=== PATIENT | female | born 1965 | race Two or more races ===

== ENCOUNTER 2017-05-07 08:30 | Emergency (ER) | payer MEDICARE ==
[2017-05-07 08:39] VITALS: BP 169/100
--- NOTE | 2017-05-07 13:19 | CONS ---
NEPHROLOGY CONSULTATION: DATE OF CONSULT/DICTATION: 05/07/17 HISTORY OF PRESENT ILLNESS: Ms. العلي is a 51-year-old female who apparently moved to [place] on Sunday without making arrangements for continued dialysis. She has been on dialysis for approximately one and a half years with end-stage renal disease secondary to hypertension. She has no other significant previous medical history that her can relate to me. She has no other significant surgical history other than placement of an AV fistula for dialysis. MEDICATIONS: Include, 1. Amlodipine 5 mg daily. 2. Sevelamer 800 mg 3 t.i.d. with meals. 3. Sensipar 30 mg daily. 4. Losartan 100 mg daily. 5. Hydralazine 25 mg twice a day. ALLERGIES: She has no medical allergies. SOCIAL HISTORY: She is . She does not use tobacco or alcohol. She lives with her and her son. REVIEW OF SYSTEMS: Essentially negative. PHYSICAL EXAMINATION: She is a well-developed, well-nourished female who appears quite comfortable. Her blood pressure is 169/100 with a pulse of 101, respirations are 16. She is anicteric. Her extraocular muscles are intact. Mucous membranes are moist. Her chest is clear. Her heart revealed a regular rhythm without murmurs. Skin is warm and dry. There is no edema. She has a functioning dialysis fistula in the lower right forearm with a good bruit and thrill. LABORATORY DATA: There are no laboratory values done. IMPRESSION: 1. End-stage renal disease. 2. Hypertension. At present, we can dialyze her in the outpatient dialysis unit until she is administratively cleared as a result when we are going to need to dialyze her through the hospital until we can make further arrangements. [id number]/[facility] #: [id number] MTDKatie
[2017-05-07 13:38] LABS: Hematocrit 27 % (35-47); Hemoglobin 8.9 g/dl (12.0-16.0); Mean Corpuscular HGB Conc 33 g/dl (31-36); Mean Corpuscular Hemoglobin 30 pg (27-31); Mean Corpuscular Volume 93 fL (80-97); Mean Platelet Volume 9 um3 (7.4-10.4); Red Blood Count 2.93 10^6/ul (4.0-5.4); Red Cell Distribution Width 17 % (10.5-15); White Blood Count 7.8 10^3/ul (3.5-10.8)
[2017-05-07 13:48] LABS: Albumin 3.8 g/dL (3.2-5.2); BUN/Creatinine Ratio 7.1 (8-20); Calcium 8.4 mg/dL (8.6-10.3); EGFR African American 4.3 (>60); EGFR Non-African American 3.3 (>60); Globulin 3.6 g/dL (2-4); One Over Creatinine 0.08 mg/dL (0.51-0.95); Phosphorus 3.4 mg/dL (2.5-5.0); Total Bilirubin 0.8 mg/dL (0.2-1.0); Total Protein 7.4 g/dL (6.4-8.9)
[2017-05-07] MEDS ORDERED: Heparin DIALYSIS ONLY(*) 1,000 UNITS/ML VIAL DIALYSIS ONE (14:00)
[2017-05-07 15:15] LABS: Potassium 5.6 mmol/L (3.5-5.0)
[2017-05-07] MEDS ORDERED: Acetaminophen TAB* 325 MG ONE (16:14)
[2017-05-07] MEDS ORDERED: Acetaminophen TAB* 325 MG PO ONE (16:17)
--- NOTE | 2017-05-07 16:36 | ED ---
Demetrius Spear Thomas, scribed for Alfonzo Adler MD on 05/07/17 at 0917 . Complex/Multi-Sys Presentation - HPI Summary HPI Summary: The pt is a 51 y/o F presenting to the ED in need of a dialysis appointment. She recently moved here from [place] and has not yet made contact with a dialysis center. She normally gets dialysis three times a week. She was last dialyzed four days ago and is two days overdue. She has been on dialysis for 1 year, 8 months. PMHx: kidney failure, dialysis, HTN. PSHx: AV fistula. SHx: former smoker, rare alcohol use, no illicit drug use. FHx: HTN, DM. She is accompanied by her who acts as an boilermaking supervisor as she speaks only Brazilian. - History Of Current Complaint Chief Complaint: EDGeneral Time Seen by Provider: 05/07/17 09:07 Hx Obtained From: Patient, Family/Diet Supervisor - is present Onset/Duration: Still Present Timing: Constant Severity Currently: Moderate - she is two days over-due for dialysis Location: Negative Aggravating Factor(s): None Alleviating Factor(s): None Related History: Other - She is a dialysis patient in need of a dialysis referral - Allergies/Home Medications Allergies/Adverse Reactions: Allergies Allergy/AdvReac Type Severity Reaction Status Date / Time No Known Allergies Allergy Verified 05/07/17 08:37 PMH/Surg Hx/FS Hx/Imm Hx Previously Healthy: No Cardiovascular History: Reports: Hx Hypertension History: Reports: Hx Chronic Renal Failure - Surgical History Surgery Procedure, Year, and Place: AV Fistula Infectious Disease History: No Infectious Disease History: Denies: Traveled Outside the US in Last 30 Days - Family History Known Family History: Positive: Hypertension, Diabetes - Social History Alcohol Use: Rare Hx Substance Use: No Substance Use Type: Reports: None Hx Tobacco Use: Yes Smoking Status (MU): Former Smoker Review of Systems Negative: Fever Positive: other - Two days over-due for dialysis All Other Systems Reviewed And Are Negative: Yes Physical Exam Triage Information Reviewed: Yes Vital Signs On Initial Exam: Initial Vitals Temp Pulse Resp BP Pulse Ox 98.2 F 101 16 169/100 100 05/07/17 08:37 05/07/17 08:37 05/07/17 08:37 05/07/17 08:37 05/07/17 08:37 Vital Signs Reviewed: Yes Appearance: Positive: Well-Appearing, No Pain Distress Skin: Positive: Warm, Skin Color Reflects Adequate Perfusion Head/Face: Positive: Normal Head/Face Inspection Eyes: Positive: EOMI ENT: Positive: Normal ENT inspection Neck: Positive: Supple, Nontender Respiratory/Lung Sounds: Positive: Clear to Auscultation, Breath Sounds Present Cardiovascular: Positive: RRR. Negative: Murmur Abdomen Description: Positive: Nontender Musculoskeletal: Positive: Strength/ROM Intact Neurological: Positive: Sensory/Motor Intact, Alert, Oriented to Person Place, Time, CN Intact II-III Psychiatric: Positive: Normal - Toney Coma Scale Best Eye Response: 4 - Spontaneous Best Motor Response: 6 - Obeys Commands Best Verbal Response: 5 - Oriented Coma Scale Total: 15 Diagnostics - Vital Signs Vital Signs Temp Pulse Resp BP Pulse Ox 05/07/17 08:37 98.2 F 101 16 169/100 100 - Laboratory Result Diagrams: 05/07/17 13:17 05/07/17 13:17 Lab Statement: Any lab studies that have been ordered have been reviewed, and results considered in the medical decision making process. Complex Multi-Symp Course/Dx Assessment/Plan: The pt is a 51 y/o F presenting to the ED in need of a dialysis appointment. She is diagnosed with CRF and encounter for a medical screen exam. She is comfortable. Patient is stable. She will be dialysed by Dr Santoro today from the ER when they can fit her in. - Diagnoses Provider Diagnoses: Encounter for medical screening examination, CRF (chronic renal failure), Hypertension Discharge - Discharge Plan Condition: Good Disposition: HOME Discharge Disposition Comment: Patient will be walked over to the dialysis center Patient Education Materials: Hypertension (ED), End Stage Kidney Disease (ED) Referrals: Honorio Santoro MD [Medical Doctor] - Additional Instructions: go to the dialysis center at this hospital after discharge. The documentation as recorded by the Demetrius guerrero Thomas accurately reflects the service I personally performed and the decisions made by me, Alfonzo Adler MD.
== END 2017-05-07 16:19 | disposition home or self-care (01) ==
LOC: ED 08:30
DX: Z00.00 Encounter for general adult medical examination without abnormal findings (principal); I10 Essential (primary) hypertension; N18.9 Chronic kidney disease, unspecified; Z00.8 Encounter for other general examination; Z99.2 Dependence on renal dialysis
CPT/HCPCS: 36415; 80053; 84100; 85027; 99283; A9270-GY; J1644

== ENCOUNTER → 2017-05-09 08:28 | Emergency (ER) | payer MEDICARE ==
[~2017-05-09 08:28] MED LIST: Epoetin Alfa* 2,000 UNITS/ML VIAL IV ONE; Epoetin Alfa* 3,000 UNITS/ML VIAL IV ONE; Heparin DIALYSIS ONLY(*) 1,000 UNITS/ML VIAL DIALYSIS ONE
[2017-05-09 08:34] VITALS: BP 141/81
--- NOTE | 2017-05-10 07:49 | ED ---
Demetrius Spear Thomas, scribed for Isak Marks MD on 05/09/17 at 0912 . Complex/Multi-Sys Presentation - HPI Summary HPI Summary: The patient is a 51 y/o F who presents to the ED in need of dialysis. She has dialysis on M//. She has been dialyzed for the last 1 year and 8 months. She recently moved from [place] and is in the process of establishing a dialysis center in the [facility]. She was seen at [facility] two days ago and was last dialyzed then. PMHx: CRF, dialysis, HTN. PSHx: AV fistula. SHx: former smoker, rare alcohol use, no illicit drug use. FHx: HTN, DM. She is accompanied by her . She speaks only Urdu and her acts as her speed belt sander. - History Of Current Complaint Chief Complaint: EDGeneral Time Seen by Provider: 05/09/17 08:53 Hx Obtained From: Patient, Family/[employer] Distributor - is present, who acts as speed belt sander Onset/Duration: Lasting Days - she was last dialyzed 2 days ago and is due today , Still Present Timing: Constant Aggravating Factor(s): None Alleviating Factor(s): None Associated Signs And Symptoms: Positive: Other - Needs dialysis Related History: Other - Hx of CRF and the pt has been on dialysis for the last 1 year, 8 months - Allergies/Home Medications Allergies/Adverse Reactions: Allergies Allergy/AdvReac Type Severity Reaction Status Date / Time No Known Allergies Allergy Verified 05/07/17 08:37 PMH/Surg Hx/FS Hx/Imm Hx Previously Healthy: No Cardiovascular History: Reports: Hx Hypertension History: Reports: Hx Chronic Renal Failure - Surgical History Surgery Procedure, Year, and Place: AV Fistula Infectious Disease History: Yes Infectious Disease History: Denies: Traveled Outside the US in Last 30 Days - Family History Known Family History: Positive: Hypertension, Diabetes - Social History Alcohol Use: Rare Hx Substance Use: No Substance Use Type: Reports: None Hx Tobacco Use: Yes Smoking Status (MU): Former Smoker Review of Systems Negative: Fever Positive: other - Needs dialysis (M/W/F and last dialyzed two days ago) All Other Systems Reviewed And Are Negative: Yes Physical Exam Triage Information Reviewed: Yes Vital Signs On Initial Exam: Initial Vitals Temp Pulse Resp BP Pulse Ox 98.1 F 98 20 141/81 95 10/04/17 08:31 05/09/17 08:31 05/09/17 08:31 05/09/17 08:31 05/09/17 08:31 Vital Signs Reviewed: Yes Appearance: Positive: Well-Appearing, No Pain Distress, Obese Skin: Positive: Warm, Skin Color Reflects Adequate Perfusion, Dry Head/Face: Positive: Normal Head/Face Inspection Eyes: Positive: Normal ENT: Positive: Normal ENT inspection Neck: Positive: Supple, Nontender Respiratory/Lung Sounds: Positive: Clear to Auscultation, Breath Sounds Present Cardiovascular: Positive: RRR Abdomen Description: Positive: Nontender, Soft Bowel Sounds: Positive: Present Musculoskeletal: Positive: Normal Neurological: Positive: Normal Psychiatric: Positive: Normal, Affect/Mood Appropriate Diagnostics - Vital Signs Vital Signs Temp Pulse Resp BP Pulse Ox 05/09/17 08:31 98.1 F 98 20 141/81 95 - Laboratory Lab Statement: Any lab studies that have been ordered have been reviewed, and results considered in the medical decision making process. Complex Multi-Symp Course/Dx - Diagnoses Provider Diagnoses: Acute renal failure Discharge - Discharge Plan Condition: Stable Disposition: HOME Patient Education Materials: End Stage Kidney Disease (ED) Referrals: Honorio Santoro MD [Medical Doctor] - 05/12/17 Additional Instructions: Follow up with Dr. Santoro, bridge toll collector, on May 12. The documentation as recorded by the Demetrius guerrero Thomas accurately reflects the service I personally performed and the decisions made by , Isak Marks MD.
== END | disposition home or self-care (01) ==
LOC: ED 08:28
DX: N17.9 Acute kidney failure, unspecified (principal); Z87.891 Personal history of nicotine dependence; Z99.2 Dependence on renal dialysis; I12.0 Hypertensive chronic kidney disease with stage 5 chronic kidney disease or end stage renal disease; E11.22 Type 2 diabetes mellitus with diabetic chronic kidney disease; N18.6 End stage renal disease
CPT/HCPCS: 99281; J0885; J1644

== ENCOUNTER 2017-12-04 01:36 | Inpatient (IN) | payer MEDICARE, MEDICAID ==
--- OUTSIDE RECORDS SUMMARY | 2017-12-04 02:02 | XMS REPORT ---
:1965 External Reference #:[id number] Author Organization [employer] Address [address] [place] [address] Phone [phone] Care Team Providers Name Role Phone Memo Garcia MD Primary Care Physician Unavailable Payers Type Date Identification Numbers Payment Provider Subscriber Medicare Primary Policy Number: [id number] Medicare Telma العلي PayID: [id number] [address] [place] [address] [facility] Policy Number: [id number] Medicaid Telma العلي Group Name: 1 1 [address] PayID: [id number] [place] [address] Problems Description No Information Social History Type Date Description Comments Lives With Spouse Occupation Unemployed ETOH Use Denies alcohol use Smoking Patient has never smoked Allergies, Adverse Reactions, Alerts Date Description Reaction Status Severity Comments 10/29/2017 Aspirin active Medications Medication Date Status Form Strength Qnty SIG Indications Ordering Provider No Active 10/29/2017 Active Unknown Medications Vital Signs Date Vital Result Comment 11/12/2017 Height 62 inches 5'2" Weight 140.00 lb Heart Rate 99 /min BP Systolic 148 mmHg BP Diastolic 98 mmHg Respiratory Rate 16 /min Body Temperature 98.0 F BMI (Body Mass Index) 25.6 kg/m2 10/29/2017 Height 62 inches 5'2" Weight 140.00 lb Heart Rate 99 /min Respiratory Rate 14 /min Body Temperature 98.3 F Pain Level 6 BMI (Body Mass Index) 25.6 kg/m2 Results Description No Information Procedures Date CPT Code Description Status 10/29/2017 93401 Closed [place] Phalanx finger/thumb shaft w/o manipulation Completed Plan of Care Future Appointment(s):12/12/2017 1:00 pm - Lawrence Tovar MD at [facility]11/12/2017 - Lawrence Tovar, [id number] Disp fx of prox phalanx of l lit fngr, 7thDFollow up:Follow up: 4 weeks with xrays
[2017-12-04 04:49] LABS: ABS Basophils 0.1 10^3/ul (0-0.2); ABS Eosinophils 0.3 10^3/ul (0-0.6); ABS Monocytes 0.7 10^3/ul (0-0.8); ABS Neutrophils 4.9 10^3/ul (1.5-7.7); ABS Nucleated RBC 0 10^3/ul; Eosinophil % 4.2 % (0-6); Hematocrit 33 % (35-47); Hemoglobin 10.6 g/dl (12.0-16.0); Lymphocyte % 14.1 % (25-47); Mean Corpuscular HGB Conc 32 g/dl (31-36); Mean Corpuscular Hemoglobin 30 pg (27-31); Mean Corpuscular Volume 93 fL (80-97); Mean Platelet Volume 9.1 um3 (7.4-10.4); Nucleated Red Blood Cells % 0; Platelet Count 196 10^3/ul (150-450); Red Blood Count 3.52 10^6/ul (4.0-5.4); Red Cell Distribution Width 17 % (10.5-15)
[2017-12-04] MEDS ORDERED: Metoprolol Tartrate TAB* 25 MG PO ONE (05:04)
--- NOTE | 2017-12-04 05:30 | ED ---
Vale Spear Rebecca, scribed for Ning Sorensenuel on 12/04/17 at 0315 . Complex/Multi-Sys Presentation - HPI Summary HPI Summary: Pt is a 52 y/o F accompanied by son who presents to ED c/o hemoptysis. Son states that she coughs every night, but this was the first time she produced blood. Denies fever, CP. Is on Dialysis - last treatment was Sunday (3 days ago), next one is today. Son is acting as electric mule operator, as pt speaks Luxembourgish. - History Of Current Complaint Chief Complaint: EDGIBleed Time Seen by Provider: 12/04/17 03:00 Hx Obtained From: Patient Onset/Duration: Still Present Severity Currently: None Location: Negative Aggravating Factor(s): Nothing Alleviating Factor(s): Nothing Associated Signs And Symptoms: Positive: Other - Cough (hemoptysis) - Allergies/Home Medications Allergies/Adverse Reactions: Allergies Allergy/AdvReac Type Severity Reaction Status Date / Time aspirin Allergy Bleeding Verified 12/04/17 01:42 PMH/Surg Hx/FS Hx/Imm Hx Cardiovascular History: Reports: Hx Hypertension History: Reports: Hx Chronic Renal Failure - Surgical History Surgery Procedure, Year, and Place: AV Fistula Infectious Disease History: No Infectious Disease History: Denies: Traveled Outside the US in Last 30 Days - Family History Known Family History: Positive: Hypertension, Diabetes - Social History Alcohol Use: Rare Hx Substance Use: No Substance Use Type: Reports: None Hx Tobacco Use: Yes Smoking Status (MU): Former Smoker Review of Systems Negative: Fever Negative: Chest Pain Positive: Cough - hemoptysis All Other Systems Reviewed And Are Negative: Yes Physical Exam - Summary Physical Exam Summary: Appearance: Well appearing, no pain distress Skin: warm, dry, reflects adequate perfusion Head/face: normal Eyes: EOMI, MARIANA ENT: normal Neck: supple, non-tender Respiratory: CTA, breath sounds present Cardiovascular: RRR, pulses symmetrical ~ Abdomen: non-tender, soft Bowel: present Musculoskeletal: strength/ROM intact, fistula in the right arm Neuro: normal, sensory motor intact, A&Ox3 Triage Information Reviewed: Yes Vital Signs On Initial Exam: Initial Vitals Temp Pulse Resp BP Pulse Ox 99 F 119 22 185/99 100 12/04/17 01:41 12/04/17 01:41 12/04/17 01:41 12/04/17 01:41 12/04/17 01:41 Vital Signs Reviewed: Yes Diagnostics - Vital Signs Vital Signs Temp Pulse Resp BP Pulse Ox 12/04/17 01:41 99 F 119 22 185/99 100 - Laboratory Lab Results: Lab Results 12/04/17 12/04/17 12/04/17 Range/Units 04:11 04:11 04:11 WBC 7.0 (3.5-10.8) 10^3/ul RBC 3.52 L (4.0-5.4) 10^6/ul Hgb 10.6 L (12.0-16.0) g/dl Hct 33 L (35-47) % MCV 93 (80-97) fL MCH 30 (27-31) pg MCHC 32 (31-36) g/dl RDW 17 H (10.5-15) % Plt Count 196 (150-450) 10^3/ul MPV 9.1 (7.4-10.4) um3 Neut % (Auto) 70.4 (38-83) % Lymph % (Auto) 14.1 L (25-47) % Larue % (Auto) 10.4 H (0-7) % Eos % (Auto) 4.2 (0-6) % Baso % (Auto) 0.9 (0-2) % Absolute Neuts (auto) 4.9 (1.5-7.7) 10^3/ul Absolute Lymphs (auto) 1.0 (1.0-4.8) 10^3/ul Absolute Monos (auto) 0.7 (0-0.8) 10^3/ul Absolute Eos (auto) 0.3 (0-0.6) 10^3/ul Absolute Basos (auto) 0.1 (0-0.2) 10^3/ul Absolute Nucleated RBC 0 10^3/ul Nucleated RBC % 0 INR (Anticoag Therapy) 0.90 (0.77-1.02) APTT 27.9 (26.0-36.3) seconds Sodium (139-145) mmol/L Potassium (3.5-5.0) mmol/L Chloride (101-111) mmol/L Carbon Dioxide (22-32) mmol/L Anion Gap (2-11) mmol/L BUN (6-24) mg/dL Creatinine (0.51-0.95) mg/dL Est GFR ( Amer) (>60) Est GFR (Non-Af Amer) (>60) BUN/Creatinine Ratio (8-20) Glucose (70-100) mg/dL Calcium (8.6-10.3) mg/dL Total Bilirubin (0.2-1.0) mg/dL AST (13-39) U/L ALT (7-52) U/L Alkaline Phosphatase (34-104) U/L Troponin I (<0.04) ng/mL B-Natriuretic Peptide 614 H ( - 100) pg/mL Total Protein (6.4-8.9) g/dL Albumin (3.2-5.2) g/dL Globulin (2-4) g/dL Albumin/Globulin Ratio (1-3) 12/04/17 Range/Units 04:11 WBC (3.5-10.8) 10^3/ul RBC (4.0-5.4) 10^6/ul Hgb (12.0-16.0) g/dl Hct (35-47) % MCV (80-97) fL MCH (27-31) pg MCHC (31-36) g/dl RDW (10.5-15) % Plt Count (150-450) 10^3/ul MPV (7.4-10.4) um3 Neut % (Auto) (38-83) % Lymph % (Auto) (25-47) % Larue % (Auto) (0-7) % Eos % (Auto) (0-6) % Baso % (Auto) (0-2) % Absolute Neuts (auto) (1.5-7.7) 10^3/ul Absolute Lymphs (auto) (1.0-4.8) 10^3/ul Absolute Monos (auto) (0-0.8) 10^3/ul Absolute Eos (auto) (0-0.6) 10^3/ul Absolute Basos (auto) (0-0.2) 10^3/ul Absolute Nucleated RBC 10^3/ul Nucleated RBC % INR (Anticoag Therapy) (0.77-1.02) APTT (26.0-36.3) seconds Sodium 140 (139-145) mmol/L Potassium 5.2 H (3.5-5.0) mmol/L Chloride 103 (101-111) mmol/L Carbon Dioxide 24 (22-32) mmol/L Anion Gap 13 H (2-11) mmol/L BUN 54 H (6-24) mg/dL Creatinine 10.12 H (0.51-0.95) mg/dL Est GFR ( Amer) 5.2 (>60) Est GFR (Non-Af Amer) 4.0 (>60) BUN/Creatinine Ratio 5.3 L (8-20) Glucose 113 H (70-100) mg/dL Calcium 9.3 (8.6-10.3) mg/dL Total Bilirubin 0.80 (0.2-1.0) mg/dL AST 26 (13-39) U/L ALT 15 (7-52) U/L Alkaline Phosphatase 122 H (34-104) U/L Troponin I 0.04 H* (<0.04) ng/mL B-Natriuretic Peptide ( - 100) pg/mL Total Protein 7.5 (6.4-8.9) g/dL Albumin 3.9 (3.2-5.2) g/dL Globulin 3.6 (2-4) g/dL Albumin/Globulin Ratio 1.1 (1-3) Result Diagrams: 12/04/17 04:11 12/04/17 04:11 Lab Statement: Any lab studies that have been ordered have been reviewed, and results considered in the medical decision making process. - Radiology CXR Xray Interpretation: No Acute Changes Radiology Interpretation Completed By: ED Physician - EKG 0347 Cardiac Rate: Tachycardia - 109 bpm EKG Rhythm: Sinus Tachycardia EKG Interpretation: No acute changes Complex Multi-Symp Course/Dx Assessment/Plan: Pt is a 52 y/o F accompanied by son who presents to ED c/o hemoptysis. Son states that she coughs every night, but this was the first time she produced blood. Denies fever, CP. Is on Dialysis - last treatment was Sunday (3 days ago), next one is today. Son is acting as electric mule operator, as pt speaks Luxembourgish. Blood work was done, troponin of 0.04. EKG is sinus tachy with no acute changes. CXR reveals no acute findings. In the ED course, pt received Lopressor. Discussed care of pt with Dr. Phan, who accepts pt for admission. Pt will be admitted with Dx of end stage renal disease, elevated troponin and atypical chest pain. Allergy noted. - Diagnoses Differential Diagnoses/HQI/PQRI: Aspiration, Cardiac Ischemia, Sepsis, Other - bronchitis/pneumonia Provider Diagnoses: End stage renal disease, Atypical chest pain, Elevated troponin - Physician Notifications Discussed Care Of Patient With: Sandy Phan Time Discussed With Above Provider: 05:00 Instructed by Provider To: Other - Accepts pt for admission. Discharge - Sign-Out/Discharge Documenting (check all that apply): Discharge/Admit/Transfer - Admit - Discharge Plan Condition: Stable Disposition: ADMITTED TO [facility] Referrals: No Primary Care Phys,NOPCP [Primary Care Provider] - - Billing Disposition and Condition Condition: STABLE Disposition: [facility] The documentation as recorded by the Vale guerrero Rebecca accurately reflects the service I personally performed and the decisions made by , Madan Sorensen.
--- NOTE | 2017-12-04 08:13 | RAD ---
INDICATION: Cough COMPARISON: None TECHNIQUE: PA and lateral views of the chest were obtained. FINDINGS: The heart and mediastinum are normal in size and contour. There is a mild degree of diffuse centrilobular parenchymal density and/or vascular congestion. There is no evidence of large pleural effusion. Visualized bones are normal for the patient's age. There is no radiographic evidence of free air beneath the diaphragm IMPRESSION: CHEST X-RAY FINDINGS COULD BE COMPATIBLE WITH MILD VASCULAR CONGESTION VERSUS DIFFUSE INFILTRATIVE PROCESS.
--- NOTE | 2017-12-04 10:04 | RAD ---
INDICATION: Pain and swelling. COMPARISON: None TECHNIQUE: Duplex interrogation of the both lower extremities was performed. FINDINGS: Deep veins: The common femoral, great saphenous, profunda femoris, proximal, mid, and distal deep femoral, popliteal, posterior tibial, and peroneal veins are patent. There is normal compressibility, augmentation, and phasic flow. Superficial veins: There are no findings of superficial thrombophlebitis. Popliteal fossa:There is no evidence of a popliteal cyst. Soft tissues:There are no soft tissue abnormalities. IMPRESSION: NORMAL BILATERAL EXAMINATION. NO EVIDENCE OF DEEP VENOUS THROMBOSIS
[2017-12-04] MEDS: hydrALAZINE TAB* 25 MG PO SCH ×2 (11:44→20:22)
[2017-12-04] MEDS: amLODIPine TAB* 5 MG PO SCH (11:44)
[2017-12-04] MEDS: Sevelamer TAB* 800 MG PO SCH ×2 (11:44→17:36)
--- NOTE | 2017-12-04 13:04 | HP ---
HISTORY AND PHYSICAL: DATE OF ADMISSION: 12/04/17 ADMITTING PROVIDER: Colten Gonzalez MD. PRIMARY CARE PHYSICIAN: Dr. Garcia. PRIMARY BELL NECK HAMMERER: Dr. Santoro. CHIEF COMPLAINT: Hemoptysis. HISTORY OF PRESENT ILLNESS: Telma العلي is a 52-year-old female, originally from [place], with past medical history of end-stage renal disease, on hemodialysis Sunday, , and Sunday for the last 2-1/2 years secondary to hypertension. She has had 3 days of coughing and the night prior to admission brought up 1 or 2 large blood clots after drinking some cold water. She denies ever having this before. About a month ago, she fell on uneven surface when she was in [place], had a contusion. CT imaging at that time, bruising underneath her eyes, brief nose bleeding (since resolved). She denies any fevers, chills, chest pain, chest tightness, arm pain, neck pain, nausea, vomiting, abdominal pain. She does attest that her right leg and calf seemed more swollen night prior to admission. Denies history of blood clots, immobility, long car rides, air flights. She has had decreased appetite for the last 1 to 2 weeks that has improved. She last had her dialysis on Sunday 3 days prior to admission, is due today. She has never had this hemoptysis before. She has had EGD and colonoscopy about 1 year ago after developed a rash with Advil, was found to have some ulcers coated in her small intestine. She had an elevated BNP to 614 and troponin of 0.04 in the emergency room and was referred to hospitalist service for admission for elevated troponin and hemoptysis. PAST MEDICAL HISTORY: 1. End-stage renal disease. Sunday, , Sunday HD with [facility]. 2. Hypertension. 3. Small intestinal ulcers, 2017. MEDICATIONS: Include: 1. Losartan 100 mg daily. 2. Sevelamer 2400 mg t.i.d. 3. Amlodipine 10 mg daily. 4. Hydralazine 25 mg b.i.d. 5. Cinacalcet 90 mg daily. 6. Omeprazole 20 mg daily. ALLERGIES: Noted to be ASPIRIN, causing bleeding. FAMILY HISTORY: Father with hypertension, diabetes, heart disease. Mother with Alzheimer's. Aunt with throat cancer. SOCIAL HISTORY: The patient is a never smoker, never drinker. 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 Lives with her and medical surrogate, Ezio Cedeño, in [place], [place] previously of [place], moved 4 to 5 days ago and last year moved from [place]. REVIEW OF SYSTEMS: A complete 14-point review of systems is negative except as per HPI. She denies any calf pain or tenderness, headaches, rashes, recent travel, shortness of breath, chest pain, chest tightness. Recent nosebleed with the fall, has not returned. PHYSICAL EXAMINATION GENERAL APPEARANCE: No acute distress, sitting on the hospital bed. VITAL SIGNS: Blood pressure initially 185/99, currently 160/101; pulse rate initially 119, currently 88. She is satting 95% on room air, heart rate 99.0. HEENT: Normocephalic, atraumatic, but there is a slight resolving discoloration underneath her left eye. No scleral icterus. Moist mucous membranes. NECK: Supple. No cervical lymphadenopathy. PULMONARY: Clear to auscultation. No wheezing, rales, or rhonchi. CARDIOVASCULAR: Regular rate and rhythm. No murmurs, rubs, or gallops. ABDOMEN: Soft, nontender, and nondistended. EXTREMITIES: Warm, well perfused. Edema in the right greater than left calf. Nontender. No cords palpated. NEUROLOGIC: Cranial nerves II through XII intact. Moving all extremities. Application Tester strength intact. Sensation is intact. DIAGNOSTIC STUDIES/LABORATORY DATA: White count 7.0, hemoglobin 10.6, hematocrit 33, RDW 17, MCV 93. INR 0.90. Sodium 140, potassium 5.2, chloride 103, carbon dioxide 24, BUN 54, creatinine 10.12, glucose 113. Total bili 0.8, AST 26, ALT 15, alk phos 122. Troponin 0.04. BNP 614. Albumin 3.9. D-dimer and ESR added on and pending. Reports: Chest x-ray with some mild vascular congestion. EKG with sinus tachycardia, rate 109. No ST elevations or depressions. T-wave inversion in V1 , Q in III. Normal axis. ASSESSMENT AND PLAN: Telma العلي is a 52-year-old female with past medical history of end-stage renal disease, hypertension, presenting with hemoptysis described as 1 to 2 blood clots filling up maybe 1/20th of a small cup of water, has never happened before; with tachycardia; right greater than calf swelling; and elevated troponin and BNP (that were also related to her end- stage renal disease likely). I think we need to investigate whether or not she has a pulmonary embolism. I am adding on the D-dimer, checking ultrasound of her bilateral lower extremities. She does make urine still. Consideration to do a V/Q scan if the D- dimer is still elevated. I am adding on the ESR to consider adding vasculitis studies if that is elevated. We will control her blood pressure. Continue her losartan, amlodipine, hydralazine. I have contacted the dialysis floor and Dr. Santoro is being notified of her arrival. He may want to dialyze her today versus tomorrow. She is not in any respiratory distress and potassium is only slightly elevated at 5.2. She will be admitted to observation status and continued telemetry. We will repeat troponins every 4 hours x2 more. She can eat a renal diet. Medical surrogate is Ezio Davidson, her . She is a full code. [id number]/[facility] #: [id number] MTDD
[2017-12-04] MEDS: Cinacalcet TAB* 30 MG PO SCH (17:36)
[2017-12-04] MEDS: Benzonatate CAP* 100 MG PO PRN (21:19)
[2017-12-05] MEDS: Acetaminophen TAB* 325 MG PO PRN ×2 (00:03→12:56)
[2017-12-05 08:23] LABS: ABS Basophils 0.1 10^3/ul (0-0.2); ABS Eosinophils 0.3 10^3/ul (0-0.6); ABS Lymphocytes 1.2 10^3/ul (1.0-4.8); ABS Monocytes 0.6 10^3/ul (0-0.8); ABS Neutrophils 5.5 10^3/ul (1.5-7.7); ABS Nucleated RBC 0 10^3/ul; Eosinophil % 3.5 % (0-6); Hematocrit 34 % (35-47); Lymphocyte % 15.3 % (25-47); Mean Corpuscular HGB Conc 32 g/dl (31-36); Mean Corpuscular Hemoglobin 30 pg (27-31); Mean Corpuscular Volume 93 fL (80-97); Mean Platelet Volume 8.4 um3 (7.4-10.4); Nucleated Red Blood Cells % 0.2; Platelet Count 184 10^3/ul (150-450); Red Blood Count 3.65 10^6/ul (4.0-5.4); Red Cell Distribution Width 17 % (10.5-15); White Blood Count 7.6 10^3/ul (3.5-10.8)
[2017-12-05] MEDS: Sevelamer TAB* 800 MG PO SCH ×3 (08:48→17:16)
[2017-12-05] MEDS ORDERED: Losartan TAB* 25 MG PO SCH (09:00)
[2017-12-05] MEDS ORDERED: Diltiazem IV* 5 MG/ML 5 ML VIAL (for loading dose/IV Push) (25 MG) IV SLOW PU ONE (13:08)
[2017-12-05] MEDS ORDERED: Diltiazem IV* 5 MG/ML 5 ML VIAL (for loading dose/IV Push) (25 MG) ONE (13:14)
[2017-12-05] MEDS: hydrALAZINE TAB* 25 MG PO SCH ×2 (15:07→21:25)
[2017-12-05] MEDS: amLODIPine TAB* 5 MG PO SCH (15:11)
[2017-12-05] MEDS: Diltiazem TAB* 30 MG PO SCH ×2 (15:12→18:18)
[2017-12-05] MEDS: Cinacalcet TAB* 30 MG PO SCH (15:12)
[2017-12-05] MEDS: Omeprazole CAP* 20 MG PO SCH (15:12)
--- NOTE | 2017-12-05 21:44 | PN ---
Subjective Date of Service: 12/05/17 Interval History: No more hemoptysis. no cough, no SOB Ddimer negative, duplex dopplers negative. Had been planning d/c after dialysis. However pt went into Afib with RVR during dialysis. 150-160s. Dilt IV then po. BP controlled. ESR 44, Proteinate 3 elevated at 1.2 changed to inpatient status. Objective Active Medications: Acetaminophen (Tylenol Tab*) 650 mg PO Q4H PRN PRN Reason: PAIN Last Admin: 12/05/17 12:56 Dose: 650 mg Benzonatate (Tessalon Cap*) 200 mg PO TID PRN PRN Reason: COUGH Last Admin: 12/04/17 21:19 Dose: 200 mg Cinacalcet (Sensipar Tab*) 90 mg PO DAILY [facility] Last Admin: 12/05/17 15:12 Dose: 90 mg Diltiazem HCl (Cardizem Tab*) 30 mg PO Q6HR [facility] Last Admin: 12/05/17 18:18 Dose: 30 mg Hydralazine HCl (Apresoline Tab*) 25 mg PO BID [facility] Last Admin: 12/05/17 21:25 Dose: 25 mg Omeprazole (Prilosec Cap*) 20 mg PO DAILY [facility] Last Admin: 12/05/17 15:12 Dose: 20 mg Sevelamer Carbonate (Renvela Tab*) 2,400 mg PO TID WITH MEALS [facility] Last Admin: 12/05/17 17:16 Dose: 2,400 mg Vital Signs - 8 hr 12/05/17 12/05/17 12/05/17 15:19 17:16 18:00 Temperature 97.8 F 97.7 F Pulse Rate 105 95 Respiratory 22 16 Rate Blood Pressure 159/93 155/92 120/74 (mmHg) O2 Sat by Pulse 98 98 Oximetry 12/05/17 19:39 Temperature 98.5 F Pulse Rate 98 Respiratory 20 Rate Blood Pressure 140/110 (mmHg) O2 Sat by Pulse 94 Oximetry Oxygen Devices in Use Now: Nasal Cannula Appearance: NAD Eyes: No Scleral Icterus Ears/Nose/Mouth/Throat: NL Teeth, Lips, Gums Neck: NL Appearance and Movements; NL JVP, Trachea Midline Respiratory: Symmetrical Chest Expansion and Respiratory Effort, Clear to Auscultation Cardiovascular: NL Sounds; No Murmurs; No JVD Abdominal: NL Sounds; No Tenderness; No Distention Extremities: No Edema Skin: No Rash or Ulcers Neurological: Alert and Oriented x 3, NL Sensation, NL Muscle Strength and Tone Nutrition: Taking PO's Result Diagrams: 12/05/17 08:08 12/05/17 08:08 Additional Lab and Data: Laboratory Results - last 24 hr 12/04/17 12/05/17 12/05/17 12:37 08:08 08:08 WBC 7.6 RBC 3.65 L Hgb 11.0 L Hct 34 L MCV 93 MCH 30 MCHC 32 RDW 17 H Plt Count 184 MPV 8.4 Neut % (Auto) 72.8 Lymph % (Auto) 15.3 L Scurry % (Auto) 7.3 H Eos % (Auto) 3.5 Baso % (Auto) 1.1 Absolute Neuts (auto) 5.5 Absolute Lymphs (auto) 1.2 Absolute Monos (auto) 0.6 Absolute Eos (auto) 0.3 Absolute Basos (auto) 0.1 Absolute Nucleated RBC 0 Nucleated RBC % 0.2 Sodium 143 Potassium 5.2 H Chloride 108 Carbon Dioxide 20 L Anion Gap 15 H BUN 76 H Creatinine 13.01 H Est GFR ( Amer) 3.9 Est GFR (Non-Af Amer) 3.0 BUN/Creatinine Ratio 5.8 L Glucose 97 Calcium 8.8 Phosphorus 4.9 Magnesium 2.4 Procalcitonin Proteinase 3 (PR3) 1.2 H Myeloperoxidase Ab <0.2 12/05/17 08:08 WBC RBC Hgb Hct MCV MCH MCHC RDW Plt Count MPV Neut % (Auto) Lymph % (Auto) Scurry % (Auto) Eos % (Auto) Baso % (Auto) Absolute Neuts (auto) Absolute Lymphs (auto) Absolute Monos (auto) Absolute Eos (auto) Absolute Basos (auto) Absolute Nucleated RBC Nucleated RBC % Sodium Potassium Chloride Carbon Dioxide Anion Gap BUN Creatinine Est GFR ( Amer) Est GFR (Non-Af Amer) BUN/Creatinine Ratio Glucose Calcium Phosphorus Magnesium Procalcitonin 0.5 Proteinase 3 (PR3) Myeloperoxidase Ab Microbiology and Other Data: Microbiology 12/04/17 12:18 Nasal Nasal Screen MRSA (PCR)(YUNIOR) - Final Mrsa Not Detected Assess/Plan/Problems-Billing Assessment: 52 yo Indian only speaking female PMH HTN, ESRD p/w hemoptysis. Negative DDimer and LE dopplers(complaint of R>L swelling). ESR 44, PR3 elevated at 1.2. Went into Afib w/r RVR. #Hemoptysis, Elevated ESR and PR3. ESRD (dx in [place], thought 2/2 HTN) - Concern for vasculitis (?GPA) - AKSHAT - Anti glomular basement membrane which can cause lung/kidney dz - UA to look at proteinura/sediment - DS- DNA, AKSHAT, C3, C4 - Stop hydralazine which can cause drup induced lupus or ANCA associated vasculitis - Likely Rheum consult vs outpatient f/u with Dr. Browne. - may need steroids vs biologics if confirmed vasculitis #ESRD - HD today - continue renvela, cinaclet. - TThSa as outpatient #Afib with RVR - new diagnosis - discuss anticoagulation but hold off in setting of recent hemoptysis for now - dilt po - replete lytes prn #HTN - stop hydralazine, now on dilt po. dispo: medicine inpatient from obs. DVT PPx: FEN: heart healthy CODE: FULL
[2017-12-06] MEDS: Diltiazem TAB* 30 MG PO SCH ×4 (00:38→18:24)
[2017-12-06] MEDS: Acetaminophen TAB* 325 MG PO PRN ×2 (03:06→22:17)
[2017-12-06] MEDS: Benzonatate CAP* 100 MG PO PRN ×2 (04:24→16:21)
[2017-12-06] MEDS: Omeprazole CAP* 20 MG PO SCH (08:08)
[2017-12-06] MEDS: Sevelamer TAB* 800 MG PO SCH ×3 (08:08→17:17)
[2017-12-06] MEDS: Cinacalcet TAB* 30 MG PO SCH (10:11)
--- NOTE | 2017-12-06 14:32 | PN ---
Subjective Date of Service: 12/06/17 Interval History: no more coughing denies complaints talked about possible initiation of warfarin Rheum consulted. UA with 2+ protein. Objective Active Medications: Acetaminophen (Tylenol Tab*) 650 mg PO Q4H PRN PRN Reason: PAIN Last Admin: 12/06/17 03:06 Dose: 650 mg Benzonatate (Tessalon Cap*) 200 mg PO TID PRN PRN Reason: COUGH Last Admin: 12/06/17 04:24 Dose: 200 mg Cinacalcet (Sensipar Tab*) 90 mg PO DAILY [facility] Last Admin: 12/06/17 10:11 Dose: 90 mg Diltiazem HCl (Cardizem Tab*) 30 mg PO Q6HR [facility] Last Admin: 12/06/17 12:22 Dose: 30 mg Omeprazole (Prilosec Cap*) 20 mg PO DAILY [facility] Last Admin: 12/06/17 08:08 Dose: 20 mg Sevelamer Carbonate (Renvela Tab*) 2,400 mg PO TID WITH MEALS [facility] Last Admin: 12/06/17 12:22 Dose: 2,400 mg Vital Signs - 8 hr 12/06/17 12/06/17 12/06/17 07:18 07:58 08:06 Temperature 98.4 F 98.4 F Pulse Rate 103 103 Respiratory 26 16 21 Rate Blood Pressure 158/91 158/91 (mmHg) O2 Sat by Pulse 100 100 Oximetry 12/06/17 11:09 Temperature 97.8 F Pulse Rate 102 Respiratory Rate Blood Pressure 169/102 (mmHg) O2 Sat by Pulse 97 Oximetry Oxygen Devices in Use Now: Nasal Cannula Appearance: NAD. Cook Islander speaking seismic interpreter service used. Eyes: No Scleral Icterus, PERRLA Ears/Nose/Mouth/Throat: NL Teeth, Lips, Gums, Mucous Membranes Moist Neck: NL Appearance and Movements; NL JVP Respiratory: Symmetrical Chest Expansion and Respiratory Effort, Clear to Auscultation Cardiovascular: NL Sounds; No Murmurs; No JVD, RRR Abdominal: NL Sounds; No Tenderness; No Distention Extremities: No Edema Skin: No Rash or Ulcers, No Nodules or Sclerosis Neurological: Alert and Oriented x 3, NL Sensation Nutrition: Taking PO's Result Diagrams: 12/05/17 08:08 12/05/17 08:08 Additional Lab and Data: Laboratory Results - last 24 hr 12/06/17 14:47 Urine Color Straw Urine Appearance Clear Urine pH 8.0 Ur Specific [place] 1.006 L Urine Protein 2+(100 mg/dl) A Urine Ketones Trace A Urine Blood 1+ A Urine Nitrate Negative Urine Bilirubin Negative Urine Urobilinogen Negative Ur Leukocyte Esterase Trace A Urine WBC (Auto) Trace(0-5/hpf) Urine RBC (Auto) Trace(0-2/hpf) Ur Squamous Epith Cells Present A Urine Bacteria Absent Urine Glucose 2+(150 mg/dl) A Microbiology and Other Data: Microbiology 12/06/17 16:10 Sputum Expectorated Gram Stain - Final 12/04/17 12:18 Nasal Nasal Screen MRSA (PCR)(YUNIOR) - Final Mrsa Not Detected Assess/Plan/Problems-Billing Assessment: 52 yo Cook Islander only speaking female PMH HTN, ESRD p/w hemoptysis (~10-20cc of 2 blood clots). Had recent head trauma few weeks prior which did include some nose bleeding but that had resolved. Negative DDimer and LE dopplers(complaint of R>L swelling). ESR 44, PR3 elevated at 1.2. Went into Afib w/r RVR during dialysis then back to NSR vs sinus tach. #Hemoptysis, Elevated ESR and PR3. ESRD (dx in [place], thought 2/2 HTN) - Concern for vasculitis (?GPA) - AKSHAT - Anti glomular basement membrane which can cause lung/kidney dz - UA with 2+ protein - DS- DNA, AKSHAT, C3, C4 - Stop hydralazine which can cause drup induced lupus or ANCA associated vasculitis - appreciate Rheum recs with Dr. Browne. Also discussed with Dr. Santoro. ---- thinks most likely hydralazine drug associated and so may not need steroids vs biologics #ESRD - HD MWF while in hospital - continue renvela, cinaclet. - TThSa as outpatient #pAfib with RVR (new dx, one time only during dialysis) - I discussed anticoagulation and she is amenable. CHADSVASC2 is 2(HTN, female) . Holding for now in setting of recent hemoptysis and evaluation of vasculitis( not ruled out that a tissue biopsy may be needed(?nasal)). - dilt po - add BB - replete lytes prn #HTN - stop hydralazine - dilt, toprol dispo: medicine inpatient DVT PPx: SCDs. FEN: heart healthy CODE: FULL
[2017-12-06 15:02] LABS: Urine Appearance Clear; Urine Blood 1+ (Negative); Urine Color Straw; Urine Ketones Trace (Negative); Urine Protein 2+(100 mg/dL) (Negative); Urine Specific Gravity 1.006 (1.010-1.030); Urine Urobilinogen Negative (Negative)
[2017-12-06] MEDS: Metoprolol Tartrate TAB* 50 mg PO SCH ×2 (15:12→21:31)
--- NOTE | 2017-12-06 18:26 | CONSULT ---
Consult Consult: Ms. Hemalatha العلي, who has a history of ESRD, presented with hemoptysis and a chest xray revealed a diffuse infiltrative process. Her PR3 antibody was positive. While this may represent an underlying or evolving vasculitis, I suspect that it was an autoimmune side effect of Hydralazine, which can induce PR3 antibodies and may in some cases lead to a pulmonary renal syndrome. Therefore I agree with stopping Hydralazine; she is already improved clinically and not coughing up any blood. If she continues to improve off of Hydralazine, then she may not need any steroids. I agree with checking an AKSHAT and DSDNA per labs that are pending to evaluate for lupus. Will follow; thanks!
--- NOTE | 2017-12-06 19:42 | ECHO ---
Patient: JAIRON PAEZ [facility] Rec#: [id number] : 1965 Date: 12/06/2017 Age: 52y Height: 157.48 cm / 62.0 in Weight: 61.69 kg / 136.0 lbs Sex: F BSA: 1.62 Room#: 444 Admit Date#: 12/05/2017 Type: Inpatient Referring: Colten Gonzalez Reading: Denys Fountain DO Warehouse Selector: Rin Phillips RDCS,RDMS CC: Memo Garcia MD Transthoracic Echocardiogram Indication: AFIB BP: 157/91 HR: 108 Rhythm: Tachycardia Findings History: Hemoptysis, ESRD, HTN Technical Comments: The study quality is good. Left Ventricle: The left ventricular chamber size is normal. Mild to moderate concentric left ventricular hypertrophy is observed. There is global hypokinesis of the left ventricle with minor regional variation. Left ventricular systolic function is at the lower limits of normal. The estimated ejection fraction is 50-55%. Abnormal left ventricular diastolic function is observed. Left Atrium: The left atrium is moderately dilated. Right Ventricle: The right ventricular chamber size and systolic function are within normal limits. Right Atrium: The right atrial cavity size is normal. Aortic Valve: The aortic valve is trileaflet. There is no evidence of aortic valve thickening. Systolic excursion of the aortic valve is normal. There is no evidence of aortic regurgitation. There is no evidence of aortic stenosis. Mitral Valve: The mitral valve leaflets appear normal. There is mild mitral regurgitation. There is no evidence of mitral stenosis. Tricuspid Valve: The tricuspid valve leaflets are normal. There is trace tricuspid regurgitation. No pulmonary hypertension is noted. Pulmonic Valve: There is no evidence of pulmonic valve thickening. There is no evidence of pulmonic regurgitation. Pericardium: There is no significant pericardial effusion. Pulmonary Artery: The main pulmonary artery is not well visualized. Venous: The inferior vena cava appears normal in size. There is an approximate 50% respiratory change in the inferior vena cava dimension. Conclusions The left ventricular chamber size is normal. Mild to moderate concentric left ventricular hypertrophy is observed. There is mild global hypokinesis of the left ventricle with minor regional variation. Left ventricular systolic function is at the lower limits of normal, patient is tachycardic at time of examination. The estimated ejection fraction is 50-55%. The left atrium is moderately dilated. The right ventricular chamber size and systolic function are within normal limits. There is mild mitral regurgitation. There is no significant pericardial effusion. None prior for comparison at time of interpretation Measurements Name Value Normal Range RVIDd (AP) 2D 1.9 cm (0.9 - 2.6) RVDdMajor (2D) 2.7 cm (2.2 - 4.4) RAd ISD 4CH 4.7 cm (3.4 - 4.9) RA (A4C)W 3.1 cm (2.9 - 4.6) IVSd (2D) 1.3 cm (0.6 - 1) LVPWd (2D) 1.3 cm (0.6 - 1) LVIDd (2D) 5.2 cm (3.6 - 5.4) LVIDs (2D) 3.7 cm - LV FS (2D) 29 % (25 - 45) Aortic Annulus 2 cm (1.4 - 2.6) Ao root diameter (2D) 3.2 cm (2.1 - 3.5) Ascending Ao 2.6 cm (2.1 - 3.4) Aortic arch 2.6 cm (1.8 - 3.4) LA dimension (AP) 2D 4 cm (2.3 - 3.8) LAd ISD 4CH 6.2 cm (2.9 - 5.3) LA ISD 4CH W 5 cm (2.5 - 4.5) Name Value Normal Range LA ESV SP 4CH (A/L) 85.58 ml - LA ESV SP 2CH (A/L) 79.52 ml - LA ESV BP (A/L) 84.12 ml - LA ESV BP (A/L) index 52 ml/m2 - LA ESV SP 4CH (MOD) 77.08 ml - LA ESV SP 2CH (MOD) 74.38 ml - Name Value Normal Range MV E-wave Vmax 1.3 m/sec - MV deceleration time 102 msec - MV A-wave Vmax 1 m/sec - MV E:A ratio 1.3 ratio - LV septal e' Vmax 0.07 m/sec - LV lateral e' Vmax 0.06 m/sec - LV E:e' septal ratio 19 ratio - LV E:e' lateral ratio 22 ratio - Name Value Normal Range AV Vmax 1.7 m/sec - AV VTI 26.3 cm - AV peak gradient 11.5 mmHg - AV mean gradient 5 mmHg - LVOT Vmax 1.2 m/sec - LVOT VTI 18.5 cm - LVOT peak gradient 6 mmHg - LVOT mean gradient 3 mmHg - Name Value Normal Range MV Vmax 1.3 m/sec - MV VTI 20.5 cm - MV peak gradient 7 mmHg - MV mean gradient 3.9 mmHg - MV PHT 42 msec - MR Vmax 6.1 m/sec - MR VTI 170 cm - MR volume (PISA) 15 ml - MR flow (PISA) 58.88 ml/sec - MR ERO 0.9 cm2 - MR PISA radius 0.5 cm - MR alias Vmax 34 cm/sec - MVA (PHT) 5.2 cm2 - Name Value Normal Range RAP 8 mmHg - IVC diameter 1.6 cm - Name Value Normal Range PV Vmax 1.1 m/sec - PV peak gradient 5 mmHg -
--- NOTE | 2017-12-06 21:22 | CONS ---
CONSULTATION REPORT: DATE OF CONSULT: 12/06/17 CHIEF COMPLAINT: Hemoptysis. REASON FOR CONSULT: Elevated PR3 antibody. HISTORY OF PRESENT ILLNESS: Ms. العلي is a 52-year-old woman with a longstanding history of end-stage renal disease. Per the patient, who I communicated with in Armenian today with a station mechanic helper, it was due to underlying hypertension. Among other medications, she was on hydralazine. She is originally from [place], but now living in [place]. She is on hemodialysis, Tuesdays, , and Saturdays for at least the last 2-1/2 years, and as noted above, she has end-stage hypertensive nephropathy. She presented with a complaint of 3 days of coughing as well as some slight hemoptysis and brought up a few clots of blood after drinking some cold water. These symptoms resolved according to the patient and this was confirmed by her nurse. She did have some chest pain, which resulted in her temporarily prematurely discontinuing dialysis yesterday, but since then she has felt well with no hemoptysis or coughing. Her workup revealed an elevated PR3 antibody. Because of the concern that this may be an underlying vasculitis, possibly medication induced, her hydralazine was held. She currently feels well. She denies having symptoms of this before. She did fall on an uneven surface when she was in [place] and had a contusion. CT scan was nonrevealing. She currently feels well with no fevers, chills, chest pain, or chest tightness. She denies any arm pain, neck pain, nausea, vomiting, or abdominal pain. She did have some swelling in her legs right prior to admission, but otherwise she has felt well. She has no prior history of blood clots and she has had no recent travel, but she has had decreased appetite for the last 1 to 2 weeks, but that has improved. She has had dialysis on Sunday 3 days prior to admission and has continued this during her hospitalization, although was stopped early due to the chest wall pain, which has resolved. Of note, she has had an EGD and colonoscopy about a year ago after she developed a rash with ADVIL and was found to have some ulcers in her small intestine. She also has an elevated BNP and troponin in the emergency room and was admitted for this issue as well too, but an acute coronary syndrome has been ruled out. PAST MEDICAL HISTORY: Includes: 1. End-stage renal disease, on Tuesdays, , Saturdays hemodialysis with [facility] in [facility]. 2. Hypertension. 3. Small intestinal ulcers in 2017. MEDICATIONS: Include: 1. Losartan 100 mg daily. 2. Sevelamer 2400 mg t.i.d. 3. Amlodipine 10 mg daily. 4. Hydralazine 25 mg b.i.d. 5. Cinacalcet 90 mg daily. 6. Omeprazole. Current medications as an inpatient include: 1. Acetaminophen. 2. Benzonatate. 3. Diltiazem. 4. Omeprazole. 5. Metoprolol. 6. Hydralazine, which has been discontinued. ALLERGIES: Include ASPIRIN and ADVIL. FAMILY HISTORY: Negative for lupus or rheumatoid arthritis. Her father had hypertension, diabetes, and heart disease, and mother with dementia. Aunt had throat cancer. SOCIAL HISTORY: She has a supportive family. She has never smoked. Does not drink alcohol. 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 She lives with her , her medical surrogate, in the [facility]. REVIEW OF SYSTEMS: General: She denies any acute symptoms currently and she feels well with only mild fatigue. Cardiac: Denies any chest wall pain. Pulmonary: Denies acute shortness of breath. Currently denies hemoptysis. Abdomen: Denies GI symptoms. Denies nausea or vomiting. Musculoskeletal: Denies joint pain. She did have some lower extremity swelling, but it is largely resolved. Skin: No rash. Endocrine: No glandular swelling. No blood in the urine or stool. Other 14-point review of systems were reviewed and were otherwise negative. PHYSICAL EXAM: Blood pressure is 158/91, pulse rate of 103, temperature of 98.4 , respiratory rate of 16. In general, she is pleasant, sitting up, in no acute distress, Armenian-speaking. HEENT exam was normocephalic, atraumatic. Pupils equal, round, and reactive to light and accommodation. Extraocular movements were intact. Lymph: No adenopathy. Thyroid: No thyromegaly. Lungs were clear to auscultation bilaterally except for a few faint crackles at the bases. Cardiovascular exam revealed a regular rate and rhythm. Normal S1 and S2. No S3 or S4. Point of maximum impulse nondisplaced. Abdomen: Soft, nontender, nondistended. Positive bowel sounds with no organomegaly. Dialysis site humming normally. Musculoskeletal: No synovitis. No joint warmth or swelling. Skin: No rash. : No CVA tenderness. Endocrine: No glandular swelling. Pulses were intact. DIAGNOSTIC STUDIES/LAB DATA: She had a white count of 7.6, hemoglobin of 11. BUN 76, creatinine of 13.01, potassium of 5.2. Sed rate of 44 and monocytes of 10.4. She had a proteinase 3 antibody that was elevated at 1.2, but her myeloperoxidase antibody was negative. Procalcitonin was 0.5. Phosphorus was 4.9. INR of 0.0. She had a chest x-ray. This was done on 12/04/17 that showed chest x-ray findings compatible with mild vascular congestion versus diffuse infiltrative process. ASSESSMENT AND PLAN: She is a 52-year-old woman with a past medical history of end- stage renal disease secondary to hypertension, who presented with: 1. New-onset hemoptysis. Her findings were concerning for vasculitis given the infiltrative changes on her chest x-ray as well as an elevated PR3 antibody , which could be seen in pulmonary renal syndromes. She had a negative D-dimer , but she did have an elevated sedimentation rate. At this point in time, there is a concern for underlying vasculitis; however, I am also wondering if this is medication induced. I agree with checking a double-stranded DNA, AKSHAT, as well as complements, as well as a urinalysis to look for proteinuria and to look for an active urinary sedimentation rate. I agree very much with stopping hydralazine, which may induce some myeloperoxidase and proteinase 3 antineutrophil cytoplasmic antibody and can lead to a pulmonary renal syndrome as reported by Dr. Pinedo in case reports in Nephrology Volume 2014, article ID [id number]. Currently, she is feeling better. This may be in part already the effects of stopping hydralazine; therefore, we may not need to start steroids and just see how she does off the hydralazine. 2. In terms of her end-stage renal disease, continue her hemodialysis, which I think should go smoothly. If hydralazine was helping her blood pressure, she may need an alternative medication. Indeed she was already switched to a calcium channel aster 3. Atrial fibrillation. As noted above. 4. In terms of hypertension, she is now on diltiazem. We would continue to follow daily. [id number]/[facility] #: [id number] CHICA
[2017-12-07] MEDS: Diltiazem TAB* 30 MG PO SCH ×3 (00:22→13:08)
[2017-12-07 01:25] LABS: ABS Basophils 0.1 10^3/ul (0-0.2); ABS Eosinophils 0.3 10^3/ul (0-0.6); ABS Lymphocytes 1.7 10^3/ul (1.0-4.8); ABS Neutrophils 6.4 10^3/ul (1.5-7.7); ABS Nucleated RBC 0 10^3/ul; Eosinophil % 3.1 % (0-6); Hematocrit 34 % (35-47); Lymphocyte % 17.7 % (25-47); Mean Corpuscular HGB Conc 33 g/dl (31-36); Mean Corpuscular Hemoglobin 30 pg (27-31); Mean Corpuscular Volume 92 fL (80-97); Mean Platelet Volume 9.1 um3 (7.4-10.4); Nucleated Red Blood Cells % 0.1; Platelet Count 191 10^3/ul (150-450); Red Blood Count 3.65 10^6/ul (4.0-5.4); Red Cell Distribution Width 16 % (10.5-15); White Blood Count 9.5 10^3/ul (3.5-10.8)
[2017-12-07 07:40] LABS: EGFR Non-African American 3.5 (>60)
[2017-12-07] MEDS: Metoprolol Tartrate TAB* 50 mg PO SCH (07:54)
[2017-12-07] MEDS: Cinacalcet TAB* 30 MG PO SCH (07:54)
[2017-12-07] MEDS: Omeprazole CAP* 20 MG PO SCH (07:55)
[2017-12-07] MEDS: Sevelamer TAB* 800 MG PO SCH ×3 (07:55→17:08)
[2017-12-07] MEDS ORDERED: Sodium Polystyrene ORAL.SOL* 15 GM/60 ML BTL PO ONE (11:51)
[2017-12-07] MEDS ORDERED: Diltiazem CD CAP* 120 MG PO ONE (13:01)
[2017-12-07 18:43] VITALS: BP 152/86
--- NOTE | 2017-12-08 06:13 | DS ---
CC: Dr. Garcia; Dr. Santoro; Dr. Browne DISCHARGE SUMMARY: DATE OF ADMISSION: 12/04/17 DATE OF DISCHARGE: 12/07/17 PRIMARY CARE PROVIDER: Dr. Garcia. 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 SECONDARY DIAGNOSES: 1. History of end-stage renal disease, on hemodialysis on Tuesdays, and Saturdays. The dialysis nurse is going to call the patient to establish when would the next dialysis be. 2. Hypertension. 3. History of small intestinal ulcers diagnosed in 2017. MEDICATIONS AT DISCHARGE: Include: 1. Sevelamer 2400 mg 3 times a day. 2. Amlodipine 10 mg daily. 3. Cinacalcet 90 mg daily. 4. Omeprazole 20 mg daily. MEDICATIONS DISCONTINUED: 1. Losartan. 2. Hydralazine. CONSULTATIONS DURING THE HOSPITAL STAY: Included Dr. Browne from Rheumatology. LABORATORY DATA: Pending at the time of dictation included anti-double stranded DNA antibody and AKSHAT as well as complement C3 and C4 levels, ANCA levels, anti-GB membrane antibody. Laboratory data obtained during the hospital stay included component C3 level was 90, glomerular basement membrane antibody is below 0.2, myeloperoxidase antibody is below 0.2. Proteinase 3 level is 1.2. P-ANCA antibody, C-ANCA antibody and AKSHAT is pending at the time of dictation. Transthoracic echocardiogram showed EF of 50% to 55% with mild to moderate LVH with mild global hypokinesis of the left ventricle with minor regional variation. On 12/07/17, prior to dialysis, the patient's sodium was 134, potassium 5.6, chloride 98, carbon dioxide 23, BUN 63, creatinine 11.2. Procalcitonin level was 0.5. Troponin was 0.04 three times. D-dimer was below 200. White blood cell count of 9.5, hemoglobin is 11.0, hematocrit of 34 and platelets of 191,000. ESR was 44. Urine culture was positive for 10,000 to 20,000 of E. coli. Sputum culture is pending at the time of dictation. Venous Doppler studies of bilateral lower extremities showed no DVT bilaterally. Portable chest x-ray obtained on 12/04/17, impression: "Chest x-ray findings could be compatible with mild vascular congestion versus diffuse infiltrative process." HOSPITALIZATION COURSE: Mrs. Penny is a 52-year-old female with history of end- stage renal disease on hemodialysis who presented to the hospital complaining of significant hemoptysis. For further details of the patient's presentation, please see history and physical dictated at admission. Shortly, the patient was noted to have proteinase 3 level elevated as well as ESR of 44. Dr. Browne from Rheumatology was consulted and concluded that the patient likely may have an autoimmune reaction mediated by hydralazine use. Hydralazine was discontinued. We also held losartan for the time being. The patient's systolic pressures had been ranging anywhere between 120 to 160. Her Norvasc was also held during the hospital stay but due to recent pressures into 160s, it is going to be restarted at discharge. Some of the workup is still pending, but the patient's hemoptysis has resolved and the patient is ready to go home. She is going to be discharged home today with recommendations to follow up with her primary care provider in 4 to [address] Browne sometime next week if feasible. PHYSICAL EXAM AT THE TIME OF DISCHARGE: Blood pressure 160/94, heart rate of 87 and regular, respiratory rate of 19, oxygen saturation 96% on room air, temperature 98.4. General: The patient is a very pleasant 52-year-old female who is in no acute distress, alert, awake and oriented x3. The patient is Portuguese speaking only and we are using a freelance interpreter/translator via iPad to communicate. HEENT: Head atraumatic, normocephalic. Eyes: Pupils equal and reactive to light and accommodation. Oropharynx clear. Mucosa moist. Neck: Supple. No JVD. No bruits bilaterally. Cardiovascular: Regular rate and rhythm. No murmur. Respiratory: Clear to auscultation bilaterally. Abdomen: Soft, nontender. Bowel sounds present in all 4 quadrants. Extremities: There is no edema. Pulses +2 bilaterally. No clubbing or cyanosis. On neuro evaluation, speech clear. Cranial nerves II through XII grossly intact. Motor strength is 5/5 bilaterally. Please note that the patient has dialysis fistula in the right forearm with positive thrill. Please note that by discharge, the patient's hemoptysis has resolved. Her last dialysis during the hospital stay was on Sunday which was on the day of discharge and once again we were awaiting an update from dialysis nurse when is the patient's next dialysis session. Please note that this is a short summary of the patient's hospitalization. Please refer to further medical records for details. TIME SPENT: Approximately 45 minutes were spent on the patient's discharge. [id number]/[facility] #: [id number] MTDD
== END 2017-12-07 20:30 | disposition home or self-care (01) | DRG 204 ==
LOC: ED 01:36 → MEDTELE 08:31 → OBSVTOIN 12-05 14:00
PROVIDERS: ADMIT Internal Medicine; ATTEND Internal Medicine
PROC: 5A1D70Z Performance of Urinary Filtration, Intermittent, Less than 6 Hours Per Day (ICD-10-PCS; principal; 2017-12-05)
PROC: 5A1D70Z Performance of Urinary Filtration, Intermittent, Less than 6 Hours Per Day (ICD-10-PCS; 2017-12-07)
DX: R04.2 Hemoptysis (principal); N18.6 End stage renal disease; I12.0 Hypertensive chronic kidney disease with stage 5 chronic kidney disease or end stage renal disease; R74.8 Abnormal levels of other serum enzymes; T46.5X5A Adverse effect of other antihypertensive drugs, initial encounter; R70.0 Elevated erythrocyte sedimentation rate; Z83.3 Family history of diabetes mellitus; Z82.49 Family history of ischemic heart disease and other diseases of the circulatory system; Z87.891 Personal history of nicotine dependence; Z72.89 Other problems related to lifestyle; Z99.2 Dependence on renal dialysis; Z80.0 Family history of malignant neoplasm of digestive organs; Z88.8 Allergy status to other drugs, medicaments and biological substances; Z82.0 Family history of epilepsy and other diseases of the nervous system; Z88.6 Allergy status to analgesic agent; Y92.9 Unspecified place or not applicable; Z91.81 History of falling; I48.0 Paroxysmal atrial fibrillation
CPT/HCPCS: 36415; 71046; 80048; 80053; 81003; 81015; 83516; 83520; 83735; 83880; 84100; 84145; 84484; 85025; 85379; 85610; 85652; 85730; 86038; 86160; 86225; 86255; 87070; 87077; 87086; 87186; 87205; 87641; 90935; 93005; 93306; 93970; 99283; A9270-GY; G0257; G0378

== ENCOUNTER → 2018-03-15 10:07 | Day surgery (SDC) | payer MEDICARE, MEDICAID ==
[~2018-03-15 10:07] MED LIST changes: -Epoetin Alfa* 2,000 UNITS/ML VIAL IV ONE; -Epoetin Alfa* 3,000 UNITS/ML VIAL IV ONE; -Heparin DIALYSIS ONLY(*) 1,000 UNITS/ML VIAL DIALYSIS ONE; +LORazepam TAB(*) 1 MG ONE
[2018-03-15 12:00] LABS: ABS Basophils 0.1 10^3/ul (0-0.2); ABS Eosinophils 0.2 10^3/ul (0-0.6); ABS Monocytes 0.6 10^3/ul (0-0.8); ABS Neutrophils 3.2 10^3/ul (1.5-7.7); ABS Nucleated RBC 0 10^3/ul; Eosinophil % 3.5 % (0-6); Hematocrit 39 % (35-47); Hemoglobin 12.7 g/dl (12.0-16.0); Lymphocyte % 32.3 % (25-47); Mean Corpuscular HGB Conc 33 g/dl (31-36); Mean Corpuscular Hemoglobin 31 pg (27-31); Mean Corpuscular Volume 94 fL (80-97); Mean Platelet Volume 10.2 um3 (7.4-10.4); Nucleated Red Blood Cells % 0.1; Platelet Count 174 10^3/ul (150-450); Red Blood Count 4.12 10^6/ul (4.00-5.40); Red Cell Distribution Width 15 % (10.5-15); White Blood Count 6.1 10^3/ul (3.5-10.8)
[2018-03-15 12:14] LABS: INR 0.9 (0.77-1.02)
[2018-03-15 12:27] LABS: EGFR Non-African American 5.4 (>60)
== END | disposition home or self-care (01) ==
LOC: CHICATH 10:07
PROVIDERS: ATTEND Radiology Diagnostic Radiology
DX: T82.858A Stenosis of other vascular prosthetic devices, implants and grafts, initial encounter (principal); Z53.9 Procedure and treatment not carried out, unspecified reason; N18.6 End stage renal disease
CPT/HCPCS: 36415; 80048; 85025; 85610; 85730; A9270-GY

== ENCOUNTER → 2018-03-29 09:36 | Day surgery (SDC) | payer MEDICARE, MEDICAID ==
[~2018-03-29 09:36] MED LIST changes: +Flumazenil* 0.1 MG/ML 5 ML MDV ONE; +Iodixanol* (CONTRAST) 320 MG/ML 100 ML SDV ONE; +Lidocaine 1%* 5 ML VIAL ONE; +Midazolam* 1 MG/ML 5 ML VIAL (5 MG) ONE; +Naloxone* 0.4 MG/ML 1 ML VIAL ONE; +Ondansetron INJ* 2 MG/ML VIAL ONE; +Prochlorperazine TAB* 5 MG PO ONE; +fentaNYL* 50 MCG/ML 2 ML VIAL (100 MCG VIAL) ONE
--- NOTE | 2018-03-29 15:08 | PN ---
Progress Note - Progress Note Date of Service: 03/29/18 SOAP: Subjective: No pain complaints. Objective: pulse 88, 159/96, 95% (ra) NAD, AAO x 3 palpable thrill over fistula mild right hand swelling similar to baseline No bleeding at access site. Dressing is CDI. RUE is neuromuscular intact grossly right hand is warm to touch Assessment: 52 YOF s/p right forearm fistulogram and venoplasty of outflow vein. Plan: 1. Routine post fistulogram follow. 2. Start dialysis tomorrow per usual.
[2018-03-29 16:33] VITALS: BP 165/103
--- NOTE | 2018-03-29 18:15 | RAD ---
CPT II Codes: G9500 Procedure(s) performed: 1. Diagnostic fistulogram of the patient's right forearm radial artery to cephalic vein fistula. 2. Balloon angioplasty of the outflowing basilic vein.. Date of service: March 29, 2018 Indication for procedure: Right arm pain and hand swelling during dialysis Comparison: Ultrasound acquired June 22, 2017 Contrast: 45 mL of Visipaque 320 Fluoroscopy Time: 7.7 minutes Vessels Accessed: Percutaneous access was obtained with ultrasound guidance in the right distal forearm basilic vein in the antegrade direction towards the heart. Catheter angiography, with the catheter tip located within the lumen of the following vessels, was performed at the right basilic vein and right axillary vein. Anesthesia: Conscious sedation with IV Fentanyl and Versed as well as local 1% lidocaine injected locally at the arteriotomy site. Conscious sedation time: Timeout: 1325 hours Case end: 1425 hours Total conscious sedation time: 1 hour Additional medications: * The patient received 1 mg of p.o. Ativan prior to the onset of the procedure. Procedure and Imaging findings: Prior to the procedure the risk and benefits were carefully explained and informed consent was obtained from the patient. The hemodialysis fistula was examined to determine strength of palpable thrill, condition of the overlying skin and direction of flow. The patient was appropriately positioned on the table in the angiography suite. The skin overlying and surrounding the hemodialysis fistula was prepped and draped in standard sterile fashion. Sterile precautions were employed including use of cap, mask, gown and sterile gloves. A formal time out was performed and all members of the team and the patient agreed to the patient, procedure and laterality. The fistula was examined with ultrasound and customer field representative images were obtained. Under sonographic control the fistula was accessed in the antegrade direction with a 21 gauge micropuncture needle. An image was recorded. Under fluoroscopic control a microwire was advanced proximally and the needle was exchange for a 5 Dominican catheter. Through the catheter a venogram of the distal venous outflow was conducted demonstrating a focus of stenosis at the mid-level right forearm basilic vein and additional high-grade stenosis approximately at the level of the elbow. Proximal to the elbow level stenosis there is a large venous collateral.. A 0.035" wire was advanced through the 5 Dominican catheter and the simple catheter was exchanged for a 6 Dominican sidearm sheath. Utilizing a combination 0.035" guidewire and 5 Dominican curved tip catheter the central veins were accessed and contrast venogram was performed demonstrating adequate patency of the upper arm basilic vein outflow as well as adequate patency in the central veins. Contrast injected at the right axillary vein briskly fills the central veins, right heart and pulmonary arteries. Based on the preliminary intravascular angiographic studies the following interventions were pursued. The wire was reinserted and an 8 mm x 80 mm Biotronik Passeo-35 balloon was advanced to the stenosis at the level of the elbow and balloon angioplasty was performed for a total of 4 minutes. With the balloon still inflated reflux fistulography was attempted unsuccessfully imaging the arterial anastomosis. The forearm outflow vein was balloon angioplastied up to the access point. Each time the balloon remained inflated for a minimum of 3 minutes to address spasm. The outflow vein was occluded more proximally with the balloon for the purpose of doing a reflux arteriogram across the anastomosis. There are superficial collateral veins at the level of the wrist that prevented adequate reflux arteriography. The final fistulogram across the previously occluded stenoses demonstrates improved flow and reduction in stenoses. On physical examination there is a noticeable palpable thrill over the fistula. The sheath was removed and gentle pressure was held at the access site for 15 minutes. No significant bleeding or hematoma formation occurred. The site was dressed with sterile gauze and the patient left the angiography suite in stable condition. SUMMARY OF PROCEDURE, IMAGING FINDINGS AND INTERVENTIONS PERFORMED: 1. Diagnostic studies performed: * Percutaneous fistula was obtained at the proximal from the arterial anastomosis in the antegrade direction (i.e. towards the heart) with ultrasound guidance. A sonographic image was recorded. * Diagnostic catheter angiography (necessary to perform the appropriate interventions) was performed with the catheter tip in the forearm level right basilic vein and right axillary vein. * Catheter arteriography was performed of the entire venous outflow from the arterial anastomosis to the heart and lungs. 2. Interpretation of diagnostic studies performed: * There are multiple foci of stenoses at the basilic vein outflow at the level of the right forearm and at the elbow. 3. Surgical interventions performed: * Balloon angioplasty of aforementioned stenoses utilizing an 8 mm x 80 mm Biotronik Passeo 35 balloon. 4. Interpretation of interventions performed: * Postprocedural fistulography and venography demonstrated improved patency through the previously imaged stenoses. Plan: 1. Hemodialysis may commence immediately. 2. If the hand swelling continued use it may be necessary to embolize the superficial veins that appear to originate at the distal most portion of the venous outflow.
== END | disposition home or self-care (01) ==
LOC: CHICATH 09:36
PROVIDERS: ATTEND Radiology Diagnostic Radiology
DX: T82.858A Stenosis of other vascular prosthetic devices, implants and grafts, initial encounter (principal); I12.0 Hypertensive chronic kidney disease with stage 5 chronic kidney disease or end stage renal disease; N18.6 End stage renal disease; Z79.899 Other long term (current) drug therapy; K21.9 Gastro-esophageal reflux disease without esophagitis; I11.9 Hypertensive heart disease without heart failure; Y84.9 Medical procedure, unspecified as the cause of abnormal reaction of the patient, or of later complication, without mention of misadventure at the time of the procedure
CPT/HCPCS: 36901; 36902; 76937; 99156; 99157; A9270-GY; C1725; C1769; C1887; J2250; J2310; J2405; J3010

== ENCOUNTER 2018-06-11 09:36 | Day surgery (SDC) | payer MEDICARE, MEDICAID ==
[~2018-06-11 09:36] MED LIST changes: +Acetaminophen TAB* 325 MG PO PRN; +Buffered Lidocaine 0.9% SYRIN* 5 ML/SYR SYRINGE INTRADERM ONE; -Flumazenil* 0.1 MG/ML 5 ML MDV ONE; -Iodixanol* (CONTRAST) 320 MG/ML 100 ML SDV ONE; -LORazepam TAB(*) 1 MG ONE; -Lidocaine 1%* 5 ML VIAL ONE; -Midazolam* 1 MG/ML 5 ML VIAL (5 MG) ONE; -Naloxone* 0.4 MG/ML 1 ML VIAL ONE; -Ondansetron INJ* 2 MG/ML VIAL ONE; -Prochlorperazine TAB* 5 MG PO ONE; -fentaNYL* 50 MCG/ML 2 ML VIAL (100 MCG VIAL) ONE
[2018-06-11] MEDS ORDERED: fentaNYL* 50 MCG/ML 2 ML VIAL (100 MCG VIAL) ONE (11:20)
[2018-06-11] MEDS ORDERED: Midazolam* 1 MG/ML 5 ML VIAL (5 MG) ONE (11:20)
[2018-06-11 12:30] VITALS: BP 148/93
[2018-06-11] MEDS ORDERED: Phenylephrine 2.5% OPTH.SOL* 2 ML BTL ONE (15:33)
[2018-06-11] MEDS ORDERED: Lidocaine 1%* 5 ML VIAL ONE (15:33)
[2018-06-11] MEDS ORDERED: Neomycin/Polymy/Dex OPHTH.OIN* 3.5 GM ONE (15:33)
[2018-06-11] MEDS ORDERED: Cyclopentolate 1% OPTH.SOL* 2 ML BTL ONE (15:33)
[2018-06-11] MEDS ORDERED: Ketorolac 0.5% OPHTH (NF) 0.5 % 5 ML BTL ONE (15:34)
[2018-06-11] MEDS ORDERED: Tetracaine 0.5% OPTH.SOL 4 ML* 1 DROP BTL ONE (15:34)
[2018-06-11] MEDS ORDERED: Tropicamide 1% OPTH.SOL* BTL ONE (15:34)
--- NOTE | 2018-06-12 07:42 | OP ---
DATE OF OPERATION: 06/11/18 - [facility] DATE OF : 63 SURGEON: Jay Shah MD. X RAY SERVICE TECHNICIAN: None. ANESTHESIA: Topical with intravenous sedation. PRE-OP DIAGNOSIS: Cataract with synechia and glaucoma, right eye. POST-OP DIAGNOSIS: Cataract with synechia and glaucoma, right eye. OPERATIVE PROCEDURE: Phacoemulsification and cataract extraction with posterior chamber intraocular lens implant, synechiolysis, iStent inject implant, right eye. COMPLICATIONS: None. BLOOD LOSS: None. DESCRIPTION OF PROCEDURE: The patient was brought to the operating room and given intravenous sedation. A drop of tetracaine was placed in her right eye. The patient was prepped and draped in the usual sterile fashion for ophthalmic surgery and attention was directed to the right eye where a speculum was placed. It was noted that she had a slightly irregular pupil with synechia in the superonasal quadrant. There was also small amount of rubeosis noted on the temporal iris, which had not been seen prior. A paracentesis was created at the 11 o'clock position and 0.1 cc of 1% preservative-free lidocaine was injected into the anterior chamber followed by DisCoVisc. The eye was digitally stabilized while a 2.75 mm keratome was used to create a triplanar clear corneal incision at the 9 o'clock position. A synechia was severed from the anterior capsule using the end of the viscoelastic cannula tip. A continuous curvilinear capsulorrhexis was created with a cystotome and Utrata forceps. BSS on a cannula was used to hydrodissect the lens from the capsule. Phacoemulsification was performed in a [id number] technique to create four fragments which were removed. Residual cortical material was removed with irrigation and aspiration. The capsule is polished. DisCoVisc was used to inflate the capsular bag. An AU00T0 23.5 diopter lens was inserted into the capsular bag. Supplemental DisCoVisc was used to deepen the anterior chamber and coat the surface of the cornea. The patient's head was rotated away from the surgeon and the microscope was rotated toward the surgeon. A gonioprism was placed in the surface of the eye. Under direct visualization, an iStent was placed at the 2 and 4 o'clock positions of the trabecular mesh work. The iStent hospice patient care secretary and the gonioprism were removed. The patient's head was returned to a neutral position. Irrigation and aspiration was performed, to remove visual elastic from the eye. BSS on a cannula was used to hydrate the corneal stroma and seal the wound. At the end of the case, the pupil was round. Lens was centered and stable. The iStent injects were in place. The eye pressure appeared normal and the wound was watertight. The speculum was removed from the eye and topical Maxitrol ointment was placed on the surface of the eye. The eye was closed, patched and shielded and the patient was sent to the recovery room in stable condition with post operative instructions and followup appointment given. [id number]/[facility] #: [id number] CHICA
== END 2018-06-11 12:40 | disposition home or self-care (01) ==
LOC: OREAST 09:36
PROVIDERS: ATTEND Ophthalmology
DX: H25.041 Posterior subcapsular polar age-related cataract, right eye (principal); H40.10X1 Unspecified open-angle glaucoma, mild stage; I48.0 Paroxysmal atrial fibrillation; N18.6 End stage renal disease; I12.0 Hypertensive chronic kidney disease with stage 5 chronic kidney disease or end stage renal disease; Z99.2 Dependence on renal dialysis; K21.9 Gastro-esophageal reflux disease without esophagitis
CPT/HCPCS: A9270-GY; C1783; J2250; J3010; V2632

== ENCOUNTER 2018-09-23 07:50 | Emergency (ER) | payer MEDICARE, MEDICAID ==
--- NOTE | 2018-09-23 08:19 | ED ---
Upper Extremity Pain - HPI Summary HPI Summary: Pt is a 53 y/o female who presents to the ED c/o RUE pain. She c/o increasing pain of her fistula in her right forearm, not rated a 7/10 in severity. She also notes bruising and swelling to the area. Pt was diagnosed with a thrombus 6 days ago via ultrasound. She last had dialysis 4 days ago, and was extremely painful. Pt get dialysis every Sunday, , and Sunday, and was unable to have dialysis 2 days ago because of her fistula issue. Therefore, pt has not been dialyzed in 4 days. She does not have a catheter. Pt denies any CP or SOB. PMHx HTN and chronic kidney failure. - History of Current Complaint Chief Complaint: EDExtremityUpper Stated Complaint: RIGHT WRIST PROBLEM Time Seen by Provider: 09/23/18 08:01 Hx Obtained From: Patient, Family/Caustic Room Attendant - Onset/Duration: Started Days Ago, Worse Since Timing: Constant Severity Currently: Moderate - 7/10 Pain Location: Forearm - right Aggravating Factor(s): Nothing Alleviating Factor(s): Nothing Associated Signs & Symptoms: Positive: Swelling, Bruising Related History: Other: - fistula - Allergies/Home Medications Allergies/Adverse Reactions: Allergies Allergy/AdvReac Type Severity Reaction Status Date / Time aspirin Allergy Bleeding Verified 09/23/18 08:04 hydralazine Allergy Bleeding Verified 09/23/18 08:04 PMH/Surg Hx/FS Hx/Imm Hx Endocrine/Hematology History: Denies: Hx Diabetes Cardiovascular History: Reports: Hx Hypertension Denies: Hx Coronary Artery Disease, Hx Hypercholesterolemia, Hx Myocardial Infarction, Hx Valvular Heart Disease, Other Cardiovascular Problems/Disorders Respiratory History: Denies: Hx Asthma, Hx Chronic Obstructive Pulmonary Disease (COPD), Other Respiratory Problems/Disorders GI History: Denies: Other GI Disorders - on prilosec due to medications History: Reports: Hx Chronic Renal Failure, Hx Kidney Stones Denies: Hx Kidney Infection, Other Problems/Disorders Musculoskeletal History: Denies: Other Musculoskeletal History Sensory History: Reports: Hx Cataracts - right eye, Hx Glaucoma - right eye Denies: Hx Contacts or Glasses, Hx Hearing Aid Opthamlomology History: Reports: Hx Cataracts - right eye, Hx Glaucoma - right eye Denies: Hx Contacts or Glasses Neurological History: Reports: Hx Headaches Denies: Other Neuro Impairments/Disorders - Surgical History Surgery Procedure, Year, and Place: AV Fistula in 2016 Hx Anesthesia Reactions: No Infectious Disease History: No Infectious Disease History: Denies: Traveled Outside the [place] in Last 30 Days - Family History Known Family History: Positive: Hypertension, Diabetes - Social History Alcohol Use: None Hx Substance Use: No Substance Use Type: Reports: None Hx Tobacco Use: Yes Smoking Status (MU): Former Smoker Have You Smoked in the Last Year: No Review of Systems Negative: Chest Pain Negative: Shortness Of Breath Positive: Myalgia - RUE pain - fistula, Edema - right forearm Positive: Bruising - right forearm All Other Systems Reviewed And Are Negative: Yes Physical Exam - Summary Physical Exam Summary: Appearance: Well appearing, no pain distress Skin: warm, dry, reflects adequate perfusion, 2 fistulas in right forearm with swelling and bruising Head/face: normal Eyes: EOMI, MARIANA ENT: mucous membranes moist Neck: supple, non-tender Respiratory: CTA, breath sounds present Cardiovascular: RRR, pulses symmetrical Abdomen: non-tender, soft Bowel Sounds: present Musculoskeletal: normal, strength/ROM intact Neuro: normal, sensory motor intact, A&Ox3 Triage Information Reviewed: Yes Vital Signs On Initial Exam: Initial Vitals Temp Pulse Resp BP Pulse Ox 98 F 72 16 183/100 99 09/23/18 08:00 09/23/18 08:00 09/23/18 08:00 09/23/18 08:00 09/23/18 08:00 Vital Signs Reviewed: Yes Diagnostics - Vital Signs Vital Signs Temp Pulse Resp BP Pulse Ox 09/23/18 08:00 98 F 72 16 183/100 99 - Laboratory Result Diagrams: 09/23/18 08:34 09/23/18 08:34 Lab Statement: Any lab studies that have been ordered have been reviewed, and results considered in the medical decision making process. - EKG 8:42 Cardiac Rate: NL - 69 bpm EKG Rhythm: Sinus Rhythm ST Segment: Normal Summary of EKG Findings: Nl axis, no tall T waves Course/Dx - Course Course Of Treatment: Nurse's notes reviewed. Potassium is slightly elevated. No EKG changes. Discussed with interventional radiologist who plans to perform a procedure to clear her fistula tomorrow. Discussed with nephrology who will take directly to dialysis today. She is discharged here in stable condition. - Diagnoses Differential Diagnosis/HQI/PQRI: Positive: Other - Thrombosed fistula, hyperkalemia, vascular injury Provider Diagnoses: Complication of AV dialysis fistula, End stage renal disease on dialysis, Hyperkalemia - Physician Notifications Discussed Care of Patient With: Mykel Ovalle Time Discussed With Above Provider: 08:20 Instructed by Provider To: Other - Dr. Ovalle will do his procedure tomorrow. At 8:51 Dr. Parr said that he will bring the pt upstairs for dialysis. Discharge - Sign-Out/Discharge Documenting (check all that apply): Patient Departure - Admit for dialysis Patient Received Moderate/Deep Sedation with Procedure: No - Discharge Plan Condition: Stable Disposition: INTERMEDIATE CARE FACILITY Referrals: Radha Lockhart MD [Primary Care Provider] - Additional Instructions: Go directly to dialysis. They will schedule you to have your fistula fixed tomorrow. - Billing Disposition and Condition Condition: STABLE Disposition: Intermediate Care Facility - Attestation Statements Document Initiated by Daliaibe: Yes Documenting Scribe: Roxy Desir Provider For Whom Venita is Documenting (Include Credential): Venkatesh Francisco MD Scribe Attestation: Roxy Spear, scribed for Venkatesh Francisco MD on 09/23/18 at 1018. Scribe Documentation Reviewed: Yes Provider Attestation: The documentation as recorded by the Roxy guerrero accurately reflects the service I personally performed and the decisions made by me, Venkatesh Francisco MD Status of Scribe Document: Viewed
--- OUTSIDE RECORDS SUMMARY | 2018-09-23 08:28 | XMS REPORT | Continuity of Care Document ---
:1965 External Reference #:[id number] Author Name Jay Shah M.D. Address [address] [place] [address] Care Team Providers Name Role Phone Ra Luo MD Care Team Information Horticulture/Floriculture Teacher Unavailable Ra Luo MD Primary Care Physician Unavailable Payers Type Date Identification Numbers Payment Provider Subscriber Policy Number: [id number] Medicare [place] [employer] [place] PayID: [id number] [address] [place] [id number] Advance Directives Description No Information Available Problems Date Description Provider Status Onset: 01/18/2018 Hemoptysis Honorio Browne MD Active Onset: 01/18/2018 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 Onset: 01/18/2018 Gastroesophageal reflux disease Ra Luo MD Active Onset: 01/18/2018 End-stage renal disease Ra Luo MD Active Onset: 01/18/2018 Essential hypertension Ra Luo MD Active Family History Date Family Member(s) Problem(s) Comments General Noncontributory Father Noncontributory Mother Noncontributory Social History Type Date Description Comments Sex Unknown ETOH Use Denies alcohol use Tobacco Use Start: Unknown Patient has never smoked Smoking Status Reviewed: 08/28/18 Patient has never smoked Allergies, Adverse Reactions, Alerts Date Description Reaction Status Severity Comments 02/20/2018 Aspirin Active 10/29/2017 Aspirin Active Medications Medication Date Status Form Strength Qnty SIG Indications Ordering Provider Brimonidine 08/14/ Active Solution 0.15% 30ml 1 drop H43.811 Jay Addison 2019 right eye Pablo, twice a M.D. day Amlodipine 00// Active Tablets 10mg 1 by Unknown Besylate 0000 mouth every day Omeprazole / Active Capsules DR 20mg 1 by Unknown 0000 mouth every day Sensipar / Active Tablets 90mg one Unknown 0000 tablet daily Renvela / Active Tablets 800mg 3 tabs Unknown 0000 three times a day Omeprazole 00/ Active Capsules DR 10mg Unknown 0000 Omeprazole / Active Capsules DR 20mg Unknown 0000 Sensipar 0000/ Active Tablets 90mg Unknown 0000 Renvela 00/ Active Tablets 800mg Unknown 0000 Metoprolol / Active Tablets ER 25mg Unknown Succinate ER 0000 24HR Vigamox 05/21/ Hx Solution 0.5% 9ml 1 drop Jay 2018 - drops Shah, 06/19/ right eye M.D. 2018 four times a day Ketorolac 05/21/ Hx Solution 0.5% 10ml 1 drops Jay Tromethamine 2018 - right eye Shah, 07/17/ twice a M.D. 2018 day Pred Forte 05/21/ Hx Suspension 1% 10ml 1 drops Jay 2018 - right eye Shah, 07/17/ four M.D. 2018 times a day Brimonidine 02/22/ Hx Solution 0.15% 15unit instill 1 Saul Tartrate 2018 - s drop tid Lopez, OD 07/17/ OD 2017 Brimonidine 02/20/ Hx Solution 0.15% 15unit instill 1 Saul Tartrate 2018 - s drop tid Lopez, OD OD 2017 Amlodipine / Hx Tablets 10mg Unknown Besylate 0000 - 2017 Immunizations CPT Code Status Date Vaccine Lot # [id number] Given 01/18/2018 Pneumococcal Conjugate Vaccine 13 Valent For Intramuscular Use Vital Signs Date Vital Result Comment 08/14/2018 10:28am Intraocular Pressure Right Eye 14 mmHg 07/17/2018 10:28am Intraocular Pressure Right Eye 17 mmHg 06/19/2018 8:28am Intraocular Pressure Right Eye 24 mmHg 06/12/2018 9:03am Intraocular Pressure Right Eye 29 mmHg 05/17/2018 2:11pm Intraocular Pressure Right Eye 21 mmHg Intraocular Pressure Left Eye 18 mmHg 03/06/2018 9:13am Intraocular Pressure Right Eye 21 mmHg Intraocular Pressure Left Eye 19 mmHg 02/20/2018 9:24am Intraocular Pressure Right Eye 33 mmHg Intraocular Pressure Left Eye 21 mmHg Cornea Thickness Left Eye 603 m Cornea Thickness Right Eye 599 m Pachymetry adjusted IOP Right Eye -4 Pachymetry adjusted IOP Left Eye -4 Results Description No Information Available Procedures Date Code Description Status 08/28/2018 96170 Ophthalmoscopy Subsequent Completed 08/28/2018 48950 Eye Exam Est Intermediate Completed 08/14/2018 17454 Ophthalmoscopy Subsequent Completed 08/14/2018 30931 Eye Exam Est Intermediate Completed 07/17/2018 02777 Eye Exam Est Intermediate Completed 06/11/2018 99123 Extracapsular Cataract Removal W/Insertion Of Intraocular Completed Lens pr 06/11/2018 0474T Insertion Of Anterior Segment Aqueous Drainage Device Completed 05/17/2018 93110 Ophthalmic Biometry By Partial Coherence Interferometry Completed W/Intra 05/17/2018 17167 Gonioscopy Completed 05/17/2018 69516 Eye Exam Est Intermediate Completed 03/06/2018 99428 Eye Exam Est Intermediate Completed 03/06/2018 92051 B-Scan Contact, Ophthalmic Ultrasound Echography Completed 02/20/2018 64794 Eye Exam New Intermediate Completed 02/20/2018 74018 Corneal Pachymetry, Unilateral/Bilateral Completed Encounters Description No Information Available Plan of Treatment 08/28/2018 - Jay Shah M.D.H43.811 Vitreous degeneration, right eyeH35.371 Puckering of macula, right eyeFollow up:as planned, few wks
[2018-09-23 08:44] LABS: ABS Basophils 0.1 10^3/ul (0-0.2); ABS Eosinophils 0.2 10^3/ul (0-0.6); ABS Lymphocytes 1.7 10^3/ul (1.0-4.8); ABS Monocytes 0.7 10^3/ul (0-0.8); ABS Neutrophils 4.9 10^3/ul (1.5-7.7); ABS Nucleated RBC 0 10^3/ul; Eosinophil % 2.7 %; Hematocrit 35 % (35-47); Hemoglobin 11.1 g/dl (12.0-16.0); Lymphocyte % 21.9 %; Mean Corpuscular HGB Conc 32 g/dl (31-36); Mean Corpuscular Hemoglobin 31 pg (27-31); Mean Corpuscular Volume 96 fL (80-97); Mean Platelet Volume 9.6 fL (7.4-10.4); Nucleated Red Blood Cells % 0; Platelet Count 199 10^3/ul (150-450); Red Blood Count 3.62 10^6/ul (4.00-5.40); Red Cell Distribution Width 15 % (10.5-15); White Blood Count 7.6 10^3/ul (3.5-10.8)
[2018-09-23 09:19] LABS: BUN/Creatinine Ratio 6.9 (8-20); Calcium 10.5 mg/dL (8.6-10.3); EGFR African American 3.4 (>60); EGFR Non-African American 2.8 (>60)
[2018-09-23 09:28] LABS: Potassium 5.6 mmol/L (3.5-5.0)
[2018-09-23] MEDS ORDERED: Lidocaine 2.5%/Prilocain 2.5%* 5 GM TUBE TOPICAL ONE (09:57)
[2018-09-23 10:27] VITALS: BP 173/96
== END 2018-09-23 10:15 | disposition home or self-care (01) ==
LOC: ED 07:50
DX: T82.9XXA Unspecified complication of cardiac and vascular prosthetic device, implant and graft, initial encounter (principal); E87.5 Hyperkalemia; Z87.891 Personal history of nicotine dependence; Z99.2 Dependence on renal dialysis; I12.0 Hypertensive chronic kidney disease with stage 5 chronic kidney disease or end stage renal disease; N18.6 End stage renal disease; Y84.1 Kidney dialysis as the cause of abnormal reaction of the patient, or of later complication, without mention of misadventure at the time of the procedure; Y92.9 Unspecified place or not applicable; Z87.442 Personal history of urinary calculi
CPT/HCPCS: 36415; 80048; 85025; 93005; 99282; A9270-GY

== ENCOUNTER → 2018-09-24 09:40 | Day surgery (SDC) | payer MEDICARE, MEDICAID ==
[~2018-09-24 09:40] MED LIST changes: -Acetaminophen TAB* 325 MG PO PRN; -Buffered Lidocaine 0.9% SYRIN* 5 ML/SYR SYRINGE INTRADERM ONE; +Heparin 2 UNITS/ML IVPREMIX* 1,000 ML BAG IV ONE; +Heparin(*) 1000 UNIT/ML 10 ML VIAL CATH LAB IV ONE; +Iodixanol 320 (CONTRAST) 100 ML SDV ONE; +LORazepam TAB(*) 1 MG ONE; +Lidocaine 1% INJ* 10 MG/ML 30 ML SDV ONE; +Metoprolol Tartrate IV* 1 MG/ML 5 ML VIAL ONE; +Midazolam* 1 MG/ML 5 ML VIAL (5 MG) ONE; +Ondansetron INJ* 2 MG/ML VIAL ONE; +fentaNYL* 50 MCG/ML 2 ML VIAL (100 MCG VIAL) ONE
[2018-09-24 15:11] VITALS: BP 203/122
== END | disposition home or self-care (01) ==
LOC: CHICATH 09:40
PROVIDERS: ATTEND Radiology Diagnostic Radiology
DX: T82.868A Thrombosis due to vascular prosthetic devices, implants and grafts, initial encounter (principal); Y84.8 Other medical procedures as the cause of abnormal reaction of the patient, or of later complication, without mention of misadventure at the time of the procedure
CPT/HCPCS: 36901; 36902; 36907; 76937; 99156; 99157; A9270-GY; C1725; C1769; C1887; C1894; J1644; J2250; J2405; J3010; J3490

== ENCOUNTER 2018-10-08 00:54 | Emergency (ER) | payer MEDICARE, MEDICAID ==
[2018-10-08] MEDS ORDERED: Labetalol IV* 5 MG/ML 20 ML VIAL IV PUSH ONE (01:24)
[2018-10-08] MEDS ORDERED: Ondansetron INJ* 2 MG/ML VIAL IV ONE (01:25)
--- NOTE | 2018-10-08 01:27 | ED ---
Shortness of Breath - HPI Summary HPI Summary: Patient is a 53 y/o F presenting to ED with complaints SOB, productive cough. Patient only speaks Irish, family member in room to translate. Patient had an episode of SOB three days ago. Last night, 10/07/18, patient began to experience SOB at around 1830. She was able to go to sleep but later awoke due to SOB. SOB had worsened at this point, patient also reports experiencing a productive cough , nausea. No fever, no chest pain is reported. Patient is on dialysis and followed by Dr. Santoro, last dialysis was three days ago 10/05/18. On triage, pain is denied. Nothing is noted to aggravate/alleviate Sx. Home medications and allergies are reviewed. - History of Current Complaint Chief Complaint: EDUpperRespComplaint Time Seen by Provider: 10/08/18 01:12 Hx Obtained From: Patient, Family/Puppy Trainer - family member translates Onset/Duration: Lasting Hours - SOB onset 1830 10/07/18, Lasting Days - episode of SOB three days ago, Still Present Current Severity: None - pain denied Aggrevating Factors: Nothing Alleviating Factors: Nothing Associated Signs & Symptoms: Cough (Productive) - Allergy/Home Medications Allergies/Adverse Reactions: Allergies Allergy/AdvReac Type Severity Reaction Status Date / Time aspirin Allergy Bleeding Verified 10/08/18 00:58 hydralazine Allergy Bleeding Verified 10/08/18 00:58 Home Medications: Home Medications Metoprolol Succinate XL TAB* 25 mg PO DAILY 10/08/18 [History Confirmed 10/08/18 ] Nifedipine ER 60 mg PO DAILY 10/08/18 [History Confirmed 10/08/18] Renvela 800 mg PO AC 10/08/18 [History Confirmed 10/08/18] PMH/Surg Hx/FS Hx/Imm Hx Endocrine/Hematology History: Denies: Hx Diabetes Cardiovascular History: Reports: Hx Hypertension Denies: Hx Angina, Hx Coronary Artery Disease, Hx Hypercholesterolemia, Hx Myocardial Infarction, Hx Valvular Heart Disease, Other Cardiovascular Problems/ Disorders Respiratory History: Denies: Hx Asthma, Hx Chronic Obstructive Pulmonary Disease (COPD), Other Respiratory Problems/Disorders GI History: Denies: Other GI Disorders - on prilosec due to medications History: Reports: Hx Chronic Renal Failure, Hx Kidney Stones Denies: Hx Kidney Infection, Other Problems/Disorders Musculoskeletal History: Denies: Other Musculoskeletal History Sensory History: Denies: Hx Cataracts, Hx Contacts or Glasses, Hx Eye Injury, Hx Eye Prosthesis, Hx Glaucoma, Hx Legally Blind, Hx Macular Degeneration, Hx Vision Problem, Hx Deafness, Hx Hearing Aid, Hx Hearing Problem, Other Sensory Impairments Opthamlomology History: Denies: Hx Cataracts, Hx Contacts or Glasses, Hx Eye Injury, Hx Eye Prosthesis, Hx Glaucoma, Hx Legally Blind, Hx Macular Degeneration, Hx Vision Problem, Other Sensory Impairments Neurological History: Reports: Hx Headaches Denies: Other Neuro Impairments/Disorders - Surgical History Surgery Procedure, Year, and Place: AV Fistula in 2016 Hx Anesthesia Reactions: No Infectious Disease History: No Infectious Disease History: Denies: Traveled Outside the [place] in Last 30 Days - Family History Known Family History: Positive: Hypertension, Diabetes - Social History Alcohol Use: None Hx Substance Use: No Substance Use Type: Reports: None Hx Tobacco Use: Yes Smoking Status (MU): Former Smoker Have You Smoked in the Last Year: No Review of Systems Negative: Fever Negative: Chest Pain Positive: Shortness Of Breath, Cough - productive Positive: Nausea All Other Systems Reviewed And Are Negative: Yes Physical Exam - Summary Physical Exam Summary: VITAL SIGNS: Reviewed. GENERAL: Patient is a well-developed and nourished female who is lying comfortable in the stretcher. Patient is not in any acute respiratory distress. AV fistula at right forearm with good thrill. HEAD AND FACE: No signs of trauma. No ecchymosis, hematomas or skull depressions. No sinus tenderness. EYES: PERRLA, EOMI x 2, No injected conjunctiva, no nystagmus. EARS: Hearing grossly intact. Ear canals and tympanic membranes are within normal limits. MOUTH: Oropharynx within normal limits. NECK: Bilateral JVD is noted. Supple, trachea is midline, no adenopathy, no carotid bruit, no c-spine tenderness, neck with full ROM. CHEST: Symmetric, no tenderness at palpation LUNGS: Decreased breath sounds bilaterally. No wheezing or crackles. CVS: Regular rate and rhythm, S1 and S2 present, no murmurs or gallops appreciated. ABDOMEN: Soft, non-tender. No signs of distention. No rebound no guarding, and no masses palpated. Bowel sounds are normal. EXTREMITIES: FROM in all major joints, no edema, no cyanosis or clubbing. NEURO: Alert and oriented x 3. No acute neurological deficits. Speech is normal and follows commands. SKIN: Dry and warm Triage Information Reviewed: Yes Vital Signs On Initial Exam: Initial Vitals Temp Pulse Resp BP Pulse Ox 98.4 F 108 19 219/127 94 10/08/18 00:55 10/08/18 00:55 10/08/18 00:55 10/08/18 00:55 10/08/18 00:55 Vital Signs Reviewed: Yes Diagnostics - Vital Signs Vital Signs Temp Pulse Resp BP Pulse Ox 10/08/18 00:55 98.4 F 108 19 219/127 94 - Laboratory Result Diagrams: 10/08/18 01:43 10/08/18 01:43 Lab Statement: Any lab studies that have been ordered have been reviewed, and results considered in the medical decision making process. - Radiology CXR Radiology Interpretation Completed By: ED Physician - dr. squires Summary of Radiographic Findings: CXR showed increased interstitial infiltrate consistent with volume overload, pending official report. - EKG 0132 Cardiac Rate: NL - rate of 95 BPM EKG Rhythm: Sinus Rhythm Summary of EKG Findings: EKG showed sinus rhythm with rate of 95 BPM, LVH, no ST elevations. Re-Evaluation - Re-Evaluation First Eval Re-Evaluation Time: 02:05 Comment: Patient reports that she has been making urine. Second Eval Re-Evaluation Time: 02:11 Comment: Charge nurse notified Dr. Squires of trop of 0.05. Third Eval Re-Evaluation Time: 02:15 Comment: Informed patient and patient's family of results of labs and tests so far, patient likely to be admitted. Fourth Eval Re-Evaluation Time: 06:06 Comment: Patient reports BEDOLLA, patient given 650 mg Tylenol PO. Course/Dx - Course Course Of Treatment: Patient is a 53 y/o F presenting to ED with complaints SOB , productive cough. Patient only speaks Irish, family member in room to translate. Patient had an episode of SOB three days ago. Last night, 10/07/18, patient began to experience SOB at around 1830. She was able to go to sleep but later awoke due to SOB. SOB had worsened at this point, patient also reports experiencing a productive cough, nausea. No fever, no chest pain is reported. Patient is on dialysis and followed by Dr. Santoro, last dialysis was three days ago 10/05/18. On physical exam, decreased breath sounds bilaterally, AV fistula with good thrill. Bilateral JVD is noted as well. EKG showed sinus rhythm with rate of 95 BPM, LVH, no ST elevations. CXR showed increased interstitial infiltrate consistent with volume overload, pending official report. Labs showed Plt count 146, MPV 10.5, absolute lymphs 0.8, potassium 5.5, chloride 98 , anion gap 16, BUN 68, creatinine 10.17, BUN/creatinine ratio 6.7, glucose 115 , trop 0.05. During ED course, patient was given Zofran 8 mg IV ONCE, nitro paste 2 inch TOPICAL ED ONCE, Tylenol 650 mg PO and Lasix 100 mg IV ED ONCE. Patient's case was discussed with Dr. Santoro, Dr. Santoro recommends that the patient be kept in ED until 0630 in the morning and then subsequently discharged to dialysis. At 0630, patient discharged from ED and was taken to dialysis. - Diagnoses Provider Diagnoses: Volume overload, Chronic renal failure - Physician Notifications Discussed Care of Patient With: Honorio Santoro Time Discussed With Above Provider: 03:19 Instructed by Provider To: Other - Patient's case was discussed with Dr. Santoro , Dr. Santoro recommends that the patient be kept in ED until 0630 in the morning and then subsequently discharged to dialysis. Discharge - Sign-Out/Discharge Documenting (check all that apply): Patient Departure - discharge Patient Received Moderate/Deep Sedation with Procedure: No - NO PROCEDURES DONE - Discharge Plan Condition: Good Disposition: HOME Patient Education Materials: Chronic Kidney Disease (ED) Referrals: Honorio Santoro MD [Medical Doctor] - As Soon As Possible Additional Instructions: UPON DISCHARGE, IMMEDIATELY GO TO DIALYSIS. - Attestation Statements Document Initiated by Scribe: Yes Documenting Scribe: CHERIE LOJA Provider For Whom Scribe is Documenting (Include Credential): NIRANJAN SQUIRES MD Scribe Attestation: CHERIE Spear, scribed for NIRANJAN SQUIRES MD on 10/08/18 at 0628. Status of Scribe Document: Ready
[2018-10-08 01:59] LABS: Activated Partial Thrombo Time 28.8 seconds (26.0-36.3); INR 0.93 (0.77-1.02)
[2018-10-08 02:08] LABS: ALT 20 U/L (7-52); AST 15 U/L (13-39); Albumin 4.3 g/dL (3.2-5.2); Albumin/Globulin Ratio 1.2 (1-3); Alkaline Phosphatase 96 U/L (34-104); BUN/Creatinine Ratio 6.7 (8-20); Blood Urea Nitrogen 68 mg/dL (6-24); CO2 Carbon Dioxide 25 mmol/L (22-32); Calcium 10.2 mg/dL (8.6-10.3); Chloride 98 mmol/L (101-111); EGFR African American 4.8 (>60); Globulin 3.6 g/dL (2-4); Glucose 115 mg/dL (70-100); Sodium 139 mmol/L (135-145); Total Protein 7.9 g/dL (6.4-8.9)
[2018-10-08 02:09] LABS: ABS Basophils 0.1 10^3/ul (0-0.2); ABS Eosinophils 0 10^3/ul (0-0.6); ABS Lymphocytes 0.8 10^3/ul (1.0-4.8); ABS Monocytes 0.3 10^3/ul (0-0.8); ABS Neutrophils 5.2 10^3/ul (1.5-7.7); ABS Nucleated RBC 0 10^3/ul; Eosinophil % 0.7 %; Hematocrit 42 % (35-47); Hemoglobin 13.6 g/dl (12.0-16.0); Lymphocyte % 11.9 %; Mean Corpuscular HGB Conc 32 g/dl (31-36); Mean Corpuscular Hemoglobin 30 pg (27-31); Mean Corpuscular Volume 93 fL (80-97); Mean Platelet Volume 10.5 fL (7.4-10.4); Nucleated Red Blood Cells % 0; Platelet Count 146 10^3/ul (150-450); Red Blood Count 4.53 10^6/ul (4.00-5.40); Red Cell Distribution Width 14 % (10.5-15); White Blood Count 6.4 10^3/ul (3.5-10.8)
[2018-10-08] MEDS ORDERED: Nitro 2% OINT* (Nitroglycerin) 1 INCH/PAK PAK TOPICAL ONE (02:10)
[2018-10-08] MEDS ORDERED: Furosemide IV* 10 MG/ML 10 ML VIAL (100 MG) IV ONE (02:10)
[2018-10-08 02:11] LABS: Troponin I 0.05 ng/mL (<0.04)
[2018-10-08 02:12] LABS: Anion Gap 16 mmol/L (2-11); Potassium 5.5 mmol/L (3.5-5.0)
[2018-10-08] MEDS ORDERED: Acetaminophen TAB* 325 MG ONE (06:09)
[2018-10-08] MEDS ORDERED: Acetaminophen TAB* 325 MG PO ONE (06:11)
[2018-10-08 06:37] VITALS: BP 157/93
== END 2018-10-08 06:35 | disposition home or self-care (01) ==
LOC: ED 00:54
DX: E87.70 Fluid overload, unspecified (principal); I12.9 Hypertensive chronic kidney disease with stage 1 through stage 4 chronic kidney disease, or unspecified chronic kidney disease; N18.9 Chronic kidney disease, unspecified; Z99.2 Dependence on renal dialysis; R05 Cough; R11.0 Nausea; Z88.6 Allergy status to analgesic agent; Z88.8 Allergy status to other drugs, medicaments and biological substances; Z87.891 Personal history of nicotine dependence
CPT/HCPCS: 36415; 71045; 80053; 84484; 85025; 85610; 85730; 93005; 96374; 96375; 99283; A9270-GY; J1940; J2405

== ENCOUNTER 2018-12-01 23:38 | Inpatient (IN) | payer MEDICARE, MEDICAID ==
--- OUTSIDE RECORDS SUMMARY | 2018-12-01 23:48 | XMS REPORT | Continuity of Care Document ---
:1965 External Reference #:[id number] Author Name Sade Styles Care Team Providers Name Role Phone Radha Lockhart M.D. Primary Care Physician Unavailable Payers Date Identification Numbers Payment Provider Subscriber Policy Number: [id number] Medicare Jairon العلي PayID: [id number] [address] [place] [address] Policy Number: [id number] Medicaid Jairon العلي Group Name: 1 1 [address] PayID: [id number] [place] [address] Policy Number: [id number] [facility] Jairon العلي PayID: [id number] [address] Advance Directives Description No Information Available Problems Active Problems Provider Date Hemoptysis Honorio Browne M.D. Onset: 01/18/2018 Essential hypertension Ra Luo M.D. Onset: 01/18/2018 End-stage renal disease Ra Luo M.D. Onset: 01/18/2018 Gastroesophageal reflux disease Ra Luo M.D. Onset: 01/18/2018 Binocular vision disorder Ra Luo M.D. Onset: 01/18/2018 Hypertensive heart disease without heart Ra Luo M.D. Onset: 2017 failure Benign neoplasm of colon Radha Lockhart MD Onset: 08/09/2018 Hypertensive chronic kidney disease with Radha Lockhart MD Onset: 08/09/2018 stage 5 chronic kidney disease or end stage renal disease Family History Date Family Member(s) Observation Comments General No Current Problems Mother Arteriosclerosis Mother Diabetes Aunt Breast Cancer Social History Type Date Description Comments Sex Unknown Lives With Spouse and son, who is a PhD candidate at [employer] Occupation Disabled ETOH Use Denies alcohol use Tobacco Use Start: Unknown Patient has never smoked Recreational Drug Use Never Used Drugs Smoking Status Reviewed: 11/22/18 Patient has never smoked Exercise Type/Frequency Exercises regularly housework and walk 2 days per week Allergies, Adverse Reactions, Alerts Active Allergies Reaction Severity Comments Date Aspirin Moderate bleeding 10/29/2017 Hydralazine vomiting blood 04/03/2018 Medications Active Medications SIG Qnty Indications Ordering Provider Date Ranitidine HCL 1 by mouth twice 60tabs R14.0 Radha Lockhart MD 11/22/2018 150mg a day Tablets Metoprolol Succinate 1 by mouth every Other Ordering 08/09/2018 ER day Provider 25mg Tablets ER 24HR Omeprazole 1 by mouth 2x/day Unknown 20mg Capsules DR Wray one tablet daily Unknown 90mg Tablets Renvela 3 tabs three Unknown 800mg Tablets times a day Lisinopril 1 by mouth every Unknown 40mg Tablets day at bedtime History Medications Metoprolol Succinate 1 by mouth every 30tabs I12.0 Other Ordering 2018 - ER day Provider 08/09/2018 100mg Tablets ER 24HR Sumatriptan one by mouth as 9tabs G43.009 Radha Lockhart MD 08/09/2018 - Succinate needed for 11/22/2018 50mg headache. december Tablets repeat after 2 hrs. max 4 tablets in 24 hours Metoprolol Succinate 1 by mouth every 30tabs I11.9 Denys Fountain, 2017 - ER day DO FACC 04/01/2018 25mg Tablets ER 24HR No Active Unknown 10/29/2017 - Medications 12/11/2017 Sevelamer Carbonate 1 packet three Unknown - times a day 01/18/2018 2.4gm Packet Amlodipine Besylate 1 by mouth every Unknown - day 08/09/2018 10mg Tablets Cinacalcet take one daily Unknown - 90mg 01/18/2018 Brimonidine Tartrate instill 1 drop Unknown - into right eye 11/22/2018 0.15% Solution three times a day Metoprolol Tartrate 1 by mouth once Unknown - a day 08/09/2018 25mg Tablets Losartan Potassium 2 by mouth every Unknown - day 08/09/2018 50mg Tablets Hydralazine HCL 1 by mouth two Unknown - 25mg times/day 08/09/2018 Tablets Immunizations CPT Code Status Date Vaccine Lot # [id number] Given 01/18/2018 Pneumococcal Conjugate Vaccine 13 Valent For [id number] Intramuscular Use Vital Signs Date Vital Result Comment 11/22/2018 10:39am Height 62 inches 5'2" Weight 126.00 lb Heart Rate 84 /min BP Systolic Sitting 160 mmHg BP Diastolic Sitting 96 mmHg BMI (Body Mass Index) 23.0 kg/m2 08/09/2018 11:36am Height 62 inches 5'2" Weight 128.12 lb Heart Rate 84 /min BP Systolic 170 mmHg BP Diastolic 90 mmHg Body Temperature 98.6 F O2 % BldC Oximetry 97 % BMI (Body Mass Index) 23.4 kg/m2 05/27/2018 10:01am Height 62 inches 5'2" Weight 131.50 lb Heart Rate 80 /min BP Systolic 164 mmHg BP Diastolic 96 mmHg Body Temperature 98.9 F O2 % BldC Oximetry 98 % BMI (Body Mass Index) 24.0 kg/m2 04/03/2018 10:29am Height 62 inches 5'2" Weight 128.00 lb w/ shoes Heart Rate 75 /min BP Systolic Sitting 147 mmHg lue rg cuff BP Diastolic Sitting 88 mmHg lue rg cuff BMI (Body Mass Index) 23.4 kg/m2 03/08/2018 11:16am Height 62 inches 5'2" Weight 130.00 lb Heart Rate 78 /min BP Systolic 124 mmHg BP Diastolic 70 mmHg O2 % BldC Oximetry 98 % BMI (Body Mass Index) 23.8 kg/m2 03/04/2018 12:49pm Height 62 inches 5'2" Weight 133.00 lb wit Heart Rate 94 /min BP Systolic Sitting 140 mmHg lue reg cuff BP Diastolic Sitting 80 mmHg lue reg cuff BP Systolic Standing 159 mmHg BP Diastolic Standing 84 mmHg Respiratory Rate 16 /min BMI (Body Mass Index) 24.3 kg/m2 Ejection Fraction 50-55% 12/06/2017 echo 01/25/2018 9:53am Height 62 inches 5'2" Weight 129.00 lb Heart Rate 102 /min BP Systolic 140 mmHg BP Diastolic 100 mmHg O2 % BldC Oximetry 99 % BMI (Body Mass Index) 23.6 kg/m2 01/18/2018 8:48am Height 62 inches 5'2" Weight 127.00 lb Heart Rate 98 /min BP Systolic Sitting 160 mmHg BP Diastolic Sitting 96 mmHg Body Temperature 97.8 F O2 % BldC Oximetry 98 % BMI (Body Mass Index) 23.2 kg/m2 12/11/2017 4:20pm Height 62 inches 5'2" Weight 135.38 lb Heart Rate 108 /min BP Systolic 148 mmHg BP Diastolic 809 mmHg O2 % BldC Oximetry 97 % BMI (Body Mass Index) 24.8 kg/m2 11/12/2017 1:19pm Height 62 inches 5'2" Weight 140.00 lb Heart Rate 99 /min BP Systolic 148 mmHg BP Diastolic 98 mmHg Respiratory Rate 16 /min Body Temperature 98.0 F BMI (Body Mass Index) 25.6 kg/m2 10/29/2017 2:33pm Height 62 inches 5'2" Weight 140.00 lb Heart Rate 99 /min Respiratory Rate 14 /min Body Temperature 98.3 F Pain Level 6 BMI (Body Mass Index) 25.6 kg/m2 Results Test Date Facility Test Result H/L Range Note Laboratory test 11/10/2018 [facility] Blood Culture SEE RESULT [address] [place] [address] [phone] CBC Auto Diff 11/10/2018 [facility] White Blood 12.8 10^3/uL High 3.5-10.[address] [place] [address] [phone] Red Blood Count 3.05 10^6/uL Low 3.70-4.87 Hemoglobin 9.1 g/dL Low 12.0-16.0 Hematocrit 28 % Low 33-41 Mean Corpuscular Volume 93 fL N 80-97 Mean Corpuscular Hemoglobin 30 pg N 27-31 Mean Corpuscular HGB Conc 32 g/dL N 31-36 Red Cell Distribution Width 14 % N 10.5-15 Platelet Count 221 10^3/uL N 150-450 Mean Platelet Volume 9.9 fL N 7.4-10.4 Abs Neutrophils 10.9 10^3/uL High 1.5-7.7 Abs Lymphocytes 0.9 10^3/uL Low 1.0-4.8 Abs Monocytes 0.7 10^3/uL N 0-0.8 Abs Eosinophils 0.2 10^3/uL N 0-0.6 Abs Basophils 0.1 10^3/uL N 0-0.2 Abs Nucleated RBC 0 10^3/uL Granulocyte % 85.1 % Lymphocyte % 7.3 % Monocyte % 5.8 % Eosinophil % 1.2 % Basophil % 0.6 % Nucleated Red Blood Cells % 0.1 Laboratory test 11/10/2018 [facility] C Reactive 14.73 mg/L High <8.[address] [place] [address] [phone] Troponin-I (TnI) 0.05 ng/mL High <0.04 2 Comp Metabolic Panel 11/10/2018 [facility] Sodium 139 mmol/L N 135-[address] [place] [address] [phone] Potassium 4.7 mmol/L N 3.5-5.0 Chloride 99 mmol/L Low 101-111 Co2 Carbon Dioxide 22 mmol/L N 22-32 Anion Gap 18 mmol/L High 2-11 Glucose 108 mg/dL High 70-100 Blood Urea Nitrogen 82 mg/dL High 6-24 Creatinine 11.72 mg/dL High 0.51-0.95 BUN/Creatinine Ratio 7.0 Low 8-20 Calcium 9.8 mg/dL N 8.6-10.3 Total Protein 7.4 g/dL N 6.4-8.9 Albumin 4.0 g/dL N 3.2-5.2 Globulin 3.4 g/dL N 2-4 Albumin/Globulin Ratio 1.2 N 1-3 Total Bilirubin 0.90 mg/dL N 0.2-1.0 Alkaline Phosphatase 106 U/L High 34-104 Alt 10 U/L N 7-52 Ast 9 U/L Low 13-39 Egfr Non- 3.4 >60 Egfr 4.1 >60 3 Laboratory 11/10/2018 [facility] Lactic Acid 0.4 mmol/L Low 0.5-2.0 [address] [place] [address] [phone] Inr/Protime 11/10/2018 [facility] Inr 0.94 N 0.77-1.[address] [place] [address] [phone] Laboratory 11/10/2018 [facility] B-Type > 1300 High <=100 test finding [address] Natriuretic pg/[place] [address] Peptide BNP [phone] Inr/Protime 10/08/2018 [facility] Inr 0.93 N 0.77-1.[address] [place] [address] [phone] Laboratory 10/08/2018 [facility] Partial Thrombo 28.8 N 26.0- 36.3 test finding [address] [place] [place] [address] [phone] CBC Auto Diff 10/08/2018 [facility] White Blood 6.4 N 3.5- 10.[address] Count 10^3/[place] [address] [phone] Red Blood Count 4.53 10^6/uL N 4.00-5.40 Hemoglobin 13.6 g/dL N 12.0-16.0 Hematocrit 42 % N 35-47 Mean Corpuscular Volume 93 fL N 80-97 Mean Corpuscular Hemoglobin 30 pg N 27-31 Mean Corpuscular HGB Conc 32 g/dL N 31-36 Red Cell Distribution Width 14 % N 10.5-15 Platelet Count 146 10^3/uL Low 150-450 Mean Platelet Volume 10.5 fL High 7.4-10.4 Abs Neutrophils 5.2 10^3/uL N 1.5-7.7 Abs Lymphocytes 0.8 10^3/uL Low 1.0-4.8 Abs Monocytes 0.3 10^3/uL N 0-0.8 Abs Eosinophils 0 10^3/uL N 0-0.6 Abs Basophils 0.1 10^3/uL N 0-0.2 Abs Nucleated RBC 0 10^3/uL Granulocyte % 81.0 % Lymphocyte % 11.9 % Monocyte % 5.3 % Eosinophil % 0.7 % Basophil % 1.1 % Nucleated Red Blood Cells % 0 Comp Metabolic Panel 10/08/2018 [facility] Sodium 139 mmol/L N 135-[address] [place] [address] [phone] Chloride 98 mmol/L Low 101-111 Co2 Carbon Dioxide 25 mmol/L N 22-32 Glucose 115 mg/dL High 70-100 Blood Urea Nitrogen 68 mg/dL High 6-24 Creatinine 10.17 mg/dL High 0.51-0.95 BUN/Creatinine Ratio 6.7 Low 8-20 Calcium 10.2 mg/dL N 8.6-10.3 Total Protein 7.9 g/dL N 6.4-8.9 Albumin 4.3 g/dL N 3.2-5.2 Globulin 3.6 g/dL N 2-4 Albumin/Globulin Ratio 1.2 N 1-3 Total Bilirubin 1.00 mg/dL N 0.2-1.0 Alkaline Phosphatase 96 U/L N 34-104 Alt 20 U/L N 7-52 Ast 15 U/L N 13-39 Egfr Non- 4.0 >60 Egfr 4.8 >60 5 Potassium 5.5 mmol/L High 3.5-5.0 Anion Gap 16 mmol/L High 2-11 Laboratory test 10/08/2018 [facility] Troponin-I 0.05 High < 0.04 [address] (TnI) ng/[place] [address] [phone] CBC Auto Diff 09/23/2018 [facility] White Blood 7.6 N 3.5- 10.[address] Count 10^3/[place] [address] [phone] Red Blood Count 3.62 10^6/uL Low 4.00-5.40 Hemoglobin 11.1 g/dL Low 12.0-16.0 Hematocrit 35 % N 35-47 Mean Corpuscular Volume 96 fL N 80-97 Mean Corpuscular Hemoglobin 31 pg N 27-31 Mean Corpuscular HGB Conc 32 g/dL N 31-36 Red Cell Distribution Width 15 % N 10.5-15 Platelet Count 199 10^3/uL N 150-450 Mean Platelet Volume 9.6 fL N 7.4-10.4 Abs Neutrophils 4.9 10^3/uL N 1.5-7.7 Abs Lymphocytes 1.7 10^3/uL N 1.0-4.8 Abs Monocytes 0.7 10^3/uL N 0-0.8 Abs Eosinophils 0.2 10^3/uL N 0-0.6 Abs Basophils 0.1 10^3/uL N 0-0.2 Abs Nucleated RBC 0 10^3/uL Granulocyte % 65.6 % Lymphocyte % 21.9 % Monocyte % 8.9 % Eosinophil % 2.7 % Basophil % 0.9 % Nucleated Red Blood Cells % 0 Basic Metabolic Panel 09/23/2018 [facility] Sodium 138 mmol/L N 135-[address] [place] [address] [phone] Chloride 102 mmol/L N 101-111 Co2 Carbon Dioxide 18 mmol/L Low 22-32 Glucose 82 mg/dL N 70-100 Blood Urea Nitrogen 95 mg/dL High 6-24 Creatinine 13.70 mg/dL High 0.51-0.95 BUN/Creatinine Ratio 6.9 Low 8-20 Calcium 10.5 mg/dL High 8.6-10.3 Egfr Non- 2.8 >60 Egfr 3.4 >60 7 Potassium 5.6 mmol/L High 3.5-5.0 Anion Gap 18 mmol/L High 2-11 Laboratory test 05/15/2018 [facility] Surgical SEE RESULT [address] [place] [address] [phone] Laboratory test 05/15/2018 [facility] Clotest SEE RESULT [address] [place] [address] [phone] Laboratory test 04/04/2018 [facility] TSH (Thyroid 3.46 mcIU/mL N 0.34-[address] Stim Horm) .60 [place] [address] [phone] Hemoglobin A1c (Glyco HGB) 5.7 % High 4.0-5.6 10 Fructosamine 331 mcmol/L Abnormal 200 - 285 11 Phosphorus 7.5 mg/dL High 2.5-5.0 Magnesium 2.3 mg/dL N 1.9-2.7 Basic Metabolic Panel 04/04/2018 [facility] Sodium 138 mmol/L N 135-[address] [place] [address] [phone] Chloride 95 mmol/L Low 101-111 Co2 Carbon Dioxide 29 mmol/L N 22-32 Glucose 78 mg/dL N 70-100 Blood Urea Nitrogen 50 mg/dL High 6-24 Creatinine 10.14 mg/dL High 0.51-0.95 BUN/Creatinine Ratio 4.9 Low 8-20 Calcium 10.5 mg/dL High 8.6-10.3 Egfr Non- 4.0 >60 Egfr 4.8 >60 12 Potassium 5.3 mmol/L High 3.5-5.0 Anion Gap 14 mmol/L High 2-11 Pthi 04/04/2018 [facility] Calcium (PTH Intact) 10.3 mg/dL N 8.6-10.[address] [place] [address] [phone] PTH Intact 16.3 pmol/L High 1.3-9.3 CBC Auto Diff 03/15/2018 [facility] White Blood 6.1 10^3/uL N 3.5-10.[address] [place] [address] [phone] Red Blood Count 4.12 10^6/uL N 4.00-5.40 Hemoglobin 12.7 g/dL N 12.0-16.0 Hematocrit 39 % N 35-47 Mean Corpuscular Volume 94 fL N 80-97 Mean Corpuscular Hemoglobin 31 pg N 27-31 Mean Corpuscular HGB Conc 33 g/dL N 31-36 Red Cell Distribution Width 15 % N 10.5-15 Platelet Count 174 10^3/uL N 150-450 Mean Platelet Volume 10.2 um3 N 7.4-10.4 Abs Neutrophils 3.2 10^3/uL N 1.5-7.7 Abs Lymphocytes 2.0 10^3/uL N 1.0-4.8 Abs Monocytes 0.6 10^3/uL N 0-0.8 Abs Eosinophils 0.2 10^3/uL N 0-0.6 Abs Basophils 0.1 10^3/uL N 0-0.2 Abs Nucleated RBC 0 10^3/uL Granulocyte % 52.7 % N 38-83 Lymphocyte % 32.3 % N 25-47 Monocyte % 10.3 % High 0-7 Eosinophil % 3.5 % N 0-6 Basophil % 1.2 % N 0-2 Nucleated Red Blood Cells % 0.1 Inr/Protime 03/15/2018 [facility] Inr 0.90 N 0.77-1.[address] [place] [address] [phone] Laboratory test 03/15/2018 [facility] Partial 30.1 seconds N 26.0-36.[address] [place] [address] PTT [phone] Basic Metabolic 03/15/2018 [facility] Sodium 137 mmol/L N 135- [address] [place] [address] [phone] Potassium 5.1 mmol/L High 3.5-5.0 Chloride 98 mmol/L Low 101-111 Co2 Carbon Dioxide 26 mmol/L N 22-32 Anion Gap 13 mmol/L High 2-11 Glucose 76 mg/dL N 70-100 Blood Urea Nitrogen 41 mg/dL High 6-24 Creatinine 7.83 mg/dL High 0.51-0.95 BUN/Creatinine Ratio 5.2 Low 8-20 Calcium 9.9 mg/dL N 8.6-10.3 Egfr Non- 5.4 >60 Egfr 6.5 >60 13 CBC Auto Diff 01/28/2018 [facility] White Blood 7.3 10^3/uL N 3.5-10.[address] [place] [address] [phone] Red Blood Count 3.65 10^6/uL Low 4.00-5.40 Hemoglobin 11.3 g/dL Low 12.0-16.0 Hematocrit 34 % Low 35-47 Mean Corpuscular Volume 93 fL N 80-97 Mean Corpuscular Hemoglobin 31 pg N 27-31 Mean Corpuscular HGB Conc 33 g/dL N 31-36 Red Cell Distribution Width 16 % High 10.5-15 Platelet Count 219 10^3/uL N 150-450 Mean Platelet Volume 9.6 um3 N 7.4-10.4 Abs Neutrophils 4.0 10^3/uL N 1.5-7.7 Abs Lymphocytes 2.0 10^3/uL N 1.0-4.8 Abs Monocytes 0.8 10^3/uL N 0-0.8 Abs Eosinophils 0.4 10^3/uL N 0-0.6 Abs Basophils 0.1 10^3/uL N 0-0.2 Abs Nucleated RBC 0 10^3/uL Granulocyte % 54.9 % N 38-83 Lymphocyte % 27.6 % N 25-47 Monocyte % 10.7 % High 0-7 Eosinophil % 5.8 % N 0-6 Basophil % 1.0 % N 0-2 Nucleated Red Blood Cells % 0.1 Lipid Profile 01/28/2018 [facility] Triglycerides 86 mg/dL 14 (Trig/Chol/HDL) [address] [place] [address] [phone] Cholesterol 185 mg/dL 15 HDL Cholesterol 67.5 mg/dL 16 LDL Cholesterol 100 mg/dL 17 Comp Metabolic Panel 01/28/2018 [facility] Sodium 139 mmol/L N 135-[address] [place] [address] [phone] Potassium 4.7 mmol/L N 3.5-5.0 Chloride 94 mmol/L Low 101-111 Co2 Carbon Dioxide 30 mmol/L N 22-32 Anion Gap 15 mmol/L High 2-11 Glucose 81 mg/dL N 70-100 Blood Urea Nitrogen 52 mg/dL High 6-24 Creatinine 8.60 mg/dL High 0.51-0.95 BUN/Creatinine Ratio 6.0 Low 8-20 Calcium 10.3 mg/dL N 8.6-10.3 Total Protein 8.5 g/dL N 6.4-8.9 Albumin 4.5 g/dL N 3.2-5.2 Globulin 4.0 g/dL N 2-4 Albumin/Globulin Ratio 1.1 N 1-3 Total Bilirubin 1.00 mg/dL N 0.2-1.0 Alkaline Phosphatase 110 U/L High 34-104 Alt 13 U/L N 7-52 Ast 13 U/L N 13-39 Egfr Non- 4.8 >60 Egfr 5.9 >60 18 Laboratory test 01/25/2018 [facility] Cytology SEE RESULT 19, [address] [place] [address] [phone] 1 SEE RESULT BELOW Name: JAIRON DONOVAN : [address]: Froilan Alcantar MD Acct: [id number] Unit: [id number] AGE: 53 Location: [place] [id number] Re11/10/18 Dis: 11/11/18 SEX: F Status: DIS Angela SPEC: [id number] GIGI: 11/10/[address]: Venkatesh Francisco MD REQ: [id number] RECD: 11/10/18 STATUS: COMP LAWRENCE DR: Radha Lockhart MD _ SOURCE: BLOOD,VENO SPDESC: ORDERED: Blood Cult COMMENTS: L FA Procedure Result Reported Site Aerobic Culture Bottle Final 11/15/18- 1944 ML No Growth Day 5 Anaerobic Culture Bottle Final 11/15/18- 1944 ML No Growth Day 5 * ML - Main Lab . END OF REPORT DEPARTMENT OF PATHOLOGY, [address] [place] [address] Lv Chua M.D. Director [facility] # [id number] 2 Result TnIDx:0.05 Called to [id number] at: 20:13:35 by:[id number] Read back by: ODELL Troponin-I testing on Plasma Separator Tubes (PST) has a known false positive rate of 0.20-0.40%. All positive troponins reflex immediate secondary confirmatory testing. 3 Because ethnic data is not always readily available, this report includes an eGFR for both -Americans and non- Americans. The National Kidney Disease Education Program (NKDEP) does not endorse the use of the MDRD equation for patients that are not between the ages of 18 and 70, are , have extremes of body size, muscle mass, or nutritional status, or are non- or non-. According to the National Kidney Foundation, irrespective of diagnosis, the stage of the disease is based on the level of kidney function: Stage Description GFR(mL/min/1.73 m(2)) 1 Kidney damage with normal or decreased GFR 90 2 Kidney damage with mild decrease in GFR 60-89 3 Moderate decrease in GFR 30-59 4 Severe decrease in GFR 15-29 5 Kidney failure <15 (or dialysis) 4 [facility] Severe Sepsis and Septic Shock Management Bundle Measure requires all lactic acids initially measuring >2.0 mmol/L be repeated. 5 Because ethnic data is not always readily available, this report includes an eGFR for both -Americans and non- Americans. The National Kidney Disease Education Program (NKDEP) does not endorse the use of the MDRD equation for patients that are not between the ages of 18 and 70, are , have extremes of body size, muscle mass, or nutritional status, or are non- or non-. According to the National Kidney Foundation, irrespective of diagnosis, the stage of the disease is based on the level of kidney function: Stage Description GFR(mL/min/1.73 m(2)) 1 Kidney damage with normal or decreased GFR 90 2 Kidney damage with mild decrease in GFR 60-89 3 Moderate decrease in GFR 30-59 4 Severe decrease in GFR 15-29 5 Kidney failure <15 (or dialysis) 6 Result TnIDx:0.05 Called to [id number] at: 02:08:15 by:[id number] Read back by: [id number] Troponin-I testing on Plasma Separator Tubes (PST) has a known false positive rate of 0.20-0.40%. All positive troponins reflex immediate secondary confirmatory testing. 7 Because ethnic data is not always readily available, this report includes an eGFR for both -Americans and non- Americans. The National Kidney Disease Education Program (NKDEP) does not endorse the use of the MDRD equation for patients that are not between the ages of 18 and 70, are , have extremes of body size, muscle mass, or nutritional status, or are non- or non-. According to the National Kidney Foundation, irrespective of diagnosis, the stage of the disease is based on the level of kidney function: Stage Description GFR(mL/min/1.73 m(2)) 1 Kidney damage with normal or decreased GFR 90 2 Kidney damage with mild decrease in GFR 60-89 3 Moderate decrease in GFR 30-59 4 Severe decrease in GFR 15-29 5 Kidney failure <15 (or dialysis) 8 SEE RESULT BELOW Name: JAIRON DONOVAN : [address]: Hayde Trevino MD Acct: [id number] Unit: [id number] AGE: 52 Location: ENDO Re05/15/18 SEX: F Status: DEP REF SPEC: [id number] GIGI: 05/15/18- SUBM DR: Hayde Ureña MD REQ: [id number] RECD: 05/16/18-1640 STATUS: ELYSE BRAVO DR: Ra Luo MD _ ORDERED: LEVEL 4/2 FINAL DIAGNOSIS 1. Gastroesophageal junction, biopsy: -- Squamous and columnar mucosa with chronic inflammation. -- Intestinal metaplasia is absent. -- Dysplasia is absent. 2. Colon, rectosigmoid, biopsy: -- Hyperplastic polyps (6). CLINICAL HISTORY Pre kidney therapy transplant treatment evaluation; history of peptic ulcer disease, gastroesophageal reflux disease POST-OPERATIVE DIAGNOSIS EGD: esophagus - no rings or strictures, irregular z line - biopsy with island at 38 -39 (oozy); gastric - hiatal hernia at 42 cm - CLOtest; duodenum - normal; colonoscopy: aborted colonoscopy; acute descending sigmoid colon turn; (6) polyps 5-8 mm cold snare polypectomy GROSS DESCRIPTION 1. The specimen is received in formalin labeled, Gastroesophageal Biopsies , and consists of two garcia-white irregular soft tissue fragments averaging 0.4 by up to 0.3 x 0.2 cm which are submitted entirely in one cassette. 2. The specimen is received in formalin labeled, Rectosigmoid Colon Polyps , and consists of a 0.8 x 0.6 x 0.3 cm aggregate of garcia-white irregular to polypoid soft tissue fragments which is submitted entirely in one cassette. CONTINUED ON NEXT PAGE DEPARTMENT OF PATHOLOGY, [facility] [employer] [place] [address] Lv Chua M.D. Director [facility] # [id number] RUN DATE: 05/17/18 [facility] LAB LIVE PAGE 2 Patient: JAIRON DONOVAN [id number] (Continued) GROSS DESCRIPTION (Continued) Signed by and Reported on: Danyell Cevallos MD 05/17/18 1313 END OF REPORT DEPARTMENT OF PATHOLOGY, [facility] [employer] [place], [place] [address] Lv Chua M.D. Director [facility] # [id number] 9 SEE RESULT BELOW Name: JAIRON DONOVAN : [address]: Hayde Trevino MD Acct: [id number] Unit: [id number] AGE: 52 Location: ENDO Re05/15/18 SEX: F Status: REG REF SPEC: [id number] GIGI: 05/15/[address]: Hayde Ureña MD REQ: [id number] RECD: 05/15/18 STATUS: LEE BRAVO DR: Honorio Luo MD _ SOURCE: GAS ANTRUM SPDESC: ORDERED: Clotest Procedure Result Reported Site Clotest Final 05/16/18- 0715 ML Clotest Negative * ML - Main Lab . END OF REPORT DEPARTMENT OF PATHOLOGY, [address] [place] [address] Lv Chua M.D. Director [facility] # [id number] 10 Therapeutic target for the treatment of diabetes mellitus patients is <7% HBA1C, and in selective patients <6.0%. Please refer to [place] [employer] diabetic care guidelines for further information. 11 Test Performed by: [place] [address] 12 Because ethnic data is not always readily available, this report includes an eGFR for both -Americans and non- Americans. The National Kidney Disease Education Program (NKDEP) does not endorse the use of the MDRD equation for patients that are not between the ages of 18 and 70, are , have extremes of body size, muscle mass, or nutritional status, or are non- or non-. According to the National Kidney Foundation, irrespective of diagnosis, the stage of the disease is based on the level of kidney function: Stage Description GFR(mL/min/1.73 m(2)) 1 Kidney damage with normal or decreased GFR 90 2 Kidney damage with mild decrease in GFR 60-89 3 Moderate decrease in GFR 30-59 4 Severe decrease in GFR 15-29 5 Kidney failure <15 (or dialysis) 13 Because ethnic data is not always readily available, this report includes an eGFR for both -Americans and non- Americans. The National Kidney Disease Education Program (NKDEP) does not endorse the use of the MDRD equation for patients that are not between the ages of 18 and 70, are , have extremes of body size, muscle mass, or nutritional status, or are non- or non-. According to the National Kid[employer] Foundation, irrespective of diagnosis, the stage of the disease is based on the level of kidney function: Stage Description GFR(mL/min/1.73 m(2)) 1 Kidney damage with normal or decreased GFR 90 2 Kidney damage with mild decrease in GFR 60-89 3 Moderate decrease in GFR 30-59 4 Severe decrease in GFR 15-29 5 Kidney failure <15 (or dialysis) 14 Desirable: <150 Borderline High: 150-199 High: 200-499 Very High: >500 15 Desirable: <200 Borderline High: 200-239 High: >239 16 Low: <40 Desirable: 40-60 High: >60 17 Desirable: <100 Near Optimal: 100-129 Borderline High: 130-159 High: 160-189 Very High: >189 18 Because ethnic data is not always readily available, this report includes an eGFR for both -Americans and non- Americans. The National Kidney Disease Education Program (NKDEP) does not endorse the use of the MDRD equation for patients that are not between the ages of 18 and 70, are , have extremes of body size, muscle mass, or nutritional status, or are non- or non-. According to the National Kidney Foundation, irrespective of diagnosis, the stage of the disease is based on the level of kidney function: Stage Description GFR(mL/min/1.73 m(2)) 1 Kidney damage with normal or decreased GFR 90 2 Kidney damage with mild decrease in GFR 60-89 3 Moderate decrease in GFR 30-59 4 Severe decrease in GFR 15-29 5 Kidney failure <15 (or dialysis) 19 [id number] 20 SEE RESULT BELOW Name: JAIRON DONOVAN : [address]: Alexis Mckee MD Acct: [id number] Unit: [id number] AGE: 52 Location: [facility] Re01/25/18 SEX: F Status: REG REF SPEC: [id number] GIGI: 01/25/18-[address]: Alexis Mckee MD REQ: [id number] RECD: 01/25/18 STATUS: SOUT _ ORDERED: TP IMAGE ANALYS, HPV/Thin Prep COMMENTS: [id number] Negative for Intraepithelial lesion or Malignancy A. Ectocervical/Endocervical Specimen Adequacy: Satisfactory of evaluation Transformation zone component identified Patient Information: HPV: High risk HPV RNA testing regardless of pap results. Actual Specimen Date: 01/25/18 LMP If Unknown: 48 yrs ?: N Post Menopausal?: Y Hysterectomy?: N Previous Abnormal Pap Smears?:N Date Time Test Result Flag (u) Normal Range 01/25/18 1026 @ HPV RNA Negative Negative @ @ The high-risk HPV types detected by the assay include: 16, @ 18, 31, 33, 35, 39, 45, 51, 52, 56, 58, 59, 66, and 68. Signed by and Reported on: CHRIS Varela (ASCP) 1423 This Pap test was evaluated with the assistance of the [employer] Test Imaging System. Due to cytologic findings at the lap machine tender microscope, comprehensive manual rescreening by a Driver/Guide may be required. The Pap Smear is a screening test designed to aid in the detection of premalignant and malignant conditions of the uterine cervix. It is not a diagnostic procedure and should not be used as the sole means of detecting cervical cancer. Both false- positive and false- negative reports do occur. Depending on your risk status, a Pap smear should be obtained and evaluated every 1-3 years. END OF REPORT DEPARTMENT OF PATHOLOGY, [address] [place] [address] Lv Chua M.D. Director [facility] # [id number] Procedures Date Code Description Status 09/24/2018 03375 Moderate Sedation Services; Same Phys Intl 15 Mins; PT Completed >=5 Years 09/24/2018 40086 Ultrasound Guidance For Vascular Access Completed 09/24/2018 20620 Translum Balloon Angio Central Dial Segment Through Completed Dialys Circui 09/24/2018 95417 Dialysis Circuit W/ Transluminal Balloon Angioplasty, Completed Peripheral 07/19/2018 [id number] Colonoscopy Completed 05/27/2018 05633 EKG Tracing & Interpretation Completed 05/21/2018 [id number] Colonoscopy Completed 03/29/2018 91641 Moderate Sedation Services; Same Phys Intl 15 Mins; PT Completed >=5 Years 03/29/2018 49278 Ultrasound Guidance For Vascular Access Completed 03/29/2018 46138 Dialysis Circuit W/ Transluminal Balloon Angioplasty, Completed Peripheral 03/04/2018 00940 EKG Tracing & Interpretation Completed 02/18/2018 90394 Treadmill Interp/Report Only Completed 02/18/2018 90348 Stress Test Supervsn W/Out I/R Completed 02/04/2018 [id number] Mammogram Completed 12/06/2017 91004 ECHO Transthorasic Realtime 2D W Doppler & Color Flow Completed Hosp 12/05/2017 03355 EKG, Interpretation Only Completed 10/29/2017 93257 Closed TX Phalanx finger/thumb shaft w/o manipulation Completed Encounters Type Date Location Provider Dx Diagnosis Office Visit 11/11/2018 [facility] Mitesh Padilla, R06.02 Shortness of 8:28a Assoc,pc PA breath Hospitalists E87.79 Other fluid overload 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 reflux disease without [address] esophagitis I10 Essential (primary) hypertension N18.6 End stage renal disease Office Visit 03/04/2018 1:00p [facility] Denys Griffiths I11.9 Hypertensive heart [facility] [place], DO disease without FACC heart failure N18.6 End stage renal disease Z01.810 Encounter for preprocedural cardiovascular examination I48.0 Paroxysmal atrial fibrillation Office Visit 01/18/2018 9:00a [facility] [place] Pachikara, I12.0 Hyp chr kidney Medicine - [place] M.D. disease w Rd stage 5 chr kidney disease or Esrd Z00.01 Encounter for general adult medical exam w abnormal findings N18.6 End stage renal disease K21.9 Gastro-esophageal reflux disease without esophagitis M79.661 Pain in right lower leg H53.30 Unspecified disorder of binocular vision Z12.11 Encounter for screening for malignant neoplasm of colon Z12.31 Encntr screen mammogram for malignant neoplasm of breast Z12.4 Encounter for screening for malignant neoplasm of cervix Office Visit 12/11/2017 4:00p [facility] Honorio Browne, R04.2 Hemoptysis Of [place] R76.0 Raised antibody titer Office Visit 12/07/2017 8:53a [facility] Lauryn Vanessa R04.2 Hemoptysis Assoc,rani [place]lan[facility] Hospitalists N18.6 End stage renal disease I10 Essential (primary) hypertension R74.8 Abnormal levels of other serum enzymes Office Visit 12/06/2017 7:00a Rheumatology Honorio Browne, R76.0 Raised antibody Services Of [place] titer R04.2 Hemoptysis N18.6 End stage renal disease Z99.2 Dependence on renal dialysis Office Visit 12/06/2017 8:52a [facility],rani Gonzalez MD R04.2 Hemoptysis Hospitalists N18.6 End stage renal disease I10 Essential (primary) hypertension R74.8 Abnormal levels of other serum enzymes Office Visit 12/05/2017 8:51a [facility],rani Gonzalez MD R04.2 Hemoptysis Hospitalists N18.6 End stage renal disease I10 Essential (primary) hypertension R74.8 Abnormal levels of other serum enzymes Office Visit 12/04/2017 8:49a [facility], Colten Gonzalez MD R04.2 Hemoptysis Hospitalists N18.6 End stage renal disease I10 Essential (primary) hypertension R74.8 Abnormal levels of other serum enzymes Plan of Treatment Future Appointment(s):05/26/2019 9:00 am - Radha Lockhart MD at [facility] Ucaqpuwb16/19/2019 - Radha Lockhart, MDR06.02 Shortness of breathComments:much improved.R14.0 Abdominal distension (gaseous)New Medication:Ranitidine HCL 150 mg - 1 by mouth twice a dayNew Xrays:US Gallbladder, Ordered: 11/22/18Comments: I am adding an anti acid medication for qwndsyX98.79 Other fluid overloadComments:resolved after qttcdxwoE74.0 Hypertensive chronic kidney disease with stage 5 chronic kidComments:Dr. Santoro is managing your blood pressureFollow up:6 ohpbehV59.441 Effusion, right handComments:please see vascular surgeon
[2018-12-01] MEDS ORDERED: Propofol* 100 ML ONE (23:56)
[2018-12-01] MEDS ORDERED: Adenosine* 3 MG/ML VIAL ONE ×2 (23:56→23:57)
[2018-12-02] MEDS ORDERED: Adenosine* 3 MG/ML VIAL IV PUSH ONE ×2 (00:02)
[2018-12-02] MEDS ORDERED: Labetalol IV* 5 MG/ML 20 ML VIAL ONE (00:05)
[2018-12-02] MEDS ORDERED: Labetalol IV* 5 MG/ML 20 ML VIAL IV PUSH ONE (00:05)
[2018-12-02 00:09] LABS: ABS Basophils 0.1 10^3/ul (0-0.2); ABS Eosinophils 0.3 10^3/ul (0-0.6); ABS Lymphocytes 4.4 10^3/ul (1.0-4.8); ABS Monocytes 0.7 10^3/ul (0-0.8); ABS Neutrophils 5.5 10^3/ul (1.5-7.7); ABS Nucleated RBC 0 10^3/ul; Eosinophil % 2.6 %; Hematocrit 37 % (33-41); Hemoglobin 11.8 g/dL (12.0-16.0); Lymphocyte % 39.9 %; Mean Corpuscular HGB Conc 32 g/dL (31-36); Mean Corpuscular Hemoglobin 31 pg (27-31); Mean Corpuscular Volume 96 fL (80-97); Mean Platelet Volume 9.4 fL (7.4-10.4); Nucleated Red Blood Cells % 0.1; Platelet Count 279 10^3/uL (150-450); Red Blood Count 3.84 10^6 /uL (3.70-4.87); Red Cell Distribution Width 16 % (10.5-15)
[2018-12-02] MEDS ORDERED: Propofol* 100 ML IV SCH ×2 (00:10→04:27)
[2018-12-02 00:20] LABS: ALT 12 U/L (7-52); AST 14 U/L (13-39); Albumin 4.6 g/dL (3.2-5.2); Albumin/Globulin Ratio 1.2 (1-3); Alkaline Phosphatase 119 U/L (34-104); Anion Gap 15 mmol/L (2-11); BUN/Creatinine Ratio 4.4 (8-20); Blood Urea Nitrogen 38 mg/dL (6-24); CO2 Carbon Dioxide 25 mmol/L (22-32); Calcium 10.5 mg/dL (8.6-10.3); Chloride 99 mmol/L (101-111); EGFR African American 5.9 (>60); EGFR Non-African American 4.8 (>60); Glucose 198 mg/dL (70-100); Potassium 4.1 mmol/L (3.5-5.0); Sodium 139 mmol/L (135-145); Total Protein 8.6 g/dL (6.4-8.9)
[2018-12-02 00:26] LABS: Troponin I 0.12 ng/mL (<0.04)
--- NOTE | 2018-12-02 01:04 | ED ---
Respiratory - HPI Summary HPI Summary: HPI LIMITED DUE TO LEVEL 5 CAVEAT - RESPIRATORY DISTRESS This patient is a 53 year old F brought in by ambulance to [facility] accompanied by and son with a chief complaint of SOB that began approximately 2 months ago and worsened significantly at 1300 yesterday. Per EMS, patient is currently on dialysis. Per EMS the patient would not tolerate CPAP. Per , the patient was seen at [facility] 3-4 weeks ago and treated with antibiotics. - History of Current Complaint Chief Complaint: EDRespiratoryDistress Stated Complaint: "SOB" PER EMS Hx Obtained From: Family/Relaster, EMS Pain Intensity: 0 - Allergy/Home Medications Allergies/Adverse Reactions: Allergies Allergy/AdvReac Type Severity Reaction Status Date / Time aspirin Allergy Bleeding Verified 12/02/18 01:14 hydralazine Allergy Bleeding Verified 12/02/18 01:14 PMH/Surg Hx/FS Hx/Imm Hx Previously Healthy: No - PMHx LIMITED DUE TO LEVEL 5 CAVEAT - RESPIRATORY DISTRESS Endocrine/Hematology History: Denies: Hx Diabetes Cardiovascular History: Reports: Hx Hypertension Denies: Hx Angina, Hx Coronary Artery Disease, Hx Hypercholesterolemia, Hx Myocardial Infarction, Hx Valvular Heart Disease, Other Cardiovascular Problems/ Disorders Respiratory History: Denies: Hx Asthma, Hx Chronic Obstructive Pulmonary Disease (COPD), Other Respiratory Problems/Disorders GI History: Denies: Other GI Disorders - on prilosec due to medications History: Reports: Hx Chronic Renal Failure, Hx Kidney Stones Denies: Hx Kidney Infection, Other Problems/Disorders Musculoskeletal History: Denies: Other Musculoskeletal History Sensory History: Denies: Hx Cataracts, Hx Contacts or Glasses, Hx Eye Injury, Hx Eye Prosthesis, Hx Glaucoma, Hx Legally Blind, Hx Macular Degeneration, Hx Vision Problem, Hx Deafness, Hx Hearing Aid, Hx Hearing Problem, Other Sensory Impairments Opthamlomology History: Denies: Hx Cataracts, Hx Contacts or Glasses, Hx Eye Injury, Hx Eye Prosthesis, Hx Glaucoma, Hx Legally Blind, Hx Macular Degeneration, Hx Vision Problem, Other Sensory Impairments Neurological History: Reports: Hx Headaches Denies: Other Neuro Impairments/Disorders - Surgical History Surgery Procedure, Year, and Place: AV Fistula in 2016 Hx Anesthesia Reactions: No - Immunization History Date of Tetanus Vaccine: unk Date of Influenza Vaccine: unk Infectious Disease History: Unable to Obtain/Confirm Infectious Disease History: Denies: Traveled Outside the [place] in Last 30 Days - Family History Known Family History: Positive: Hypertension, Diabetes - Social History Alcohol Use: None Hx Substance Use: No Substance Use Type: Reports: None Hx Tobacco Use: Yes Smoking Status (MU): Former Smoker Have You Smoked in the Last Year: No Review of Systems - ROS Summary Review of Systems Summary: ROS LIMITED DUE TO LEVEL 5 CAVEAT - RESPIRATORY DISTRESS All Other Systems Reviewed And Are Negative: No Physical Exam - Summary Physical Exam Summary: PE LIMITED DUE TO LEVEL 5 CAVEAT - RESPIRATORY DISTRESS Appearance: Well-appearing, Well-nourished Skin: Warm, dry, no obvious rash Eyes: sclera anicteric, no conjunctival pallor ENT: mucous membranes moist, pharynx appears normal Neck: Supple, nontender Respiratory: severe respiratory distress, unable to answer simple questions, diffuse bilateral crackles Cardiovascular: Normal S1, S2. No murmurs. Normal distal pulses in tibial and radial bilaterally. Abdomen: Soft, nontender, normal active bowel sounds present Musculoskeletal: Normal, Strength/ROM Intact Neurological: A&Ox3, awake and alert, mentation is normal Triage Information Reviewed: Yes Vital Signs On Initial Exam: Initial Vitals Temp Pulse Resp BP Pulse Ox 97.7 F 174 30 227/168 94 12/02/18 00:12 12/02/18 00:12 12/02/18 00:12 12/02/18 00:12 12/02/18 00:12 Vital Signs Reviewed: Yes Procedures - Central Line Right Subclavian Central Line Procedure: betadine prep Central Line Position: subclavian (R) Complications: I did hit the R carotid artery, pressure was applied Right Femoral Central Line Procedure: betadine prep Central Line Position: subclavian (R) Complications: I did hit the right femoral artery, pressure was applied Right Jugular Central Line Procedure: betadine prep Central Line Position: internal jugular (R) Complications: I did hit the right carotid artery. Pressure was applied - Intubation Intubation Method: orotracheal Tube Size (cm): 8.0 Breath Sounds after Intubation: equal - Good chest excursion Intubation Complications: no complications Post Intubation Xray: Yes Progress/Xray Impression: CXR reveals, per ED physician, ET tube appears not in far enough Diagnostics - Vital Signs Vital Signs Temp Pulse Resp BP Pulse Ox 12/02/18 00:12 97.7 F 174 30 227/168 94 - Laboratory Lab Results: Lab Results 12/01/18 12/01/18 12/01/18 Range/Units 23:51 23:51 23:51 WBC 11.0 H (3.5-10.8) 10^3/uL RBC 3.84 (3.70-4.87) 10^6 /uL Hgb 11.8 L (12.0-16.0) g/dL Hct 37 (33-41) % MCV 96 (80-97) fL MCH 31 (27-31) pg MCHC 32 (31-36) g/dL RDW 16 H (10.5-15) % Plt Count 279 (150-450) 10^3/uL MPV 9.4 (7.4-10.4) fL Neut % (Auto) 50.2 % Lymph % (Auto) 39.9 % Hopkins % (Auto) 6.2 % Eos % (Auto) 2.6 % Baso % (Auto) 1.1 % Absolute Neuts (auto) 5.5 (1.5-7.7) 10^3/ul Absolute Lymphs (auto) 4.4 (1.0-4.8) 10^3/ul Absolute Monos (auto) 0.7 (0-0.8) 10^3/ul Absolute Eos (auto) 0.3 (0-0.6) 10^3/ul Absolute Basos (auto) 0.1 (0-0.2) 10^3/ul Absolute Nucleated RBC 0 10^3/ul Nucleated RBC % 0.1 Sodium 139 (135-145) mmol/L Potassium 4.1 (3.5-5.0) mmol/L Chloride 99 L (101-111) mmol/L Carbon Dioxide 25 (22-32) mmol/L Anion Gap 15 H (2-11) mmol/L BUN 38 H (6-24) mg/dL Creatinine 8.56 H (0.51-0.95) mg/dL Est GFR ( Amer) 5.9 (>60) Est GFR (Non-Af Amer) 4.8 (>60) BUN/Creatinine Ratio 4.4 L (8-20) Glucose 198 H (70-100) mg/dL Lactic Acid 2.5 H* (0.5-2.0) mmol/L Calcium 10.5 H (8.6-10.3) mg/dL Total Bilirubin 0.90 (0.2-1.0) mg/dL AST 14 (13-39) U/L ALT 12 (7-52) U/L Alkaline Phosphatase 119 H (34-104) U/L Troponin I 0.12 H* (<0.04) ng/mL Total Protein 8.6 (6.4-8.9) g/dL Albumin 4.6 (3.2-5.2) g/dL Globulin 4.0 (2-4) g/dL Albumin/Globulin Ratio 1.2 (1-3) Result Diagrams: 12/01/18 23:51 12/01/18 23:51 Lab Statement: Any lab studies that have been ordered have been reviewed, and results considered in the medical decision making process. - Radiology Chest XR Radiology Interpretation Completed By: ED Physician Summary of Radiographic Findings: CXR reveals, per ED physician, ET tube appears not in far enough. No pneumothorax visible in the L, increased opacity in the R. - EKG 0118 Cardiac Rate: Tachycardia EKG Rhythm: Sinus Rhythm - 149 BPM Summary of EKG Findings: An EKG taken at 0118 reveals sinus tachycardia at 149 BPM. Disposition - Course Course Of Treatment: LIMITED DUE TO LEVEL 5 CAVEAT RESPIRATORY DISTRESS. This patient is a 53 year old F brought in by ambulance to [facility] accompanied by and son with a chief complaint of SOB that began approximately 2 months ago and worsened significantly at 1300 yesterday. Physical Exam Findings: , severe respiratory distress, unable to answer simple questions, diffuse bilateral crackles. An EKG taken at 0118 reveals sinus tachycardia at 149 BPM. CXR reveals, per ED physician, ET tube appears not in far enough. No pneumothorax visible in the L, increased opacity in the R. Bloodwork obtained. Tried to cannulate right IJ, right femoral, and right subclavian, no success, I did hit the right femoral artery and the right carotid artery. Pressure was applied at both sites. Consult with Dr. Magallon (surgery) at 0101. He agreed to consult. Consult with Dr. Navarrete (hospitalist) at 0109. She agreed to admit pt for further evaluation. The patient is agreeable with this plan. - Diagnoses Provider Diagnoses: Respiratory failure - Physician Notifications Discussed Care Of Patient With: Juaquin Magallon Time Discussed With Above Provider: 01:01 Instructed by Provider To: Other - Consult with Dr. Magallon (surgery) at 0101. He agreed to consult. Consult with Dr. Navarrete (hospitalist) at 0109. She agreed to admit pt for further evaluation. - Critical Care Time Critical Care Time: 30-74 min Discharge - Sign-Out/Discharge Documenting (check all that apply): Patient Departure - Admit to [facility] Patient Received Moderate/Deep Sedation with Procedure: No - Discharge Plan Condition: Stable Disposition: ADMITTED TO [facility] - Billing Disposition and Condition Condition: STABLE Disposition: Admitted to [place] [facility] - Attestation Statements Document Initiated by Scribe: Yes Documenting Scribe: Eliza Benavidez Provider For Whom Damone is Documenting (Include Credential): Dr. Iska Romo MD Scribe Attestation: Eliza Spear, scribed for Dr. Isak Romo MD on 12/02/18 at 0350. Scribe Documentation Reviewed: Yes Provider Attestation: The documentation as recorded by the Eliza guerrero accurately reflects the service I personally performed and the decisions made by me, Dr. Isak Romo MD Status of Scribe Document: Viewed
[2018-12-02 01:33] LABS: Rapid HIV 1 Nonreactive (Nonreactive)
[2018-12-02] MEDS ORDERED: Midazolam* 1 MG/ML 5 ML VIAL (5 MG) ONE (01:37)
[2018-12-02] MEDS ORDERED: cefTRIAXone(*) 1 GM in NS 0.9% 50 ML* 50 ML IVPB ONE (01:54)
[2018-12-02] MEDS ORDERED: Azithromycin IV(*) 500 MG in NS 0.9% 250 ML* 250 ML IVPB ONE (01:55)
[2018-12-02] MEDS ORDERED: Midazolam* 1 MG/ML 10 ML VIAL (10 MG) IV ONE (02:21)
[2018-12-02] MEDS ORDERED: NS 0.9% 250 ML* 250 ML ONE (02:22)
[2018-12-02] MEDS ORDERED: Azithromycin 500 mg/250 ml NS 500 MG/250 ML BAG IVPB ONE (02:23)
[2018-12-02] MEDS ORDERED: Midazolam concentrated* 5 MG/ML 1 ml VIAL ONE (03:03)
[2018-12-02] MEDS ORDERED: Midazolam concentrated* 5 MG/ML 1 ml VIAL IV ONE (03:07)
[2018-12-02] MEDS: Midazolam* 1 MG/ML 10 ML VIAL (10 MG) IV ONE ×2 (03:32→04:47)
--- NOTE | 2018-12-02 03:53 | PRO ---
CC: Honorio Santoro MD; Radha Lockhart MD* DATE OF OPERATION: 12/02/18 DATE OF : 63 SURGEON: Juaquin Magallon MD. ASSET AVAILABILITY LEADER: None. ANESTHESIA: 1% lidocaine plain used locally. PRE-OP DIAGNOSES: Respiratory failure and need for IV access. POST-OP DIAGNOSES: Respiratory failure and need for IV access. OPERATIVE PROCEDURE: Right femoral central venous catheter placement. ESTIMATED BLOOD LOSS: 5 mL. CATHETER: Triple lumen. DESCRIPTION OF PROCEDURE: The patient was identified in the emergency room, she was intubated. The consent was verbally obtained from the patent's son. After sterile prep and drape of the right groin, right femoral vein was accessed and guidewire was placed without difficulty. Tract was dilated and triple lumen catheter was placed to 20 cm. All ports were drawn and flushed easily. The catheter was sutured in place with 3-0 silk in 3 positions. Occlusive dressing was applied. The patient tolerated the procedure well. [id number]/CPS #: [id number] [facility]
[2018-12-02 04:28] LABS: Troponin I 0.44 ng/mL (<0.04)
[2018-12-02] MEDS: Chlorhexidine MOUTHWASH 0.12%* 15 ML UDC TOPICAL SCH ×4 (04:47→12:19)
[2018-12-02] MEDS: Heparin VIAL(*) 5000 UNITS/ML VIAL (FIVE THOUSAND) SUBCUT SCH ×3 (05:45→22:39)
[2018-12-02 06:16] LABS: Troponin I 0.59 ng/mL (<0.04)
[2018-12-02 06:34] LABS: Magnesium 2.3 mg/dL (1.9-2.7)
--- NOTE | 2018-12-02 07:04 | HP ---
HISTORY AND PHYSICAL: DATE OF ADMISSION: 12/02/18 PRIMARY CARE PROVIDER: Dr. Lockhart. UNIT EDUCATOR: Honorio Cedeño, the patient's . CHIEF COMPLAINT: Shortness of breath. CODE STATUS: Full. SOURCE OF INFORMATION: HPI is obtained from review of chart, interview with family; the patient is unable to participate in HPI given clinical status. HISTORY OF PRESENT ILLNESS: This is a 53-year-old female with past medical history of hypertension-induced end-stage renal disease, on hemodialysis Sunday , , and Sunday; hypertension; history of vasculitis, drug induced; GERD, who presented this evening with acute shortness of breath. The patient's reports that she has been having off and on shortness of breath and dry cough for 2 months, this is new for her and has otherwise been quite healthy since starting dialysis three years ago. She was also hospitalized in early November of 2018 at [facility] for missing dialysis and was found to be in volume overload. The patient's reports that she continues to have intermittent dry cough that started around 1 p.m. yesterday, had increasing shortness of breath and became more dyspneic this evening with no relief and thus they called EMS. Last dialysis was 11/30/18 without complications. Patients family reports she still does make some urine, though they aren't sure how much. ER course. The patient presented in distress, respiratory rate in the 40s, oxygen saturations 94% on nonrebreather. She also was in a narrow complex tachycardia in the 160s with blood pressure 227/168. She was given adenosine 6 and 12 with no change in rhythm and labetalol 40 mg was given with improvement of rhythm, sinus tachycardia in the one-teens, and blood pressure systolic dropped to the 180s. The patient continued to be unable to answer simple questions, very short of breath, and tripoding and thus she was intubated for work of breathing. Central line was placed in right femoral for access. A chest x-ray completed after intubation showed the ET tube terminating 6 cm above the nikolay with right lung with diffuse hazy infiltrate and blunting of the costophrenic angle and left lung with patchy pulmonary edema. Labs were drawn, which showed a white blood cell count of 11, a BMP with normal electrolytes and elevated creatinine consistent with ESRD, and lactic acid at 2.5, trop was elevated at 0.12. She was given azithromycin and ceftriaxone and hospitalist team was asked to admit the patient. PAST MEDICAL HISTORY: 1. ESRD, on HD. 2. Hypertension. 3. History of drug-induced vasculitis. 4. GERD. PAST SURGICAL HISTORY: Right AV fistula. MEDICATIONS: 1. Omeprazole 20 mg p.o. q.a.m. 2. Metoprolol 25 mg p.o. daily. 3. Nifedipine 60 mg p.o. daily. 4. Renvela 2400 mg p.o. a.c. 5. Brimonidine drops, 1 drop right eye t.i.d. 6. Sensipar 90 mg p.o. q.p.m. 7. Lisinopril 10 mg p.o. q.p.m. ALLERGIES: ASPIRIN and HYDRALAZINE. FAMILY HISTORY: She is Citizen Of [place] in origin. Mother with a history of Alzheimer's. Father with a history of diabetes, hypertension, and heart disease. SOCIAL HISTORY: The patient lives with her . 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 She is a lifetime nontobacco, alcohol, or illicit user. The patient is Frisian speaking only. REVIEW OF SYSTEMS: Unable to obtain given the clinical status of the patient. PHYSICAL EXAMINATION GENERAL: Intubated and sedated woman in no acute distress, comfortable in the stretcher. VITAL SIGNS: At the time of physical exam, blood pressure 145/97, heart rate 91 , respiratory rate 20, oxygen saturation 100% on 90% FiO2. HEENT: She has moist mucous membranes. Sclerae are anicteric. Pupils are equal and reactive. NECK: Supple with no supraclavicular or cervical lymphadenopathy. LUNGS: The patient has bilateral crackles to midlung base as well as slightly diminished in right lung. HEART: She has tachycardic rate with a RRR no MRG ABDOMEN: Soft, nontender, nondistended with normoactive bowel sounds. MUSCULOSKELETAL: The patient moves all 4 limbs spontaneously. EXTREMITIES: The patient has right AV fistula with chronic soft tissue edema dorsally over forearm and hyperpigmented skin, + bruit. She has no lower extremity edema. NEUROLOGIC: Her cranial nerves are grossly intact with no focal neurologic deficits. LABORATORY DATA/DIAGNOSTIC STUDIES: White blood cell count of 11, hemoglobin of 11.8, hematocrit of 37, platelets of 279. Sodium 139, potassium 4.1, chloride 99, carbon dioxide 25, anion gap 15, BUN 38, creatinine 8.56, glucose 198. Lactic acid 2.5. Calcium 10.5. AST 14, ALT 12, alkaline phosphatase 119. Troponin 0.12. EKG was done, which shows sinus tachycardia with no evidence of acute ischemia in the 120s. Chest x-ray shows ET tube in place and right lung with diffuse hazy infiltrate and blunting of the costophrenic angle as well as left lung with pulmonary edema. Last echocardiogram was done in 2018 with ejection fraction of 50% to 55%, mild global hypokinesis, and normal valves. ASSESSMENT AND PLAN: This is a 53-year-old female with a past medical history of hypertension-induced endstage renal disease, on hemodialysis Sunday, , Sunday; hypertension; history of vasculitis; and GERD, who presented this evening with acute hypoxic respiratory distress most likely secondary to pulmonary edema and cannot rule out pneumonia, also with hypertensive emergency and tachycardia. Plan by system is as follows: 1. Neuro: The patient is currently sedated and intubated with a RASS score of -1 to 0. Lightened sedation as the patient tolerates for spontaneous breathing trial. 2. Cardiac: Hypertension, improving, status post labetalol. We will monitor closely and use p.r.n. metoprolol IV to help lower pressure. Could consider nicardipine drip if continues to increase. The patient cannot have hydralazine. We will resume home lisinopril, nifedipine, and oral metoprolol. Repeat echocardiogram in the setting of volume overload. Tachycardia appeared sinus, possibly presented in supraventricular tachycardia that was narrow complex, although adenosine did not reveal any other rhythm. We will continue beta-aster. 3. Ischemia. We will trend troponins, likely elevated in the setting of demand. Repeat EKG did not show any active ST elevation changes. 4. Pulm: The patient is in acute hypoxic respiratory distress secondary to volume overload. We will resume dialysis. Continue mechanical ventilator support at this time. Furthermore, cannot rule out community-acquired pneumonia and we will continue coverage for CAP with ceftriaxone and azithromycin. 5. Renal: The patient has ESRD, we will resume HD tomorrow. Consult Dr. Santoro. Continue with her phos binders. Also lactic acidosis, we will trend, this is likely in the setting of tachypnea. Of note, patients family reports she makes some urine, consider Lasix challenge. 6. GI: We will continue home PPI. 7. MSK: No active issues. 8. Heme: No active issues. 9. Endocrine: No active issues. 10. ID: Possible CAP, continue abx Day 08/12 on 12/02 10. Hospital issues: DVT prophylaxis: The patient will be on subcu heparin, Lines and tubes. The patient has a right femoral triple-lumen catheter. The patient is intubated. FEN: The patient is n.p.o. Disposition: The patient is appropriate for admission to intensive care unit for support with mechanical ventilation. Code status is full. TIME SPENT: Forty five minutes were spent on the planning of this admission with over half of that spent directly at the bedside with the patient providing direct patient care. Critical care time: 30 minutes critical care time was spent in this admission. Plan of care was discussed with who agrees with hospitalization. No further questions. [id number]/CPS #: [id number] CHICA
[2018-12-02] MEDS: NIFEdipine ER TAB* 60 MG PO SCH ×2 (08:51→13:19)
[2018-12-02] MEDS: Metoprolol Succinate XL TAB* 25 MG PO SCH ×2 (08:51→13:19)
[2018-12-02] MEDS: Metoprolol Tartrate IV* 1 MG/ML 5 ML VIAL IV PRN ×2 (08:57→15:32)
[2018-12-02] MEDS: Pantoprazole TAB * 40 MG TAB PO SCH (08:57)
[2018-12-02] MEDS: Brimonidine P 0.15%(NF) OPH SOL 5 ML BTL RIGHT EYE SCH ×3 (08:57→22:26)
[2018-12-02] MEDS: Sevelamer TAB* 800 MG PO SCH ×4 (08:57→22:36)
[2018-12-02 10:01] LABS: Troponin I 0.63 ng/mL (<0.04)
--- NOTE | 2018-12-02 10:59 | ECHO ---
*[facility]* [place] [address] Fax #: [phone] Transthoracic Echocardiogram Patient: Hemalatha Height: 64 in / Telma العلي 162.6 cm Flaquita : 1965 Weight: 128.7 lb Study Date: 12/02/2018 / 58.5 kg Age: 53 BP: 154 / 98 Gender: F BMI/BSA: 22.1 HR: 90 bpm kg/m^2 / 1.62 m^2 *Supervisor [employer]: * Rin Phillips *Referring Physician: * Omaira NavarreteReading Physician: * Johan Menchaca Indications: Congestive Heart Failure. History: Dialysis-dependent chronic renal disease. Risk factors: Hypertension. Conclusions Summary: 1. Impressions: since the study of 12/05/2017. 2. Left ventricle: The estimated ejection fraction is 35-40%. Moderate diffuse hypokinesis. 3. Mitral valve: There is moderate regurgitation. 4. Aortic valve: There is no evidence of stenosis. There is trivial regurgitation. 5. Tricuspid valve: There is mild regurgitation. 6. Pericardium, extracardiac: A trivial pericardial effusion is identified. 7. Compared to study of 12/06/17, the left ventricle dysfunction is new. The Moderate mitral regurgitation was previously mild Study data: Transthoracic echocardiogram. Procedure: Transthoracic echocardiography was performed. Image quality was fair. The study was technically limited due to Patient on ventilator. Complete 2D, spectral Doppler, and color flow Doppler. Location: ICU Patient status: Inpatient. Patient room number: 9. Rhythm: Normal sinus rhythm. Findings Left ventricle: The cavity size is mildly dilated. Wall thickness is mildly increased. The estimated ejection fraction is 35-40%. Moderate diffuse hypokinesis. Left ventricular diastolic function parameters are indeterminate. Right ventricle: The cavity size is normal. Wall thickness is mildly increased. Systolic function is low normal. Left atrium: The atrium is moderately dilated. Right atrium: The atrium is normal in size. Mitral valve: The annulus is mildly calcified. The leaflets are mildly thickened. There is no evidence of stenosis. There is moderate regurgitation. The valve area is 2.4 cm^2. The valve area index is 1.49 cm^2/m^2. The valve area by pressure half-time is 2.8 cm^2. The valve area index by pressure half-time is 1.7 cm^2/m^2. The valve area (LVOT continuity) is 2.4 cm^2. The valve area index (LVOT continuity) is 1.49 cm^2/m^2. The mean diastolic gradient is 3.0 mm Hg. The peak diastolic gradient is 5.0 mm Hg. Aortic valve: The valve is probably trileaflet. There is no evidence of stenosis. There is trivial regurgitation. The valve area by the velocity-time integral method is 2.21 cm^2. The valve area index by the velocity-time integral method is 1.36 cm^2/m^2. The ratio of LVOT to aortic valve peak velocity is 0.75. The valve area by the peak velocity method is 2.37 cm^2. The valve area index by the peak velocity method is 1.46 cm^2/m^2. The ratio of LVOT to aortic valve mean velocity is 0.78. The valve area by the mean velocity method is 2.4 cm^2. The valve area index by the mean velocity method is 1.51 cm^2/m^2. The mean systolic gradient is 4.0 mm Hg. The peak systolic gradient is 8.0 mm Hg. Tricuspid valve: The leaflets are normal thickness. There is no evidence of stenosis. There is mild regurgitation. Pulmonic valve: Not well visualized. There is no significant regurgitation. The peak systolic gradient is 2.0 mm Hg. Aorta: The aortic root is not dilated. Aortic arch is not well visualized. Pericardium: A trivial pericardial effusion is identified. Pulmonary arteries: Systolic pressure is mildly to moderately increased. Systemic veins: Inferior vena cava: The vessel is normal in size. Measurements Left ventricle Value Ref Aortic valve continued Value Ref JADA, LAX (H) 5.5 cm 3.8 - 5.2 VTI, S 24.9 cm ----- ESD, LAX (H) 4.6 cm 2.2 - 3.5 Mean grad, S 4.0 mm Hg ----- FS, LAX (L) 16 % 27 - 45 Peak grad, S 8.0 mm Hg ----- PW, ED, LAX (H) 1.1 cm 0.6 - 0.9 GI, VTI 2.21 cm^2 ----- EF (L) 33 % 54 - 74 GI, Vmax 2.37 cm^2 ----- E', lat delmis, TDI (L) 6.6 cm/sec >=10.0 E/e', lat delmis, 16 Mitral valve Value Ref TDI Peak E 1.04 m/sec ----- E', med delmis, TDI (L) 4.3 cm/sec >=7.0 Peak A 0.63 m/sec - ---- E/e', med delmis, 24 Mean v, D 0.77 m/sec ---- - TDI Decel time 103 ms ----- E', avg, TDI 5.5 cm/sec PHT 80 ms ---- - E/e', avg, TDI (H) 19 <=14 Mean grad, D 3.0 mm Hg - ---- Peak grad, D 5.0 mm Hg ----- LVOT Value Ref Peak E/A ratio 1.7 ----- Diam, S 2.00 cm MVA, PHT 2.8 cm^2 ----- Area 3.1 cm^2 ERO, PISA 0.09 cm^2 ----- Peak luly, S 1.04 m/sec MR vol, PISA 16 ml ----- Mean grad, S 2 mm Hg MR fraction, PISA 23 % ----- SV 55 ml Pulmonic valve Value Ref Ventricular septum Value Ref Peak v, S 0.76 m/sec ----- IVS, ED, LAX (H) 1.2 cm 0.6 - 0.9 Peak grad, S 2.0 mm Hg ----- Right ventricle Value Ref Tricuspid valve Value Ref JADA, LAX 2.1 cm TR peak v (H) 2.9 m/sec <=2.8 JADA minor ax, A4C 3.3 cm 1.9 - 3.5 Peak RV-RA grad, S 34 mm Hg ----- mid Pressure, S 42 mm Hg Aortic root Value Ref Root diam 3.0 cm <3.9 Left atrium Value Ref AP dim, ES (H) 4.40 cm 2.70 - Ascending aorta Value Ref 3.80 AAo AP diam, S 2.8 cm ----- ML dim, A4C 4.7 cm SI dim, A4C 5.9 cm Decending aorta Value Ref Vol/bsa, ES, A/L (H) 50 ml/m^2 16 - 34 Trinidad peak luly 0.47 m/sec ----- Right atrium Value Ref Pulmonary artery Value Ref SI dim, ES 5.2 cm 3.4 - 5.3 Pressure, S 40.0 mm Hg ----- ML dim, ES, A4C 3.5 cm 2.6 - 4.4 Estimated RAP 8 mm Hg Inferior vena cava Value Ref Diam 1.8 cm ----- Aortic valve Value Ref Delmis diam, ED 2.0 cm Peak v, S 1.38 m/sec Mean v, S 0.93 m/sec Legend: (L) and (H) brynn values outside specified reference range. Prepared and electronically signed by Johan Menchaca 12/02/2018 10:58
--- NOTE | 2018-12-02 13:04 | PN ---
Date of Service: 12/02/18 - 12/02/18 Critical Care Services: Pt seen and examined at bedside prior to and after extuabtion. Meds, labs, vitals were reviewed Plan of care discussed in interdisciplinary rounds Active Medications Generic Name Dose Route Start Last Admin Trade Name Freq PRN Reason Stop Dose Admin Brimonidine Tartrate 1 drop 12/02/18 09:00 12/02/18 12:19 Alphagan P 0.15%(Nf) RIGHT EYE Not Given TID [facility] Cinacalcet 90 mg 12/02/18 18:00 Sensipar Tab* PO QPM [facility] Heparin Sodium (Porcine) 5,000 units 12/02/18 06:00 12/02/18 05:45 Heparin Vial(*) SUBCUT 5,000 units Q8HR [facility] Administration Azithromycin 250 mg/ Sodium 250 mls @ 250 mls/hr 12/02/18 21:00 Chloride IVPB Q24H [facility] Ceftriaxone Sodium 1 gm/ 50 mls @ 200 mls/hr 12/02/18 21:00 Sodium Chloride IVPB Q24H [facility] Lisinopril 10 mg 12/02/18 18:00 Prinivil Tab* PO QPM [facility] Metoprolol Succinate 25 mg 12/02/18 09:00 12/02/18 08:51 Toprol Xl Tab* PO Not Given DAILY [facility] Metoprolol Tartrate 5 mg 12/02/18 03:13 12/02/18 08:57 Lopressor Iv* IV 5 mg Q6H PRN Administration BLOOD PRESSURE Nifedipine 60 mg 12/02/18 09:00 12/02/18 08:51 Procardia Xl Tab* PO Not Given DAILY [facility] Pantoprazole Sodium 40 mg 12/02/18 09:00 12/02/18 08:57 Protonix Tab* PO 40 mg DAILY [facility] Administration Sevelamer Carbonate 1,600 mg 12/02/18 08:00 12/02/18 09:36 Renvela Tab* PO Not Given TID WITH MEALS [facility] Vital Signs: Temp Pulse Resp BP SpO2 FiO2 100.2 F 102 21 165/100 96 100 12/02/18 12:00 12/02/18 12:00 12/02/18 12:00 12/02/18 12:00 12/02/18 12:00 12/02 08:00 Physical Exam: Gen: Pt in NAD, tanzanian speaking HEENT: PERRLA, no JVD Lungs: Dimnished at bases, no wheeze Cardiac: S1, S2+, regular, tachycardic Abdomen: Soft, BS+ Extremities: No edema Neuro: Follows commands, no focal deficits Fluid Balance (Past 24 Hours): I=336 O= 19 Net 320 Intake & Output 11/30/18 12/01/18 12/02/18 12/03/18 06:59 06:59 06:59 06:59 Intake Total 336 Output Total 0 19 Balance 336 -19 Weight 126 lb 5.198 oz Intake: IV Fluids 300 Medicated IV 36 CC - Propofol/Diprivan 36 Output: Garcia 19 Residual 0 Garcia 16 Fr Temperature 0 Probe Labs: Laboratory Results - last 24 hr 12/01/18 12/01/18 12/01/18 23:51 23:51 23:51 WBC 11.0 H RBC 3.84 Hgb 11.8 L Hct 37 MCV 96 MCH 31 MCHC 32 RDW 16 H Plt Count 279 MPV 9.4 Neut % (Auto) 50.2 Lymph % (Auto) 39.9 [place] % (Auto) 6.2 Eos % (Auto) 2.6 Baso % (Auto) 1.1 Absolute Neuts (auto) 5.5 Absolute Lymphs (auto) 4.4 Absolute Monos (auto) 0.7 Absolute Eos (auto) 0.3 Absolute Basos (auto) 0.1 Absolute Nucleated RBC 0 Nucleated RBC % 0.1 Patient Temperature ABG pH ABG pH (Temp Correct) ABG pCO2 ABG pCO2 (Temp Corrct ABG pO2 ABG pO2 (Temp Correct ABG HCO3 ABG O2 Saturation ABG Base Excess VBG pH VBG pCO2 VBG pO2 VBG HCO3 VBG O2 Saturation VBG Base Excess Respiration Rate O2 Delivery Device Ventilator Type Vent Mode FiO2 Inspiratory Time PEEP Pressure Support Pressure Control EPAP IPAP BiPAP Sodium 139 Potassium 4.1 Chloride 99 L Carbon Dioxide 25 Anion Gap 15 H BUN 38 H Creatinine 8.56 H Est GFR ( Amer) 5.9 Est GFR (Non-Af Amer) 4.8 BUN/Creatinine Ratio 4.4 L Glucose 198 H Lactic Acid 2.5 H* Calcium 10.5 H Magnesium Total Bilirubin 0.90 AST 14 ALT 12 Alkaline Phosphatase 119 H Troponin I 0.12 H* Total Protein 8.6 Albumin 4.6 Globulin 4.0 Albumin/Globulin Ratio 1.2 HIV 1&2 Antibody Rapid 12/01/18 12/02/18 12/02/18 23:51 03:12 04:00 WBC RBC Hgb Hct MCV MCH MCHC RDW Plt Count MPV Neut % (Auto) Lymph % (Auto) [place] % (Auto) Eos % (Auto) Baso % (Auto) Absolute Neuts (auto) Absolute Lymphs (auto) Absolute Monos (auto) Absolute Eos (auto) Absolute Basos (auto) Absolute Nucleated RBC Nucleated RBC % Patient Temperature ABG pH ABG pH (Temp Correct) ABG pCO2 ABG pCO2 (Temp Corrct ABG pO2 ABG pO2 (Temp Correct ABG HCO3 ABG O2 Saturation ABG Base Excess VBG pH 7.29 L VBG pCO2 51 VBG pO2 167.0 H VBG HCO3 22.8 L VBG O2 Saturation 100.0 H VBG Base Excess -2.7 L Respiration Rate O2 Delivery Device Ventilator Type Vent Mode FiO2 Inspiratory Time PEEP Pressure Support Pressure Control EPAP IPAP BiPAP Sodium Potassium Chloride Carbon Dioxide Anion Gap BUN Creatinine Est GFR ( Amer) Est GFR (Non-Af Amer) BUN/Creatinine Ratio Glucose Lactic Acid Calcium Magnesium Total Bilirubin AST ALT Alkaline Phosphatase Troponin I 0.44 H* Total Protein Albumin Globulin Albumin/Globulin Ratio HIV 1&2 Antibody Rapid Nonreactive 12/02/18 12/02/18 12/02/18 04:53 05:41 05:41 WBC RBC Hgb Hct MCV MCH MCHC RDW Plt Count MPV Neut % (Auto) Lymph % (Auto) [place] % (Auto) Eos % (Auto) Baso % (Auto) Absolute Neuts (auto) Absolute Lymphs (auto) Absolute Monos (auto) Absolute Eos (auto) Absolute Basos (auto) Absolute Nucleated RBC Nucleated RBC % Patient Temperature Not Reportable ABG pH 7.40 ABG pH (Temp Correct) Not Reportable ABG pCO2 42 ABG pCO2 (Temp Corrct Not Reportable ABG pO2 352 H ABG pO2 (Temp Correct Not Reportable ABG HCO3 25.7 ABG O2 Saturation 100.0 H ABG Base Excess 1.0 VBG pH VBG pCO2 VBG pO2 VBG HCO3 VBG O2 Saturation VBG Base Excess Respiration Rate 20 O2 Delivery Device vent Ventilator Type 400 Vent Mode cmv FiO2 100 Inspiratory Time 0.9 PEEP 5 Pressure Support Not Reportable Pressure Control Not Reportable EPAP Not Reportable IPAP Not Reportable BiPAP Not Reportable Sodium Potassium Chloride Carbon Dioxide Anion Gap BUN Creatinine Est GFR ( Amer) Est GFR (Non-Af Amer) BUN/Creatinine Ratio Glucose Lactic Acid 0.9 Calcium Magnesium 2.3 Total Bilirubin AST ALT Alkaline Phosphatase Troponin I 0.59 H* Total Protein Albumin Globulin Albumin/Globulin Ratio HIV 1&2 Antibody Rapid 12/02/18 09:22 WBC RBC Hgb Hct MCV MCH MCHC RDW Plt Count MPV Neut % (Auto) Lymph % (Auto) [place] % (Auto) Eos % (Auto) Baso % (Auto) Absolute Neuts (auto) Absolute Lymphs (auto) Absolute Monos (auto) Absolute Eos (auto) Absolute Basos (auto) Absolute Nucleated RBC Nucleated RBC % Patient Temperature ABG pH ABG pH (Temp Correct) ABG pCO2 ABG pCO2 (Temp Corrct ABG pO2 ABG pO2 (Temp Correct ABG HCO3 ABG O2 Saturation ABG Base Excess VBG pH VBG pCO2 VBG pO2 VBG HCO3 VBG O2 Saturation VBG Base Excess Respiration Rate O2 Delivery Device Ventilator Type Vent Mode FiO2 Inspiratory Time PEEP Pressure Support Pressure Control EPAP IPAP BiPAP Sodium Potassium Chloride Carbon Dioxide Anion Gap BUN Creatinine Est GFR ( Amer) Est GFR (Non-Af Amer) BUN/Creatinine Ratio Glucose Lactic Acid Calcium Magnesium Total Bilirubin AST ALT Alkaline Phosphatase Troponin I 0.63 H* Total Protein Albumin Globulin Albumin/Globulin Ratio HIV 1&2 Antibody Rapid Studies: CXR 12/02: Improved aeration of rt lung Nutrition: Renal diet Impression: 1. Hypoxic resp failure 2. Pulm edema 3. ESRD on HD 4. Uncontrolled HTN 5. Worsening SOB for 1 month 6. Elevated troponins-demand ischemia 7.Elevated lactate-Resolved Plan: 1.Neuro: Pt is alert, tanzanian speaking, follows commands appropriately with tanzanian interpretor. No focal neuro deficits 2. Resp: Hypoxic resp failure sec to fluid overload. Pt required intubation last night, extubated this am. CXR showed improvement since admission. Pt developed resp distress and developed SVT while having HD and was placed on BiPAP. Saturating well. Is tachypneic, less distress since BiPAP. Also received Lasix and put out some urine. Will place on BiPAP overnight if any distress. Resp failure likely sec to fluid overload, goal to remove 1L on HD. 3. CVS: Hypertensive, started home meds. Has metoprolol prn ordered. ECHO showed drop in EF with no regional wall motion abnormalities. Will need cardio as out pt 4. ID: Leucoctosis, elevated lactate on admission, emperically covered for PNA with Ceftriaxone and Azithro. Lactate normalized, febrile. Septic w/u pending. Sputum cx showing Strep. Will check urine strep antigen. 5. GI: Renal diet, GI px 6. Renal: ESRD sec to HTN on HD, had dialysis on Sunday. Will be having HD to remove more fluid now. 7. Endo: Bl sugar elevated on BMP, ordered chem sticks AC/HS. 8. Haem: Anemia of chronic disease- stable. 9. Musculoskeltal: OOB when stable Full code Garcia catheter for hemodynamic monitoring Pt has femoral CVC for less than 24 hrs, site looks good, to be removed in am if pt stable Plan of care discussed with pts at bedside. Critical Care Time: 30 min
[2018-12-02] MEDS: Acetaminophen TAB* 325 MG PO PRN (15:31)
[2018-12-02] MEDS ORDERED: Furosemide IV* 10 MG/ML VIAL (40 MG) ONE (16:01)
[2018-12-02] MEDS ORDERED: Furosemide IV* 10 MG/ML VIAL (40 MG) IV ONE (16:06)
[2018-12-02] MEDS ORDERED: Lorazepam PYXIS KEY PRN (16:17)
[2018-12-02] MEDS ORDERED: LORazepam INJ* 2 MG/ML 1 ML VIAL IV PUSH ONE (16:17)
[2018-12-02] MEDS ORDERED: Lorazepam PYXIS KEY ONE (16:21)
[2018-12-02] MEDS ORDERED: LORazepam INJ* 2 MG/ML 1 ML VIAL ONE (16:22)
[2018-12-02 18:20] LABS: Urine Appearance Cloudy; Urine Bacteria 1+ (Absent); Urine Bilirubin Negative (Negative); Urine Blood 1+ (Negative); Urine Color Yellow; Urine Glucose 2+(150 mg/dL) (Negative); Urine Ketones Negative (Negative); Urine Nitrite Negative (Negative); Urine Protein 3+(>=500 mg/dL) (Negative); Urine Red Blood Cell 3+(>10/hpf) (Absent); Urine Specific Gravity 1.009 (1.010-1.030); Urine Squamous Epithelial Cell Present (Absent); Urine Urobilinogen Negative (Negative); Urine White Blood Cell 2+(11-20/hpf) (Absent)
[2018-12-02] MEDS: cefTRIAXone(*) 1 GM in NS 0.9% 50 ML* 50 ML IVPB SCH (20:56)
[2018-12-02] MEDS: Azithromycin IV(*) 250 MG in NS 0.9% 250 ML* 250 ML IVPB SCH (22:34)
[2018-12-02] MEDS: Lisinopril TAB* 10 MG PO SCH (22:36)
[2018-12-02] MEDS: Cinacalcet TAB* 30 MG PO SCH (22:37)
[2018-12-02] MEDS ORDERED: Etomidate* 2 MG/ML 20 ML VIAL (40 MG) ONE (23:45)
[2018-12-02] MEDS ORDERED: Rocuronium* 10 MG/ML VIAL ONE (23:45)
[2018-12-03] MEDS: Acetaminophen TAB* 325 MG PO PRN ×2 (01:19→13:53)
[2018-12-03] MEDS: Heparin VIAL(*) 5000 UNITS/ML VIAL (FIVE THOUSAND) SUBCUT SCH ×3 (05:47→20:17)
[2018-12-03 06:06] LABS: ABS Basophils 0.1 10^3/ul (0-0.2); ABS Eosinophils 0.1 10^3/ul (0-0.6); ABS Lymphocytes 1.4 10^3/ul (1.0-4.8); ABS Monocytes 0.9 10^3/ul (0-0.8); ABS Neutrophils 7.3 10^3/ul (1.5-7.7); ABS Nucleated RBC 0 10^3/ul; Eosinophil % 1.2 %; Hematocrit 27 % (33-41); Lymphocyte % 13.9 %; Mean Corpuscular HGB Conc 33 g/dL (31-36); Mean Corpuscular Hemoglobin 31 pg (27-31); Mean Corpuscular Volume 93 fL (80-97); Mean Platelet Volume 9.6 fL (7.4-10.4); Nucleated Red Blood Cells % 0; Platelet Count 189 10^3/uL (150-450); Red Blood Count 2.88 10^6 /uL (3.70-4.87); Red Cell Distribution Width 15 % (10.5-15); White Blood Count 9.8 10^3/uL (3.5-10.8)
[2018-12-03 06:16] LABS: Albumin 3.5 g/dL (3.2-5.2); Calcium 9.1 mg/dL (8.6-10.3); Potassium 4.7 mmol/L (3.5-5.0); Total Bilirubin 0.8 mg/dL (0.2-1.0)
[2018-12-03 06:22] LABS: Albumin/Globulin Ratio 1.3 (1-3); BUN/Creatinine Ratio 4.6 (8-20); EGFR African American 7.1 (>60); EGFR Non-African American 5.9 (>60); Globulin 2.8 g/dL (2-4); Total Protein 6.3 g/dL (6.4-8.9)
[2018-12-03] MEDS: Pantoprazole TAB * 40 MG TAB PO SCH (08:08)
[2018-12-03] MEDS: Sevelamer TAB* 800 MG PO SCH ×3 (08:08→17:57)
[2018-12-03] MEDS: NIFEdipine ER TAB* 60 MG PO SCH (08:08)
[2018-12-03] MEDS: Metoprolol Succinate XL TAB* 25 MG PO SCH (08:08)
[2018-12-03] MEDS: Brimonidine P 0.15%(NF) OPH SOL 5 ML BTL RIGHT EYE SCH ×3 (09:00→20:16)
--- NOTE | 2018-12-03 09:28 | PN ---
Date of Service: 12/03/18 - HD 2 Critical Care Services: 53 yo M with PMH including ESRD, HTN presented to the hospital on 12/02 with shortness of breath x 2 months, acutely worsening on day of presentation. On physical exam noted to be in respiratory distress. Bilateral crackles diffusely. WBC 11.0, Troponin 0.12 Intubated for acute respiratory distress. Diuresed for pulmonary edema. Later that day, passed SBT and extubated. CXR improved. Had worsened respiratory function and SVT during HD and started on BiPAP with improvement. 12/03: No overnight events. Vital Signs: Temp Pulse Resp BP SpO2 FiO2 99.3 F 96 23 158/98 99 50 12/03/18 08:31 12/03/18 08:31 12/03/18 08:56 12/03/18 08:12 12/03/18 08:31 12/02 16:00 Physical Exam: Gen: resting comfortably HEENT: NC in place Lungs: CTAB Cardiac: RRR Abdomen: soft, NTND Extremities: warm, dry. Mild peripheral edema at ankles Neuro: alert and oriented. Fluid Balance (Past 24 Hours): I= O= Net Intake & Output 12/01/18 12/02/18 12/03/18 12/04/18 06:59 06:59 06:59 06:59 Intake Total 336 109.4 0 Output Total 0 58 Balance 336 51.4 0 Weight 126 lb 5.198 oz 121 lb 4.068 oz Intake: IV Fluids 300 Medicated IV 36 29.4 CC - Propofol/Diprivan 36 29.4 Oral 80 0 Output: Urine 0 Garcia 58 Residual 0 Garcia 16 Fr Temperature 0 Probe Labs: Laboratory Results - last 24 hr 12/02/18 12/02/18 12/02/18 09:22 16:50 22:49 WBC RBC Hgb Hct MCV MCH MCHC RDW Plt Count MPV Neut % (Auto) Lymph % (Auto) [place] % (Auto) Eos % (Auto) Baso % (Auto) Absolute Neuts (auto) Absolute Lymphs (auto) Absolute Monos (auto) Absolute Eos (auto) Absolute Basos (auto) Absolute Nucleated RBC Nucleated RBC % Sodium Potassium Chloride Carbon Dioxide Anion Gap BUN Creatinine Est GFR ( Amer) Est GFR (Non-Af Amer) BUN/Creatinine Ratio Glucose POC Glucose (mg/dL) 101 H Calcium Total Bilirubin AST ALT Alkaline Phosphatase Troponin I 0.63 H* Total Protein Albumin Globulin Albumin/Globulin Ratio Urine Color Yellow Urine Appearance Cloudy Urine pH 9.0 Ur Specific [place] 1.009 L Urine Protein 3+(>=500 mg/dl) A Urine Ketones Negative Urine Blood 1+ A Urine Nitrate Negative Urine Bilirubin Negative Urine Urobilinogen Negative Ur Leukocyte Esterase 2+ A Urine WBC (Auto) 2+(11-20/hpf) A Urine RBC (Auto) 3+(>10/hpf) A Ur Squamous Epith Cells Present A Urine Bacteria 1+ A Urine Glucose 2+(150 mg/dl) A 12/03/18 12/03/18 05:45 05:45 WBC 9.8 RBC 2.88 L Hgb 9.0 L Hct 27 L MCV 93 MCH 31 MCHC 33 RDW 15 Plt Count 189 MPV 9.6 Neut % (Auto) 74.6 Lymph % (Auto) 13.9 [place] % (Auto) 9.5 Eos % (Auto) 1.2 Baso % (Auto) 0.8 Absolute Neuts (auto) 7.3 Absolute Lymphs (auto) 1.4 Absolute Monos (auto) 0.9 H Absolute Eos (auto) 0.1 Absolute Basos (auto) 0.1 Absolute Nucleated RBC 0 Nucleated RBC % 0 Sodium 140 Potassium 4.7 Chloride 100 L Carbon Dioxide 28 Anion Gap 12 H BUN 33 H Creatinine 7.22 H Est GFR ( Amer) 7.1 Est GFR (Non-Af Amer) 5.9 BUN/Creatinine Ratio 4.6 L Glucose 82 POC Glucose (mg/dL) Calcium 9.1 Total Bilirubin 0.80 AST 10 L ALT 9 Alkaline Phosphatase 73 Troponin I Total Protein 6.3 L Albumin 3.5 Globulin 2.8 Albumin/Globulin Ratio 1.3 Urine Color Urine Appearance Urine pH Ur Specific [place] Urine Protein Urine Ketones Urine Blood Urine Nitrate Urine Bilirubin Urine Urobilinogen Ur Leukocyte Esterase Urine WBC (Auto) Urine RBC (Auto) Ur Squamous Epith Cells Urine Bacteria Urine Glucose Studies: 12/02 CXR later - improved aeration of right lung 12/02 CXR earlier - confluent opacification of RLL Nutrition: renal diet Impression: 53 yo M admitted with acute hypoxic respriatory failure and pulmonary edema. Respiratory function improved after fluid removal in HD. ON abx for question of sepsis. Demand mediated troponin elevation. Plan: Cardiovascular: (1) Demand mediated NSTEMI; (2) Uncontrolled hypertension -- HR 85-118 -- SBP 60-217 -- Telemetry -- Cardiac markers troponin 0.63 from 0.59 from 0.44 -- Lisinopril, Metoprolol, Nifedipine Home meds: Lisinopril, Nifedipine, Metoprolol Pulmonary: (1) Pulmonary edema, improving; (2) Acute hypoxic respiratory failure, resolved -- RR 15-50 -- sats 93-100 on 1L NC Home meds: None Gastrointestinal: (1) hx of hemoptysis -- LFTs within normal limits -- diet: renal diet -- bowel regimen: None -- ulcer prophylaxis: Protonix Home meds: Omeprazole Endocrine: (1) Hyperglycemia -- monitor BGs Home meds: None Renal: (1) ESRD on HD -- UOP: 58 ml -- Cr 7.22, on HD -- Lytes Na 140 K 4.7 Ca 9.1 -- IVF: HL -- Cinecalcet -- Sevelamer Home meds: Cinecalcet, Sevelamer Infectious disease: (1) Sepsis -- Tmax 101.5 -- WBC 9.8 from 11.0 -- Micro 12/02 Strep pneumo screen negative blood no growth to date sputum gram stain polymicrobial MRSA screen negative UA positive -- ABX Azithromycin Rocephin Home meds: None Neurologic: No acute issues -- Tylenol as needed Home meds: None Hematological: (1) Anemia of chronic disease -- Hgb 9.0 from 11.0, dilutional, follow trend -- Plt 189 from 279 -- DVT prophylaxis: SQ Heparin Home meds: None Metabolic: (1) Lactic acidosis, resolved Home meds: None Other: -- Brimonidine Tartrate eye gtts Home meds: Brimonidine Tartrate Deep vein thrombosis prophylaxis: SQ Heparin Dietary: Protonix Condition: stable Prognosis: good Code status: full Disposition: transfer to floor Family updated at bedside regarding interval events and plan of care Cumulative time spent in the care of this patient (excluding any procedure time) : at least 45 minutes. Patient care included clinical interview (with patient and/or family), bedside exam of the patient, review of labs, x-rays, and other ancillary data, coordination of (respiratory, nursing care, review of patient's records, discussion regarding patients management with involved consultants, primary physician, pharmacists, and other healthcare personnel (dietary, case management , physical/occupational therapy etc.)
[2018-12-03 11:12] LABS: Hepatitis B Surface Antigen Nonreactive (Nonreactive)
[2018-12-03 11:13] LABS: Hepatitis B Surface AB Immune (Immune)
[2018-12-03 11:35] LABS: Hepatitis C Antibody Nonreactive (Nonreactive)
[2018-12-03 11:54] LABS: Hepatitis B Surface Antigen Nonreactive (Nonreactive)
[2018-12-03] MEDS: Lisinopril TAB* 10 MG PO SCH (17:08)
[2018-12-03] MEDS: Cinacalcet TAB* 30 MG PO SCH (17:10)
[2018-12-03] MEDS: Azithromycin IV(*) 250 MG in NS 0.9% 250 ML* 250 ML IVPB SCH (20:14)
[2018-12-03] MEDS ORDERED: Furosemide IV* 10 MG/ML VIAL (40 MG) IV ONE (20:43)
[2018-12-03] MEDS ORDERED: Famotidine IV* 10 MG/ML 2 ML (20 mg) IV SLOW PU SCH (21:00)
[2018-12-03] MEDS: Ondansetron INJ* 2 MG/ML VIAL IV PRN (21:03)
[2018-12-03] MEDS: cefTRIAXone(*) 1 GM in NS 0.9% 50 ML* 50 ML IVPB SCH (21:49)
[2018-12-04] MEDS: Heparin VIAL(*) 5000 UNITS/ML VIAL (FIVE THOUSAND) SUBCUT SCH ×3 (05:42→21:59)
[2018-12-04 07:48] LABS: Hematocrit 26 % (33-41); Hemoglobin 8.5 g/dL (12.0-16.0); Mean Corpuscular HGB Conc 32 g/dL (31-36); Mean Corpuscular Hemoglobin 31 pg (27-31); Mean Corpuscular Volume 95 fL (80-97); Mean Platelet Volume 9.6 fL (7.4-10.4); Platelet Count 162 10^3/uL (150-450); Red Blood Count 2.78 10^6 /uL (3.70-4.87); Red Cell Distribution Width 15 % (10.5-15); White Blood Count 8.6 10^3/uL (3.5-10.8)
[2018-12-04] MEDS: Brimonidine P 0.15%(NF) OPH SOL 5 ML BTL RIGHT EYE SCH ×3 (08:00→21:31)
[2018-12-04 08:04] LABS: BUN/Creatinine Ratio 5.4 (8-20); Calcium 8.5 mg/dL (8.6-10.3); EGFR Non-African American 4.1 (>60); Magnesium 2.5 mg/dL (1.9-2.7); Potassium 4.9 mmol/L (3.5-5.0)
[2018-12-04] MEDS: Ondansetron INJ* 2 MG/ML VIAL IV PRN ×2 (08:05→18:26)
[2018-12-04] MEDS: Pantoprazole TAB * 40 MG TAB PO SCH (08:07)
[2018-12-04] MEDS: NIFEdipine ER TAB* 60 MG PO SCH (08:07)
[2018-12-04] MEDS: Metoprolol Succinate XL TAB* 25 MG PO SCH (08:07)
[2018-12-04 08:09] LABS: Troponin I 0.12 ng/mL (<0.04)
[2018-12-04] MEDS: Sevelamer TAB* 800 MG PO SCH ×3 (08:25→17:37)
[2018-12-04] MEDS ORDERED: EPOETIN ALFA-EPBX * 2,000 UNIT/ML VIAL IV ONE (12:00)
[2018-12-04] MEDS ORDERED: Heparin DIALYSIS ONLY(*) 1,000 UNITS/ML VIAL DIALYSIS ONE (12:00)
[2018-12-04] MEDS ORDERED: EPOETIN ALFA-EPBX * 3,000 UNIT/ML VIAL IV ONE (12:00)
[2018-12-04] MEDS ORDERED: Metoclopramide TAB* 10 MG PO SCH (16:30)
[2018-12-04] MEDS ORDERED: Metoclopramide TAB* 10 MG PO ONE (16:30)
--- NOTE | 2018-12-04 17:29 | PN ---
Subjective Date of Service: 12/04/18 Interval History: Patient seen and examined, at bedside. Patient states her breathing feels better. She tolerated dialysis today without issue, no cramping and no hypotension. Denies respiratory symptoms, no chest pain. Does endorse colicky pain with meals which has been ongoing issue for her. No fevers, no chills, no further complaints. Objective Active Medications: Acetaminophen (Tylenol Tab*) 650 mg PO Q6H PRN PRN Reason: FEVER/HEADACHE Last Admin: 12/03/18 13:53 Dose: 650 mg Brimonidine Tartrate (Alphagan P 0.15%(Nf)) 1 drop RIGHT EYE TID [facility] Last Admin: 12/04/18 17:18 Dose: Not Given Cinacalcet (Sensipar Tab*) 90 mg PO QPM [facility] Last Admin: 12/03/18 17:10 Dose: 90 mg Heparin Sodium (Porcine) (Heparin Vial(*)) 5,000 units SUBCUT Q8HR [facility] Last Admin: 12/04/18 14:57 Dose: 5,000 units Azithromycin 250 mg/ Sodium (Chloride) 250 mls @ 250 mls/hr IVPB Q24H [facility] Last Admin: 12/03/18 20:14 Dose: 250 mls/hr Ceftriaxone Sodium 1 gm/ (Sodium Chloride) 50 mls @ 200 mls/hr IVPB Q24H [facility] Last Admin: 12/03/18 21:49 Dose: 200 mls/hr Lisinopril (Prinivil Tab*) 10 mg PO QPM [facility] Last Admin: 12/03/18 17:08 Dose: 10 mg Metoprolol Succinate (Toprol Xl Tab*) 25 mg PO DAILY [facility] Last Admin: 12/04/18 08:07 Dose: 25 mg Metoprolol Tartrate (Lopressor Iv*) 5 mg IV Q6H PRN PRN Reason: BLOOD PRESSURE Last Admin: 12/02/18 15:32 Dose: 5 mg Miscellaneous (Ativan Pyxis Grimaldo) 1 ea N/A .ATIVAN IV GRIMALDO PRN PRN Reason: PYXIS GRIMALDO Nifedipine (Procardia Xl Tab*) 60 mg PO DAILY [facility] Last Admin: 12/04/18 08:07 Dose: 60 mg Ondansetron HCl (Zofran Inj*) 4 mg IV Q6H PRN PRN Reason: NAUSEA Last Admin: 12/04/18 08:05 Dose: 4 mg Pantoprazole Sodium (Protonix Tab*) 40 mg PO DAILY [facility] Last Admin: 12/04/18 08:07 Dose: 40 mg Sevelamer Carbonate (Renvela Tab*) 1,600 mg PO TID WITH MEALS [facility] Last Admin: 12/04/18 13:07 Dose: 1,600 mg Oxygen Devices in Use Now: None Appearance: alert, NAD Eyes: No Scleral Icterus, PERRLA Ears/Nose/Mouth/Throat: NL Teeth, Lips, Gums, Mucous Membranes Moist Neck: NL Appearance and Movements; NL JVP, Trachea Midline Respiratory: Symmetrical Chest Expansion and Respiratory Effort, Clear to Auscultation Cardiovascular: NL Sounds; No Murmurs; No JVD, RRR, - Abdominal: NL Sounds; No Tenderness; No Distention, No Hepatosplenomegaly Extremities: No Clubbing, Cyanosis, - - edema right hand distal to AV fistula Skin: No Rash or Ulcers Neurological: Alert and Oriented x 3, NL Gait, NL Muscle Strength and Tone Nutrition: Taking PO's Result Diagrams: 12/04/18 07:27 12/04/18 07:27 Additional Lab and Data: Lab Results 12/01/18 12/01/18 12/01/18 Range/Units 23:51 23:51 23:51 WBC 11.0 H (3.5-10.8) 10^3/uL RBC 3.84 (3.70-4.87) 10^6 /uL Hgb 11.8 L (12.0-16.0) g/dL Hct 37 (33-41) % MCV 96 (80-97) fL MCH 31 (27-31) pg MCHC 32 (31-36) g/dL RDW 16 H (10.5-15) % Plt Count 279 (150-450) 10^3/uL MPV 9.4 (7.4-10.4) fL Neut % (Auto) 50.2 % Lymph % (Auto) 39.9 % [place] % (Auto) 6.2 % Eos % (Auto) 2.6 % Baso % (Auto) 1.1 % Absolute Neuts (auto) 5.5 (1.5-7.7) 10^3/ul Absolute Lymphs (auto) 4.4 (1.0-4.8) 10^3/ul Absolute Monos (auto) 0.7 (0-0.8) 10^3/ul Absolute Eos (auto) 0.3 (0-0.6) 10^3/ul Absolute Basos (auto) 0.1 (0-0.2) 10^3/ul Absolute Nucleated RBC 0 10^3/ul Nucleated RBC % 0.1 Sodium 139 (135-145) mmol/L Potassium 4.1 (3.5-5.0) mmol/L Chloride 99 L (101-111) mmol/L Carbon Dioxide 25 (22-32) mmol/L Anion Gap 15 H (2-11) mmol/L BUN 38 H (6-24) mg/dL Creatinine 8.56 H (0.51-0.95) mg/dL Est GFR ( Amer) 5.9 (>60) Est GFR (Non-Af Amer) 4.8 (>60) BUN/Creatinine Ratio 4.4 L (8-20) Glucose 198 H (70-100) mg/dL Lactic Acid 2.5 H* (0.5-2.0) mmol/L Calcium 10.5 H (8.6-10.3) mg/dL Total Bilirubin 0.90 (0.2-1.0) mg/dL AST 14 (13-39) U/L ALT 12 (7-52) U/L Alkaline Phosphatase 119 H (34-104) U/L Troponin I 0.12 H* (<0.04) ng/mL Total Protein 8.6 (6.4-8.9) g/dL Albumin 4.6 (3.2-5.2) g/dL Globulin 4.0 (2-4) g/dL Albumin/Globulin Ratio 1.2 (1-3) Microbiology and Other Data: Microbiology 12/02/18 15:21 Aerobic Blood Culture - Preliminary Blood Venous No Growth Day 2 Anaerobic Blood Culture - Preliminary No Growth Day 2 12/02/18 15:21 Blood Culture - Preliminary Blood Venous No Growth Day 2 12/02/18 09:41 Gram Stain - Final Sputum Expectorated Sputum Culture - Final Normal Kay 12/02/18 16:50 Urine Culture - Final Urine 12/02/18 16:50 Streptococcus pneumoniae Ag Screen - Final Urine Negative S. pneumo Antigen 12/02/18 03:54 Nasal Screen MRSA (PCR) - Final Nasal Mrsa Not Detected Assess/Plan/Problems-Billing Assessment: This is a 53 year old female with history of ESRD on HD that presented to ED in fluid overload and respiratory distress, briefly intubated and emergently dialysed. - Patient Problems (1) Acute respiratory failure with hypoxia Code(s): J96.01 - ACUTE RESPIRATORY FAILURE WITH HYPOXIA SNOMED Code(s): 32810665 Comment: - Per family report, patient was not tolerating dialysis for several weeks and was above her dry weight - Emergently intubated in the ED - Required bipap in ICU after extubation for continued pulmonary edema - O2 weaned - Currently on room air and stable (2) ESRD on hemodialysis Code(s): N18.6 - END STAGE RENAL DISEASE; Z99.2 - DEPENDENCE ON RENAL DIALYSIS SNOMED Code(s): 633451740 Comment: - On MWF schedule - Tolerated dialysis this AM without issue - Plan per nephrology - continue nephro meds; renvela, cinacalcet, epoetin (3) Pulmonary edema Code(s): J81.1 - CHRONIC PULMONARY EDEMA SNOMED Code(s): 14266461 Comment: - Resolved after additional dialysis, airway managment and lasix (4) Uncontrolled hypertension Code(s): I10 - ESSENTIAL (PRIMARY) HYPERTENSION SNOMED Code(s): 10719014 Comment: - Improved after additional dialysis and lasix - continue nifedipine, metoprolol, lisinopril (5) Demand ischemia Code(s): I24.8 - OTHER FORMS OF ACUTE ISCHEMIC HEART DISEASE SNOMED Code(s): 168221802 Comment: - In presence of pulmonary edema and lung infiltrate (6) Generalized postprandial abdominal pain Code(s): R10.84 - GENERALIZED ABDOMINAL PAIN SNOMED Code(s): 393924635 Comment: - Longstanding issue per patient - Will trial low dose reglan before meal tonight and assess for effect (7) Full code status Code(s): Z78.9 - OTHER SPECIFIED HEALTH STATUS SNOMED Code(s): 279698178 Status and Disposition: Inpatient; today is first day of dialysis out of ICU, if she remains hemodynamically stable through the night, will discharge to home in the AM.
[2018-12-04] MEDS: Cinacalcet TAB* 30 MG PO SCH (17:38)
[2018-12-04] MEDS: Lisinopril TAB* 10 MG PO SCH (17:40)
[2018-12-04] MEDS: cefTRIAXone(*) 1 GM in NS 0.9% 50 ML* 50 ML IVPB SCH (21:14)
[2018-12-04] MEDS: Azithromycin IV(*) 250 MG in NS 0.9% 250 ML* 250 ML IVPB SCH (21:34)
[2018-12-05] MEDS: Heparin VIAL(*) 5000 UNITS/ML VIAL (FIVE THOUSAND) SUBCUT SCH ×3 (06:10→22:17)
[2018-12-05 06:24] LABS: Hematocrit 26 % (35-47); Hemoglobin 8.7 g/dL (12.0-16.0); Mean Corpuscular HGB Conc 33 g/dL (31-36); Mean Corpuscular Hemoglobin 31 pg (27-31); Mean Corpuscular Volume 93 fL (80-97); Mean Platelet Volume 9.8 fL (7.4-10.4); Platelet Count 172 10^3/uL (150-450); Red Blood Count 2.83 10^6 /uL (3.70-4.87); Red Cell Distribution Width 15 % (10.5-15); White Blood Count 7.1 10^3/uL (3.5-10.8)
[2018-12-05 06:42] LABS: Calcium 8.3 mg/dL (8.6-10.3); EGFR African American 8.5 (>60); Magnesium 2.2 mg/dL (1.9-2.7); Potassium 4.5 mmol/L (3.5-5.0)
[2018-12-05] MEDS: Ondansetron INJ* 2 MG/ML VIAL IV PRN ×4 (08:02→22:26)
[2018-12-05] MEDS: Brimonidine P 0.15%(NF) OPH SOL 5 ML BTL RIGHT EYE SCH ×3 (08:22→22:18)
[2018-12-05] MEDS: Pantoprazole TAB * 40 MG TAB PO SCH (08:27)
[2018-12-05] MEDS: Sevelamer TAB* 800 MG PO SCH ×3 (08:27→17:49)
[2018-12-05] MEDS: NIFEdipine ER TAB* 60 MG PO SCH (08:27)
[2018-12-05] MEDS: Metoprolol Succinate XL TAB* 25 MG PO SCH (08:27)
--- NOTE | 2018-12-05 16:07 | PN ---
Subjective Date of Service: 12/05/18 Interval History: Patient seen and examined. Patient still with nausea overnight. Reglan did not help, however zofran pre-meal this AM did seem to alleviate some symptoms. Denies fevers or chills, no SOB, no chest pain, no further complaints. Objective Active Medications: Acetaminophen (Tylenol Tab*) 650 mg PO Q6H PRN PRN Reason: FEVER/HEADACHE Last Admin: 12/03/18 13:53 Dose: 650 mg Brimonidine Tartrate (Alphagan P 0.15%(Nf)) 1 drop RIGHT EYE TID [facility] Last Admin: 12/05/18 13:07 Dose: Not Given Cinacalcet (Sensipar Tab*) 90 mg PO QPM [facility] Last Admin: 12/04/18 17:38 Dose: 90 mg Heparin Sodium (Porcine) (Heparin Vial(*)) 5,000 units SUBCUT Q8HR [facility] Last Admin: 12/05/18 13:07 Dose: 5,000 units Azithromycin 250 mg/ Sodium (Chloride) 250 mls @ 250 mls/hr IVPB Q24H [facility] Last Admin: 12/04/18 21:34 Dose: 250 mls/hr Ceftriaxone Sodium 1 gm/ (Sodium Chloride) 50 mls @ 200 mls/hr IVPB Q24H [facility] Last Admin: 12/04/18 21:14 Dose: 200 mls/hr Lisinopril (Prinivil Tab*) 10 mg PO QPM [facility] Last Admin: 12/04/18 17:40 Dose: 10 mg Metoprolol Succinate (Toprol Xl Tab*) 25 mg PO DAILY [facility] Last Admin: 12/05/18 08:27 Dose: 25 mg Metoprolol Tartrate (Lopressor Iv*) 5 mg IV Q6H PRN PRN Reason: BLOOD PRESSURE Last Admin: 12/02/18 15:32 Dose: 5 mg Miscellaneous (Ativan Pyxis Grimaldo) 1 ea N/A .ATIVAN IV GRIMALDO PRN PRN Reason: PYXIS GRIMALDO Nifedipine (Procardia Xl Tab*) 60 mg PO DAILY [facility] Last Admin: 12/05/18 08:27 Dose: 60 mg Ondansetron HCl (Zofran Inj*) 4 mg IV Q4H PRN PRN Reason: NAUSEA Last Admin: 12/05/18 12:34 Dose: 4 mg Pantoprazole Sodium (Protonix Tab*) 40 mg PO DAILY [facility] Last Admin: 12/05/18 08:27 Dose: 40 mg Sevelamer Carbonate (Renvela Tab*) 1,600 mg PO TID WITH MEALS [facility] Last Admin: 12/05/18 13:07 Dose: 1,600 mg Vital Signs - 8 hr 12/05/18 12/05/18 08:09 14:58 Temperature 97.5 F 98.2 F Pulse Rate 93 82 Respiratory 20 24 Rate Blood Pressure 159/94 142/84 (mmHg) O2 Sat by Pulse 99 100 Oximetry Oxygen Devices in Use Now: None Appearance: alert, NAD Eyes: No Scleral Icterus, PERRLA Ears/Nose/Mouth/Throat: NL Teeth, Lips, Gums, Mucous Membranes Moist Neck: NL Appearance and Movements; NL JVP, Trachea Midline Respiratory: Symmetrical Chest Expansion and Respiratory Effort Cardiovascular: NL Sounds; No Murmurs; No JVD, RRR, No Edema Abdominal: NL Sounds; No Tenderness; No Distention Skin: No Rash or Ulcers, No Nodules or Sclerosis Neurological: Alert and Oriented x 3, NL Sensation, NL Gait Nutrition: Taking PO's Result Diagrams: 12/05/18 06:10 12/05/18 06:10 Additional Lab and Data: Lab Results 12/01/18 12/01/18 12/01/18 Range/Units 23:51 23:51 23:51 WBC 11.0 H (3.5-10.8) 10^3/uL RBC 3.84 (3.70-4.87) 10^6 /uL Hgb 11.8 L (12.0-16.0) g/dL Hct 37 (33-41) % MCV 96 (80-97) fL MCH 31 (27-31) pg MCHC 32 (31-36) g/dL RDW 16 H (10.5-15) % Plt Count 279 (150-450) 10^3/uL MPV 9.4 (7.4-10.4) fL Neut % (Auto) 50.2 % Lymph % (Auto) 39.9 % [place] % (Auto) 6.2 % Eos % (Auto) 2.6 % Baso % (Auto) 1.1 % Absolute Neuts (auto) 5.5 (1.5-7.7) 10^3/ul Absolute Lymphs (auto) 4.4 (1.0-4.8) 10^3/ul Absolute Monos (auto) 0.7 (0-0.8) 10^3/ul Absolute Eos (auto) 0.3 (0-0.6) 10^3/ul Absolute Basos (auto) 0.1 (0-0.2) 10^3/ul Absolute Nucleated RBC 0 10^3/ul Nucleated RBC % 0.1 Sodium 139 (135-145) mmol/L Potassium 4.1 (3.5-5.0) mmol/L Chloride 99 L (101-111) mmol/L Carbon Dioxide 25 (22-32) mmol/L Anion Gap 15 H (2-11) mmol/L BUN 38 H (6-24) mg/dL Creatinine 8.56 H (0.51-0.95) mg/dL Est GFR ( Amer) 5.9 (>60) Est GFR (Non-Af Amer) 4.8 (>60) BUN/Creatinine Ratio 4.4 L (8-20) Glucose 198 H (70-100) mg/dL Lactic Acid 2.5 H* (0.5-2.0) mmol/L Calcium 10.5 H (8.6-10.3) mg/dL Total Bilirubin 0.90 (0.2-1.0) mg/dL AST 14 (13-39) U/L ALT 12 (7-52) U/L Alkaline Phosphatase 119 H (34-104) U/L Troponin I 0.12 H* (<0.04) ng/mL Total Protein 8.6 (6.4-8.9) g/dL Albumin 4.6 (3.2-5.2) g/dL Globulin 4.0 (2-4) g/dL Albumin/Globulin Ratio 1.2 (1-3) Microbiology and Other Data: Microbiology 12/02/18 15:21 Aerobic Blood Culture - Preliminary Blood Venous No Growth Day 2 Anaerobic Blood Culture - Preliminary No Growth Day 2 12/02/18 15:21 Blood Culture - Preliminary Blood Venous No Growth Day 2 12/02/18 09:41 Gram Stain - Final Sputum Expectorated Sputum Culture - Final Normal Kay 12/02/18 16:50 Urine Culture - Final Urine 12/02/18 16:50 Streptococcus pneumoniae Ag Screen - Final Urine Negative S. pneumo Antigen 12/02/18 03:54 Nasal Screen MRSA (PCR) - Final Nasal Mrsa Not Detected Assess/Plan/Problems-Billing Assessment: This is a 53 year old female with history of ESRD on HD that presented to ED in fluid overload and respiratory distress, briefly intubated and emergently dialysed. - Patient Problems (1) Acute respiratory failure with hypoxia Code(s): J96.01 - ACUTE RESPIRATORY FAILURE WITH HYPOXIA SNOMED Code(s): 97450540 Comment: - Per family report, patient was not tolerating dialysis for several weeks and was above her dry weight - Emergently intubated in the ED - Required bipap in ICU after extubation for continued pulmonary edema - O2 weaned - Currently on room air and stable (2) ESRD on hemodialysis Code(s): N18.6 - END STAGE RENAL DISEASE; Z99.2 - DEPENDENCE ON RENAL DIALYSIS SNOMED Code(s): 471323375 Comment: - On MWF schedule - Tolerated yesterday without issue - continue nephro meds; renvela, cinacalcet, epoetin - Per nephrology, will have inpatient dialysis again tomorrow, then discharge and start home hemodialysis regimen/schedule on Sunday as outpatient. (3) Pulmonary edema Code(s): J81.1 - CHRONIC PULMONARY EDEMA SNOMED Code(s): 43406542 Comment: - Resolved after additional dialysis, airway managment and lasix (4) Uncontrolled hypertension Code(s): I10 - ESSENTIAL (PRIMARY) HYPERTENSION SNOMED Code(s): 96112564 Comment: - Improved after additional dialysis and lasix - continue nifedipine, metoprolol, lisinopril (5) Demand ischemia Code(s): I24.8 - OTHER FORMS OF ACUTE ISCHEMIC HEART DISEASE SNOMED Code(s): 783577364 Comment: - In presence of pulmonary edema and lung infiltrate (6) Generalized postprandial abdominal pain Code(s): R10.84 - GENERALIZED ABDOMINAL PAIN SNOMED Code(s): 073986741 Comment: - Longstanding issue per patient - Reglan with no improvement, but zofran did seem to help this morning - Will discharge on PO zofran pre-meal PRN - Should follow up with GI outpatient (7) Full code status Code(s): Z78.9 - OTHER SPECIFIED HEALTH STATUS SNOMED Code(s): 177409712 Status and Disposition: Inpatient, plan now for AM dialysis inpatient tomorrow then discharge.
[2018-12-05] MEDS: Cinacalcet TAB* 30 MG PO SCH (17:51)
[2018-12-05] MEDS: Lisinopril TAB* 10 MG PO SCH (17:52)
[2018-12-05] MEDS: cefTRIAXone(*) 1 GM in NS 0.9% 50 ML* 50 ML IVPB SCH (22:08)
[2018-12-05] MEDS: Azithromycin IV(*) 250 MG in NS 0.9% 250 ML* 250 ML IVPB SCH (22:32)
[2018-12-06] MEDS: Heparin VIAL(*) 5000 UNITS/ML VIAL (FIVE THOUSAND) SUBCUT SCH (05:37)
[2018-12-06 06:13] LABS: Hematocrit 26 % (35-47); Hemoglobin 8.6 g/dL (12.0-16.0); Mean Corpuscular HGB Conc 33 g/dL (31-36); Mean Corpuscular Hemoglobin 31 pg (27-31); Mean Corpuscular Volume 94 fL (80-97); Mean Platelet Volume 10.2 fL (7.4-10.4); Platelet Count 174 10^3/uL (150-450); Red Blood Count 2.81 10^6 /uL (3.70-4.87); Red Cell Distribution Width 15 % (10.5-15); White Blood Count 6.7 10^3/uL (3.5-10.8)
[2018-12-06 06:34] LABS: BUN/Creatinine Ratio 6.2 (8-20); Calcium 8.2 mg/dL (8.6-10.3); EGFR African American 5.9 (>60); EGFR Non-African American 4.9 (>60); Magnesium 2.5 mg/dL (1.9-2.7)
[2018-12-06 06:35] LABS: Potassium 5.3 mmol/L (3.5-5.0)
[2018-12-06] MEDS: Ondansetron INJ* 2 MG/ML VIAL IV PRN ×2 (08:17→12:20)
[2018-12-06 08:51] VITALS: BP 161/92
[2018-12-06] MEDS: NIFEdipine ER TAB* 60 MG PO SCH (08:53)
[2018-12-06] MEDS: Pantoprazole TAB * 40 MG TAB PO SCH (08:54)
[2018-12-06] MEDS: Sevelamer TAB* 800 MG PO SCH ×2 (08:54→12:20)
[2018-12-06] MEDS: Brimonidine P 0.15%(NF) OPH SOL 5 ML BTL RIGHT EYE SCH ×2 (08:54→13:56)
[2018-12-06] MEDS: Metoprolol Succinate XL TAB* 25 MG PO SCH (08:54)
[2018-12-06] MEDS ORDERED: EPOETIN ALFA-EPBX * 10,000 UNIT/ML VIAL IV ONE (10:45)
[2018-12-06] MEDS ORDERED: Heparin DIALYSIS ONLY(*) 1,000 UNITS/ML VIAL DIALYSIS ONE (11:00)
[2018-12-06] MEDS: Acetaminophen TAB* 325 MG PO PRN (12:20)
--- NOTE | 2018-12-06 18:15 | DS ---
CC: Dr. Radha Lockhart; Dr. Santoro, Nephrology * DISCHARGE SUMMARY: DATE OF ADMISSION: 12/02/18 DATE OF DISCHARGE: 12/06/18 PRIMARY CARE PROVIDER: Dr. Radha Lockhart. MY ATTENDING FOR DISCHARGE: Dr. Katie Hopkins.* (DICTATED BY EDUAR SINGLETARY NP) HOSPITAL COURSE: Please refer to admitting H and P by Dr. Omaira Navarrete, but in short, Ms. Hemalatha العلي is a 53-year-old Polish-speaking female with a past medical history for hypertension-induced end-stage renal disease, on hemodialysis, Sunday, , Sunday, who presented to the emergency department in pulmonary edema with acute respiratory distress. The patient had been on placed on CPAP by paramedics and came to the emergency department in fluid overload. She stated she has been having trouble with her dialysis. She has been above her dry weight. She was still having some cramping and she was with and she was not able to tolerate the CPAP that was placed on her in the ambulance. In the emergency department, she was in obvious respiratory distress with a heart rate in the 40s. She was placed on a nonrebreather with an O2 saturation than ran in the low 90s. She was also in a narrow complex tachycardia with a rate in the 160s to 170s and in hypertensive crisis. Initial presenting blood pressure was 227/168. She was given adenosine 6 mg and 12 mg with no change in heart rate. She was also given labetalol and reverted to sinus tachycardia. Because of her persistent respiratory distress and hypertension, she was intubated. She also appeared to have what was thought to be a hazy infiltrate on the left lung and some increased pulmonary vasculature and obvious pulmonary edema. She was admitted to the ICU. An arterial blood gas was drawn at that time, which was not indicative of overt respiratory failure. The patient did well while she was intubated for several hours. She was extubated shortly thereafter and then emergently dialyzed. The patient did have persistent respiratory distress while on dialysis. She was placed on BiPAP until some of her fluid shifting could be managed while she was being emergently dialyzed in the ICU. She did manage to tolerate that without complication. She was started on azithromycin for possible infiltrate of the left lung. She was also given some IV Lasix; the patient does make urine, small amounts, to stimulate some urine output and also help with some of the fluid overload. Overall, she responded well to all of these interventions. She was more aggressively dialyzed and placed on a Sunday, Sunday, Sunday schedule while she was here in hospital. She was making progress. Her only complaint over the last 24 to 48 hours was some postprandial nausea, which she has had rather persistently over the last couple of months per the patient's report. We did try her on Reglan before meals, which did not help; Zofran did, so we continued her on some low-dose Zofran before meals, which did assist with some postprandial nausea. Plan from Nephrology was to dialyze the patient today, which is 12/06/18, in anticipation for transitioning the patient to home to restart her normal outpatient schedule of dialysis, which is Sunday, , Sunday. The patient will be dialyzed again tomorrow as an outpatient on 12/07/18. The patient also had a bump in her troponins. This is being attributed to demand ischemia in the presence of overt pulmonary edema and respiratory failure. The patient did not have any further anginal equivalence. Also, noted was her rapid heart rate at admission and her narrow complex tachycardia, which also subsequently resolved. DISCHARGE DIAGNOSES: 1. Acute respiratory failure with hypoxia, now resolved. 2. End-stage renal disease, on hemodialysis, stable. 3. Uncontrolled hypertension, now stable. 4. Demand ischemia, now stable. 5. Generalized postprandial abdominal pain and nausea, now stable. DISCHARGE MEDICATIONS: 1. Renvela 2400 mg p.o. before meals. 2. Nifedipine extended release 60 mg p.o. daily. 3. Metoprolol succinate XL 25 mg p.o. daily. 4. Lisinopril 10 mg p.o. in the evening. 5. Cinacalcet 90 mg p.o. in the evening. 6. Alphagan 1 drop to the right eye 3 times a day. New medications include: 1. Protonix 40 mg p.o. daily for 14 days. 2. Zofran orally disintegrating tablet 4 mg p.o. q.6 hours before meals primarily as needed. REVIEW OF SYSTEMS ON THE DAY OF DISCHARGE: The patient denies any fever, fatigue, or chills. No shortness of breath. No chest pain. No nausea at this time. No abdominal cramping or pain. No urinary complaints. No bowel complaints. No arthralgias or myalgias and no further constitutional complaints. PHYSICAL EXAM: Reveals a well-appearing woman of her stated age, in no acute distress. Vital signs are blood pressure before dialysis 161/92, heart rate 92 , respiratory rate 20, O2 saturation 99% on room air with a temperature of 98.0. HEENT: The patient is atraumatic, normocephalic. PERRLA, nonicteric sclerae. Oral mucosa is moist. Tongue is midline. Neck is supple, nontender. No JVD noted. No carotid bruits auscultated. Cardiovascular: S1, S2 present. No murmurs, gallops, or rubs noted. Rate and rhythm are currently regular. Lungs are clear bilaterally to auscultation with no wheezing, rhonchi, or rales. Abdomen is soft, nontender, nondistended. Positive bowel sounds in all 4 quadrants. is deferred. Musculoskeletal: There is no clubbing, no cyanosis. She does have some edema of the right hand and upper extremity distal to her AV fistula. Her AV fistula in the right upper extremity has positive bruits and thrill. It is dressed with tape and gauze. No erythema, exudate, or drainage noted from her AV fistula site, which has been accessed for dialysis today. Lower extremities: There is no edema, no clubbing, no cyanosis. She has brisk cap refill. She has full range of motion, steady gait. Gross motor and sensation are intact. Neurologic: Grossly intact with no focal deficits. Psychiatric: She is cooperative and appropriate. LABORATORY DATA: Laboratories dated today, WBC 6.7, RBC 2.81, hemoglobin 8.6, hematocrit 26, platelets are 174. Sodium 138, potassium 5.3, chloride 101, CO2 23, anion gap 14, BUN 53, creatinine 8.55, GFR 4.9, glucose 81, calcium 8.2, magnesium 2.5. IMAGING: Last chest x-ray dated 12/02/18, which was post intubation shows an endotracheal tube with the tip overlying the trachea between the clavicles and the nikolay. Gastric tube was noted at the tip of the left upper quadrant in the prepyloric position. Cardiac silhouette is enlarged, cardiomediastinal silhouette is otherwise normal, costophrenic angles are sharp. There were no pleural abnormalities noted, lungs at that time were clear, there is improved aeration of the right lung. Upper abdomen was clear, no subphrenic gas. Bones and soft tissues with no obvious abnormalities. DISPOSITION: The patient was discharged to home in stable condition in the care of her . All questions were answered. The patient and her family stated their understanding of their discharge instructions and followups, also medication changes. FOLLOWUP: The patient was instructed to follow up with Dr. Lockhart in the next 4 to 7 days to discuss changes in her GI medications. We also recommend that the patient possibly have outpatient endoscopy planned. The patient did not have any signs of gastritis; however, she does have this postprandial pain. Our concern is that she may have some gastroparesis, does warrant perhaps an outpatient endoscopy. She is on omeprazole at home. We changed her to Protonix here for 2 weeks. We will defer to her primary care provider and GI if they wish to continue her on this medication. We also sent her out on Zofran, which seems to be helping with her nausea, but again we strongly recommend that she has outpatient GI followup. Medications are as above. ACTIVITY: Progress as tolerated. RESTRICTIONS: None. The patient and her were instructed to return to the emergency department for any increasing shortness of breath, edema, or weight gain. We did have a discussion about pulmonary edema and shifting fluids in the presence of dialysis. The patient's in particular did state his understanding of the factors that presented when the patient became fluid overloaded and they do state they will be aware of the change in conditions in anticipation of the patient not having such a serious respiratory distress and failure again. The patient was also instructed to follow up with Dr. Santoro on an as-needed basis for continued management of her dialysis. Again, the patient was discharged in stable condition. TIME SPENT: Forty-five minutes coordinating discharge plan. EDUAR SINGLETARY, STUD SHEEP FARMER [id number]/[facility] #: [id number] CHICA
== END 2018-12-06 14:00 | disposition home or self-care (01) | DRG 208 ==
LOC: ED 23:38 → ICU 12-02 02:44 → MEDTELE 12-03 10:02
PROVIDERS: ADMIT Internal Medicine; ATTEND Hospitalist
PROC: 5A1935Z Respiratory Ventilation, Less than 24 Consecutive Hours (ICD-10-PCS; principal; 2018-12-02)
PROC: 0BH17EZ Insertion of Endotracheal Airway into Trachea, Via Natural or Artificial Opening (ICD-10-PCS; 2018-12-02)
PROC: 5A1D70Z Performance of Urinary Filtration, Intermittent, Less than 6 Hours Per Day (ICD-10-PCS; 2018-12-02)
PROC: 06HM33Z Insertion of Infusion Device into Right Femoral Vein, Percutaneous Approach (ICD-10-PCS; 2018-12-02)
PROC: 5A1D70Z Performance of Urinary Filtration, Intermittent, Less than 6 Hours Per Day (ICD-10-PCS; 2018-12-04)
PROC: 5A1D70Z Performance of Urinary Filtration, Intermittent, Less than 6 Hours Per Day (ICD-10-PCS; 2018-12-06)
DX: J96.01 Acute respiratory failure with hypoxia (principal); N18.6 End stage renal disease; J18.9 Pneumonia, unspecified organism; I12.0 Hypertensive chronic kidney disease with stage 5 chronic kidney disease or end stage renal disease; J81.1 Chronic pulmonary edema; I16.1 Hypertensive emergency; I47.1 Supraventricular tachycardia; I24.8 Other forms of acute ischemic heart disease; E87.2 Acidosis; R04.2 Hemoptysis; K21.9 Gastro-esophageal reflux disease without esophagitis; E87.70 Fluid overload, unspecified; D63.8 Anemia in other chronic diseases classified elsewhere; E73.9 Lactose intolerance, unspecified; R74.8 Abnormal levels of other serum enzymes; I99.8 Other disorder of circulatory system; R11.0 Nausea; R10.9 Unspecified abdominal pain; T38.3X5A Adverse effect of insulin and oral hypoglycemic [antidiabetic] drugs, initial encounter; Z99.2 Dependence on renal dialysis; Y92.009 Unspecified place in unspecified non-institutional (private) residence as the place of occurrence of the external cause; Z79.899 Other long term (current) drug therapy; Z88.6 Allergy status to analgesic agent; Z88.8 Allergy status to other drugs, medicaments and biological substances; Z83.3 Family history of diabetes mellitus; Z82.49 Family history of ischemic heart disease and other diseases of the circulatory system; Z84.89 Family history of other specified conditions
CPT/HCPCS: 36415; 36600; 71045; 80048; 80053; 81003; 81015; 82803; 83605; 83735; 84484; 85025; 85027; 86703; 86706; 86803; 87040; 87070; 87086; 87205; 87340; 87641; 87899; 90935; 93005; 93306; 94660; 99285; A9270-GY; G0257; G8978-GP-CI; G8979-GP-CH; J0153; J0456; J0696; J1644; J1940; J2060; J2250; J2405; J2704; J3490; Q5106

== ENCOUNTER 2018-12-11 08:23 | Inpatient (IN) | payer MEDICARE, MEDICAID ==
--- NOTE | 2018-12-11 08:28 | ED ---
Respiratory - HPI Summary HPI Summary: Dr. Nidia Vilchis MD is speaking Congolese with the patient and her . 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 Pt was at [facility] to have a tunneled cath placed in her left IJ, but when she was laid flat, she immediately became tachypneic and tachycardic. She feels she is choking and coughing up pink foam. Associated sx: SOB, RUE edema, R hand pain, dysphagia. Denies n/v. Patient is a dialysis patient. Her last dialysis was four days ago. She was unable to have her dialysis yesterday, due to the swelling in RUE. This is why they were placing the tunneled cath this AM. She was recently intubated for fluid overload and released on 12/06/18. Aggravating factors: lying flat - History of Current Complaint Stated Complaint: SOB PER NURSE Time Seen by Provider: 12/11/18 08:25 Hx Obtained From: Patient, Family/Farm Mechanic - Onset/Duration: Lasting Minutes, Still Present Timing: Constant Initial Severity: Severe Current Severity: Severe Character: Cough (Productive) Sputum Color: Eagar-Tinged - and foamy Aggravating Factor(s): Recumbent Position Associated Signs and Symptoms: SOB, Edema - RUE, Dyspnea - Allergy/Home Medications Allergies/Adverse Reactions: Allergies Allergy/AdvReac Type Severity Reaction Status Date / Time aspirin Allergy Bleeding Verified 12/02/18 01:14 hydralazine Allergy Bleeding Verified 12/02/18 01:14 Home Medications: Home Medications Omeprazole 1 cap PO BID 12/11/18 [History Confirmed 12/11/18] Ondansetron ODT TAB* [Zofran 4 MG Odt TAB*] 1 tab PO Q6HR PRN 12/11/18 [History Confirmed 12/11/18] PMH/Surg Hx/FS Hx/Imm Hx Previously Healthy: No Endocrine/Hematology History: Denies: Hx Diabetes Cardiovascular History: Reports: Hx Hypertension Denies: Hx Angina, Hx Coronary Artery Disease, Hx Hypercholesterolemia, Hx Myocardial Infarction, Hx Valvular Heart Disease, Other Cardiovascular Problems/ Disorders Respiratory History: Denies: Hx Asthma, Hx Chronic Obstructive Pulmonary Disease (COPD), Other Respiratory Problems/Disorders GI History: Denies: Other GI Disorders - on prilosec due to medications History: Reports: Hx Chronic Renal Failure, Hx Dialysis, Hx Kidney Stones Denies: Hx Kidney Infection, Other Problems/Disorders Musculoskeletal History: Denies: Other Musculoskeletal History Sensory History: Denies: Hx Cataracts, Hx Contacts or Glasses, Hx Eye Injury, Hx Eye Prosthesis, Hx Glaucoma, Hx Legally Blind, Hx Macular Degeneration, Hx Vision Problem, Hx Deafness, Hx Hearing Aid, Hx Hearing Problem, Other Sensory Impairments Opthamlomology History: Denies: Hx Cataracts, Hx Contacts or Glasses, Hx Eye Injury, Hx Eye Prosthesis, Hx Glaucoma, Hx Legally Blind, Hx Macular Degeneration, Hx Vision Problem, Other Sensory Impairments Neurological History: Reports: Hx Headaches Denies: Other Neuro Impairments/Disorders - Surgical History Surgery Procedure, Year, and Place: AV Fistula in 2016 Hx Anesthesia Reactions: No - Immunization History Date of Tetanus Vaccine: unk Date of Influenza Vaccine: unk - Family History Known Family History: Positive: Hypertension, Diabetes - Social History Occupation: Unemployed Lives: With Family Alcohol Use: None Hx Substance Use: No Substance Use Type: Reports: None Hx Tobacco Use: Yes Smoking Status (MU): Former Smoker Have You Smoked in the Last Year: No Review of Systems Positive: Other - pos: dysphagia Positive: Shortness Of Breath, Cough, Other - pos: dyspnea, tachypnea Negative: Vomiting, Nausea Musculoskeletal: Other - pos: RUE edema and R hand pain All Other Systems Reviewed And Are Negative: Yes Physical Exam - Summary Physical Exam Summary: Constitutional: Well-developed, Well-nourished, Alert. Mild to moderate respiratory distressed Skin: Warm, Dry HENT: Normocephalic; Atraumatic Eyes: Conjunctiva normal Neck: Musculoskeletal ROM normal neck. JVD. (-) Stridor, (-) Tracheal deviation , markings on L neck from recent procedure attempt Cardio: Rhythm regular, tachycardic, Heart sounds normal; Intact distal pulses; The pedal pulses are 2+ and symmetric. Radial pulses are 2+ and symmetric. (-) Murmur Pulmonary/Chest wall: Effort normal. Tachypneic, (-) Wheezes, diffuse bilateral crackles Abd: Soft, (-) tenderness, (-) Distension, (-) Guarding, (-) Rebound Musculoskeletal: bilateral LE are non-edmaetous, R forearm has a fistula with good thrill, R hand has a large amount of swelling, LUE is fine. Lymph: (-) Cervical adenopathy Neuro: Alert, Oriented x3 Psych: Mood and affect Normal Triage Information Reviewed: Yes Vital Signs Reviewed: Yes Procedures - Intubation Time of Intubation: 08:40 Intubation Method: orotracheal Tube Size (cm): 7.5 - cuffed Medications: Pancuronium - rocuronium and etomidate Breath Sounds after Intubation: equal Intubation Complications: no complications Post Intubation Xray: Yes Progress/Xray Impression: Appropriately placed NG tube. Diagnostics - Laboratory Result Diagrams: 12/11/18 09:09 12/11/18 09:09 Lab Statement: Any lab studies that have been ordered have been reviewed, and results considered in the medical decision making process. - Radiology CXR Radiology Interpretation Completed By: Radiologist Summary of Radiographic Findings: Nasogastric tube is in place. IMPRESSION: Increased density and airspace disease in both lung long consistent with progressive pulmonary edema. ED provider has reviewed this report. - EKG 0903 Cardiac Rate: Tachycardia - 130bpm EKG Rhythm: Sinus Tachycardia EKG Comparison: Other - Changed from previous EKG on 12/02/18. Summary of EKG Findings: Nml SC, nml QRS, nml QTC, and ST elevated in V1, V2, V4. T-waves are peak-wilfredo. Re-Evaluation - Re-Evaluation 1 Re-Evaluation Time: 09:09 Change: Improved Comment: She is hypertensive, gave 40 mg bolus of propofol. BP came down slightly. Disposition - Course Course Of Treatment: Patient is 53 y/o F dialysis patient presenting in mild to moderate respiratory distress. Pt was at [facility] for tunneled cath of left IJ, but when she was laid flat, she immediately became tachypneic, tachycardic and had dysphagia. She is coughing up pink foam. Her last dialysis was four days ago, she was unable to have dialysis yesterday due to swelling in RUE. PE finds tachypnea, diffuse bilateral crackles, tachycardic, R forearm has a fistula with good thrill, her R hand has large amounts of swlling. Her LUE is fine, her bilateral LE are non-edmaetous. There are markings on her L-neck from recent procedure attempt. No JVD. Meds given in ED: Nitro, Propofol, Etomidate, Rocuronium, Fentanyl infusion, Versed. Lab values show WBC: 13.9, RBC: 3.67, CO2 : 20, anion gap: 18, BUN: 83, Creatinine: 11.91, glucose; 175, alkaline phosphatase: 124, BNP: > 1300. Critical lab values: troponin: 0.04. Intubation : orotrach 7.5 tube, used rocuronium and etomidate, placed without complications. CXR shows Nasogastric tube is in place. Increased density and airspace disease in both lung long consistent with progressive pulmonary edema. EKG is sinus tachy with .ml SC, nml QRS, nml QTC, and ST elevated in V1, V2, V4. T-waves are peak-wilfredo. Consulted with Dr. Hamlin, floral assistant, and Dr. Ovalle, IR, who both recommend ICU. Spoke with Dr. Pereira, physical fitness teacher, who will admit patient to ICU. - Diagnoses Provider Diagnoses: Acute pulmonary edema, End stage renal disease, Hemodialysis patient, Hypertension - Physician Notifications Discussed Care Of Patient With: Karen Hamlin - nephrology Time Discussed With Above Provider: 09:04 Instructed by Provider To: Admit As Inpatient - Recommends ICU and they'll dialyze patient there. - Critical Care Time Critical Care Time: 30-74 min - 40 mins CCT Discharge - Sign-Out/Discharge Documenting (check all that apply): Patient Departure - ICU All imaging exams completed and their final reports reviewed: Yes Patient Received Moderate/Deep Sedation with Procedure: No - Discharge Plan Condition: Critical Disposition: ADMITTED TO [facility] - Billing Disposition and Condition Condition: CRITICAL Disposition: Admitted to [facility] - Attestation Statements Document Initiated by Daliaibe: Yes Documenting Scribe: Malcom Hargrove Provider For Whom Venita is Documenting (Include Credential): Dr. iNdia Vilchis MD Scribe Attestation: Rainer, Malcom Hargrove scribed for Dr. Nidia Vilchis MD on at 1554. Scribe Documentation Reviewed: Yes Provider Attestation: The documentation as recorded by the Malcom guerrero accurately reflects the service I personally performed and the decisions made by me, Dr. Nidia Vilchis MD Status of Scribe Document: Viewed Consult Consult: 929: Consult with Dr. Ovalle, IR Will consult with Dr. Yakelin MD to find a dialysis plan that works for her. Agrees with ICU admission. 50: Consult with Dr. Pereira, ICU Will admit to ICU
--- OUTSIDE RECORDS SUMMARY | 2018-12-11 08:44 | XMS REPORT | Continuity of Care Document ---
:1965 External Reference #:[id number] Author Name Patti Vida Care Team Providers Name Role Phone Radha Lockhart M.D. Primary Care Physician Unavailable Payers Date Identification Numbers Payment Provider Subscriber Policy Number: [id number] Medicare Jairon Jimenes PayID: [id number] [address] [place] [address] Policy Number: [id number] Medicaid Jairon Jimenes Group Name: 1 1 [address] PayID: [id number] [place] [address] Policy Number: [id number] [facility] Jairon Jimenes PayID: [id number] [address] Advance Directives Description No Information Available Problems [...] History Type Date Description Comments Sex Unknown Marital Status Lives With Spouse and son, who is a PhD candidate at [employer] Disabled ETOH Use Denies alcohol use Tobacco [...] CPT Code Status Date Vaccine Lot # [id number] Given 01/18/2018 Pneumococcal Conjugate Vaccine 13 Valent For [id number] Intramuscular Use Vital Signs Date Vital Result [...] Date Facility Test Result H/L Range Note CBC Auto Diff 12/01/2018 [facility] White Blood 11.0 10^3/uL High 3.5-10.[address] [place] [address] [phone] Red Blood Count 3.84 10^6/uL N 3.70-4.87 Hemoglobin 11.8 g/dL Low 12.0-16.0 Hematocrit 37 % N 33-41 Mean Corpuscular Volume 96 fL N 80-97 Mean Corpuscular Hemoglobin 31 pg N 27-31 Mean Corpuscular HGB Conc 32 g/dL N 31-36 Red Cell Distribution Width 16 % High 10.5-15 Platelet Count 279 10^3/uL N 150-450 Mean Platelet Volume 9.4 fL N 7.4-10.4 Abs Neutrophils 5.5 10^3/uL N 1.5-7.7 Abs Lymphocytes 4.4 10^3/uL N 1.0-4.8 Abs Monocytes 0.7 10^3/uL N 0-0.8 Abs Eosinophils 0.3 10^3/uL N 0-0.6 Abs Basophils 0.1 10^3/uL N 0-0.2 Abs Nucleated RBC 0 10^3/uL Granulocyte % 50.2 % Lymphocyte % 39.9 % Monocyte % 6.2 % Eosinophil % 2.6 % Basophil % 1.1 % Nucleated Red Blood Cells % 0.1 Comp Metabolic Panel 12/01/2018 [facility] Sodium 139 mmol/L N 135-[address] [place] [address] [phone] Potassium 4.1 mmol/L N 3.5-5.0 Chloride 99 mmol/L Low 101-111 Co2 Carbon Dioxide 25 mmol/L N 22-32 Anion Gap 15 mmol/L High 2-11 Glucose 198 mg/dL High 70-100 Blood Urea Nitrogen 38 mg/dL High 6-24 Creatinine 8.56 mg/dL High 0.51-0.95 BUN/Creatinine Ratio 4.4 Low 8-20 Calcium 10.5 mg/dL High 8.6-10.3 Total Protein 8.6 g/dL N 6.4-8.9 Albumin 4.6 g/dL N 3.2-5.2 Globulin 4.0 g/dL N 2-4 Albumin/Globulin Ratio 1.2 N 1-3 Total Bilirubin 0.90 mg/dL N 0.2-1.0 Alkaline Phosphatase 119 U/L High 34-104 Alt 12 U/L N 7-52 Ast 14 U/L N 13-39 Egfr Non- 4.8 >60 Egfr 5.9 >60 1 Laboratory test 12/01/2018 [facility] Troponin-I 0.12 ng/mL High <0.[address] (TnI) [place] [address] [phone] Lactic Acid 2.5 mmol/L High 0.5-2.0 3 Rapid HIV Nonreactive Nonreactive Hepatitis B Surface Ag Nonreactive Nonreactive Hepatitis B Jose 12/01/2018 [facility] Hepatitis B Immune Immune AB Titer [address] [place] [address] [phone] Hep B Surf AB Level > 1000.00 mIU/mL >12 Hepatitis C Antibody 12/01/2018 [facility] HCV Index 0.[address] [place] [address] [phone] Hepatitis C Antibody Nonreactive Nonreactive Inr/Protime 11/10/2018 [facility] Inr 0.94 N 0.77-1.[address] [place] [address] [phone] Laboratory test 11/10/2018 [facility] Lactic Acid 0.4 Low 0.5- 2.0 4 finding 101 mmol/[place] [address] [phone] Comp Metabolic 11/10/2018 [facility] Sodium 139 N 135-145 Panel 101 mmol/[place] [address] [phone] Potassium 4.7 mmol/L N 3.5-5.0 Chloride 99 [...] Egfr Non- 3.4 >60 Egfr 4.1 >60 5 Laboratory test 11/10/2018 [facility] C Reactive 14.73 mg/L High <8.[address] [place] [address] [phone] Troponin-I (TnI) 0.05 ng/mL High <0.04 6 CBC Auto 11/10/2018 [facility] White Blood 12.8 10^3/uL High 3.5-10.[address] [place] [address] [phone] Red Blood Count 3.05 10^6/uL Low 3.70-4.87 [...] Blood Cells % 0.1 Laboratory test 11/10/2018 [facility] Blood Culture SEE RESULT [address] [place] [address] [phone] Laboratory test 11/10/2018 [facility] B-Type > 1300 pg/mL High <=[address] [place] [address] Peptide BNP [phone] Inr/Protime 10/08/2018 [facility] Inr 0.93 N 0.77- [address] 1.02 [place] [address] [phone] Laboratory test 10/08/2018 [facility] Partial Thrombo 28.8 seconds N 26.0- finding [address] Time PTT 36.3 [place] [address] [phone] CBC Auto Diff 10/08/2018 [facility] White Blood 6.4 10^3/uL N 3.5-[address] Count 0.8 [place] [address] [phone] Red Blood Count 4.53 10^6/uL N 4.00-5.40 [...] Cells % 0 Comp Metabolic Panel 10/08/2018 [facility] Sodium 139 mmol/L N 135-[address] [place], [place] [phone] Chloride 98 mmol/L Low 101-111 Co2 Carbon [...] Egfr Non- 4.0 >60 Egfr 4.8 >60 8 Potassium 5.5 mmol/L High 3.5-5.0 Anion Gap 16 mmol/L High 2-11 Laboratory test 10/08/2018 [facility] Troponin-I 0.05 High < 0.04 [address] (TnI) ng/[place] [address] [phone] CBC Auto Diff 09/23/2018 [facility] White Blood 7.6 N 3.5- 10.[address] Count 10^3/[place] [address] [phone] Red Blood Count 3.62 10^6/uL Low 4.00-5.40 [...] Cells % 0 Basic Metabolic Panel 09/23/2018 [facility] Sodium 138 mmol/L N 135-[address] [place] [address] [phone] Chloride 102 mmol/L N 101-111 Co2 Carbon Dioxide 18 mmol/L Low 22-32 Glucose 82 mg/dL N 70-100 Blood Urea Nitrogen 95 mg/dL High 6-24 Creatinine 13.70 mg/dL High 0.51-0.95 BUN/Creatinine Ratio 6.9 Low 8-20 Calcium 10.5 mg/dL High 8.6-10.3 Egfr Non- 2.8 >60 Egfr 3.4 >60 10 Potassium 5.6 mmol/L High 3.5-5.0 Anion Gap 18 mmol/L High 2-11 Laboratory test 05/15/2018 [facility] Surgical SEE RESULT [address] [place] [address] [phone] Laboratory test 05/15/2018 [facility] Clotest SEE RESULT [address] [place] [address] [phone] Basic Metabolic 04/04/2018 [facility] Sodium 138 mmol/L N 135- [address] [place] [address] [phone] Chloride 95 mmol/L Low 101-111 Co2 Carbon Dioxide 29 mmol/L N 22-32 Glucose 78 mg/dL N 70-100 Blood Urea Nitrogen 50 mg/dL High 6-24 Creatinine 10.14 mg/dL High 0.51-0.95 BUN/Creatinine Ratio 4.9 Low 8-20 Calcium 10.5 mg/dL High 8.6-10.3 Egfr Non- 4.0 >60 Egfr 4.8 >60 13 Potassium 5.3 mmol/L High 3.5-5.0 Anion Gap 14 mmol/L High 2-11 Pthi 04/04/2018 [facility] Calcium (PTH Intact) 10.3 mg/dL N 8.6-10.[address] [place] [address] [phone] PTH Intact 16.3 pmol/L High 1.3-9.3 Laboratory test 04/04/2018 [facility] TSH (Thyroid 3.46 mcIU/mL N 0.34-5.[address] Stim [place]orm) [place] [address] [phone] Hemoglobin A1c (Glyco HGB) 5.7 % High 4.0-5.6 14 Fructosamine 331 mcmol/L Abnormal 200 - 285 15 Phosphorus 7.5 mg/dL High 2.5-5.0 Magnesium 2.3 mg/dL N 1.9-2.7 CBC Auto Diff 03/15/2018 [facility] White Blood 6.1 10^3/uL N 3.5-10.[address] [place] [address] [phone] Red Blood Count 4.12 10^6/uL N 4.00-5.40 [...] Red Blood Cells % 0.1 Inr/Protime 03/15/2018 [facility] Inr 0.90 N 0.77-1.[address] [place] [address] [phone] Laboratory test 03/15/2018 [facility] Partial 30.1 seconds N 26.0-36.[address] [place] [address] PTT [phone] Basic Metabolic 03/15/2018 [facility] Sodium 137 mmol/L N 135- [address] [place] [address] [phone] Potassium 5.1 mmol/L High 3.5-5.0 Chloride 98 mmol/L Low 101-111 Co2 Carbon Dioxide 26 mmol/L N 22-32 Anion Gap 13 mmol/L High 2-11 Glucose 76 mg/dL N 70-100 Blood Urea Nitrogen 41 mg/dL High 6-24 Creatinine 7.83 mg/dL High 0.51-0.95 BUN/Creatinine Ratio 5.2 Low 8-20 Calcium 9.9 mg/dL N 8.6-10.3 Egfr Non- 5.4 >60 Egfr 6.5 >60 16 CBC Auto Diff 01/28/2018 [facility] White Blood 7.3 10^3/uL N 3.5-10.[address] [place] [address] [phone] Red Blood Count 3.65 10^6/uL Low 4.00-5.40 [...] Blood Cells % 0.1 Lipid Profile 01/28/2018 [facility] Triglycerides 86 mg/dL 17 (Trig/Chol/HDL) [address] [place] [address] [phone] Cholesterol 185 mg/dL 18 HDL Cholesterol 67.5 mg/dL 19 LDL Cholesterol 100 mg/dL 20 Comp Metabolic Panel 01/28/2018 [facility] Sodium 139 mmol/L N 135-145 [address] [place] [address] [phone] Potassium 4.7 mmol/L N 3.5-5.0 Chloride 94 [...] Egfr Non- 4.8 >60 Egfr 5.9 >60 21 Laboratory test 01/25/2018 [facility] Cytology SEE RESULT 22, [address] [place] [address] [phone] 1 Because ethnic data is not always readily [...] 15-29 5 Kidney failure <15 (or dialysis) 2 Result TnIDx:0.12 Called to [id number] at: 00:25:46 by:[id number] Read back by: [id number] Troponin-I testing on Plasma Separator Tubes (PST) has a known false positive rate of 0.20-0.40%. All positive troponins reflex immediately to secondary confirmatory testing. Using the [employer] 800 Access Immunoassay systems, the 99th percentile upper reference limit was demonstrated to be < 0.03 ng/mL. 3 Critical Result LACT:2.5 Called to [id number] at: 00:22:31 by:[id number] Read back by:[id number] [facility] Severe Sepsis and Septic Shock Management Bundle Measure requires all lactic acids initially measuring >2.0 mmol/L be repeated. 4 [facility] Severe Sepsis and Septic Shock Management Bundle [...] (or dialysis) 6 Result TnIDx:0.05 Called to [id number] at: 20:13:35 by:[id number] Read back by: [id number] Troponin-I testing on Plasma Separator Tubes (PST) has a known false positive rate of 0.20-0.40%. All positive troponins reflex immediate secondary confirmatory testing. 7 SEE RESULT BELOW Name: STEPHAN JIMENESJAIRON JAYLA : [address]: Froilan Alcantar MD Acct: [id number] Unit: [id number] AGE: 53 Location: [place] [address] Re11/10/18 Dis: 11/11/18 SEX: F Status: DIS Angela SPEC: [id number] GIGI: 11/10/[address]: Venkatesh Francisco MD REQ: [id number] RECD: 11/10/18 STATUS: COMP HR DR: Radha Lockhart MD _ SOURCE: BLOOD,[facility]: ORDERED: Blood Cult COMMENTS: L FA Procedure Result Reported Site Aerobic Culture Bottle Final 11/15/181944 ML No Growth Day 5 Anaerobic Culture Bottle Final 11/15/181944 ML No Growth Day 5 * ML - Main Lab . END OF REPORT DEPARTMENT OF PATHOLOGY, [address] [place] [address] Lv Chua M.D. Director [facility] # [id number] 8 Because ethnic data is not always readily [...] 15-29 5 Kidney failure <15 (or dialysis) 9 Result TnIDx:0.05 Called to [id number] at: 02:08:15 by:[id number] Read back by: [id number] Troponin-I testing on Plasma Separator Tubes (PST) has a known false positive rate of 0.20-0.40%. All positive troponins reflex immediate secondary confirmatory testing. 10 Because ethnic data is not always readily [...] 15-29 5 Kidney failure <15 (or dialysis) 11 SEE RESULT BELOW Name: JAIRON DONOVAN : [address]: Hayde Trevino MD Acct: [id number] Unit: [id number] AGE: 52 Location: ENDO Re05/15/18 SEX: F Status: DEP REF SPEC: [id number] GIGI: 05/15/18- DR: Hayde Ureña MD REQ: [id number] RECD: 05/16/18 STATUS: ELYSE BRAVO DR: Ra Luo MD [...] CONTINUED ON NEXT PAGE DEPARTMENT OF PATHOLOGY, [address] [place] [address] Lv Chua M.D. Director [facility] # [id number] RUN DATE: 05/17/18 [facility] LAB LIVE PAGE 2 Patient: JAIRON DONOVAN [id number] (Continued) GROSS DESCRIPTION (Continued) Signed by and Reported on: Danyell Cevallos MD 05/17/18 1313 END OF REPORT DEPARTMENT OF PATHOLOGY, [address] [place] [address] Lv Chua M.D. Director [facility] # [id number] 12 SEE RESULT BELOW Name: JAIRON DONOVAN : [address]: Hayde Trevino MD Acct: [id number] Unit: [id number] AGE: 52 Location: ENDO Re05/15/18 SEX: F Status: REG REF SPEC: [id number] GIGI: 05/15/[address] [facility] DR: Hayde Ureña MD REQ: [id number] RECD: 05/15/18 STATUS: LEE BRAVO DR: Honorio Luo MD _ SOURCE: GAS ANTRUM SPDESC: ORDERED: Clotest Procedure Result Reported Site Clotest Final 05/16/18714 ML Clotest Negative * ML - Main Lab . END OF REPORT DEPARTMENT OF PATHOLOGY, [address] [place] [address] Lv Chua M.D. Director [facility] # [id number] 13 Because ethnic data is not always [...] 5 Kidney failure <15 (or dialysis) 14 Therapeutic target for the treatment of diabetes mellitus patients is <7% HBA1C, and in selective patients <6.0%. Please refer to [place] [employer] diabetic care guidelines for further information. 15 Test Performed by: [address] [address] 16 Because ethnic data is not always readily [...] 15-29 5 Kidney failure <15 (or dialysis) 17 Desirable: <150 Borderline High: 150-199 High: 200-499 Very High: >500 18 Desirable: <200 Borderline High: 200-239 High: >239 19 Low: <40 Desirable: 40-60 High: >60 20 Desirable: <100 Near Optimal: 100-129 Borderline High: 130-159 High: 160-189 Very High: >189 21 Because ethnic data is not always readily [...] 15-29 5 Kidney failure <15 (or dialysis) 22 [id number] 23 SEE RESULT BELOW Name: JAIRON DONOVAN : [address]: Alexis Mckee MD Acct: [id number] Unit: [id number] AGE: 52 Location: [facility] Re01/25/18 SEX: F Status: REG REF SPEC: [id number] GIGI: 01/25/18-[address]: Alexis Mckee MD REQ: [id number] RECD: 01/25/18 STATUS: SOUT _ ORDERED: TP IMAGE ANALYS, HPV/Thin Prep COMMENTS: [id number] Negative for Intraepithelial lesion or Malignancy A. [...] was evaluated with the assistance of the Spinal Simplicity Test Imaging System. Due to cytologic findings at the bladder blower microscope, comprehensive manual rescreening by a Therapist Occupational may be required. The Pap Smear is [...] years. END OF REPORT DEPARTMENT OF PATHOLOGY, [address] [place] [address] Lv Chua M.D. Director [facility] # [id number] Procedures Date Code Description Status 12/02/2018 41125 ECHO Transthorasic Realtime 2D W Doppler & Color Flow Completed Hosp 12/02/2018 48951 Insert Non-Tunneled Venous Catether Completed 09/24/2018 16761 Moderate Sedation Services; Same Phys Intl 15 Mins; PT Completed >=5 Years 09/24/2018 25455 Ultrasound Guidance For Vascular Access Completed 09/24/2018 49222 Translum Balloon Angio Central Dial Segment Through Completed Dialys Circui 09/24/2018 98697 Dialysis Circuit W/ Transluminal Balloon Angioplasty, Completed Peripheral 07/19/2018 [id number] Colonoscopy Completed 05/27/2018 77104 EKG Tracing & Interpretation Completed 05/21/2018 [id number] Colonoscopy Completed 03/29/2018 77322 Moderate Sedation Services; Same Phys Intl 15 Mins; PT Completed >=5 Years 03/29/2018 97422 Ultrasound Guidance For Vascular Access Completed 03/29/2018 64001 Dialysis Circuit W/ Transluminal Balloon Angioplasty, Completed Peripheral 03/04/2018 77310 EKG Tracing & Interpretation Completed 02/18/2018 26238 Treadmill Interp/Report Only Completed 02/18/2018 34005 Stress Test Supervsn W/Out I/R Completed 02/04/2018 [id number] Mammogram Completed 12/06/2017 33361 ECHO Transthorasic Realtime 2D W Doppler & Color Flow Completed Hosp 12/05/2017 62661 EKG, Interpretation Only Completed 10/29/2017 81397 Closed [place] Phalanx finger/thumb shaft w/o manipulation Completed Encounters Type Date Location Provider Dx Diagnosis Office Visit 11/22/2018 [facility] Radha Lockhart MD R06.02 Shortness of 10:40a Medicine breath R14.0 Abdominal distension (gaseous) E87.79 Other fluid overload 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 M25.441 Effusion, right hand Office Visit 11/11/2018 8:28a [facility] Mitesh R06.02 Shortness of Assoc,VIANEY Cochran breath Hospitalists E87.79 Other fluid overload 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 N18.6 End stage renal disease Office Visit 11/10/2018 8:28a [facility] Lauryn Vanessa R06.02 Shortness of Assoc,rani Llanos 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 N18.6 End stage renal disease E87.79 Other fluid overload Office Visit 08/09/2018 11:20a [facility] Lockhart J06.9 Acute upper Medicine - MD respiratory [place] infection, unspecified 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 G43.009 Migraine w/o aura, not intractable, w/o status migrainosus K63.5 Polyp of colon Office Visit 05/27/2018 10:00a [facility] Internal Radha Lockhart, Z01.818 Encounter for other Medicine - MD preprocedural [address] examination 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 reflux disease without [address] esophagitis I10 Essential (primary) hypertension N18.6 End stage renal disease Office Visit 03/04/2018 1:00p [facility] Denys Griffiths I11.9 Hypertensive heart [facility] [place], DO disease without FACC heart failure N18.6 End stage renal disease Z01.810 Encounter for preprocedural cardiovascular examination I48.0 Paroxysmal atrial fibrillation Office Visit 01/18/2018 9:00a [facility] Internal Ra Luo, I12.0 Hyp chr kidney Medicine - [place] M.DSruthi disease w Rd stage 5 chr kidney [...] Raised antibody titer Office Visit 12/07/2017 8:53a [facility] Lauryn Vanessa R04.2 Hemoptysis Assoc,rani Llanos Hospitalists N18.6 End stage renal disease I10 Essential (primary) hypertension R74.8 Abnormal levels of other serum enzymes Office Visit 12/06/2017 7:00a [facility] Honorio Browne, R76.0 Raised antibody [facility] Romi titer R04.2 Hemoptysis N18.6 End stage renal disease Z99.2 Dependence on renal dialysis Office Visit 12/06/2017 8:52a [facility] Assoc, Colten Gonzalez MD R04.2 Hemoptysis Hospitalists N18.6 End stage renal disease I10 Essential (primary) hypertension R74.8 Abnormal levels of other serum enzymes Office Visit 12/05/2017 8:51a [facility] Ass, Colten Gonzalez MD R04.2 Hemoptysis Hospitalists N18.6 End stage renal disease I10 Essential (primary) hypertension R74.8 Abnormal levels of other serum enzymes Office Visit 12/04/2017 8:49a [facility], Colten Gonzalez MD R04.2 Hemoptysis Hospitalists N18.6 End stage renal disease I10 Essential (primary) hypertension R74.8 Abnormal levels of other serum enzymes Plan of Treatment Future Appointment(s):12/11/2018 9:15 am - Johan Menchaca M.D. at [facility]05/26/2019 9:00 am - Radha Lockhart MD at [facility] Internal Zcrautbr77/19/2019 - Radha Lockhart, MDR06.02 Shortness of breathComments:much improved.R14.0 Abdominal distension (gaseous)New Medication:Ranitidine HCL 150 mg - 1 by mouth twice a dayComments:I am adding an anti acid medication for czksmsH98.79 Other fluid overloadComments:resolved after haretvjxS00.0 Hypertensive chronic kidney disease with stage 5 chronic kidComments:Dr. Santoro is managing your blood pressureFollow up:6 wkmarbX73.441 Effusion, right handComments:please see vascular surgeon
[2018-12-11] MEDS ORDERED: Propofol* 100 ML ONE (08:56)
[2018-12-11] MEDS ORDERED: nitroGLYCERIN DRIP* 25,000 MCG/250 ML BTL IV ONE (08:57)
[2018-12-11] MEDS: Propofol* 100 ML IV SCH ×3 (09:05→22:40)
[2018-12-11 09:26] LABS: ABS Basophils 0.2 10^3/ul (0-0.2); ABS Eosinophils 0.4 10^3/ul (0-0.6); ABS Lymphocytes 3.8 10^3/ul (1.0-4.8); ABS Monocytes 1.1 10^3/ul (0-0.8); ABS Neutrophils 8.4 10^3/ul (1.5-7.7); Hematocrit 35 % (35-47); Hemoglobin 11.1 g/dL (12.0-16.0); Lymphocyte % 27.5 %; Mean Corpuscular HGB Conc 31 g/dL (31-36); Mean Corpuscular Hemoglobin 30 pg (27-31); Mean Corpuscular Volume 96 fL (80-97); Mean Platelet Volume 9.8 fL (7.4-10.4); Nucleated Red Blood Cells % 0.1; Platelet Count 376 10^3/uL (150-450); Red Blood Count 3.67 10^6 /uL (3.70-4.87); Red Cell Distribution Width 16 % (10.5-15); White Blood Count 13.9 10^3/uL (3.5-10.8)
[2018-12-11] MEDS ORDERED: Propofol* 10 MG/ML 20 ML BTL IV PUSH ONE (09:28)
[2018-12-11] MEDS ORDERED: Etomidate* 2 MG/ML 10 ML VIAL IV ONE (09:36)
[2018-12-11] MEDS ORDERED: Rocuronium* 10 MG/ML VIAL IV ONE (09:36)
[2018-12-11 09:50] LABS: Albumin 4.5 g/dL (3.2-5.2); Calcium 8.8 mg/dL (8.6-10.3); EGFR Non-African American 3.3 (>60); Globulin 4.3 g/dL (2-4); Total Bilirubin 0.7 mg/dL (0.2-1.0); Total Protein 8.8 g/dL (6.4-8.9)
[2018-12-11 09:51] LABS: Potassium 5.6 mmol/L (3.5-5.0)
[2018-12-11 09:54] LABS: Troponin I 0.04 ng/mL (<0.04)
[2018-12-11] MEDS ORDERED: Midazolam* 1 MG/ML 5 ML VIAL (5 MG) IV SLOW PU ONE (10:44)
[2018-12-11] MEDS ORDERED: fentaNYL INFUSION 50 MCG/ML* 2,500 MCG/50 ML BAG IV SCH (11:00)
[2018-12-11] MEDS ORDERED: Midazolam IV for DRIP* 100 MG in NS 0.9% 100 ML* 80 ML IV SCH (11:00)
--- NOTE | 2018-12-11 12:06 | HP ---
History of Present Illness - History of Present Illness Reason for Visit: acute pulmonary edema, intubated/mechanically ventilated History of Present Illness: 53 y/o F with hx/o ESRD on HD(/), HTN, drug induced vasculitis, GERD presenting to ED c/o respiratory distress. She scheduled to have tunneled cath for HD by IR today upon missing her last HD, yesterday, due to occluded access and RUE swelling. Upon laying flat for the procedure, patient became tachypneic and tachycardic with expectoration of pink frothy foam. Her last HD was 4 days ago. Patient was intubated in the ED due to acute respiratory distress. Patient has a known malfunctioning RUE AV fistula with multiple angioplasties and resultant hand swelling. Everytime she gets dialysis through the AV fistula it causes her excruciating pain. History obtained from chart review and due to patient's current intubated status - Past Medical History Cardiac: HTN Gastrointestinal: GERD Renal/: Chronic renal failure, Other - on HD - Past Surgical History Past Surgical History: Other - RUE AV fistula - Past Family History Family History: DM - father, Hypertension - father, Other - [place] descent. 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 Review of Systems - Review of Systems Other: Unable to optimally review due to patient's sedated status - Medications/Allergies Allergies/Adverse Reactions: Allergies Allergy/AdvReac Type Severity Reaction Status Date / Time aspirin Allergy Bleeding Verified 12/02/18 01:14 hydralazine Allergy Bleeding Verified 12/02/18 01:14 Medications: Current Medications Propofol (Diprivan*) 100 mls @ 1.687 mls/hr IV .(Initial Rate) AMNA; Protocol Last Admin: 12/11/18 09:05 Dose: 1.687 mls/hr Nitroglycerin/Dextrose (Nitroglycerin Drip*) 25,000 mcg in 250 mls @ 12 mls/hr IV ONCE ONE; Protocol Stop: 12/12/18 05:46 Last Admin: 12/11/18 09:35 Dose: 12 mls/hr Midazolam HCl 100 mg/ Sodium (Chloride) 100 mls @ 0 mls/hr IV .Q24HR AMNA; Protocol Last Admin: 12/11/18 11:28 Dose: 2 mls/hr Fentanyl Citrate (Fentanyl Infusion Bag 50 Mcg/Ml 50 Ml) 2,500 mcg in 50 mls @ 0 mls/hr IV Q72H AMNA; Protocol Last Admin: 12/11/18 11:32 Dose: 0.5 mls/hr Exam - Exam Vital Signs: Vital Signs (72 hours) 12/11/18 12/11/18 12/11/18 08:26 08:32 08:40 Temperature 97.5 F Pulse Rate 117 123 123 Respiratory 30 51 34 Rate Blood Pressure 217/126 212/122 (mmHg) O2 Sat by Pulse 95 93 97 Oximetry 12/11/18 12/11/18 12/11/18 08:42 08:45 08:50 Temperature Pulse Rate 129 120 128 Respiratory 31 40 Rate Blood Pressure 199/143 195/127 219/145 (mmHg) O2 Sat by Pulse 100 100 93 Oximetry 12/11/18 12/11/18 12/11/18 08:55 09:00 09:11 Temperature Pulse Rate 139 139 125 Respiratory Rate Blood Pressure 244/153 247/151 224/140 (mmHg) O2 Sat by Pulse 90 100 100 Oximetry 12/11/18 12/11/18 12/11/18 09:14 09:15 09:20 Temperature 94.1 F Pulse Rate 116 115 110 Respiratory Rate Blood Pressure 196/126 191/122 197/125 (mmHg) O2 Sat by Pulse 100 100 100 Oximetry 12/11/18 12/11/18 12/11/18 09:23 09:25 09:30 Temperature 95.4 F 95.9 F 97.0 F Pulse Rate 110 110 109 Respiratory Rate Blood Pressure 202/125 204/123 207/122 (mmHg) O2 Sat by Pulse 100 99 97 Oximetry 12/11/18 12/11/18 12/11/18 09:33 09:36 09:38 Temperature 97.3 F 97.5 F 97.7 F Pulse Rate 111 111 113 Respiratory Rate Blood Pressure 210/124 207/124 209/126 (mmHg) O2 Sat by Pulse 96 95 92 Oximetry 12/11/18 12/11/18 12/11/18 09:41 09:44 09:46 Temperature 97.9 F 98.1 F 98.1 F Pulse Rate 109 56 109 Respiratory Rate Blood Pressure 206/122 199/122 193/118 (mmHg) O2 Sat by Pulse 91 90 91 Oximetry 12/11/18 12/11/18 12/11/18 09:48 09:51 09:53 Temperature 98.2 F 98.2 F 98.2 F Pulse Rate 107 106 107 Respiratory Rate Blood Pressure 186/114 190/117 177/110 (mmHg) O2 Sat by Pulse 91 86 91 Oximetry 12/11/18 12/11/18 12/11/18 09:56 09:58 10:00 Temperature 98.2 F 98.2 F 98.2 F Pulse Rate 102 103 103 Respiratory Rate Blood Pressure 171/108 170/108 (mmHg) O2 Sat by Pulse 93 93 93 Oximetry 12/11/18 12/11/18 12/11/18 10:01 10:03 10:06 Temperature 98.2 F 98.2 F 98.2 F Pulse Rate 100 100 102 Respiratory Rate Blood Pressure 171/103 161/105 167/108 (mmHg) O2 Sat by Pulse 93 93 93 Oximetry 12/11/18 12/11/18 12/11/18 10:08 10:11 10:14 Temperature 98.2 F 98.2 F 98.2 F Pulse Rate 102 99 98 Respiratory Rate Blood Pressure 163/107 151/104 150/97 (mmHg) O2 Sat by Pulse 93 93 92 Oximetry 12/11/18 12/11/18 12/11/18 10:16 10:19 10:21 Temperature 98.2 F 98.2 F 98.2 F Pulse Rate 98 92 95 Respiratory Rate Blood Pressure 143/93 124/98 133/84 (mmHg) O2 Sat by Pulse 92 92 95 Oximetry 12/11/18 12/11/18 12/11/18 10:24 10:26 10:29 Temperature 98.2 F 98.2 F 98.2 F Pulse Rate 94 91 90 Respiratory Rate Blood Pressure 126/81 122/85 103/85 (mmHg) O2 Sat by Pulse 94 94 91 Oximetry 12/11/18 12/11/18 12/11/18 10:31 10:34 10:37 Temperature 98.2 F 98.2 F 98.2 F Pulse Rate 91 84 91 Respiratory Rate Blood Pressure 123/78 96/67 120/78 (mmHg) O2 Sat by Pulse 95 96 98 Oximetry 12/11/18 12/11/18 12/11/18 10:39 10:41 10:44 Temperature 98.2 F 98.2 F 98.2 F Pulse Rate 93 86 89 Respiratory Rate Blood Pressure 138/89 137/86 133/85 (mmHg) O2 Sat by Pulse 94 95 96 Oximetry 12/11/18 12/11/18 12/11/18 10:47 10:49 10:51 Temperature 98.2 F 98.2 F 98.2 F Pulse Rate 90 88 88 Respiratory Rate Blood Pressure 127/81 140/85 119/77 (mmHg) O2 Sat by Pulse 98 97 99 Oximetry 12/11/18 12/11/18 12/11/18 10:54 10:56 10:59 Temperature 98.2 F 98.2 F 98.1 F Pulse Rate 89 88 88 Respiratory Rate Blood Pressure 113/73 113/72 109/73 (mmHg) O2 Sat by Pulse 100 99 99 Oximetry 12/11/18 12/11/18 12/11/18 11:01 11:04 11:06 Temperature 98.1 F 98.1 F 98.1 F Pulse Rate 86 87 87 Respiratory Rate Blood Pressure 118/82 122/80 127/84 (mmHg) O2 Sat by Pulse 100 100 100 Oximetry 12/11/18 12/11/18 12/11/18 11:09 11:11 11:14 Temperature 98.1 F 98.1 F 97.9 F Pulse Rate 86 86 85 Respiratory Rate Blood Pressure 119/80 127/82 123/81 (mmHg) O2 Sat by Pulse 100 100 100 Oximetry 12/11/18 12/11/18 12/11/18 11:16 11:22 11:27 Temperature 97.9 F 97.9 F 97.7 F Pulse Rate 85 84 85 Respiratory Rate Blood Pressure 125/83 126/86 138/92 (mmHg) O2 Sat by Pulse 100 100 100 Oximetry 12/11/18 12/11/18 12/11/18 11:32 11:37 11:42 Temperature 97.7 F 97.7 F 97.7 F Pulse Rate 86 84 85 Respiratory 18 Rate Blood Pressure 141/93 143/102 147/95 (mmHg) O2 Sat by Pulse 100 100 100 Oximetry 12/11/18 12/11/18 11:47 11:52 Temperature 97.3 F 97.5 F Pulse Rate 82 84 Respiratory Rate Blood Pressure 145/91 149/95 (mmHg) O2 Sat by Pulse 100 100 Oximetry General: Other - Intubated, sedated, NAD HEENT: Atraumatic, PERRLA, Mucous membr. moist/pink, Other - ETT in place Lungs: Normal air movement Cardiovascular: Regular rate, Normal S1, Normal S2 Abdomen: Normal bowel sounds, Soft, No tenderness Extremities: No clubbing, No cyanosis Skin: No rashes, No breakdown Neurological: Other - Sedated; Unable to optimally assess; non focal Assessment/Plan - Assessment/Plan Assessment: 53 yo F with hx/o ESRD on HD missed routine HD on Sunday due to occluded vascular access and suffered flash pulmonary edema , now intubated for acute respiratory failure Plan: # Acute hypoxemic respiratory failure # Acute ventilator dependance # Acute pulmonary edema # Hypotension # HFrEF 35-40% # ESRD on HD, need for urgent dialysis - Patient receiving HD through AV fistula currently - discontinue nitro gtt - start levophed to maintain MAP >65 - Post intubation ABG pending - BD q6 h while ventilated - CXR tomorrow - SWT/SBT trials and plan to extubate when appropriate PPX: DVT: SQH Code status: full Prognosis: guarded Dispo: Admit to ICU Critical care issues: acute respiratory failure due to hypoxemia, acute ventilator dependance, acute pulmonary edema, need for urgent dialysis Critical care time: 70 minutes
[2018-12-11 13:46] LABS: INR 1.01 (0.82-1.09)
[2018-12-11] MEDS ORDERED: Heparin DIALYSIS ONLY(*) 1,000 UNITS/ML VIAL DIALYSIS ONE (14:00)
[2018-12-11] MEDS ORDERED: Norepinephrine 16MCG/ML IVPRE* 4,000 MCG/250 ML BAG IV ONE (14:05)
[2018-12-11 14:12] LABS: Troponin I 0.05 ng/mL (<0.04)
[2018-12-11] MEDS ORDERED: Norepinephrine 16MCG/ML IVPRE* 4,000 MCG/250 ML BAG IV SCH (16:00)
[2018-12-11] MEDS: Albuterol/Ipratropium NEB.SOL* Albuterol 2.5 MG/Ipratropium 0.5 MG 3 ML INH SCH (17:39)
--- NOTE | 2018-12-11 19:19 | CONS ---
CONSULTATION AND DIALYSIS NOTE: DATE OF CONSULT: 12/11/18 SERVICE: [facility] Nephrology REQUESTING PHYSICIAN: Dr. Chandu Pereira. REASON FOR CONSULT: Volume overload/urgent dialysis. HISTORY OF PRESENT ILLNESS: A 53-year-old female with recent ICU hospitalization and intubation with a history of ESRD, on HD Sunday, , and Sunday; hypertension; ?drug-induced vasculitis; GERD, presented to the ER with respiratory distress. The patient's last dialysis session was Sunday. The patient came to the dialysis unit yesterday for her routine dialysis and was noted to have occluded access, was also noted to have significant right upper extremity swelling, thought to be secondary to an upper arm stenosis. The patient was sent to the vascular surgeon, Dr. Mccormack, for further evaluation and appreciate Dr. Mccormack's input and he wants to work on the access in the upcoming week. In the interim, the plan was for the patient to have a tunneled dialysis catheter as the patient may need a multistep procedure for her access and the patient came in this morning to have her tunneled dialysis catheter placed with Dr. Ovalle, appreciate Dr. Ovalle's input. The patient was noted to be in respiratory distress and could not lie flat for the procedure and was noted to have an elevated blood pressure and was sent to the ER for evaluation. In the ER, the patient's blood pressure was noted to be above 200, the patient was also in significant respiratory distress. Likely, flash pulmonary edema in the setting of hypertensive urgency, was intubated to stabilize patient. The patient was noted to have pink frothy sputum with the chest x-ray consistent with pulmonary edema. The patient was also placed on nitro drip and propofol drip for sedation to manage her vent. At this time, the patient being transferred to the ICU and patient seen in the ICU. PAST MEDICAL HISTORY: 1. Hypertension. 2. GERD. 3. ESRD, on hemodialysis. 4. Right upper arm AV fistula with history of multiple angioplasties and procedures on her access. Other past medical history as above. FAMILY HISTORY: Diabetes in the father. Hypertension in the father of [place] descent. The mother with history of Alzheimer's. SOCIAL HISTORY: Does not smoke. Does not drink, does not consume any alcohol. REVIEW OF SYSTEMS: Unable to obtain as the patient is intubated and sedated. PHYSICAL EXAM: HEENT: Intubated, sedated. Heart: S1, S2 present, tachycardic at time of exam. Lungs: Noted to have decreased breath sounds bilaterally crackles. Abdomen: Soft, nontender. Extremities: Noted to have no edema. The patient's right upper arm fistula was examined. The patient today noted to have improved swelling. Swelling significantly improved compared to a couple of days ago in the right upper arm. Also, patient today noted to have bruit and thrill. It may be possible to cannulate the patient's access today based on physical exam. DIAGNOSTIC STUDIES/LAB DATA: Chest x-ray consistent with pulmonary edema. Labs have been reviewed. Potassium noted to be 5.6, creatinine noted to be 11, hemoglobin of 11. ASSESSMENT AND PLAN: 1. Acute hypoxemic respiratory failure in the setting of the flash pulmonary edema and volume overload. At this time, she is intubated and further management per the ICU team. We will plan dialysis on the patient. Based on her access evaluation today, we will attempt to cannulate her fistula for urgent dialysis. Also, discussed her case in detail with Dr. Ovalle. We will plan tunneled dialysis catheter placement and the patient will still need to work on the access and surgery with Dr. Mccormack for conclusive management of her stenosis and access. If her AV fistula is unable to be cannulated, the patient would need a temporary dialysis catheter or a tunneled line but based on the physical exam, we should be able to dialyze her with her AVF today and we will plan on tunneled dialysis catheter placement and further vascular surgery. 2. We will plan for UF of 3 L as tolerated. We will discuss dialysis orders with the HD nurse. We will also hold her nitro drip and take precautions during dialysis to manage her blood pressure. ADDENDUM: I was present later during dialysis and evaluated the patient. The patient did not initially tolerate UF and the patient's blood pressure was noted to be in the 80s, was already off the nitro drip, propofol dose being adjusted. We will reduce the temperature to 36 and will slowly attempt the UF of at least a L. We will use pressors temporarily during dialysis for further management. If the blood pressure continues to be low, we will consider albumin infusion. At this time, we will monitor the patient closely. TIME SPENT: Total time spent is equal to 60 minutes. [id number]/[facility] #: [id number] CHICA
[2018-12-11 19:55] LABS: Troponin I 0.17 ng/mL (<0.04)
[2018-12-12] MEDS: Albuterol/Ipratropium NEB.SOL* Albuterol 2.5 MG/Ipratropium 0.5 MG 3 ML INH SCH ×3 (00:45→13:09)
[2018-12-12] MEDS ORDERED: Nitro 2% OINT* (Nitroglycerin) 1 INCH/PAK PAK TOPICAL ONE (02:35)
[2018-12-12] MEDS: Propofol* 100 ML IV SCH (04:09)
[2018-12-12 06:42] LABS: Troponin I 0.15 ng/mL (<0.04)
[2018-12-12 06:43] LABS: BUN/Creatinine Ratio 5.1 (8-20); Calcium 8.7 mg/dL (8.6-10.3); EGFR African American 8.4 (>60); EGFR Non-African American 6.9 (>60); Potassium 4.2 mmol/L (3.5-5.0)
[2018-12-12 07:33] LABS: Platelet Count Platelets clumped. 10^3/uL (150-450)
[2018-12-12 07:39] LABS: Hematocrit 26 % (35-47); Hemoglobin 8.7 g/dL (12.0-16.0); Mean Corpuscular HGB Conc 33 g/dL (31-36); Mean Corpuscular Hemoglobin 31 pg (27-31); Mean Corpuscular Volume 93 fL (80-97); Red Blood Count 2.82 10^6 /uL (3.70-4.87); Red Cell Distribution Width 16 % (10.5-15); White Blood Count 6.7 10^3/uL (3.5-10.8)
[2018-12-12 07:41] LABS: ABS Eosinophils 0.3 10^3/ul (0-0.6); ABS Neutrophils 4.6 10^3/ul (1.5-7.7)
[2018-12-12] MEDS ORDERED: ceFAZolin 1 GM in Dextrose (*) 1 GM/50 ML BAG IVPB ONE (09:00)
[2018-12-12] MEDS: Midazolam* 1 MG/ML 5 ML VIAL (5 MG) ONE ×2 (09:00→13:05)
[2018-12-12] MEDS ORDERED: Nitro Patch/OINT Remove TOPICAL ONE (09:00)
[2018-12-12] MEDS: fentaNYL* 50 MCG/ML 2 ML VIAL (100 MCG VIAL) ONE ×2 (11:24→13:04)
[2018-12-12] MEDS ORDERED: Labetalol IV* 5 MG/ML 20 ML VIAL ONE (11:52)
[2018-12-12] MEDS ORDERED: Labetalol IV* 5 MG/ML 20 ML VIAL IV PUSH PRN (11:54)
[2018-12-12] MEDS ORDERED: fentaNYL* 50 MCG/ML 2 ML VIAL (100 MCG VIAL) IV SLOW PU PRN (11:56)
[2018-12-12] MEDS ORDERED: fentaNYL* 50 MCG/ML 2 ML VIAL (100 MCG VIAL) IV PRN ×2 (12:02→12:15)
[2018-12-12] MEDS ORDERED: Midazolam* 1 MG/ML 2 ML VIAL (2 MG) IV SLOW PU PRN (12:04)
[2018-12-12] MEDS: Lisinopril TAB* 10 MG PO SCH (13:00)
[2018-12-12] MEDS: Metoprolol Succinate XL TAB* 25 MG PO SCH (13:00)
[2018-12-12] MEDS ORDERED: Heparin DIALYSIS ONLY(*) 1,000 UNITS/ML VIAL DIALYSIS ONE (14:00)
[2018-12-12] MEDS ORDERED: EPOETIN ALFA-EPBX * 4,000 UNIT/ML VIAL IV ONE (14:00)
[2018-12-12] MEDS: PTO:Brimonidine P 0.15%(NF) OPH SOL 5 ML BTL RIGHT EYE SCH ×2 (15:30→21:12)
[2018-12-12] MEDS: Sevelamer TAB* 800 MG PO SCH ×2 (15:31→21:12)
[2018-12-12] MEDS: NIFEdipine CAP* 10 MG PO SCH ×2 (15:32→21:11)
[2018-12-12] MEDS: Pantoprazole IV* 40 MG IV SCH (15:34)
--- NOTE | 2018-12-12 17:53 | PN ---
Date of Service: 12/12/18 Critical Care Services: 53 y/o F with hx/o ESRD on HD(/), HTN, drug induced vasculitis, GERD presenting to ED c/o respiratory distress. She scheduled to have tunneled cath for HD by IR today upon missing her last HD, yesterday, due to occluded access and RUE swelling. Upon laying flat for the procedure, patient became tachypneic and tachycardic with expectoration of pink frothy foam. Her last HD was 4 days ago. Patient was intubated in the ED due to acute respiratory distress. Patient has a known malfunctioning RUE AV fistula with multiple angioplasties and resultant hand swelling. Every-time she gets dialysis through the AV fistula it causes her excruciating pain. 12/12: Patient seen and examined at the bedside. Received nitro paste for HTN overnight. S/p L SCV tunneled dialysis catheter. S/p HD yesterday and today. Extubated this pm. Patient reports pain in her right hand. Denies fever, SOB, Chest pain Vital Signs: Temp Pulse Resp BP SpO2 FiO2 99.9 F 107 13 154/94 100 25 12/12/18 16:45 12/12/18 16:45 12/12/18 16:45 12/12/18 16:45 12/12/18 16:45 12/12 16:00 Physical Exam: General: NAD; cooperative HEENT: Atraumatic, PERRLA, Mucous membr. moist/pink; neck supple and midline. L SCV vascath C/D/I; hoarse voice Lungs: Normal air movement with coarse breath sounds improved compared to pre-HD Cardiovascular: Regular rate, Normal S1, Normal S2 Abdomen: Normal bowel sounds, Soft, No tenderness Extremities: No clubbing, No cyanosis; Right hand swelling with chronic skin changes, tender to touch, not warm Skin: No rashes, No breakdown Neurological: AAO x 3, no focal neuro deficits Fluid Balance (Past 24 Hours): I= O= Net Intake & Output 12/10/18 12/11/18 12/12/18 12/13/18 06:59 06:59 06:59 06:59 Intake Total 312 66 Output Total 74 20 Balance 238 46 Weight 128 lb 4.944 oz Intake: IV Fluids 100 propofol 100 IVPB 184 66 fentanyl 6 propofol 158 66 versed drip 20 Medicated IV 28 Norepinephrine 28 Output: Garcia 74 20 ADLs: Meal Record Start: 12/11/18 12: 13 Freq: 09,13,18 Status: Active Protocol: Created 12/11/18 12:13 System (Rec: 12/11/18 12:13 System [id number]) Document 12/11/18 13:00 [id number] (Rec: 12/11/18 16:09 [id number] ICU-C07) Document 12/11/18 18:00 [id number] (Rec: 12/11/18 19:21 [id number] ICU-M30) Document 12/12/18 09:00 [id number] (Rec: 12/12/18 13:00 [id number] ICU-C07) Document 12/12/18 13:00 [id number] (Rec: 12/12/18 17:15 [id number] ICU-C07) Intake and Output Start: 12/11/18 08: 29 Freq: Status: Active Protocol: Created 12/11/18 08:29 System (Rec: 12/11/18 08:29 System [id number]) Intake and Output Start: 12/11/18 12: 13 Freq: Q1HR Status: Active Protocol: Created 12/11/18 12:13 System (Rec: 12/11/18 12:13 System [id number]) Document 12/11/18 13:00 [id number] (Rec: 12/11/18 16:10 [id number] ICU-C07) Document 12/11/18 14:00 [id number] (Rec: 12/11/18 16:10 [id number] ICU-C07) Document 12/11/18 15:00 [id number] (Rec: 12/11/18 16:10 [id number] ICU-C07) Document 12/11/18 16:00 [id number] (Rec: 12/11/18 16:11 [id number] ICU-C07) Document 12/11/18 17:00 [id number] (Rec: 12/11/18 19:19 [id number] ICU-M30) Document 12/11/18 18:00 [id number] (Rec: 12/11/18 19:21 [id number] ICU-M30) Document 12/11/18 19:00 [id number] (Rec: 12/11/18 19:31 [id number] ICU-M30) Document 12/11/18 20:00 [id number] (Rec: 12/11/18 22:30 [id number] ICU-C07) Document 12/11/18 21:00 [id number] (Rec: 12/11/18 22:30 [id number] ICU-C07) Document 12/11/18 22:00 [id number] (Rec: 12/11/18 22:32 [id number] ICU-C07) Document 12/11/18 23:00 [id number] (Rec: 12/11/18 23:07 [id number] ICU-C07) Document 12/12/18 00:00 [id number] (Rec: 12/12/18 00:15 [id number] ICU-M30) Document 12/12/18 01:00 [id number] (Rec: 12/12/18 02:21 [id number] ICU-M30) Document 12/12/18 02:00 [id number] (Rec: 12/12/18 02:21 [id number] ICU-M30) Document 12/12/18 03:00 [id number] (Rec: 12/12/18 03:12 [id number] ICU-C07) Document 12/12/18 04:00 [id number] (Rec: 12/12/18 04:48 [id number] ICU-C07) Document 12/12/18 05:00 [id number] (Rec: 12/12/18 05:25 [id number] ICU-M30) Document 12/12/18 06:05 [id number] (Rec: 12/12/18 06:05 [id number] ICU-M30) Document 12/12/18 07:00 [id number] (Rec: 12/12/18 11:28 [id number] ICU-C07) Document 12/12/18 07:15 [id number] (Rec: 12/12/18 12:01 [id number] ICU-C07) Document 12/12/18 09:00 [id number] (Rec: 12/12/18 13:00 [id number] ICU-C07) Document 12/12/18 11:00 [id number] (Rec: 12/12/18 16:56 [id number] ICU-C07) Document 12/12/18 12:00 [id number] (Rec: 12/12/18 16:56 [id number] ICU-C07) Document 12/12/18 13:00 (Rec: 12/12/18 16:57 [id number] ICU-C07) Document 12/12/18 14:00 (Rec: 12/12/18 16:57 [id number] ICU-C07) Document 12/12/18 15:00 (Rec: 12/12/18 16:57 ICU-C07) Document 12/12/18 16:00 (Rec: 12/12/18 16:57 ICU-C07) Labs: Laboratory Results - last 24 hr 12/11/18 12/11/18 12/12/18 17:10 19:20 05:50 WBC 6.7 RBC 2.82 L Hgb 8.7 L Hct 26 L MCV 93 MCH 31 MCHC 33 RDW 16 H Plt Count Platelets clumped. H Neut % (Auto) Not Reportable Lymph % (Auto) Not Reportable Wetzel % (Auto) Not Reportable Eos % (Auto) Not Reportable Baso % (Auto) Not Reportable Absolute Neuts (auto) Not Reportable Absolute Lymphs (auto) Not Reportable Absolute Monos (auto) Not Reportable Absolute Eos (auto) Not Reportable Absolute Basos (auto) Not Reportable Absolute Nucleated RBC Not Reportable Neutrophils % 69.0 Lymphocytes % 18.0 Monocytes % 8.0 Eosinophils % 5.0 Nucleated RBC % Not Reportable Abs Neuts (Manual) 4.6 Abs Lymphs (Manual) 1.2 Abs Monocytes (Manual) 0.5 Absolute Eos (Manual) 0.3 Normal RBC Morphology Normal Hypochromasia 1+ Patient Temperature Not Reportable ABG pH 7.46 H ABG pH (Temp Correct) Not Reportable ABG pCO2 38 ABG pCO2 (Temp Corrct Not Reportable ABG pO2 115 H ABG pO2 (Temp Correct Not Reportable ABG HCO3 27.4 ABG O2 Saturation 100.0 H ABG Base Excess 3.1 H Respiration Rate 16 O2 Delivery Device Ventilator Ventilator Type 400 Vent Mode Cmv FiO2 35 Inspiratory Time 1.0 PEEP 5 Pressure Support Not Reportable Pressure Control Not Reportable EPAP Not Reportable IPAP Not Reportable BiPAP Not Reportable Sodium Potassium Chloride Carbon Dioxide Anion Gap BUN Creatinine Est GFR ( Amer) Est GFR (Non-Af Amer) BUN/Creatinine Ratio Glucose Calcium Magnesium Troponin I 0.17 H* 12/12/18 06:00 WBC RBC Hgb Hct MCV MCH MCHC RDW Plt Count Neut % (Auto) Lymph % (Auto) Wetzel % (Auto) Eos % (Auto) Baso % (Auto) Absolute Neuts (auto) Absolute Lymphs (auto) Absolute Monos (auto) Absolute Eos (auto) Absolute Basos (auto) Absolute Nucleated RBC Neutrophils % Lymphocytes % Monocytes % Eosinophils % Nucleated RBC % Abs Neuts (Manual) Abs Lymphs (Manual) Abs Monocytes (Manual) Absolute Eos (Manual) Normal RBC Morphology Hypochromasia Patient Temperature ABG pH ABG pH (Temp Correct) ABG pCO2 ABG pCO2 (Temp Corrct ABG pO2 ABG pO2 (Temp Correct ABG HCO3 ABG O2 Saturation ABG Base Excess Respiration Rate O2 Delivery Device Ventilator Type Vent Mode FiO2 Inspiratory Time PEEP Pressure Support Pressure Control EPAP IPAP BiPAP Sodium 132 L Potassium 4.2 Chloride 95 L Carbon Dioxide 27 Anion Gap 10 BUN 32 H Creatinine 6.28 H Est GFR ( Amer) 8.4 Est GFR (Non-Af Amer) 6.9 BUN/Creatinine Ratio 5.1 L Glucose 69 L Calcium 8.7 Magnesium 2.0 Troponin I 0.15 H* Nutrition: NPO till cleared by bedside swallow Impression: 53 yo F with hx/o ESRD on HD missed routine HD on Sunday due to occluded vascular access and suffered flash pulmonary edema , intubated (12/11) for acute respiratory failure and extubated 12/12 with new vascath placed and HD done today Plan: # Acute hypoxemic respiratory failure # Acute ventilator dependance # Acute pulmonary edema # Hypotension-->now Hypertension # HFrEF 35-40% # ESRD on HD, need for urgent dialysis # RUE AVF with dysfunction and chronic hand swelling/pain - Patient received HD through AV fistula 12/11 -s/p placement of HD catheter in SCV (L) s/p HD through it today - s/p extubation to 2LPM - awaiting bedside swallow for clearance for oral intake - warm compress to involved hand - prn tylenol and if unable to take oral, consider IV tylenol - restarted home antihypertensives. Labetalol IV prn use PPX: DVT: SQH Code status: full Prognosis: guarded Dispo: Admit to ICU Critical care issues: acute respiratory failure due to hypoxemia, acute ventilator dependance, acute pulmonary edema, need for urgent dialysis Critical care time: 40 minutes
[2018-12-12] MEDS: Acetaminophen TAB* 325 MG PO PRN (18:24)
[2018-12-12] MEDS ORDERED: Acetaminophen TAB* 325 MG ONE (18:27)
[2018-12-12] MEDS ORDERED: Albuterol/Ipratropium NEB.SOL* Albuterol 2.5 MG/Ipratropium 0.5 MG 3 ML INH PRN (18:57)
--- NOTE | 2018-12-12 22:02 | PN ---
DIALYSIS NOTE: DATE OF VISIT: 12/12/18 SERVICE: [facility] Nephrology. SUBJECTIVE: The patient seen and examined at bedside during dialysis. The patient had 1 session of dialysis yesterday, which she initially did not tolerate due to hypotension. Eventually, the patient was able to get a UF of 1 L off. The patient at this time is status post a tunnel dialysis catheter placement by IR. Also revascularization of nearly occluded left brachiocephalic vein. The patient is intubated. Vitals and labs have been reviewed. PHYSICAL EXAM: HEENT: NCAT. Heart: S1, S2 present, regular at the time of exam. Lungs: Clear to auscultation bilaterally. Abdomen: Soft. Extremities : Noted to have no edema. Neuro: Alert. Sedation is being weaned. ASSESSMENT AND PLAN: 1. End-stage renal disease, on hemodialysis. 2. Acute hypoxemic respiratory failure secondary to flash pulmonary edema in the setting of hypertensive urgency. The patient is currently off nitro drip, needed a few doses of nitro paste yesterday. At this time, the patient had a UF of 1 L yesterday and the patient is seen during dialysis today and had a 2- hour session with a target UF of 2 L and currently has had 1800 cc taken off. Towards the end of her session, the patient complaining of significant cramping. The patient likely does not have further volume left denoted by her cramping and also the patient being very close or below her dry weight. However , the patient has a tendency for flash pulmonary edema if she goes into hypertensive urgency again and hence recommend closely monitoring her blood pressure to keep it in good range. It would also be prudent to evaluate for other causes that are causing the patient to rapidly decompensate. We will review her chart and medical history in detail, history of drug-induced vasculitis in the past. The patient just had recent intubation and hospitalization a week ago. 3. The ICU team plans to extubate the patient after her dialysis session. Currently, we will monitor her progress closely and decide on further management. 4. HD orders discussed with nurse and description as above. 5. We will assess based on overnight course to see if the patient needs another short course of HD and UF tomorrow prior to the weekend; however, we will also recommend checking her weight and volume status closely as the patient may not tolerate further reductions in her weight and UF as she is currently below or close to her dry weight. [id number]/[facility] #: [id number] CHICA
[2018-12-13 04:39] LABS: ABS Basophils 0.1 10^3/ul (0-0.2); ABS Eosinophils 0.1 10^3/ul (0-0.6); ABS Lymphocytes 0.8 10^3/ul (1.0-4.8); ABS Neutrophils 4.9 10^3/ul (1.5-7.7); Eosinophil % 2.2 %; Hematocrit 31 % (35-47); Hemoglobin 9.8 g/dL (12.0-16.0); Lymphocyte % 11.9 %; Mean Corpuscular HGB Conc 32 g/dL (31-36); Mean Corpuscular Hemoglobin 31 pg (27-31); Mean Corpuscular Volume 99 fL (80-97); Mean Platelet Volume 9.7 fL (7.4-10.4); Platelet Count 184 10^3/uL (150-450); Red Blood Count 3.14 10^6 /uL (3.70-4.87); Red Cell Distribution Width 16 % (10.5-15); White Blood Count 6.9 10^3/uL (3.5-10.8)
[2018-12-13 04:53] LABS: Calcium 8.9 mg/dL (8.6-10.3); Potassium 4.6 mmol/L (3.5-5.0)
[2018-12-13 04:59] LABS: EGFR African American 8.5 (>60)
[2018-12-13] MEDS: Lisinopril TAB* 10 MG PO SCH (08:34)
[2018-12-13] MEDS: Metoprolol Succinate XL TAB* 25 MG PO SCH (08:35)
[2018-12-13] MEDS: NIFEdipine CAP* 10 MG PO SCH ×3 (08:35→20:04)
[2018-12-13] MEDS: Sevelamer TAB* 800 MG PO SCH ×3 (08:43→20:04)
[2018-12-13] MEDS: Cinacalcet TAB* 30 MG PO SCH (08:44)
[2018-12-13] MEDS: PTO:Brimonidine P 0.15%(NF) OPH SOL 5 ML BTL RIGHT EYE SCH ×4 (08:57→22:59)
[2018-12-13] MEDS: Pantoprazole IV* 40 MG IV SCH (15:17)
[2018-12-13] MEDS: Acetaminophen TAB* 325 MG PO PRN (15:18)
--- NOTE | 2018-12-13 15:19 | PN ---
Date of Service: 12/13/18 Critical Care Services: 2 Initialization Date: 12/12/18 17:48 Date of Service: 12/13/18 Critical Care Services: 53 y/o F with hx/o ESRD on HD(), HTN, drug induced vasculitis, GERD presenting to ED c/o respiratory distress. She scheduled to have tunneled cath for HD by IR today upon missing her last HD, yesterday, due to occluded access and RUE swelling. Upon laying flat for the procedure, patient became tachypneic and tachycardic with expectoration of pink frothy foam. Her last HD was 4 days ago. Patient was intubated in the ED due to acute respiratory distress. Patient has a known malfunctioning RUE AV fistula with multiple angioplasties and resultant hand swelling. Every-time she gets dialysis through the AV fistula it causes her excruciating pain. 12/12: Patient seen and examined at the bedside. Received nitro paste for HTN overnight. S/p L SCV tunneled dialysis catheter. S/p HD yesterday and today. Extubated this pm. Patient reports pain in her right hand. Denies fever, SOB, Chest pain 12/13: Pt seen and examined. No complaints or SOB. Needs BP control and cardiology evaluation General: NAD; cooperative HEENT: Atraumatic, PERRLA, Mucous membr. moist/pink; neck supple and midline. L SCV vascath C/D/I; hoarse voice Lungs: Normal air movement with coarse breath sounds improved compared to pre-HD Cardiovascular: Regular rate, Normal S1, Normal S2 Abdomen: Normal bowel sounds, Soft, No tenderness Extremities: No clubbing, No cyanosis; Right hand swelling with chronic skin changes, tender to touch, not warm Skin: No rashes, No breakdown Neurological: AAO x 3, no focal neuro deficits 53 yo F with hx/o ESRD on HD missed routine HD on Sunday due to occluded vascular access and suffered flash pulmonary edema , intubated (12/11) for acute respiratory failure and extubated 12/12 with new vascath placed and HD done today Plan: # Acute hypoxemic respiratory failure # Acute ventilator dependance # Acute pulmonary edema # Hypotension-->now Hypertension # HFrEF 35-40% # ESRD on HD, need for urgent dialysis # RUE AVF with dysfunction and chronic hand swelling/pain Neuro-Awake, follows commands Pulm-s/p intubation-2X last week -now on NC 2L -CXR-decreased b/l effusion TR-HEF-ggbgb improved control -Recent TTE-EF 35-40%, mod MR-cardiology to evaluate -lisinopril, nifedipine, metoprolol Vnwrj-XIYF-tddln revascularization of fistula-to be assessed as outpatient -HD through tunneled cath GI-Renal diet ID-AFebrile, WBC normal Heme-Hct stable DVT prophylaxis Code status: full Prognosis: guarded Dispo: Transfer to floor Critical care issues: acute respiratory failure due to hypoxemia, acute ventilator dependance, acute pulmonary edema, need for urgent dialysis Critical care time: 28 minutes Vital Signs: Temp Pulse Resp BP SpO2 FiO2 98.6 F 85 16 158/88 100 25 12/13/18 12:00 12/13/18 12:00 12/13/18 12:00 12/13/18 12:00 12/13/18 12:00 12/12 16:00 Fluid Balance (Past 24 Hours): I= O= Net Intake & Output 12/11/18 12/12/18 12/13/18 12/14/18 06:59 06:59 06:59 06:59 Intake Total 312 126 50 Output Total 74 300 30 Balance 238 -174 20 Weight 128 lb 4.944 oz 125 lb 0.034 oz Intake: IV Fluids 100 propofol 100 IVPB 184 66 fentanyl 6 propofol 158 66 versed drip 20 Medicated IV 28 Norepinephrine 28 Oral 60 50 Output: Garcia 74 300 30 ADLs: Meal Record Start: 12/11/18 12: 13 Freq: 09,13,18 Status: Active Protocol: Created 12/11/18 12:13 System (Rec: 12/11/18 12:13 System -C03) Document 12/11/18 13:00 [id number] (Rec: 12/11/18 16:09 [id number] ICU-C07) Document 12/11/18 18:00 [id number] (Rec: 12/11/18 19:21 RKY1455 ICU-M30) Document 12/12/18 09:00 [id number] (Rec: 12/12/18 13:00 [id number] ICU-C07) Document 12/12/18 13:00 [id number] (Rec: 12/12/18 17:15 HYP8911 ICU-C07) Document 12/12/18 18:00 [id number] (Rec: 12/12/18 19:55 JSN5167 ICU-C07) Document 12/13/18 09:00 [id number] (Rec: 12/13/18 12:48 VHN6224 ICU-C06) Intake and Output Start: 12/11/18 08: 29 Freq: Status: Active Protocol: Created 12/11/18 08:29 System (Rec: 12/11/18 08:29 System [id number]) Intake and Output Start: 12/11/18 12: 13 Freq: Q1HR Status: Active Protocol: Created 12/11/18 12:13 System (Rec: 12/11/18 12:13 System SW-C03) Document 12/11/18 13:00 [id number] (Rec: 12/11/18 16:10 UKR9166 ICU-C07) Document 12/11/18 14:00 [id number] (Rec: 12/11/18 16:10 [id number] ICU-C07) Document 12/11/18 15:00 [id number] (Rec: 12/11/18 16:10 UFY4124 ICU-C07) Document 12/11/18 16:00 TXN1065 (Rec: 12/11/18 16:11 DGS2408 ICU-C07) Document 12/11/18 17:00 OOI8876 (Rec: 12/11/18 19:19 CIG1603 ICU-M30) Document 12/11/18 18:00 KVD4199 (Rec: 12/11/18 19:21 FMN9099 ICU-M30) Document 12/11/18 19:00 VNR6082 (Rec: 12/11/18 19:31 HYI3808 ICU-M30) Document 12/11/18 20:00 SHQ4450 (Rec: 12/11/18 22:30 ONN6373 ICU-C07) Document 12/11/18 21:00 BQO9323 (Rec: 12/11/18 22:30 THX7719 ICU-C07) Document 12/11/18 22:00 BSE5386 (Rec: 12/11/18 22:32 SKE3735 ICU-C07) Document 12/11/18 23:00 RJA4367 (Rec: 12/11/18 23:07 VTX1596 ICU-C07) Document 12/12/18 00:00 CQR6075 (Rec: 12/12/18 00:15 YDE3406 ICU-M30) Document 12/12/18 01:00 BQT6708 (Rec: 12/12/18 02:21 JRB0903 ICU-M30) Document 12/12/18 02:00 GRU2670 (Rec: 12/12/18 02:21 BUC2953 ICU-M30) Document 12/12/18 03:00 SVL7681 (Rec: 12/12/18 03:12 PAC4895 ICU-C07) Document 12/12/18 04:00 BPT7194 (Rec: 12/12/18 04:48 IBY7019 ICU-C07) Document 12/12/18 05:00 UTI7936 (Rec: 12/12/18 05:25 FRN1278 ICU-M30) Document 12/12/18 06:05 BGG3474 (Rec: 12/12/18 06:05 MXX0386 ICU-M30) Document 12/12/18 07:00 XXJ7172 (Rec: 12/12/18 11:28 OHG8763 ICU-C07) Document 12/12/18 07:15 SOK9621 (Rec: 12/12/18 12:01 XBD1458 ICU-C07) Document 12/12/18 09:00 SPL5963 (Rec: 12/12/18 13:00 YTE8689 ICU-C07) Document 12/12/18 11:00 JGY5712 (Rec: 12/12/18 16:56 PVE2323 ICU-C07) Document 12/12/18 12:00 LSN1034 (Rec: 12/12/18 16:56 NZF5425 ICU-C07) Document 12/12/18 13:00 LMP3266 (Rec: 12/12/18 16:57 QZF1273 ICU-C07) Document 12/12/18 14:00 [id number] (Rec: 12/12/18 16:57 YTA4544 ICU-C07) Document 12/12/18 15:00 HWK7921 (Rec: 12/12/18 16:57 BKW8419 ICU-C07) Document 12/12/18 16:00 RBK6724 (Rec: 12/12/18 16:57 JLI4580 ICU-C07) Document 12/12/18 17:00 HDY4211 (Rec: 12/12/18 19:54 VNV7858 ICU-C07) Document 12/12/18 18:00 VYP7537 (Rec: 12/12/18 19:55 PTU1118 ICU-C07) Document 12/12/18 19:00 KLG6394 (Rec: 12/12/18 22:50 IHJ5358 ICU-C06) Document 12/12/18 20:00 BGX4863 (Rec: 12/12/18 22:50 NUM9013 ICU-C06) Document 12/12/18 21:00 PGY9864 (Rec: 12/12/18 22:50 GMH4914 ICU-C06) Document 12/12/18 22:00 VNA1734 (Rec: 12/12/18 22:50 WOG9742 ICU-C06) Document 12/12/18 23:00 LUN1276 (Rec: 12/12/18 23:17 KAQ1772 ICU-C06) Document 12/13/18 07:00 TOJ7045 (Rec: 12/13/18 12:27 UUH9427 ICU-C06) Document 12/13/18 08:00 LRE1764 (Rec: 12/13/18 12:31 VZJ3064 ICU-C06) Document 12/13/18 09:00 SPP4469 (Rec: 12/13/18 12:48 BUN6320 ICU-C06) Document 12/13/18 10:00 OWK5860 (Rec: 12/13/18 12:51 MEG5626 ICU-C06) Document 12/13/18 11:00 TGD6303 (Rec: 12/13/18 12:52 TCW4417 ICU-C06) Document 12/13/18 12:00 CDB1673 (Rec: 12/13/18 12:55 WVU1523 ICU-C06) Labs: Laboratory Results - last 24 hr 12/13/18 12/13/18 04:30 04:30 WBC 6.9 RBC 3.14 L Hgb 9.8 L Hct 31 L MCV 99 H MCH 31 MCHC 32 RDW 16 H Plt Count 184 MPV 9.7 Neut % (Auto) 70.3 Lymph % (Auto) 11.9 Candler % (Auto) 14.2 Eos % (Auto) 2.2 Baso % (Auto) 1.4 Absolute Neuts (auto) 4.9 Absolute Lymphs (auto) 0.8 L Absolute Monos (auto) 1.0 H Absolute Eos (auto) 0.1 Absolute Basos (auto) 0.1 Absolute Nucleated RBC 0.0 Nucleated RBC % 0.0 Sodium 131 L Potassium 4.6 Chloride 94 L Carbon Dioxide 20 L Anion Gap 17 H BUN 31 H Creatinine 6.24 H Est GFR ( Amer) 8.5 Est GFR (Non-Af Amer) 7.0 BUN/Creatinine Ratio 5.0 L Glucose 69 L Calcium 8.9
--- NOTE | 2018-12-13 20:06 | CONS ---
CC: Dr. Fountain; Dr. Soto; Hospitalist Service CARDIOLOGY CONSULT: DATE OF CONSULT: 12/13/18 HISTORY OF PRESENT ILLNESS: I was asked by hospitalist service to see this 53-year- old female patie nt, who had multiple hospitalizations for flash pulmonary edema and hypertensive heart disease. The patient followed up with Dr. Fountain from cardiac standpoint as an outpatient. She is for considerati on for kidney transplant. She is followed up with Dr. Santoro for dialysis 3 times per week. She spe aks Grenadian. Her is in the room who does speak Kazakh. She does have known history of hyper tensive heart disease, LVH borderline, mildly reduced left ventricular systolic function which is not ed from before a year ago. She does have gastroesophageal reflux disease. She was hospitalized, [facility] hospitalization on 12/11/18. Hospitalization included the patient with history of end-stage renal disease, on hemodialysis, missed routine hemodialysis a week ago due to occluded vascular access and suffered a flash pulmonary edema. She was intubated and currently extubated and blood pressure was s ignificantly elevated. Of notice upon admission and hospitalization, the blood pressure was reported to be 189/102 as well as 177/102. Blood pressure medications has been adjusted. Blood pressure now is 120/70. I spoke to the patient, she has no chest pain, no orthopnea. She is extubated. She had an echocardiogram during this hospitalization and that showed her EF to be down this time, that was done on 12/02/18. There is no followup on this since then. The EF was reported to be 35% to 40%, a year ago it was 50%. There is moderate mitral insufficiency and mild tricuspid insufficiency. Her ec ho from a year ago, 12/06/17, reported a mild mitral insufficiency. There is no history of myocardia l infarction, no history of coronary artery disease. Cardiology consult was further requested for her hypertension, hypertensive heart disease, and intubation. Of notice back on 02/18/18, she had a str ess echo that was reported to be normal and according to the Garces treadmill scoring, was low risk, un controlled hypertension was noticed. Actually, blood pressure at rest was 168/100. She gives no nicanor sea, no vomiting, no hematochezia, no skin rash, no abdominal pain, no syncope, no swelling in the lo wer extremities is appreciated. PAST MEDICAL HISTORY: History of systemic arterial hypertension; end-stage renal disease, dialysis 3 times per week; history of AFib, on PVCs; gastroesophageal reflux disease. PAST SURGICAL HISTORY: History of dialysis graft placement. ALLERGIES: She is allergic to ASPIRIN, causing bleeding. SOCIAL HISTORY: She lives with her . No smoking. No alcohol. No history of illicit drug us e. REVIEW OF SYSTEMS: Review of all other systems essentially is negative. PHYSICAL EXAM: On exam, she is awake, alert, and oriented. She is not in acute distress. Vitals: Actually as from today, blood pressure is 110/65, her pulse is 80, she is sinus rhythm, temperature 9 9.5. Ears, Nose, and Throat: Essentially benign. Neck: Supple. JVP is not elevated. No carotid bruits. No masses in the neck are appreciated. Chest: Diminished air entry at the bases, but no ra les, no wheeze, no added sounds. Heart: Normal S1, S2. No added sounds. No gallops, no rubs. The re is a grade 2/6 systolic murmur in the apex. Abdomen: Benign. Positive bowel sounds. Extremities : No edema, no cyanosis, no clubbing. Skin exam is normal. Psych: Normal affect and mood. FINISH OPENER: No focal deficit is appreciated. DIAGNOSTIC STUDIES/LAB DATA: Her labs: White blood cell 6.9, hemoglobin 9.8, hematocrit 31, and robert telets 184. Chemistry: Sodium 131, potassium 4.6, chloride 94, total CO2 of 20, BUN 31, creatinine 6.24. Troponins were 0.05, 0.17, and 0.15. Her BNP was reported more than 1300 that was on 12/11/18 actually. Her chest x-ray on 12/13/18, today, reported cardiomegaly and a chest x-ray on 12/11/18, progressive pulmonary edema. Her EKG on 12/11/18, sinus rhythm, LVH, and no acute ST-T changes. IMPRESSION: The patient is a 53-year-old female with: 1. Presentation with flash pulmonary edema as the patient missed her scheduled dialysis due to occlu ded vascular access. 2. Systemic arterial hypertension and hypertensive heart disease. 3. End-stage renal disease, on hemodialysis 3 times per week, followed up with Dr. Santoro. 4. Recent echo done on 12/02/18 showed EF down to 35% to 40% from a year ago, which was overall EF 5 0% globally. 5. Left ventricular diastolic dysfunction. 6. Moderate mitral insufficiency. 7. History of gastroesophageal reflux disease. PLAN: I discussed her with Nephrology and the weigher and crusher at the present time. Top priority will be for hypertensive heart disease and strict control for her blood pressure. I strongly believe her unc ontrolled hypertension and missing the routine dialysis provoked her episode of flash pulmonary edema . At the present time, her blood pressure is nicely controlled. I would like to have a followup ech o on her left ventricular systolic function, now her blood pressure is well controlled and she is ext ubated, and also I would like to recommend an outpatient noninvasive stress test for a followup on, I understand Dr. Fonutain did 1 a year ago, for a followup on her presentation and any progression or an y ischemic heart disease. I answered all their concerns and questions up to their satisfaction. I d iscussed this with nephrology services. The patient is scheduled to have hemodialysis tomorrow, Dori moreira, 12/14/18. She needs to follow up with her primary septic tank installer, Dr. Fountain, can have the echo and the followup echo as well as the noninvasive stress test on an outpatient basis. Thank you very much for asking us to participate in the care of this patient. TIME SPENT: More than half of at least 65 plus minutes was [id number] education, counseling, and d iscussing the above on making further recommendations. [id number]/[facility] #: [id number]
--- NOTE | 2018-12-13 21:07 | PN ---
PROGRESS NOTE: DATE OF VISIT: 12/13/18 SERVICE: [facility] nephrology. SUBJECTIVE: The patient was seen and examined at bedside. The patient has been extubated and doing well, in no respiratory distress. The patient had a second session of dialysis yesterday and had 1.8 L taken off. The patient was cramping towards the end of dialysis as the patient is close to and below her dry weight. The patient also had 1 L taken off the day prior and the patient is in good volume status today. Vitals and labs have been reviewed. PHYSICAL EXAM: HEENT: NC/AT. Heart: S1, S2 present. Regular rate and rhythm. Lungs: Decreased breath sounds bilaterally. No crackles at the time of exam. Abdomen: Soft. Extremities: Noted to have no edema. Neuro: Alert, oriented. ASSESSMENT AND PLAN: 1. End-stage renal disease, on hemodialysis. 2. Acute hypoxemic respiratory failure secondary to flash pulmonary edema in the setting of hypertensive urgency. The patient's blood pressure was more than 200 when she came to the hospital. At this time, it would be davila to offer good afterload reduction and keep her blood pressure well controlled as the patient goes into flash pulmonary edema every time her blood pressure goes up to the 190-200 range. The patient's blood pressure regimen has been reviewed and the patient currently appears to be maintaining a blood pressure between 110 and 120 on her current regimen. The patient is on lisinopril 40 mg, metoprolol 25 mg, and nifedipine 20 mg 3 times a day. We will continue this regimen and uptitrate meds as needed to keep her blood pressure well controlled. 3. Also, appreciate cardiology's input. The patient will likely need another echocardiogram. 4. With respect to dialysis, the patient usually gets dialysis on Sunday, , and Sunday. If the patient continues to improve and is not short of breath and does well after evaluation by cardiology and if further workup can be pursued as an outpatient, the patient can be discharged and come to the dialysis unit tomorrow/Sunday for her outpatient dialysis. If the patient's condition is still tenuous, the patient is still short of breath and further investigation is needed in the hospital, the patient can stay in the hospital and will be dialyzed again on Sunday. No acute hemodialysis is available in the hospital over the weekend. We will follow the patient closely and we will also repeat her ANCA panel again. On review of records, the patient's PR3 was noted to be positive recently. The patient does not appear to be on hydralazine or any other medications currently that can cause drug-induced vasculitis. At this time, we will also recheck her ANCA panel and pending further evaluation from cardiology, we will decide on further workup. [id number]/[facility] #: [id number] CHICA
[2018-12-14] MEDS: Acetaminophen TAB* 325 MG PO PRN (05:30)
[2018-12-14 08:32] VITALS: BP 148/78
[2018-12-14] MEDS: Cinacalcet TAB* 30 MG PO SCH (08:40)
[2018-12-14] MEDS: NIFEdipine CAP* 10 MG PO SCH (08:41)
[2018-12-14] MEDS: Lisinopril TAB* 10 MG PO SCH (08:41)
[2018-12-14] MEDS: Sevelamer TAB* 800 MG PO SCH (08:41)
[2018-12-14] MEDS: Metoprolol Succinate XL TAB* 25 MG PO SCH (08:41)
[2018-12-14] MEDS: PTO:Brimonidine P 0.15%(NF) OPH SOL 5 ML BTL RIGHT EYE SCH (08:45)
--- NOTE | 2018-12-15 08:25 | DS ---
CC: Radha Lockhart MD * DISCHARGE SUMMARY: DATE OF ADMISSION: 12/11/18 DATE OF DISCHARGE: 12/14/18 PRIMARY CARE PROVIDER: Radha Lockhart MD, Rv Repairer FINAL DISCHARGE DIAGNOSES: 1. Acute respiratory failure secondary to pulmonary edema and volume overload. 2. Pulmonary edema secondary to volume overload. 3. End-stage renal disease, on dialysis. 4. Hypertension. 5. History of vasculitis. 6. Gastroesophageal reflux disease. HOSPITAL COURSE: The patient presented to [facility] on 12/11/18 for respiratory distress due to missing dialysis and inability to have an access for dialysis as an outpatient in the emergency room. The patient developed sudden flash pulmonary edema, required mechanical intubation. She was admitted to the intensive care unit. On the following day on 12/12/18, she was extubated after she had a dialysis and had a left subclavian dialysis access placed. She remained in the ICU and on 12/13/18, she was doing much better. She was transferred out to the floor and I saw the patient for initial encounter today on 12/14/18 on the floor. I discussed the case with her computer numerical control programmer. The patient is arranged for outpatient dialysis today on Sunday on 12/14/18 to the dialysis unit. She was seen and evaluated by me and she was deemed stable for discharge from the hospital to the dialysis unit to receive her dialysis today. PHYSICAL EXAM: On discharge, temperature 98.8, pulse 74, respiratory rate 18, satting 100%, blood pressure 148/78. General: She is awake, alert, oriented. Head and Neck: Normocephalic, atraumatic. Supple. Lungs: Clear to auscultation bilaterally. Cardiovascular: S1, S2. Regular rate and rhythm. Abdomen: Positive bowel sounds, soft, nontender, nondistended. Extremities: No pedal edema. DISCHARGE MEDICATIONS: 1. Continue her brimonidine 1 drop right eye. 2. Sensipar 90 mg daily. 3. Lisinopril 40 mg daily. 4. Metoprolol 25 daily. 5. Nifedipine ER 60 daily. 6. Omeprazole 20 b.i.d. 7. Zofran p.r.n. 8. Renvela 2400 mg before meal. 9. Protonix 40 mg daily, but that was not prescribed as she does have the omeprazole. 10. Hydralazine was held prior to her release. She does have history of allergy and with a known history of vasculitis, it was withheld. DISCHARGE RECOMMENDATION: 1. Follow up with her primary care as scheduled. 2. Follow up with Nephrology as scheduled. 3. The patient to proceed to dialysis from here to the dialysis center here at the 11 o'clock schedule. DISCHARGE DISPOSITION: Home. DISCHARGE CONDITION: Stable. [id number]/[facility] #: [id number] CHICA
== END 2018-12-14 11:20 | disposition home or self-care (01) | DRG 208 ==
LOC: ED 08:23 → ICU 11:43 → MEDTELE 12-13 22:50
PROVIDERS: ADMIT Internal Medicine Pulmonary Disease; ATTEND Internal Medicine
PROC: 5A1945Z Respiratory Ventilation, 24-96 Consecutive Hours (ICD-10-PCS; principal; 2018-12-11)
PROC: 0BH17EZ Insertion of Endotracheal Airway into Trachea, Via Natural or Artificial Opening (ICD-10-PCS; 2018-12-11)
PROC: 0JH63XZ Insertion of Tunneled Vascular Access Device into Chest Subcutaneous Tissue and Fascia, Percutaneous Approach (ICD-10-PCS; 2018-12-12)
PROC: 05HN33Z Insertion of Infusion Device into Left Internal Jugular Vein, Percutaneous Approach (ICD-10-PCS; 2018-12-12)
PROC: 5A1D70Z Performance of Urinary Filtration, Intermittent, Less than 6 Hours Per Day (ICD-10-PCS; 2018-12-12)
DX: J96.01 Acute respiratory failure with hypoxia (principal); N18.6 End stage renal disease; I13.2 Hypertensive heart and chronic kidney disease with heart failure and with stage 5 chronic kidney disease, or end stage renal disease; I50.20 Unspecified systolic (congestive) heart failure; I08.1 Rheumatic disorders of both mitral and tricuspid valves; I48.91 Unspecified atrial fibrillation; I95.9 Hypotension, unspecified; I16.0 Hypertensive urgency; K21.9 Gastro-esophageal reflux disease without esophagitis; Z99.2 Dependence on renal dialysis; Z88.8 Allergy status to other drugs, medicaments and biological substances; Z82.49 Family history of ischemic heart disease and other diseases of the circulatory system; Z83.3 Family history of diabetes mellitus; Z87.442 Personal history of urinary calculi; Z87.891 Personal history of nicotine dependence; Z56.0 Unemployment, unspecified
CPT/HCPCS: 36415; 36558; 36600; 71045; 76937; 77001; 80048; 80053; 82803; 83516; 83605; 83735; 83880; 84484; 85025; 85610; 86255; 90935; 93005; 94003; 94640; 99285; A9270-GY; C1750; C1769; G0257; J0690; J1642; J1644; J2250; J2704; J3010; Q5106; Q9967

== ENCOUNTER 2018-12-16 12:37 | Day surgery (SDC) | payer MEDICARE, MEDICAID ==
--- NOTE | 2018-12-11 09:53 | HP ---
History of Present Illness - History of Present Illness Reason for Visit: acute pulmonary edema, intubated/mechanical ventilation History of Present Illness: 53 F with hx/o ESRD on HD She was scheduled for fluoro guided vascath placed for new HD access site. Review of Systems - Medications/Allergies Allergies/Adverse Reactions: Allergies Allergy/AdvReac Type Severity Reaction Status Date / Time aspirin Allergy Bleeding Verified 12/02/18 01:14 hydralazine Allergy Bleeding Verified 12/02/18 01:14 Assessment/Plan - Assessment/Plan Plan: Agree with nitro
[~2018-12-16 12:37] MED LIST changes: +Buffered Lidocaine 1% SYRIN* 1 ML/SYRINGE INTRADERM ONE; -Heparin 2 UNITS/ML IVPREMIX* 1,000 ML BAG IV ONE; -Heparin(*) 1000 UNIT/ML 10 ML VIAL CATH LAB IV ONE; -Iodixanol 320 (CONTRAST) 100 ML SDV ONE; -LORazepam TAB(*) 1 MG ONE; +Lactated Ringers 1000 ML Bag* 1,000 ML IV SCH; -Lidocaine 1% INJ* 10 MG/ML 30 ML SDV ONE; -Metoprolol Tartrate IV* 1 MG/ML 5 ML VIAL ONE; -Midazolam* 1 MG/ML 5 ML VIAL (5 MG) ONE; -Ondansetron INJ* 2 MG/ML VIAL ONE; +ceFAZolin 1 GM* X ONE DOSE (AddVan) IVPB; -fentaNYL* 50 MCG/ML 2 ML VIAL (100 MCG VIAL) ONE
[2018-12-16] MEDS ORDERED: Buffered Lidocaine 1% SYRIN* 1 ML/SYRINGE INTRADERM ONE ×2 (13:57→14:27)
[2018-12-16] MEDS ORDERED: Iohexol 180 (CONTRAST) 10 ML SDV IV ONE ×2 (14:01)
[2018-12-16] MEDS ORDERED: Lidocaine 1% INJ* 10 MG/ML 30 ML SDV ONE (14:01)
[2018-12-16] MEDS ORDERED: ceFAZolin 1 GM in Dextrose (*) 1 GM/50 ML BAG IVPB ONE (14:23)
[2018-12-16] MEDS ORDERED: Famotidine IV* 10 MG/ML 2 ML (20 mg) ONE (14:32)
[2018-12-16] MEDS ORDERED: Midazolam* 1 MG/ML 2 ML VIAL (2 MG) ONE (14:39)
[2018-12-16] MEDS ORDERED: KETAMINE HCL* 50 MG/ML 10 ML VIAL ONE (14:40)
[2018-12-16] MEDS ORDERED: Lidocaine 2% PF * 5 ML VIAL ONE (14:53)
[2018-12-16] MEDS ORDERED: Propofol* 10 MG/ML 20 ML BTL ONE (14:53)
[2018-12-16] MEDS ORDERED: Metoprolol Tartrate IV* 1 MG/ML 5 ML VIAL ONE ×3 (15:21→16:28)
[2018-12-16] MEDS ORDERED: fentaNYL* 50 MCG/ML 2 ML VIAL (100 MCG VIAL) ONE (16:00)
[2018-12-16] MEDS ORDERED: diPHENhydraMINE IV* 50 MG/ML 1 ml VIAL (BENADRYL) IV PRN (16:01)
[2018-12-16] MEDS ORDERED: Acetaminophen TAB* 325 MG PO PRN (16:01)
[2018-12-16] MEDS ORDERED: Naloxone* 0.4 MG/ML 1 ML VIAL IV PRN (16:01)
[2018-12-16] MEDS ORDERED: Ondansetron INJ* 2 MG/ML VIAL IV PRN (16:01)
[2018-12-16] MEDS ORDERED: DiMENhydriNATE IV* 50 MG/ML VIAL IV PUSH PRN (16:01)
[2018-12-16] MEDS ORDERED: Metoprolol Tartrate IV* 1 MG/ML 5 ML VIAL IV PRN ×2 (16:02→17:01)
[2018-12-16] MEDS: fentaNYL* 50 MCG/ML 2 ML VIAL (100 MCG VIAL) IV PRN ×4 (16:05→16:24)
[2018-12-16] MEDS ORDERED: NIFEdipine CAP* 10 MG PO ONE (17:00)
[2018-12-16] MEDS ORDERED: Lisinopril TAB* 10 MG PO ONE (17:00)
[2018-12-16] MEDS ORDERED: Gabapentin CAP(*) 300 MG PO ONE (17:02)
[2018-12-16] MEDS ORDERED: Acetaminophen IV 1GM/100ML * 1,000 MG/100 ML VIAL IVPB ONE (17:03)
[2018-12-16] MEDS ORDERED: Gabapentin CAP(*) 300 MG ONE (17:05)
[2018-12-16] MEDS ORDERED: Acetaminophen IV 1GM/100ML * 100 ML ONE (17:05)
[2018-12-16] MEDS ORDERED: oxyCODONE TAB* 5 MG TAB ONE (18:23)
[2018-12-16] MEDS ORDERED: oxyCODONE TAB* 5 MG TAB PO ONE (18:24)
[2018-12-16 18:47] VITALS: BP 143/83
--- NOTE | 2018-12-17 02:05 | OP ---
DATE OF OPERATION: 12/16/18 - [facility] DATE OF : 63 SURGEON: Geovanni Mccormack MD. PRE-OP DIAGNOSIS: Right hand rest pain with edema, immobility secondary to severe venous hypertension from a radiocephalic fistula. 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 OPERATIVE PROCEDURE: 1. On-table angiogram of radiocephalic fistula. 2. Ligation of right radiocephalic fistula. ANESTHESIA: Local plus MAC. ESTIMATED BLOOD LOSS: Less than 20 cc. INDICATIONS: The patient is a 53-year-old female with endstage renal disease. The patient is right hand dominant and she has been dialyzed for the past 2 years from a right radiocephalic fistula that was placed approximately 2 years ago in [place]. The patient was doing well and recently in the past few months, she has been developing edema and pain. The pain has progressed significantly as well as the edema. The patient had undergone 3 angiograms with angioplasty, the last one was done in the middle of September [address] Ovalle, at which time the patient was found to have stenosis of the junction between the cephalic and basilic vein in the antecubital area. This area was balloon angioplastied with a balloon 8 mm and another lesion at the junction with the subclavian to the internal jugular and brachiocephalic area. This area was dilated with a 12-mm balloon. The patient had a short improvement of the pain and the edema and then it became more severe. She was referred for evaluation and it was felt that the patient has severe venous hypertension from the fistula open against a more proximal obstruction causing severe venous hypertension, therefore causing rest pain and significant edema. For this reason, the patient was taken to the operating room today. It was felt that at this point with 3 angioplasties in the past with recurrence of the stenosis in a relatively short period of time, it was felt that likely this fistula was not salvageable. The plan was to proceed with ligation of the AV fistula, allow the edema and the venous hypertension to improve as well as the pain and then subsequently place a new fistula, either a basilic vein transposition or a graft. However, with a central stenosis, one has to deal with this and we would have to discuss with the patient different options. DESCRIPTION OF PROCEDURE: The patient was taken to the procedure room. She was placed in the supine position. Proper time-out for patient identification and site of surgery was done. Under sedation, lidocaine 1% was used to infiltrate at the fistula site using a micropuncture kit. The needle was accessed. A 0.018 wire was advanced, and over the wire, the 4-[place] catheter was advanced which was then used for angiography. We proceeded to inject contrast and one could see the cephalic vein at the junction with a vena comitans to the basilic vein to be severely stenotic and therefore the high pressure coming from the arteriovenous fistula would produce a severe hypertension and likely explains the patient's edema and pain. After this was done a more proximal angiography was done. The basilic vein which is the predominant outflow appears to be otherwise unremarkable; however, the subclavian vein right at the junction with brachiocephalic, there is a significant stenosis in this area which was already balloon angioplastied in the past. At this point, we then proceeded with ligation of the AV fistula to then bring the patient back for creation of a new fistula in the future. At this point, we then proceeded to infiltrate lidocaine 1% at the site just proximal to the anastomosis. Small collaterals were clamped and ligated with 4- 0 Vicryl. The cephalic vein just proximal to the anastomosis was then dissected off from the scar tissue, encircled in 0-silk tie, and double tied off ligating the fistula. The pulsatility disappeared and there was excellent capillary refill to the hand. At this point, we then proceeded to close the incision with interrupted 4-0 Vicryl suture and the skin was closed with subcuticular 5-0 Monocryl and Steri-Strips. The patient tolerated the procedure well and she was taken in good condition to recovery room. [id number]/[facility] [place] #: [id number] CHICA
== END 2018-12-16 18:55 | disposition home or self-care (01) ==
LOC: OR 12:37
PROVIDERS: ATTEND Surgery
DX: T82.898A Other specified complication of vascular prosthetic devices, implants and grafts, initial encounter (principal); I87.391 Chronic venous hypertension (idiopathic) with other complications of right lower extremity; M79.641 Pain in right hand; R60.9 Edema, unspecified; N18.6 End stage renal disease; Z99.2 Dependence on renal dialysis; I13.11 Hypertensive heart and chronic kidney disease without heart failure, with stage 5 chronic kidney disease, or end stage renal disease; I34.0 Nonrheumatic mitral (valve) insufficiency
CPT/HCPCS: 76000; A9270-GY; J0690; J1644; J2250; J2704; J3010; J3490

== ENCOUNTER 2018-12-30 12:48 | Inpatient (IN) | payer MEDICARE, MEDICAID ==
--- NOTE | 2018-12-30 14:22 | ED ---
Upper Extremity Pain - HPI Summary HPI Summary: Pt is a 53 y/o F presenting to the ED with a chief complaint of R hand pain from prior fistula. The pt was admitted to [facility] ago to have surgery, and the pt is still having pain in her R hand. She had an appointment last week where the doctor said it was fine, but today they called and the doctor recommended going into the ED. She reports edema, erythema, and pain in her L brachium and R hand. 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 Mechanism Of Injury: Other - hospital visit Onset/Duration: Started Days Ago, Still Present, Worse Since - today Timing: Constant, Lasting Days Severity Initially: Moderate Severity Currently: Severe Pain Location: Hand - Right, Other: - L brachium Character: Aching Aggravating Factor(s): Movement Alleviating Factor(s): Nothing Associated Signs & Symptoms: Positive: Swelling, Redness - Allergies/Home Medications Allergies/Adverse Reactions: Allergies Allergy/AdvReac Type Severity Reaction Status Date / Time aspirin Allergy Bleeding Verified 12/30/18 12:56 hydralazine Allergy Bleeding Verified 12/30/18 12:56 PMH/Surg Hx/FS Hx/Imm Hx Previously Healthy: No Endocrine/Hematology History: Denies: Hx Diabetes Cardiovascular History: Reports: Hx Hypertension - on medication Denies: Hx Angina, Hx Coronary Artery Disease, Hx Hypercholesterolemia, Hx Myocardial Infarction, Hx Valvular Heart Disease, Other Cardiovascular Problems/ Disorders Respiratory History: Reports: Hx Asthma, Hx Pulmonary Edema Denies: Hx Chronic Obstructive Pulmonary Disease (COPD), Other Respiratory Problems/Disorders GI History: Reports: Hx Gastroesophageal Reflux Disease Denies: Other GI Disorders - ON PROTONIX History: Reports: Hx Chronic Renal Failure, Hx Dialysis, Hx Kidney Stones Denies: Hx Kidney Infection, Other Problems/Disorders Musculoskeletal History: Denies: Other Musculoskeletal History Sensory History: Reports: Hx Cataracts - RIGHT EYE Denies: Hx Contacts or Glasses, Hx Eye Injury, Hx Eye Prosthesis, Hx Glaucoma , Hx Legally Blind, Hx Macular Degeneration, Hx Vision Problem, Hx Deafness, Hx Hearing Aid, Hx Hearing Problem, Other Sensory Impairments Opthamlomology History: Reports: Hx Cataracts - RIGHT EYE Denies: Hx Contacts or Glasses, Hx Eye Injury, Hx Eye Prosthesis, Hx Glaucoma , Hx Legally Blind, Hx Macular Degeneration, Hx Vision Problem, Other Sensory Impairments Neurological History: Reports: Hx Headaches Denies: Other Neuro Impairments/Disorders - Surgical History Surgery Procedure, Year, and Place: AV Fistula in 2016. CATARACT RIGHT EYE. CLOSED FISTULA RIGHT ARM 2019 Hx Anesthesia Reactions: No - Immunization History Date of Tetanus Vaccine: unk Date of Influenza Vaccine: unk Infectious Disease History: No Infectious Disease History: Denies: Traveled Outside the [place] in Last 30 Days - Family History Known Family History: Positive: Hypertension, Diabetes - Social History Alcohol Use: None Hx Substance Use: No Substance Use Type: Reports: None Hx Tobacco Use: Yes Smoking Status (MU): Never Smoked Tobacco Have You Smoked in the Last Year: No Review of Systems Positive: Myalgia - L brachium, R hand, Edema Positive: Other - erythema All Other Systems Reviewed And Are Negative: Yes Physical Exam - Summary Physical Exam Summary: Appearance: Well appearing, no pain distress Skin: Old fistula in R forearm. L brachium presents edema, erythema, tenderness , and restricted ROM. Central venous catheter in L chest. Head/face: normal Eyes: EOMI, MARIANA ENT: normal Neck: supple, non-tender Respiratory: CTA, breath sounds present Cardiovascular: RRR, pulses symmetrical Abdomen: non-tender, soft Musculoskeletal: normal, strength/ROM intact Neuro: normal, sensory motor intact, A&Ox3 Triage Information Reviewed: Yes Vital Signs On Initial Exam: Initial Vitals Temp Pulse Resp BP Pulse Ox 99.0 F 84 17 238/107 95 12/30/18 12:53 12/30/18 12:53 12/30/18 12:53 12/30/18 12:53 12/30/18 12:53 Vital Signs Reviewed: Yes Diagnostics - Vital Signs Vital Signs Temp Pulse Resp BP Pulse Ox 12/30/18 12:53 99.0 F 84 17 238/107 95 - Laboratory Result Diagrams: 12/30/18 16:00 12/30/18 16:00 Lab Statement: Any lab studies that have been ordered have been reviewed, and results considered in the medical decision making process. - Ultrasound No standard instances Ultrasound Interpretation Completed By: Radiologist Summary of Ultrasound Findings: DVT US. No evidence of left upper extremity deep vein thrombosis. ED physician has reviewed this report. Re-Evaluation - Re-Evaluation 1st re-eval Re-Evaluation Time: 17:43 Change: Unchanged Comment: The pt is now feeling pruritus all over her body. Course/Dx - Course Course Of Treatment: Pt is a 53 y/o F presenting to the ED with a chief complaint of R hand pain from prior fistula. She reports edema, erythema, and pain in her L brachium and R hand. Physical exam shows old fistula in R forearm , and L brachium presents edema, erythema, tenderness, and restricted ROM. There is a central venous catheter in L chest. Bloodwork obtained. US of LUE shows no left upper extremity deep vein thrombosis. I spoke with Dr. Mccormack who stated he would come to [facility] to consult with the patient tomorrow if she were to be admitted, and asked to call back with lab results. I spoke with Dr. Nugent at 1725 who agreed to admit the patient to the hospital to be consulted by Dr. Mccormack tomorrow. I spoke with Dr. Mccormack at 1730 to let him know the plan and the lab results and he agreed to come see the patient on 12/31/18. She will be admitted with dx including L arm cellulitis, post-operative complication, and end stage renal disease on dialysis. Dr. Mccormack came in to see the patient. As of 185, he recommends a CTA of the chest and left upper extremity to r/o brachiocephalic vein thrombosis and subclavian vein thrombosis of the left side. He also agrees with the plan of admission and abx. - Diagnoses Differential Diagnosis/HQI/PQRI: Positive: Other - cellulitis/abscess lf arm Provider Diagnoses: Left arm cellulitis, Post-operative complication, End stage renal disease on dialysis Discharge - Sign-Out/Discharge Documenting (check all that apply): Patient Departure - Discharge Plan Condition: Stable Disposition: ADMITTED TO [facility] - Billing Disposition and Condition Condition: STABLE Disposition: Admitted to [facility] - Attestation Statements Document Initiated by Scribe: Yes Documenting Scribe: Raine Vasques Provider For Whom Venita is Documenting (Include Credential): Madan Sorensen MD. Scribe Attestation: Raine Spear, scribed for Madan Sorensen MD. on 12/30/18 at 1927. Scribe Documentation Reviewed: Yes Provider Attestation: The documentation as recorded by the [email or web address], Raine Vasques accurately reflects the service I personally performed and the decisions made by me, Madan Sorensen MD. Status of Venita Document: Viewed Consult Consult: I spoke with Dr. Nugent at 1725 who agreed to admit the patient to the hospital to be consulted by Dr. Mccormack tomorrow, 12/31/18. 1730 - I spoke with Dr. Mccormack to update him on the lab results and the patient' s disposition and he will be coming to see the patient on 12/31/18. 1855 - Dr. Mccormack came in to see the patient. He recommends a CTA of the chest and left upper extremity to r/o brachiocephalic vein thrombosis and subclavian vein thrombosis of the left side. He also agrees with the plan of admission and abx.
[2018-12-30] MEDS ORDERED: Vancomycin(*) 1,250 MG in NS 0.9% 250 ML* 250 ML IVPB ONE (14:23)
[2018-12-30 16:29] LABS: ABS Basophils 0.1 10^3/ul (0-0.2); ABS Eosinophils 0.3 10^3/ul (0-0.6); ABS Lymphocytes 1.7 10^3/ul (1.0-4.8); ABS Monocytes 0.9 10^3/ul (0-0.8); ABS Neutrophils 5.2 10^3/ul (1.5-7.7); Eosinophil % 3.5 %; Hematocrit 33 % (35-47); Lymphocyte % 21.2 %; Mean Corpuscular HGB Conc 33 g/dL (31-36); Mean Corpuscular Hemoglobin 32 pg (27-31); Mean Corpuscular Volume 95 fL (80-97); Mean Platelet Volume 9.3 fL (7.4-10.4); Platelet Count 208 10^3/uL (150-450); Red Cell Distribution Width 17 % (10.5-15); White Blood Count 8.2 10^3/uL (3.5-10.8)
[2018-12-30 16:31] LABS: Activated Partial Thrombo Time 28.5 seconds (26.0-36.3); INR 1.03 (0.82-1.09)
[2018-12-30 16:40] LABS: Albumin 3.8 g/dL (3.2-5.2); Albumin/Globulin Ratio 1.1 (1-3); BUN/Creatinine Ratio 7.2 (8-20); C Reactive Protein 17.38 mg/L (<8.01); Calcium 9.2 mg/dL (8.6-10.3); EGFR Non-African American 4.1 (>60); Globulin 3.5 g/dL (2-4); Total Bilirubin 0.5 mg/dL (0.2-1.0); Total Protein 7.3 g/dL (6.4-8.9)
[2018-12-30 16:54] LABS: Potassium 5.5 mmol/L (3.5-5.0)
[2018-12-30] MEDS ORDERED: Morphine 4 MG/ML VIAL (1 ml) 4 MG/ML VIAL IV ONE (17:01)
[2018-12-30] MEDS ORDERED: Ondansetron INJ* 2 MG/ML VIAL IV ONE (17:02)
[2018-12-30] MEDS ORDERED: ED Piperacillin/Tazobac 3.375 3.375 GM/100 ML PREMIX.SET IVPB ONE (17:32)
[2018-12-30] MEDS ORDERED: Ondansetron INJ* 2 MG/ML VIAL IV PRN (18:14)
[2018-12-30] MEDS ORDERED: Acetaminophen TAB* 325 MG PO PRN (18:14)
[2018-12-30] MEDS ORDERED: Ondansetron ODT TAB* 4 MG PO PRN (18:16)
[2018-12-30] MEDS ORDERED: ZOSYN 3.375 GM x ONE DOSE over 30 miuntes IVPB ×2 (19:00)
[2018-12-30] MEDS ORDERED: Iodixanol* (CONTRAST) 320 MG/ML 100 ML SDV IV ONE (20:12)
--- NOTE | 2018-12-30 20:22 | HP ---
CC: Dr. Radha Lockhart; Dr. Honorio Santoro; Dr. Mario Nugent* ADMISSION HISTORY AND PHYSICAL: DATE OF ADMISSION: 12/30/18 PRIMARY CARE PROVIDER: Dr. Radha Lockhart. OUTPATIENT FIELD MECHANIC/SITE LEAD: Dr. Honorio Santoro. MY ATTENDING WHILE IN THE HOSPITAL: Dr. Mario Nugent* (dictated by VIANEY Cool). CHIEF COMPLAINT: Redness, swelling in the left arm x10 days. HISTORY OF PRESENT ILLNESS: Ms. 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 The patient initially had an uncomplicated postoperative course. The patient had some pain at the site and some redness. At her initial followup with her vascular surgeon, he said these were normal postoperative complications; however, the swelling in the patient's arm and pain continued to get worse as did the redness. The patient denied fevers, chills, nausea, vomiting, chest pain, shortness of breath. The patient did not take any treatment for this redness, swelling or the pain. The patient and her son finally came into the emergency department on 12/30/18 as they were very concerned about possible infection. The patient in the emergency department had a normal white blood cell count, no signs of end organ dysfunction. Her fistula was functioning properly on a venous ultrasound. There is no blood clot. The patient had a slightly elevated CRP. The patient' s blood pressure was significantly elevated. Due to concern for surgical site infection in the left arm, we were asked to evaluate the patient for admission to the hospital. The patient in the emergency department was given vancomycin and Zosyn. The patient does still intermittently make urine, but this has been decreasing given decreased appetite, which the patient attributes to the pain. Please note, the patient only speaks Sudanese and this history is obtained via interpretation by her son. Both she and her son seemed very reliable. PAST MEDICAL HISTORY: ESRD, on dialysis; hypertension; drug-induced vasculitis ; GERD; multiple admissions for fluid overload after missed dialysis. PAST SURGICAL HISTORY: Right AV fistula, recent left AV fistula. MEDICATIONS: 1. Brimonidine 1 drop both eyes daily. 2. Sensipar 90 mg p.o. daily. 3. Lisinopril 40 mg p.o. daily. 4. Metoprolol succinate 25 mg p.o. daily. 5. Nifedipine 60 mg p.o. daily. The patient has not been taking this medication as the prescription ran out. 6. Pantoprazole 40 mg p.o. daily. 7. Renvela 2400 mg p.o. with meals. 8. Zofran 4 mg p.o. q.6 hours as needed. ALLERGIES: ASPIRIN, HYDRALAZINE. FAMILY HISTORY: The patient's mother of Alzheimer's. The patient's father of diabetes, hypertension, and heart disease. SOCIAL HISTORY: The patient is a never smoker or drinker and has never used illicit drugs. 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 The patient is and has 1 child. The patient's surrogate decision maker is her , Honorio Cedeño. REVIEW OF SYSTEMS: A 14-point review of systems was reviewed and is negative except as above in the HPI. PHYSICAL EXAMINATION GENERAL: The patient is a 53-year-old female, who appears old than stated age and sitting comfortably in bed, in no acute distress. VITAL SIGNS: At the time of evaluation, temperature 98.0, pulse rate 90, respiratory rate 20, oxygen saturation 95% on room air, blood pressure 190/110. HEENT: Head: Normocephalic, atraumatic. Sclerae anicteric. No conjunctival injection. Nasal mucosa moist. Oral mucosa moist. No pharyngeal erythema, discharge, or exudate. NECK: Supple, nontender. No lymphadenopathy. No carotid bruits auscultated. No JVD. RESPIRATORY: Clear to auscultation bilaterally. No wheezes, rales, or rhonchi. Good air exchange bilaterally. CARDIAC: Regular rate and rhythm. No clicks, murmurs, gallops, or rubs. Pulses are 2+ in the bilateral dorsalis pedis, posterior tibialis, and radial areas. Trace bilateral lower extremity edema noted. No bilateral calf tenderness noted. ABDOMEN: Soft, nontender, nondistended. Bowel sounds present and normoactive in all 4 quadrants. No hepatosplenomegaly. No abdominal bruits auscultated. No hepatojugular reflux. GENITOURINARY: No suprapubic or CVA tenderness. NEURO: Cranial nerves II through XII intact. No focal deficits. Alert and oriented x3. PSYCHIATRIC: Pleasant and cooperative. SKIN: Redness and erythema of the left upper forearm with warmth to the touch. No lymphangitic streaking into the arm. No lymphadenopathy in the armpit. The patient has a fistula in the left arm. The patient has other surgical incision scars on her right arm. DIAGNOSTIC STUDIES/LAB DATA: White blood cell count 8.3, hemoglobin 11.0, platelet count 208. INR 1.03, APTT 28.5. Sodium 138, potassium 5.5, chloride 97, carbon dioxide 29, anion gap 20, BUN 71, creatinine 9.87, glucose 86, lactic acid 0.5, calcium 9.2. Bilirubin 0.5, AST 15, ALT 6, alkaline phosphatase 104. CRP 17.38. Protein 7.3, albumin 3.8, globulin 3.5. Studies: Venous Doppler study of the left upper extremity shows AV fistula. The brachial vein appears to be patent, low flow at the level of the fistula. No left lower extremity deep vein thrombosis. ASSESSMENT AND PLAN: Impression: Ms. Hemalatha العلي is a 53-year-old female with past medical history significant for end-stage renal disease due to hypertension, on hemodialysis; as well as history of drug-induced vasculitis, who presents to the emergency department 10 days after a fistula was placed in her left upper extremity with warmth, redness, increasing pain at the surgical site with concern for infection. The patient will be admitted to the hospital for antibiotics and evaluation by her surgeon. 1. Left upper extremity cellulitis. The patient has what appears to be cellulitis at the site of her fistula surgery in her left upper extremity. The patient has minimal systemic symptoms. The patient has no fever, no tachycardia , no hypotension. The patient is actually markedly hypertensive. The patient has no elevated white blood cell count, only mildly elevated CRP. The patient in the emergency department received vancomycin and Zosyn. The patient does still make some urine. This combination will be avoided due to its nephrotoxic effects. The patient will be continued on only vancomycin after her dialysis sessions starting tomorrow. The patient will be monitored closely for signs of hemodynamic deterioration. The patient has a normal lactic acid and is not septic. The patient will be evaluated by her vascular surgeon, Dr. Mccormack, who was contacted by the emergency department and recommended antibiotics and admission. 2. End-stage renal disease, on hemodialysis. The patient will be continued on her Sunday, , Sunday hemodialysis schedule. The patient's potassium is slightly high at this time, but this is normal for the patient. This will be rechecked in the morning and the patient will be dialyzed tomorrow. 3. Hypertension. The patient's blood pressure is significantly elevated at this time, which is consistent with the patient's baseline. The patient has missed her doses of nifedipine recently. She will be continued on her home dose , which will be up titrated as needed. 4. Gastroesophageal reflux disease. Continue pantoprazole. 5. DVT prophylaxis: The patient will have heparin subcu q.12 hours. 6. FEN: The patient will have a renal diet and no fluids are indicated. TIME SPENT: Approximately 60 minutes was spent on the admission of this patient , 30 of which was spent [id number] with the patient obtaining history and physical and discussing treatment plan. This plan was discussed with my attending, Dr. Mario Nugent, and he is in agreement. VIANEY COOL [id number]/[facility] #: [id number] [place]
[2018-12-30] MEDS: Metoprolol Succinate XL TAB* 25 MG PO SCH (20:50)
[2018-12-30] MEDS: Acetaminophen TAB* 325 MG PO PRN (20:50)
[2018-12-30] MEDS: Heparin VIAL(*) 5000 UNITS/ML VIAL (FIVE THOUSAND) SUBCUT SCH (20:52)
[2018-12-30] MEDS: Brimonidine P 0.15%(NF) OPH SOL 5 ML BTL RIGHT EYE SCH (21:19)
[2018-12-30] MEDS: NIFEdipine ER TAB* 60 MG PO SCH (21:19)
--- NOTE | 2018-12-30 21:20 | CONS ---
CC: Dr. Radha Lockhart; Dr. Honorio Santoro CONSULTATION NOTE: DATE OF CONSULT: 12/30/18 REQUESTING PHYSICIAN: Dr. Sorensen in the emergency room. REASON FOR CONSULT: Consultation regarding swelling of the left arm, pain, possible infected dialysi s graft. HISTORY OF PRESENT ILLNESS: The patient is a 53-year-old female, well known to me with end-stage sekou al disease, that approximately 2 weeks ago, she underwent placement of a new [place] graft hemodialy sis catheter in a loop configuration in the upper left arm. This was done following failure of a pre vious radiocephalic fistula that the patient had on the right side with severe edema, pain, and multi ples sites of stenoses that were attempted to be dilated both in [place] and here at [facility], all of which failed and for this reason, the right radiocephalic fistula had to be ligated . She had placement of a temporary tunneled dialysis catheter, specifically a BioFlo DuraMax, after the ligation of the arteriovenous fistula on the left side. She was then staged after the edema of t he right arm disappeared and she underwent placement of a [place] graft hemodialysis catheter. In t he one week postoperatively, the patient had the usual amount of edema; however today, she comes into the emergency room with significant edema of the arm and pain which she did not have and redness in the upper arm near where the graft is. She has no fever, no chills. The white count is 8000. On examination, it appears that the patient has collateral venous outflow, significant amount of asha a that involves the entire arm from the axilla down to the fingers of the left hand. The patient has excellent palpable radial pulse, brachial pulse, and the patient has excellent flow and thrill in t he fistula. The patient's clinical pattern is that of a severe venous hypertension likely secondary to possible t hrombosis around the temporary dialysis catheter likely in the brachiocephalic vein or possibly forei gn body obstruction to the high flow of the fistula producing venous hypertension and edema of the ar m. In the absence of fever, chills, and elevated white count, this is likely number 1 on the differe ntial diagnosis that this patient has a proximal central venous obstruction with an arterialized dist al venous system causing significant and severe venous hypertension. PAST MEDICAL HISTORY: The patient's past medical history is remarkable for end- stage renal disease. She has been on dialysis for the past 2 or 3 years. She has hypertension. No history of diabetes. ALLERGIES: She is allergic to HYDRALAZINE and ASPIRIN. PHYSICAL EXAM: Her physical examination shows no JVD. The lungs are clear to auscultation bilateral ly. The heart is regular without murmurs. Again, in the left upper arm, one can see edema from the shoulder all the way down to the fingers. There appears to be collateral venous circulation forming around the shoulder. On the right arm, there is a well-healed ligated AV fistula. There is a pulse in this area. The patient still has pain at night, but this is likely to be secondary to carpal tunn el from the long extending edema of the right arm and forearm from the other fistula. However, the e aaron has resolved. The pain is much better. She has a significant better range of motion. On the l eft arm, the patient has good range of motion, good strength in the hands, and no neuro deficits. In the lower extremity examination, the patient has no edema. She has excellent palpable pulses at t he femorals, popliteals, dorsalis pedis, and posterior tibials, and again, no ankle edema is noted. IMPRESSION: 1. Edema of the left arm with redness around the graft, likely to be secondary to high venous hypert ension with proximal obstruction. 2. Possible infection. PLAN: 1. The plan is to do IV antibiotics and wait for blood cultures. 2. In the meantime, obtain a CT venogram to show the brachiocephalic vein, internal jugular, and sub clavian vein in the upper chest. 3. Likely proceed to remove the dialysis catheter and replace it into the right internal jugular. T his is likely to be done within the next 24 hours. It is possible that the patient may require antic oagulation as well. [id number]/[facility] #: [id number]
[2018-12-30] MEDS ORDERED: Morphine INJ* 2 MG/ML 1 ML SYRINGE (TWO MG - NEW SYRINGE VERSION) IV PRN (23:28)
[2018-12-31] MEDS: Acetaminophen TAB* 325 MG PO PRN ×2 (03:18→20:01)
[2018-12-31] MEDS ORDERED: Morphine INJ* 2 MG/ML 1 ML SYRINGE (TWO MG - NEW SYRINGE VERSION) IV PRN (03:31)
[2018-12-31] MEDS: Sevelamer TAB* 800 MG PO SCH ×3 (07:32→17:17)
[2018-12-31] MEDS: Brimonidine P 0.15%(NF) OPH SOL 5 ML BTL RIGHT EYE SCH ×3 (07:33→22:58)
[2018-12-31] MEDS: Heparin VIAL(*) 5000 UNITS/ML VIAL (FIVE THOUSAND) SUBCUT SCH (07:34)
[2018-12-31] MEDS ORDERED: Lisinopril TAB* 10 MG PO ONE (07:39)
[2018-12-31] MEDS ORDERED: Heparin DIALYSIS ONLY(*) 1,000 UNITS/ML VIAL DIALYSIS ONE (10:00)
[2018-12-31 12:03] LABS: ABS Basophils 0.1 10^3/ul (0-0.2); ABS Eosinophils 0.3 10^3/ul (0-0.6); ABS Lymphocytes 1.1 10^3/ul (1.0-4.8); ABS Monocytes 0.6 10^3/ul (0-0.8); ABS Neutrophils 5.5 10^3/ul (1.5-7.7); Eosinophil % 3.3 %; Hematocrit 34 % (35-47); Hemoglobin 10.9 g/dL (12.0-16.0); Mean Corpuscular HGB Conc 32 g/dL (31-36); Mean Corpuscular Hemoglobin 31 pg (27-31); Mean Corpuscular Volume 95 fL (80-97); Mean Platelet Volume 9.3 fL (7.4-10.4); Platelet Count 237 10^3/uL (150-450); Red Blood Count 3.53 10^6 /uL (3.70-4.87); Red Cell Distribution Width 17 % (10.5-15); White Blood Count 7.6 10^3/uL (3.5-10.8)
[2018-12-31 12:13] LABS: BUN/Creatinine Ratio 5.9 (8-20); Calcium 9.4 mg/dL (8.6-10.3); EGFR African American 17.2 (>60); EGFR Non-African American 14.2 (>60); Phosphorus 2.5 mg/dL (2.5-5.0); Potassium 3.2 mmol/L (3.5-5.0)
[2018-12-31] MEDS ORDERED: diPHENhydraMINE PO* 25 MG PO ONE ×2 (12:26→19:00)
[2018-12-31] MEDS ORDERED: Vancomycin(*) 500 MG in NS 0.9% 250 ML* 250 ML IVPB ONE ×2 (13:00→19:30)
[2018-12-31] MEDS ORDERED: [UNRECOGNIZED DRUG - REMARK] FOLLOW UP SCH (13:00)
[2018-12-31] MEDS ORDERED: Heparin VIAL(*) 5000 UNITS/ML VIAL (FIVE THOUSAND) ONE (13:12)
[2018-12-31] MEDS ORDERED: Lidocaine 1% INJ* 10 MG/ML 30 ML SDV ONE (13:12)
[2018-12-31] MEDS ORDERED: Heparin DIALYSIS ONLY(*) 1,000 UNITS/ML VIAL ONE ×2 (13:49→15:28)
[2018-12-31] MEDS ORDERED: Midazolam* 1 MG/ML 2 ML VIAL (2 MG) ONE (13:53)
--- NOTE | 2018-12-31 13:57 | PN ---
Subjective Date of Service: 12/31/18 Interval History: Patient complains of paresthesias in B/L Fingers with dialysis. Patient denies CP, SOB, N/V, abdominal pain, diarrhea, dizziness, F/C, or other pain. Patient states the pain in her arm has increase. Family History: Unchanged from Admission Social History: Unchanged from Admission Past Medical History: Unchanged from Admission Objective Active Medications: Acetaminophen (Tylenol Tab*) 650 mg PO Q4H PRN PRN Reason: PAIN Last Admin: 12/31/18 03:18 Dose: 650 mg Brimonidine Tartrate (Alphagan P 0.15%(Nf)) 1 drop RIGHT EYE TID [facility] Last Admin: 12/31/18 07:33 Dose: Not Given Cinacalcet (Sensipar Tab*) 90 mg PO QPM [facility] Hydromorphone HCl (Dilaudid Inj1s*) 0.5 mg IV SLOW PU Q4H PRN PRN Reason: PAIN Vancomycin HCl 500 mg/ Sodium (Chloride) 250 mls @ 166.667 mls/hr IVPB ONCE ONE Stop: 12/31/18 14:29 Lisinopril (Prinivil Tab*) 40 mg PO QPM [facility] Metoprolol Succinate (Toprol Xl Tab*) 25 mg PO QPM [facility] Last Admin: 12/30/18 20:50 Dose: 25 mg Nifedipine (Procardia Xl Tab*) 60 mg PO QPM [facility] Last Admin: 12/30/18 21:19 Dose: 60 mg Ondansetron HCl (Zofran Inj*) 4 mg IV Q6H PRN PRN Reason: NAUSEA Ondansetron HCl (Zofran Odt Tab*) 4 mg PO Q6HR PRN PRN Reason: NAUSEA Pantoprazole Sodium (Protonix Tab*) 40 mg PO QPM [facility] Pharmacy Consult (Vancomycin Random Level*) 1 note FOLLOW UP 0700 ONE Stop: 01/02/19 07:01 Pharmacy Consult (Vancomycin - Dialysis Dosing*) 1 note FOLLOW UP . [facility] Sevelamer Carbonate (Renvela Tab*) 2,400 mg PO AC [facility] Last Admin: 12/31/18 11:08 Dose: Not Given Vital Signs - 8 hr 12/31/18 12/31/18 12/31/18 06:40 06:41 07:17 Temperature 97.9 F Pulse Rate 69 Respiratory 18 18 16 Rate Blood Pressure 154/73 (mmHg) O2 Sat by Pulse 100 Oximetry 12/31/18 12/31/18 07:37 11:56 Temperature 98.3 F Pulse Rate 74 Respiratory 18 16 Rate Blood Pressure 152/71 (mmHg) O2 Sat by Pulse 100 Oximetry Oxygen Devices in Use Now: None Appearance: Patient is a 53yo female who appears stated age and is sitting in the bed in [facility]. Eyes: No Scleral Icterus, PERRLA Ears/Nose/Mouth/Throat: NL Teeth, Lips, Gums, Clear Oropharnyx, Mucous Membranes Moist Neck: NL Appearance and Movements; NL JVP, Trachea Midline Respiratory: Symmetrical Chest Expansion and Respiratory Effort, Clear to Auscultation Cardiovascular: NL Sounds; No Murmurs; No JVD, RRR, No Edema Abdominal: NL Sounds; No Tenderness; No Distention, No Hepatosplenomegaly Lymphatic: No Cervical Adenopathy Extremities: No Edema, - - B/L UE edema. Skin: No Nodules or Sclerosis, - - Surgical scars on B/L Upper extremities from Fistula placements. Decreased redness and swelling of left arm. Neurological: Alert and Oriented x 3, NL Sensation, NL Muscle Strength and Tone , - - CN II-XII intact. Result Diagrams: 12/31/18 11:20 12/31/18 11:20 Assess/Plan/Problems-Billing Assessment: Patient is a 53yo female with a PMH for ESRD on HD, HTN, here 10 days after a fistula placement in the left arm with operative site pain and swelling with concern for infection vs Venous drainage blockage who is undergoing repeat placement of dialysis catheter and receiving antibiotics.
[2018-12-31] MEDS ORDERED: fentaNYL* 50 MCG/ML 2 ML VIAL (100 MCG VIAL) ONE ×2 (14:21→17:13)
[2018-12-31] MEDS ORDERED: Ondansetron INJ* 2 MG/ML VIAL ONE (14:22)
[2018-12-31] MEDS ORDERED: Propofol* 10 MG/ML 20 ML BTL ONE (14:22)
[2018-12-31] MEDS ORDERED: Buffered Lidocaine 1% SYRIN* 1 ML/SYRINGE INTRADERM ONE (14:57)
[2018-12-31] MEDS ORDERED: Naloxone* 0.4 MG/ML 1 ML VIAL IV PRN ×2 (14:57→15:52)
[2018-12-31] MEDS ORDERED: Midazolam* 1 MG/ML 5 ML VIAL (5 MG) ONE (14:58)
[2018-12-31] MEDS ORDERED: oxyCODONE/Acetamin 5/325 MG* TAB PO PRN (15:52)
[2018-12-31] MEDS: fentaNYL* 50 MCG/ML 2 ML VIAL (100 MCG VIAL) IV PRN ×2 (17:15→17:41)
[2018-12-31] MEDS: Metoprolol Succinate XL TAB* 25 MG PO SCH (17:19)
[2018-12-31] MEDS: NIFEdipine ER TAB* 60 MG PO SCH (17:19)
[2018-12-31] MEDS: Lisinopril TAB* 10 MG PO SCH (17:27)
[2018-12-31] MEDS: Cinacalcet TAB* 30 MG PO SCH (19:39)
[2018-12-31] MEDS: Pantoprazole TAB * 40 MG TAB PO SCH (19:44)
[2018-12-31] MEDS: NS 0.9% 1000 ML** 1,000 ML IV SCH (20:00)
[2018-12-31] MEDS: HYDROmorphone INJ1* 1 MG/ML SYRINGE IV SLOW PU PRN (20:02)
--- NOTE | 2018-12-31 20:49 | PN ---
DIALYSIS NOTE: DATE OF DIALYSIS: 12/31/18 HISTORY: The patient was seen during dialysis and tolerating the procedure well. PHYSICAL EXAMINATION: HEENT: NCAT. Heart: S1, S2 present. Regular at the time of exam. Lungs: Decreased breath sounds bilaterally. Abdomen: Soft. Extremities: The patient noted to have significant swelling of her left arm and redness around the graft. ASSESSMENT AND PLAN: Endstage renal disease, on hemodialysis, tolerating her procedure well. Care discussed with the patient. The patient also noted to have a lot of edema of the left arm with redness around the graft site, which was placed 10 days ago, likely secondary from venous hypertension with proximal obstruction. The patient is on antibiotics for possible infection/cellulitis. Appreciate Dr. Mccormack's input. Plan is for the patient to get a CT venogram to evaluate the brachiocephalic vein, internal jugular, subclavian vein in the upper chest. Also, the patient is scheduled to have her dialysis catheter removed from the left side and instead placing it on the right side. The patient is scheduled to go to the OR for this at 1 p.m. today. [id number]/[facility] #: [id number] CHICA
--- NOTE | 2018-12-31 22:23 | OP ---
CC: Dr. Santoro OPERATIVE REPORT: DATE OF OPERATION: 12/31/18 DATE OF : 63 SURGEON: Geovanni Mccormack MD ANESTHESIA: Local plus MAC. PRE-OP DIAGNOSIS: Left subclavian vein obstruction secondary to left neck hemodialysis catheter. POST-OP DIAGNOSIS: Left subclavian vein obstruction secondary to left neck hemodialysis catheter. OPERATIVE PROCEDURES: 1. Removal of left neck hemodialysis catheter. 2. Attempted access replacement of the catheter into the right jugular vein. 3. Placement of right femoral vein hemodialysis catheter. CATHETER PLACED: BioFlo DuraMax 38 cm via the right common femoral vein. ESTIMATED BLOOD LOSS: None. INDICATIONS: The patient is a 53-year-old female who approximately 2 weeks ago underwent placement o f a hemodialysis graft on the left arm. The patient was doing well postoperatively and 3 days ago ap peared in the emergency room complaining of pain and swelling of the left arm. No fever. No elevate d white count. A CT scan of the chest revealed that the hemodialysis catheter obstructs the outflow of the subclavian vein, therefore, increasing the venous pressure in the left arm significantly likel y the cause of her problem. Because of the amount of redness, it was also suspected that there could be graft infection and she was admitted for pain management, IV antibiotics, and workup of the obstr uction of the left subclavian vein. For this reason, the patient is being brought in. The CAT scan does not reveal clotting around the catheter, but rather the mechanical presence of the catheter in t he subclavian vein causes either obstruction or partial obstruction to the outflow of the arterialize d venous flow on the left arm. DESCRIPTION OF PROCEDURE: The patient was taken to the procedure room. She underwent proper identif ication of site of surgery and patient. She was placed in the supine position on an x-ray table. Sh e was prepped and draped in the usual sterile fashion. The upper chest and neck bilaterally were pre pped and draped and the proper time-out was performed. Under sedation and direct ultrasound guidance , the right neck was interrogated with the ultrasound. It was noted that the right internal jugular vein was noncompressible, completely occluded, scar tissue present. There was an external jugular ve in that would disappear behind the sternum. The external jugular vein appeared to be of inadequate s ize and we then proceeded to infiltrate lidocaine 1% to the base of the right neck and access of the external jugular vein was performed with a micropuncture kit. The small needle and the wire would go in, but it would return backwards right at above the sternum area. Multiple attempts were made to t ry to make it go down, but this was to no avail. This access was abandoned and at this point, we the n left this area prepped and draped, and prepped and draped both groins and after this was done, unde r direct ultrasound guidance, access of the right common femoral vein was done with a micropuncture k it. Once the small needle and wire were inside the common femoral vein, we then proceeded to introdu ce a 4-Pakistani catheter. Via the 4-Pakistani catheter, we proceeded to advance a 0.035 guidewire. This was done under direct fluoroscopic guidance. After this was done, we then proceeded to remove the 4- Pakistani catheter and proceeded to widen the incision at the entrance point on the right groin and use d the sequential dilators to dilate the tract and after this was done, we then proceeded to advance o nate the wire the introducer sheath under direct fluoroscopic guidance. After this was in place, we p roceeded to remove the introducer and the wire after we had tunneled the 38-cm hemodialysis catheter via a more distal counter incision that had been already tunneled towards the access incision. Once the sheath was ready to have the catheter introduced, we introduced the catheter and the sheath was s plit. The catheter was positioned in the inferior vena cava. This was tested by rapid aspiration of blood and flushing with excellent outflow and inflow in both ports. It was then flushed with saline . We then proceeded to fix the catheter in place after placing 1000 units of heparin on each port to avoid clotting of the ports. After this was done, the small access incision was closed with 4-0 Jordon ryl suture and Steri-Strips. The catheter was then fixed to the skin in 3 places, the holding hubs o n each side and the catheter itself with 4-0 Prolene suture. Dressings were applied over this area a nd after this was completed, we then proceeded to move towards the chest. Lidocaine 1% was used to i nfiltrate the surrounding area of the hemodialysis catheter and once this was done, we then proceeded to release the Elia cuff from the tissue by using mosquito clamps and once this was completely patrick e from the surrounding tissues, the catheter was then pulled back. Direct pressure was applied direc tly under the clavicle uninterrupted for 10 minutes and after this, there was no evidence of backblee ding or hematoma formation. A pressure dressing was applied under the clavicle and another pressure was applied at the exit point. The exit point was left open in case of bleeding; it will be closed l ater with Steri-Strips. The patient tolerated the procedure well and she was taken in good condition to the recovery room. [id number]/[facility] #: [id number]
[2019-01-01] MEDS ORDERED: Metoprolol Tartrate IV* 1 MG/ML 5 ML VIAL ONE (01:50)
[2019-01-01] MEDS: Metoprolol Tartrate IV* 1 MG/ML 5 ML VIAL IV PRN ×2 (02:01→19:50)
[2019-01-01] MEDS: HYDROmorphone INJ1* 1 MG/ML SYRINGE IV SLOW PU PRN ×3 (04:43→18:22)
[2019-01-01] MEDS: Acetaminophen TAB* 325 MG PO PRN ×3 (04:43→18:22)
[2019-01-01 07:09] LABS: BUN/Creatinine Ratio 6.8 (8-20); Calcium 8.5 mg/dL (8.6-10.3); EGFR African American 7.3 (>60)
[2019-01-01 07:11] LABS: Potassium 5.1 mmol/L (3.5-5.0)
[2019-01-01 07:19] LABS: ABS Basophils 0.1 10^3/ul (0-0.2); ABS Eosinophils 0.3 10^3/ul (0-0.6); ABS Lymphocytes 0.8 10^3/ul (1.0-4.8); ABS Monocytes 0.8 10^3/ul (0-0.8); ABS Neutrophils 4.5 10^3/ul (1.5-7.7); Eosinophil % 4.6 %; Hematocrit 31 % (35-47); Mean Corpuscular HGB Conc 33 g/dL (31-36); Mean Corpuscular Hemoglobin 31 pg (27-31); Mean Corpuscular Volume 95 fL (80-97); Mean Platelet Volume 9.9 fL (7.4-10.4); Platelet Count 179 10^3/uL (150-450); Red Blood Count 3.21 10^6 /uL (3.70-4.87); Red Cell Distribution Width 17 % (10.5-15); White Blood Count 6.5 10^3/uL (3.5-10.8)
[2019-01-01] MEDS: Sevelamer TAB* 800 MG PO SCH ×3 (08:02→17:05)
[2019-01-01] MEDS: Brimonidine P 0.15%(NF) OPH SOL 5 ML BTL RIGHT EYE SCH ×3 (08:15→21:51)
[2019-01-01] MEDS: Lisinopril TAB* 10 MG PO SCH (17:04)
[2019-01-01] MEDS: Pantoprazole TAB * 40 MG TAB PO SCH (17:04)
[2019-01-01] MEDS: Cinacalcet TAB* 30 MG PO SCH (17:04)
[2019-01-01] MEDS: NIFEdipine ER TAB* 60 MG PO SCH (17:04)
[2019-01-01] MEDS: Metoprolol Succinate XL TAB* 25 MG PO SCH (17:04)
--- NOTE | 2019-01-01 17:34 | PN ---
Subjective Date of Service: 01/01/19 Interval History: Patient seen and examined. Complaining of LUE soreness and edema. Denies fever or chills, no SOB or respiratory complaints. No n/v. at bedside. Family History: Unchanged from Admission Social History: Unchanged from Admission Past Medical History: Unchanged from Admission Objective Active Medications: Acetaminophen (Tylenol Tab*) 650 mg PO Q4H PRN PRN Reason: PAIN Last Admin: 01/01/19 10:50 Dose: 650 mg Brimonidine Tartrate (Alphagan P 0.15%(Nf)) 1 drop RIGHT EYE TID [facility] Last Admin: 01/01/19 13:40 Dose: Not Given Cinacalcet (Sensipar Tab*) 90 mg PO QPM [facility] Last Admin: 01/01/19 17:04 Dose: 90 mg Hydromorphone HCl (Dilaudid Inj1s*) 0.5 mg IV SLOW PU Q4H PRN PRN Reason: PAIN Last Admin: 01/01/19 10:49 Dose: 0.5 mg Sodium Chloride (Ns 0.9% 1000 Ml) 1,000 mls @ 25 mls/hr IV PER RATE [facility] Last Admin: 12/31/18 20:00 Dose: 25 mls/hr Lisinopril (Prinivil Tab*) 40 mg PO QPM [facility] Last Admin: 01/01/19 17:04 Dose: 40 mg Metoprolol Succinate (Toprol Xl Tab*) 25 mg PO QPM [facility] Last Admin: 01/01/19 17:04 Dose: 25 mg Metoprolol Tartrate (Lopressor Iv*) 5 mg IV Q6H PRN PRN Reason: BLOOD PRESSURE Last Admin: 01/01/19 02:01 Dose: 5 mg Nifedipine (Procardia Xl Tab*) 60 mg PO QPM [facility] Last Admin: 01/01/19 17:04 Dose: 60 mg Ondansetron HCl (Zofran Inj*) 4 mg IV Q6H PRN PRN Reason: NAUSEA Ondansetron HCl (Zofran Odt Tab*) 4 mg PO Q6HR PRN PRN Reason: NAUSEA Oxycodone/Acetaminophen (Percocet 5/325 Tab*) 1 tab PO Q4H PRN PRN Reason: PAIN MODERATE Pantoprazole Sodium (Protonix Tab*) 40 mg PO QPM [facility] Last Admin: 01/01/19 17:04 Dose: 40 mg Pharmacy Consult (Vancomycin Random Level*) 1 note FOLLOW UP 0700 ONE Stop: 01/02/19 07:01 Pharmacy Consult (Vancomycin - Dialysis Dosing*) 1 note FOLLOW UP . [facility] Sevelamer Carbonate (Renvela Tab*) 2,400 mg PO AC [facility] Last Admin: 01/01/19 17:05 Dose: 2,400 mg Vital Signs - 8 hr 01/01/19 01/01/19 01/01/19 10:49 11:28 11:48 Temperature 97.9 F Pulse Rate 67 Respiratory 18 16 16 Rate Blood Pressure 183/78 (mmHg) O2 Sat by Pulse 100 Oximetry 01/01/19 01/01/19 01/01/19 12:02 14:41 16:16 Temperature 98.1 F Pulse Rate 70 Respiratory 20 Rate Blood Pressure 168/78 183/73 (mmHg) O2 Sat by Pulse 100 93 Oximetry 01/01/19 16:29 Temperature Pulse Rate Respiratory Rate Blood Pressure 168/78 (mmHg) O2 Sat by Pulse Oximetry Oxygen Devices in Use Now: None Appearance: alert, ill-appearing Eyes: No Scleral Icterus, PERRLA Ears/Nose/Mouth/Throat: NL Teeth, Lips, Gums, Mucous Membranes Moist Neck: NL Appearance and Movements; NL JVP, Trachea Midline Respiratory: Symmetrical Chest Expansion and Respiratory Effort, Clear to Auscultation Cardiovascular: NL Sounds; No Murmurs; No JVD, - - LUE edema distal to surgical site Abdominal: NL Sounds; No Tenderness; No Distention Skin: - - erythema to LUE above AC fossa Neurological: Alert and Oriented x 3 Result Diagrams: 01/01/19 06:30 01/01/19 06:30 Microbiology and Other Data: Microbiology 12/30/18 16:21 Aerobic Blood Culture - Preliminary Blood Venous No Growth Day 2 Anaerobic Blood Culture - Preliminary No Growth Day 2 12/30/18 16:00 Aerobic Blood Culture - Preliminary Blood Venous No Growth Day 2 Anaerobic Blood Culture - Preliminary No Growth Day 2 Assess/Plan/Problems-Billing Assessment: Patient is a 53yo female with a PMH for ESRD on HD, HTN, here 10 days after a fistula placement in the left arm with operative site pain and swelling with concern for infection vs Venous drainage blockage who is undergoing repeat placement of dialysis catheter and receiving antibiotics. - Patient Problems (1) Subclavian vein occlusion, left Code(s): I82.B12 - ACUTE EMBOLISM AND THROMBOSIS OF LEFT SUBCLAVIAN VEIN SNOMED Code(s): 176208435 Comment: - POD1, removal of left neck dialysis catheter and replaced with right femoral vein dialysis catheter - Local wound care to removal and insertion sites (2) Cellulitis Code(s): L03.90 - CELLULITIS, UNSPECIFIED SNOMED Code(s): 536690869 Comment: - LUE remains erythematous and warm, no fever, no white count, does not appear toxic, may be related to lack of venous drainage/blockage vs cellulitis - Dialysis catheter removed by Dr. Mccormack 12/31 - Will continue another 24 hours of vancomycin and continue to monitor site (3) HTN (hypertension) Code(s): I10 - ESSENTIAL (PRIMARY) HYPERTENSION SNOMED Code(s): 69270871 Comment: - continue medical management and dialysis, periods of accelerated HTN over the last several hospitalizations - continue lisinopril and metoprolol (4) ESRD (end stage renal disease) Code(s): N18.6 - END STAGE RENAL DISEASE SNOMED Code(s): 09859789 Comment: - Home schedule of //Sun - Dr. Hamlin following (5) Pulmonary edema Code(s): J81.1 - CHRONIC PULMONARY EDEMA SNOMED Code(s): 81760573 Comment: - Chronic, 2/2 ESRD, currently stable (6) Full code status Code(s): Z78.9 - OTHER SPECIFIED HEALTH STATUS SNOMED Code(s): 015961968 Status and Disposition: Inpatient, anticipated DC tomorrow.
[2019-01-01] MEDS: cloNIDine TAB* 0.1 MG PO SCH (23:06)
[2019-01-02] MEDS ORDERED: [UNRECOGNIZED DRUG - REMARK] FOLLOW UP ONE (07:00)
[2019-01-02] MEDS: Sevelamer TAB* 800 MG PO SCH ×3 (08:35→17:20)
[2019-01-02] MEDS: cloNIDine TAB* 0.1 MG PO SCH ×3 (08:36→20:17)
[2019-01-02] MEDS: Brimonidine P 0.15%(NF) OPH SOL 5 ML BTL RIGHT EYE SCH ×3 (08:36→20:17)
[2019-01-02] MEDS: oxyCODONE/Acetamin 5/325 MG* TAB PO PRN ×2 (08:40→17:28)
[2019-01-02] MEDS ORDERED: Vancomycin(*) 1,500 MG in NS 0.9% 250 ML* 250 ML IVPB SCH (09:00)
[2019-01-02] MEDS ORDERED: EPOETIN ALFA-EPBX * 3,000 UNIT/ML VIAL IV ONE (10:00)
[2019-01-02] MEDS ORDERED: Heparin DIALYSIS ONLY(*) 1,000 UNITS/ML VIAL DIALYSIS ONE (10:00)
[2019-01-02] MEDS ORDERED: EPOETIN ALFA-EPBX * 4,000 UNIT/ML VIAL IV ONE (10:00)
[2019-01-02] MEDS ORDERED: Vancomycin(*) 500 MG in NS 0.9% 250 ML* 250 ML IVPB ONE (13:00)
[2019-01-02] MEDS: NS 0.9% 1000 ML** 1,000 ML IV SCH (14:04)
[2019-01-02] MEDS ORDERED: diPHENhydraMINE PO* 25 MG PO PRN (14:20)
--- NOTE | 2019-01-02 16:40 | PN ---
Subjective Date of Service: 01/02/19 Interval History: Patient seen and examined in dialysis. Still complains moderate to severe pain and edema in LUE. Denies fevers or chills, no n/v, no abdominal pain. Tolerating dialysis without issue. No acute overnight events. Family History: Unchanged from Admission Social History: Unchanged from Admission Past Medical History: Unchanged from Admission Objective Active Medications: Acetaminophen (Tylenol Tab*) 650 mg PO Q4H PRN PRN Reason: PAIN Last Admin: 01/01/19 18:22 Dose: 650 mg Brimonidine Tartrate (Alphagan P 0.15%(Nf)) [address] [facility] Last Admin: 01/02/19 14:03 Dose: 1 drop Cinacalcet (Sensipar Tab*) [address] [facility] Last Admin: 01/01/19 17:04 Dose: 90 mg Clonidine HCl (Catapres Tab*) 0.[address] [facility] Last Admin: 01/02/19 14:03 Dose: 0.1 mg Diphenhydramine HCl (Benadryl Po*) 25 mg PO Q6H PRN PRN Reason: prior to vancomycin Last Admin: 01/02/19 14:26 Dose: 25 mg Hydromorphone HCl (Dilaudid Inj1s*) 0.5 mg IV SLOW PU Q4H PRN PRN Reason: PAIN Last Admin: 01/01/19 18:22 Dose: 0.5 mg Sodium Chloride (Ns 0.9% 1000 Ml) 1,000 mls @ 25 mls/hr IV PER RATE [facility] Last Admin: 01/02/19 14:04 Dose: 25 mls/hr Lisinopril (Prinivil Tab*) 40 mg PO QPM [facility] Last Admin: 01/01/19 17:04 Dose: 40 mg Metoprolol Succinate (Toprol Xl Tab*) [address] [facility] Last Admin: 01/01/19 17:04 Dose: 25 mg Metoprolol Tartrate (Lopressor Iv*) 5 mg IV Q6H PRN PRN Reason: BLOOD PRESSURE Last Admin: 01/01/19 19:50 Dose: 5 mg Nifedipine (Procardia Xl Tab*) [address] [facility] Last Admin: 01/01/19 17:04 Dose: 60 mg Ondansetron HCl (Zofran Inj*) 4 mg IV Q6H PRN PRN Reason: NAUSEA Ondansetron HCl (Zofran Odt Tab*) 4 mg PO Q6HR PRN PRN Reason: NAUSEA Oxycodone/Acetaminophen (Percocet 5/325 Tab*) 1 tab PO Q4H PRN PRN Reason: PAIN MODERATE Last Admin: 01/02/19 08:40 Dose: 1 tab Pantoprazole Sodium (Protonix Tab*) [address] [facility] Last Admin: 01/01/19 17:04 Dose: 40 mg Pharmacy Consult (Vancomycin - Dialysis Dosing*) [address] [facility] Pharmacy Consult (Vancomycin Random Level*) 1 note FOLLOW UP ONCE ONE Stop: 01/06/19 05:31 Sevelamer Carbonate (Renvela Tab*) 2,[address] [facility] Last Admin: 01/02/19 12:35 Dose: 2,400 mg Vital Signs - 8 hr 01/02/19 01/02/19 01/02/19 08:40 11:38 14:26 Temperature Pulse Rate Respiratory 18 18 16 Rate Blood Pressure (mmHg) O2 Sat by Pulse 100 Oximetry 01/02/19 01/02/19 15:14 15:33 Temperature 98.3 F Pulse Rate 66 Respiratory 16 Rate Blood Pressure 142/65 (mmHg) O2 Sat by Pulse 100 100 Oximetry Oxygen Devices in Use Now: None Appearance: alert, NAD Eyes: No Scleral Icterus, PERRLA Ears/Nose/Mouth/Throat: NL Teeth, Lips, Gums, Mucous Membranes Moist Neck: NL Appearance and Movements; NL JVP, Trachea Midline Respiratory: Symmetrical Chest Expansion and Respiratory Effort Cardiovascular: NL Sounds; No Murmurs; No JVD, RRR Abdominal: NL Sounds; No Tenderness; No Distention Extremities: No Clubbing, Cyanosis, - - LUE with edema down throught the hand and fingers; persistent erythema and firmness above the AC fossa; right femoral dialysis cath access site CDI Neurological: Alert and Oriented x 3, NL Sensation Nutrition: Taking PO's Result Diagrams: 01/01/19 06:30 01/01/19 06:30 Microbiology and Other Data: Microbiology 12/30/18 16:21 Aerobic Blood Culture - Preliminary Blood Venous No Growth Day 2 Anaerobic Blood Culture - Preliminary No Growth Day 2 12/30/18 16:00 Aerobic Blood Culture - Preliminary Blood Venous No Growth Day 2 Anaerobic Blood Culture - Preliminary No Growth Day 2 Assess/Plan/Problems-Billing Assessment: Patient is a 53yo female with a PMH for ESRD on HD, HTN, here 10 days after a fistula placement in the left arm with operative site pain and swelling with concern for infection vs Venous drainage blockage who is undergoing repeat placement of dialysis catheter and receiving antibiotics. - Patient Problems (1) Subclavian vein occlusion, left Code(s): I82.B12 - ACUTE EMBOLISM AND THROMBOSIS OF LEFT SUBCLAVIAN VEIN SNOMED Code(s): 579479232 Comment: - POD2, removal of left neck dialysis catheter and replaced with right femoral vein dialysis catheter - Local wound care to removal and insertion sites (2) Cellulitis Code(s): L03.90 - CELLULITIS, UNSPECIFIED SNOMED Code(s): 836865932 Comment: - LUE remains erythematous and warm, no fever, no white count, does not appear toxic, may be related to lack of venous drainage/blockage vs cellulitis - Dialysis catheter removed by Dr. Mccormack 12/31 - Concern that erythema is not clearing, will consult ID in the AM (3) HTN (hypertension) Code(s): I10 - ESSENTIAL (PRIMARY) HYPERTENSION SNOMED Code(s): 56856038 Comment: - continue medical management and dialysis, periods of accelerated HTN over the last several hospitalizations - continue lisinopril and metoprolol (4) ESRD (end stage renal disease) Code(s): N18.6 - END STAGE RENAL DISEASE SNOMED Code(s): 61490123 Comment: - Home schedule of //Sun - Dr. Hamlin following (5) Pulmonary edema Code(s): J81.1 - CHRONIC PULMONARY EDEMA SNOMED Code(s): 47683487 Comment: - Chronic, 2/2 ESRD, currently stable (6) Full code status Code(s): Z78.9 - OTHER SPECIFIED HEALTH STATUS SNOMED Code(s): 358621734 Status and Disposition: Inpatient, will re-eval cellulitis in AM, possible DC tomorrow.
[2019-01-02] MEDS: Lisinopril TAB* 10 MG PO SCH (17:21)
[2019-01-02] MEDS: Metoprolol Succinate XL TAB* 25 MG PO SCH (17:21)
[2019-01-02] MEDS: Cinacalcet TAB* 30 MG PO SCH (17:21)
[2019-01-02] MEDS: NIFEdipine ER TAB* 60 MG PO SCH (17:21)
[2019-01-02] MEDS: Pantoprazole TAB * 40 MG TAB PO SCH (17:21)
--- NOTE | 2019-01-02 23:55 | PN ---
DIALYSIS NOTE: DATE OF DIALYSIS: 01/02/19 SUBJECTIVE: The patient was seen and examined during dialysis. The patient tolerated this well with no complaints. Orders were discussed with nurse. PHYSICAL EXAMINATION: HEENT: NCAT. Heart: S1, S2 present. Regular at the time of exam. Lungs: Decreased breath sounds bilaterally. Abdomen: Soft. Extremities: Left arm swelling and erythema noted to be improved. ASSESSMENT AND PLAN: 1. Subclavian vein occlusion on the left and the patient's presentation with swelling and erythema likely from venous hypertension, being covered for infection, but her presentation is more likely to be secondary from her venous hypertension. Appreciate Dr. Mccormack's input. 2. Interestingly, the patient's old records were reviewed and when the patient was seen recently for volume overload and pulmonary edema during her recent hospitalization, I sent out ANCA and PR3 level on the patient and these are noted to be positive. The patient does have multiple hospitalizations more recently. In discussion with the patient, it appears that the patient has been on dialysis since 2016 and it was initiated in [place] and the patient has been on hydralazine for about 2 years and reports that this was stopped in 2018. Hydralazine can cause drug-induced vasculitis, but if it is drug induced , this should improve. The patient is also a terrible candidate for any treatment for vasculitis; however, with her clinical condition not worsening and multiple repeat hospitalization, would have to wonder if she truly does have vasculitis, which is causing her deterioration, in which case she may benefit from treatment. Discussed option of getting arterial biopsy to confirm this further with Dr. Mccormack who can consider this and do this with her next procedure. 3. In the interim, if the patient is discharged, the patient can follow up for outpatient dialysis on Sunday. If she continues to stay in the hospital, we will plan dialysis accordingly. 4. We will also recommend checking antiphospholipid antibody on the patient and we will also discuss case with Dr. Santoro who is familiar with her. [id number]/[facility] #: [id number] CHICA
[2019-01-03] MEDS: Metoprolol Tartrate IV* 1 MG/ML 5 ML VIAL IV PRN ×2 (00:08→14:22)
[2019-01-03] MEDS: cloNIDine TAB* 0.1 MG PO SCH ×2 (09:06→12:40)
[2019-01-03] MEDS: Sevelamer TAB* 800 MG PO SCH ×3 (09:06→18:21)
[2019-01-03] MEDS: Brimonidine P 0.15%(NF) OPH SOL 5 ML BTL RIGHT EYE SCH ×2 (09:06→15:50)
[2019-01-03 11:37] LABS: ABS Basophils 0.1 10^3/ul (0-0.2); ABS Eosinophils 0.2 10^3/ul (0-0.6); ABS Lymphocytes 0.9 10^3/ul (1.0-4.8); ABS Monocytes 0.6 10^3/ul (0-0.8); ABS Neutrophils 3.6 10^3/ul (1.5-7.7); Eosinophil % 4.5 %; Hematocrit 31 % (35-47); Hemoglobin 9.7 g/dL (12.0-16.0); Lymphocyte % 16.9 %; Mean Corpuscular HGB Conc 32 g/dL (31-36); Mean Corpuscular Hemoglobin 30 pg (27-31); Mean Corpuscular Volume 96 fL (80-97); Mean Platelet Volume 10.2 fL (7.4-10.4); Platelet Count 153 10^3/uL (150-450); Red Blood Count 3.19 10^6 /uL (3.70-4.87); Red Cell Distribution Width 17 % (10.5-15); White Blood Count 5.3 10^3/uL (3.5-10.8)
[2019-01-03 11:45] LABS: Calcium 8.3 mg/dL (8.6-10.3); EGFR African American 8.2 (>60); EGFR Non-African American 6.8 (>60); Potassium 4.3 mmol/L (3.5-5.0)
[2019-01-03] MEDS ORDERED: Heparin DIALYSIS ONLY(*) 1,000 UNITS/ML VIAL DIALYSIS ONE (12:00)
[2019-01-03 13:02] LABS: Hepatitis B Surface Antigen Nonreactive (Nonreactive)
[2019-01-03] MEDS: HYDROmorphone INJ1* 1 MG/ML SYRINGE IV SLOW PU PRN (14:22)
[2019-01-03] MEDS: Cinacalcet TAB* 30 MG PO SCH (18:19)
[2019-01-03] MEDS: Lisinopril TAB* 10 MG PO SCH (18:20)
[2019-01-03] MEDS: Metoprolol Succinate XL TAB* 25 MG PO SCH (18:20)
[2019-01-03] MEDS: NIFEdipine ER TAB* 60 MG PO SCH (18:20)
[2019-01-03] MEDS: Pantoprazole TAB * 40 MG TAB PO SCH (18:20)
[2019-01-03] MEDS: oxyCODONE/Acetamin 5/325 MG* TAB PO PRN (19:39)
[2019-01-03 20:35] VITALS: BP 167/76
--- NOTE | 2019-01-04 00:17 | PN ---
DIALYSIS NOTE: DATE OF DIALYSIS: 01/03/19 SUBJECTIVE: The patient was seen and examined during dialysis, tolerating the session well, dialyzed today as we do not have acute dialysis over the weekend in case the patient stays. PHYSICAL EXAM: HEENT: NCAT. Heart: S1, S2 present. Regular at time of exam. Lungs: Decreased br eath sounds bilaterally. Abdomen: Soft. Extremities: Left arm swelling and erythema noted to be i mproved. ASSESSMENT AND PLAN: 1. Subclavian vein occlusion on the left and the patient's presentation with the swelling and erythe ma likely from venous hypertension, being covered for infection. The patient was seen by Dr. Mccormack. 2. Please see prior note. ANCA and PR3 noted to be positive. 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 The patient is a terrible candidate for treatment of her vasculitis and immunosuppres javon; however, the patient has active vasculitis that would also explain the patient's multiple hospi talization. I discussed option of getting arterial biopsy with Dr. Mccormack with one of his next proce dures. 3. We will follow the patient with the medical team. 4. Also recommend checking antiphospholipid antibody. [id number]/[facility] #: [id number]
--- NOTE | 2019-01-04 04:18 | DS ---
CC: Dr. Lockhart; Dr. Santoro; Dr. Mccormack * DISCHARGE SUMMARY: DATE OF ADMISSION: 12/30/18 DATE OF DISCHARGE: 01/03/19 ATTENDING PHYSICIAN: Dr. Lauryn Vanessa *(dictated by VIANEY Foster). PRIMARY CARE PROVIDER: Dr. Lockhart. JUNIOR MANUFACTURING ENGINEER: Dr. Santoro. VASCULAR SURGEON: Dr. Mccormack. PRIMARY DIAGNOSES: 1. 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 2. Venous hypertension. SECONDARY DIAGNOSES: 1. End-stage renal disease, on hemodialysis. 2. History of failed arteriovenous fistula. 3. Hypertension. 4. Gastroesophageal reflux disease. 5. Drug-induced lupus. PROCEDURES: Performed by Dr. Mccormack on 12/31/18. 1. Removal of left neck hemodialysis catheter. 2. Attempted access replacement of the catheter of right jugular vein. 3. Placement of right femoral vein hemodialysis catheter. STUDIES: Venous Doppler study of left arm on 12/30/18, impression: No left upper extremity deep vein thrombosis. Upper extremity CT on 12/30/18, impression: 1. Subcutaneous edema to left upper extremity and shoulder and subcutaneous edema along the lateral left chest wall with trace fluid along the surface of the involved musculature. 2. Dialysis graft medial left arm which appears to be patent. 3. Patent left brachial and axillary veins. Chest CT, 12/30/18, impression: 1. Left jugular internal dialysis catheter to the cavoatrial junction. The catheter fills the left brachiocephalic vein and may occlude any venous flow through . The subclavian veins are patent bilaterally. There is suggestion of some narrowing or compression of the right brachiocephalic vein, although the right subclavian vein appears to be patent. Some collateralization is suggested through the internal mammary veins bilaterally and subcutaneous veins are noted in the anterior chest wall. 2. Slight interstitial prominence and mild dependent atelectasis. 3. Cholelithiasis. 4. Left renal atrophy. PERTINENT LAB DATA: White blood cell count 8.2 on admission. Potassium 4.3 at discharge. Creatinine 6.38 at discharge. DISCHARGE MEDICATIONS: Percocet 5/325 one tab p.o. q.6 hours p.r.n. severe pain x4 days. Continued home medications: 1. Renvela 2400 mg p.o. a.c. 2. Pantoprazole 40 mg p.o. q.p.m. 3. Zofran 4 mg p.o. q.6 hours p.r.n. nausea and vomiting. 4. Nifedipine 60 mg p.o. q.p.m. 5. Metoprolol succinate 25 mg p.o. q.p.m. 6. Lisinopril 40 mg p.o. q.p.m. 7. Cinacalcet 90 mg p.o. q.p.m. 8. Brimonidine 1 drop right eye t.i.d. 9. Tylenol 650 p.o. q.4 hours p.r.n. pain. HISTORY OF PRESENT ILLNESS/HOSPITAL COURSE: Ms. Penny is a 53-year-old female with past medical history significant for end-stage renal disease due to hypertension, on hemodialysis, drug-induced lupus, GERD who presented to emergency department approximately 10 days after having dialysis graft to left upper extremity. She had a followup appointment with her vascular surgeon, Dr. Mccormack, several days after that where she was progressing well, but the patient continued to have left upper extremity swelling and erythema and pain that continued to worsen. During her hospital stay, there was concern for cellulitis ; however, Dr. Mccormack believed that all of the erythema is due to the postprocedural state and will take quite some time for the erythema to decrease. During her hospital stay, her erythema has not worsened, her edema has improved in her left upper extremity and the pain is minimally improving. There was no leukocytosis during her hospital stay and the patient was afebrile during the course of her stay, again making cellulitis less likely. The patient received surgery to have left neck catheter removed to help assist venous outflow through left upper extremity which Dr. Mccormack believes was the main contributing factor which caused venous hypertension. The patient has since been receiving dialysis through right groin catheter and will continue to make use of this until AV graft is matured. The patient received dialysis on day of discharge. Due to the concern for possible cellulitis, the patient was receiving vancomycin; however, this will not be continued further. For treatment of her GERD, her home PPI was continued. For treatment of her hypertension, her home metoprolol, lisinopril, and nifedipine were continued. The patient was overall normotensive towards the last several days of her hospitalization, but did occasionally have blood pressure with systolic to the 160s. On day of discharge, the patient is overall feeling well. She feels the pain in her left upper extremity is improved but is still present. She agrees that the swelling to her left arm is improved. She has no complaints of chest pain, difficulty breathing, fevers, chills, abdominal pain, nausea, or vomiting. Of note, the patient only speaks Romansh. The majority of her history was gathered by this semiconductor lab technician in Romansh but with additional translation assistance from the patient's . REVIEW OF SYSTEMS: An 11-point review of systems was completed and all pertinent positives and negatives are above in the HPI. All other systems are negative. PHYSICAL EXAMINATION: General: Thin female, appears older than stated age, sitting upright over edge of hospital bed with her at the bedside, appearing in no acute distress Head: Normocephalic, atraumatic. Eyes: PERRL. Sclerae anicteric. ENT: Mucous membranes moist. Neck: Supple. Range of motion within normal limits. Chest: Regular rate and rhythm with no murmurs , rubs, or gallops. Lungs: Lungs are clear to auscultation throughout. Abdomen: Abdomen is soft, nontender, nondistended. Extremities: +2 nonpitting edema throughout left upper extremity from shoulder to hand. Region of erythema isolated in an approximately 10 cm area superior to left antecubital fossa. Tenderness to region of erythema, but otherwise nontender throughout the rest of left upper extremity. No edema, erythema, clubbing, or cyanosis to other extremities. Neuro: The patient is alert and oriented x3. No focal deficits. DISCHARGE PLAN: Diet: Renal diet. Activity: The patient is to return to regular activity. Condition on discharge: Stable. Disposition: Home. The patient is to return to her normal dialysis schedule of Sunday, , Sunday. The patient was notified to go to dialysis tomorrow (Sunday). This was confirmed with Dr. Hamlin. The patient was advised to follow up with her primary care provider regarding this hospitalization and possible further control of her hypertension. It was suggested to the patient that she check her blood pressure once or twice prior to her appointment with her primary care provider, Dr. Lockhart, between now and her appointment. The patient felt that her pain was difficult to manage and was provided with Percocet and was otherwise advised to use Tylenol for pain control. The [facility] reference number is [id number]. The patient was advised to return to the emergency department if she has chest pain, shortness of breath, if erythema worsens, if she develops fever or chills, the erythema or edema worsens. For her hypertension, the patient is to continue her home nifedipine, metoprolol , and lisinopril. For GERD, the patient is to continue her home pantoprazole. In regards to further treatment of her end-stage renal disease, she should continue her home Renvela and cinacalcet. The patient is to follow up on with Dr. Mccormack. Of note, Dr. Mccormack will be out of town until this date and is unable to see the patient earlier than this. At time of followup, it will be determined if the patient needs vascular biopsy as she was found to be ANCA positive and there is a possibility of vasculitis contributing to her vein occlusion. TIME SPENT: Approximately 55 minutes was spent on this discharge, approximately half of this time was spent at bedside. VIANEY FOSTER [id number]/[facility] #: [id number] MTDKatie
[2019-01-06] MEDS ORDERED: Vancomycin Random Level* NOTE FOLLOW UP ONE (05:30)
== END 2019-01-03 20:15 | disposition home or self-care (01) | DRG 314 ==
LOC: ED 12:48 → MED 18:14 → OBSVTOIN 12-31 14:00
PROVIDERS: ADMIT Internal Medicine; ATTEND Internal Medicine
PROC: 05PY33Z Removal of Infusion Device from Upper Vein, Percutaneous Approach (ICD-10-PCS; 2018-12-31)
PROC: 06HM33Z Insertion of Infusion Device into Right Femoral Vein, Percutaneous Approach (ICD-10-PCS; 2018-12-31)
PROC: B54BZZA Ultrasonography of Right Lower Extremity Veins, Guidance (ICD-10-PCS; 2018-12-31)
PROC: 5A1D70Z Performance of Urinary Filtration, Intermittent, Less than 6 Hours Per Day (ICD-10-PCS; 2018-12-31)
PROC: 0JHL3XZ Insertion of Tunneled Vascular Access Device into Right Upper Leg Subcutaneous Tissue and Fascia, Percutaneous Approach (ICD-10-PCS; principal; 2018-12-31 10:00)
DX: T82.868A Thrombosis due to vascular prosthetic devices, implants and grafts, initial encounter (principal); N18.6 End stage renal disease; I12.0 Hypertensive chronic kidney disease with stage 5 chronic kidney disease or end stage renal disease; L03.114 Cellulitis of left upper limb; I82.B12 Acute embolism and thrombosis of left subclavian vein; J81.1 Chronic pulmonary edema; H46.9 Unspecified optic neuritis; Y82.8 Other medical devices associated with adverse incidents; M32.0 Drug-induced systemic lupus erythematosus; K80.20 Calculus of gallbladder without cholecystitis without obstruction; N20.0 Calculus of kidney; J45.909 Unspecified asthma, uncomplicated; I87.309 Chronic venous hypertension (idiopathic) without complications of unspecified lower extremity; K21.9 Gastro-esophageal reflux disease without esophagitis; Y92.9 Unspecified place or not applicable; Z99.2 Dependence on renal dialysis; Z88.8 Allergy status to other drugs, medicaments and biological substances; Z98.41 Cataract extraction status, right eye; Z82.49 Family history of ischemic heart disease and other diseases of the circulatory system; Z83.3 Family history of diabetes mellitus
CPT/HCPCS: 36415; 71260; 76000; 80048; 80053; 80202; 83605; 83735; 84100; 85025; 85610; 85730; 86140; 87040; 87340; 90935; 99284; A9270-GY; C1750; G0257; G0378; J1170; J1644; J2250; J2270; J2405; J2543; J2704; J3010; J3370; J3490; Q5106; Q9967

== ENCOUNTER 2019-01-10 12:48 | Day surgery (SDC) | payer MEDICARE, MEDICAID ==
--- NOTE | 2019-01-09 12:23 | HP ---
HISTORY AND PHYSICAL UPDATE ADDENDUM: DATE OF ADMISSION: 01/10/19 ATTENDING PROVIDER: Dr. Mccormack * (DICTATED BY HUSSEIN BENITES NP) The patient was last in on 12/31/18 for placement of a right femoral vein hemodialysis catheter. Prior to that, on 12/20/18, she underwent arteriovenous brachial graft to the left arm, a GORE PROPATEN tapered 4 to 6 mm. The dialysis unit called this morning and notes that they are unable to use the femoral hemodialysis catheter. They were able to remove blood from it, but they are unable to dialyze her. The patient is now returning to the OR. They also tried using the new graft, but were unable to use that as well. She is now returning to the operating room for right femoral tunneled dialysis catheter removal with possible exchange. PAST MEDICAL HISTORY: 1. End-stage renal disease. 2. Hypertension. 3. Kidney disease. 4. Ulcerative colitis. 5. Heart disease. 6. She has a history in 2015 of an arteriolovenous fistula that failed that was put in, in [place]. 7. She has a history of C-sections in 1990, 1994, and 1998. MEDICATIONS: 1. Brimonidine tartrate 0.15%. 2. Lisinopril 40 mg. 3. Metoprolol succinate ER 25 mg. 4. Nifedipine ER asthmatic release 60 mg. 5. Ondansetron 4 mg. 6. Pantoprazole sodium 40 mg. 7. Renvela 800 mg. 8. Sensipar 90 mg. ALLERGIES: ASPIRIN and HYDRALAZINE. PHYSICAL EXAMINATION VITAL SIGNS: Height is 5 feet 2 inches, weight 123 pounds. Blood pressure 145/ , pulse is 76, respirations 18. IMPRESSION: Failed right hemodialysis catheter, status post left arm arteriovenous graft. PLAN/RECOMMENDATIONS: Same-day surgery admission to Dr. Mccormack's service for right femoral tunnel dialysis catheter removal with possible exchange. HUSSEIN BENITES NP [id number]/[facility] #: [id number] [facility]
[~2019-01-10 12:48] MED LIST changes: +Famotidine IV* 10 MG/ML 2 ML (20 mg) IV ONE; +NS 0.9% 500 ML* 500 ML IV SCH; -ceFAZolin 1 GM* X ONE DOSE (AddVan) IVPB
[2019-01-10] MEDS ORDERED: Famotidine IV* 10 MG/ML 2 ML (20 mg) ONE (13:12)
[2019-01-10] MEDS ORDERED: Buffered Lidocaine 1% SYRIN* 1 ML/SYRINGE INTRADERM ONE (13:12)
[2019-01-10] MEDS ORDERED: ceFAZolin 2 GM PREMIX in ORs 2 GM/50 ML BAG ONE (14:01)
[2019-01-10] MEDS ORDERED: Lidocaine 1% INJ* 10 MG/ML 30 ML SDV ONE (17:51)
[2019-01-10] MEDS ORDERED: Heparin 2 UNITS/ML IVPREMIX* 1,000 ML IV ONE (17:51)
[2019-01-10] MEDS ORDERED: Heparin VIAL(*) 5000 UNITS/ML VIAL (FIVE THOUSAND) ONE (17:51)
[2019-01-10] MEDS ORDERED: Iohexol 180 (CONTRAST) 10 ML SDV IV ONE (17:53)
[2019-01-10] MEDS ORDERED: Midazolam* 1 MG/ML 5 ML VIAL (5 MG) ONE ×2 (18:05→18:37)
[2019-01-10] MEDS ORDERED: fentaNYL* 50 MCG/ML 2 ML VIAL (100 MCG VIAL) ONE ×3 (18:32→20:17)
[2019-01-10] MEDS ORDERED: Heparin DIALYSIS ONLY(*) 1,000 UNITS/ML VIAL ONE (19:08)
[2019-01-10] MEDS ORDERED: Midazolam* 1 MG/ML 2 ML VIAL (2 MG) ONE (20:22)
[2019-01-10] MEDS ORDERED: HYDROmorphone INJ1* 1 MG/ML SYRINGE IV PRN (20:45)
[2019-01-10] MEDS ORDERED: fentaNYL* 50 MCG/ML 2 ML VIAL (100 MCG VIAL) IV PRN (20:45)
[2019-01-10] MEDS ORDERED: Ondansetron INJ* 2 MG/ML VIAL IV PRN (20:45)
[2019-01-10] MEDS ORDERED: Naloxone* 0.4 MG/ML 1 ML VIAL IV PRN (20:45)
[2019-01-10] MEDS ORDERED: oxyCODONE/Acetamin 5/325 MG* TAB ONE (21:15)
[2019-01-10 21:17] VITALS: BP 196/116
--- NOTE | 2019-01-11 00:12 | OP ---
DATE OF OPERATION: 01/10/19 [facility] DATE OF : 63 SURGEON: Geovanni Mccormack MD ANESTHESIA: Local, tumescent. PRE-OP DIAGNOSIS: End-stage renal disease. POST-OP DIAGNOSES: 1. End-stage renal disease. 2. Malfunctioning of right femoral tunneled dialysis catheter. 3. Rule out stenosis of the outflow of the left brachial graft. 4. Rule out vasculitis. OPERATIVE PROCEDURE: 1. Exchange of malfunctioning dialysis catheter using DuraMax BioFlo, length 32 cm. 2. Left brachial graft angiogram with outflow angioplasty. 3. Right wrist blood vessel biopsy. INDICATIONS: 1. The patient has end-stage renal disease, undergoing hemodialysis via tunneled catheter on the right femoral. She had the right radiocephalic fistula ligated because of severe edema and unable to use her right hand being right-hand dominant. The patient improved significantly after the ligation, but started to develop edema again and still having pain. For this reason, a blood vessel biopsy was taken on the right wrist in the area where the patient was complaining of pain. 2. The patient had a temporary tunneled right femoral dialysis catheter that was malfunctioning during dialysis and for this reason, she was brought in to have it exchanged. 3. The patient had edema of the left arm, which needed to have outflow stenosis ruled out. ESTIMATED BLOOD LOSS: Approximately 50 cc. VOLUME RECEIVED: 500 cc. DESCRIPTION OF PROCEDURE: The patient was placed in the supine position. She was prepped and draped in the usual sterile fashion. Proper identification of the patient and site of surgery was done. The right groin area was exposed. Lidocaine 1% was used to infiltrate right over the catheter itself. A transverse incision was made in this area. At this point, the catheter was then exposed. This was then transected and a guidewire was advanced through the catheter. The catheter was then removed. The wire was left in place and we then proceeded to thread the 32 DuraMax catheter over the wire inside the femoral vein and advanced the tip into the inferior vena cava. The wire was then removed and this had been pre-tunneled from an anterolateral aspect of the thigh. Once the catheter was in place, x-ray was taken and again the tip appeared to be in the inferior vena cava. Excellent inflow and back flow using 20 cc syringe from each port was noted and the ports were then flushed with saline and after that, 2.5 cc of 1000 units of heparin was placed in the catheter on each port. After this was done, we then proceeded to secure the catheter using 4-0 Prolene suture and we then proceeded to close the small counterincision with 4-0 Vicryl and Steri-Strips. After this was done, a dry dressing was applied to the area. The patient was then re-prepped and re-draped and a new time-out was done to expose the left arm where the brachial graft was located. Using a micropuncture kit, the graft was then accessed with a 4-Equatorial [place] catheter by first accessing with an 18-gauge needle and a microwire 0.018 and then over the wire, a 4-Equatorial [place] catheter. We then proceeded to inject contrast and perform an angiogram towards the venous site and there appeared to be 30% to 40% stenosis distal to the venous anastomosis and it was felt considering the patient had edema, this would be necessary to perform an angioplasty. We proceeded to then exchange the 4-Equatorial [place] catheter for a 6-Equatorial [place] Cordis 7-cm long introducer sheath that was advanced over the wire and after this was done, we then proceeded to advance 0.035 Glidewire. We were able to go into the central venous system. We proceeded to repeat the angiogram starting from the brachiocephalic down to the venous anastomosis. We then proceeded to advance over the wire a 6-mm, 40-mm long [place] balloon angioplasty catheter and a balloon angioplasty of this area was done. There was no significant effacing or narrow area. We then proceeded to exchange it and use a [place] 40-mm long, 8-mm balloon over the wire into the area of stenosis and in this area, there was effacement of an area of stenosis. This was repeated x2 and the balloon was insufflated to a nominal pressure because of the relatively new graft. After this, the balloon was then retrieved. An angiogram revealed significantly improved flow and resolution of the stenosis. After this was completed, we then proceeded to remove the wire and perform a [id number] suture at the entrance site of the sheath. This was then pulled out and the opening was closed with [id number] suture and Steri- Strips were applied. After this was completed, the right wrist was then prepped and draped over the areas where the patient had most of the pain. Lidocaine 1% was used to infiltrate this area. We proceeded to remove vessels from the subcutaneous tissue and vessels connected, likely vessels related to the previous AV fistula that were ligated proximally and distally and divided and sent as a specimen. The small incision was then closed with 4-0 Vicryl suture and Steri-Strips. The patient had high blood pressure preoperatively, lower during the procedure and postoperatively; however, the patient runs usually with high blood pressure. She tolerated the procedure well and was taken to the recovery room. [id number]/[facility] #: [id number] CHICA
== END 2019-01-10 21:53 | disposition home or self-care (01) ==
LOC: OR 12:48
PROVIDERS: ATTEND Surgery
DX: T82.9XXA Unspecified complication of cardiac and vascular prosthetic device, implant and graft, initial encounter (principal); N18.6 End stage renal disease; I10 Essential (primary) hypertension; N18.9 Chronic kidney disease, unspecified; K51.90 Ulcerative colitis, unspecified, without complications; I51.9 Heart disease, unspecified; Z88.8 Allergy status to other drugs, medicaments and biological substances
CPT/HCPCS: 76000; 88304; A9270-GY; C1725; C1750; C1887; J0690; J1644; J2250; J3010

== ENCOUNTER 2019-01-11 08:18 | Day surgery (SDC) | payer MEDICARE, MEDICAID ==
[2019-01-11] MEDS ORDERED: Buffered Lidocaine 1% SYRIN* 1 ML/SYRINGE INTRADERM ONE (09:51)
[2019-01-11] MEDS ORDERED: ceFAZolin 2 GM PREMIX in ORs 2 GM/50 ML BAG ONE (12:55)
[2019-01-11] MEDS ORDERED: Lidocaine 2% PF * 5 ML VIAL ONE ×2 (13:04→13:44)
[2019-01-11] MEDS ORDERED: Midazolam* 1 MG/ML 5 ML VIAL (5 MG) ONE ×2 (13:15→13:47)
[2019-01-11] MEDS ORDERED: fentaNYL* 50 MCG/ML 2 ML VIAL (100 MCG VIAL) ONE ×2 (13:23→14:34)
[2019-01-11] MEDS ORDERED: Lidocaine 1% INJ* 10 MG/ML 30 ML SDV ONE (13:43)
[2019-01-11] MEDS ORDERED: Iohexol 180 (CONTRAST) 10 ML SDV IV ONE (13:43)
[2019-01-11] MEDS ORDERED: Heparin VIAL(*) 5000 UNITS/ML VIAL (FIVE THOUSAND) ONE (14:00)
[2019-01-11] MEDS ORDERED: fentaNYL* 50 MCG/ML 2 ML VIAL (100 MCG VIAL) IV PRN (14:52)
[2019-01-11] MEDS ORDERED: Ondansetron INJ* 2 MG/ML VIAL IV PRN (14:52)
[2019-01-11] MEDS ORDERED: Naloxone* 0.4 MG/ML 1 ML VIAL IV PRN (14:52)
[2019-01-11] MEDS ORDERED: HYDROmorphone INJ1* 1 MG/ML SYRINGE IV PRN (14:52)
[2019-01-11] MEDS ORDERED: Acetaminophen TAB* 325 MG ONE (16:03)
[2019-01-11 16:05] VITALS: BP 212/90
--- NOTE | 2019-01-11 16:16 | HP ---
HISTORY AND PHYSICAL: DATE OF ADMISSION: 01/11/19 ADDENDUM: The patient is an established end-stage renal disease patient undergoing hemodialysis. Yesterday, the patient underwent replacement of the right femoral dialysis tunnel catheter for malfunctioning of the catheter. This was exchanged for a shorter size into the inferior vena cava and then today , again, the patient had difficulty being dialyzed. The catheter flows in and out well; however, when connected to the machine, it collapses the system. For this reason, the patient is being brought in again to remove this catheter and attempt a right subclavian hemodialysis tunneled catheter on the right side. However, it was explained to the patient that because of her history of arm swelling after placement of catheters in the central venous system, it was likely that her right arm would swell again. She is fully aware of this. However, this is planned for a temporary reason since it appears that any venous system that is pressurized in this patient, the patient develops severe edema. This may be related to an underlying condition such as vasculitis as the patient has ANCA antibodies positive. We are awaiting blood vessel biopsy. However, in the meantime, the patient is being again admitted for placement of a tunneled dialysis catheter into the right subclavian, which is the only option available into the venous system. Although this vein is of a very small caliber, we will attempt replacement in this area. Also, I have explained to the patient and her that likely she will require in the future peritoneal dialysis as she continues to have this problem of severe edema after any venous system is pressurized or accessed. The patient is fully aware. She understands that there are risks involved with the procedure and she wants to proceed. [id number]/[facility] #: [id number] CHICA
--- NOTE | 2019-01-11 16:41 | OP ---
DATE OF OPERATION: 01/11/19 - [facility] DATE OF : 63 SURGEON: Geovanni Mccormack MD. ANESTHESIA: Local plus MAC. PRE-OP DIAGNOSIS: Malfunctioning right femoral hemodialysis catheter. POST-OP DIAGNOSIS: Malfunctioning right femoral hemodialysis catheter. OPERATIVE PROCEDURES: 1. Insertion of right subclavian hemodialysis catheter. 2. Exchange of right femoral catheter for right femoral CVP line for IV access. ESTIMATED BLOOD LOSS: Less than 20 cc. INDICATIONS: The patient is a 53-year-old female with end-stage renal disease, currently being dialyzed via right femoral catheter, which was exchanged yesterday because of malfunctioning of the catheter; however, the catheter flushes well and there is good back draw, but when connected to the machine, the flow collapses. Likely, the vena cava is small and the bryant of the vessel are collapsing against the catheter. Because of this problem, the patient is being brought in for an attempt to a right subclavian hemodialysis catheter, which was avoided before because of severe edema of the right arm and I explained to the patient that likely she was going to develop edema of the right arm again if the catheter was placed in this area. The catheter cannot be placed on the left subclavian because the outflow of the brachial graft that is in the process of being matured for use. Her internal jugulars both are completely sclerosed from prior use of hemodialysis catheters. DESCRIPTION OF PROCEDURE: The patient was taken to the procedure room. She was placed in the supine position on NX flat table. Proper identification of patient and site of surgery was done, and under sedation and using the ultrasound, lidocaine 1% was used to infiltrate under the right clavicle. Under direct ultrasound guidance, using a micropuncture kit, the needle accessed the Subclavian vein and we proceeded to advance an 0.018 guidewire into the superior vena cava. The needle was exchanged. We proceeded to introduce a 4-Comoran catheter that would go easily into the right subclavian vein. We then proceeded to exchange the 0.018 guidewire for the 0.035 guidewire in the kit . After introducing an 0.035 guidewire into the 4-Comoran catheter, we then proceeded to remove the 4-Comoran catheter and leave the wire in place while we extended the incision at the site of the wire and then proceeded to brynn the different access points for the tunneling of the catheter . After this was done, we then proceeded to under direct fluoroscopic guidance use the dilators over the wire, starting with the smaller dilator first, followed by the larger dilator and subsequently, we proceeded to advance the split sheath over the dilator. This was done under direct fluoroscopic guidance going into the superior vena cava. After this was completed, we then proceeded to tunnel the catheter from a counter incision lower down in the chest towards the incision of the access point. The catheter was then positioned in the desired location. We then proceeded to remove the introducer and the wire. The sheath was left in place, which was then used to introduce the hemodialysis catheter and once this was into the superior vena cava and holding direct pressure over it, the sheath was split slowly and gradually. The catheter was pushed farther in until the catheter was into the right atrium. We then tested the backflow and inflow with excellent backflow and inflow without any issues. The catheters were flushed with saline and once again rechecked with fluoroscopy to be in the right position. We then proceeded to introduce 2.5 cc of heparinized saline 1000 units per port to avoid clotting and the ports were then locked in place and the hubs were placed at the end. After this was done, we then proceeded to attach the catheter to the skin both at the entrance point and at the level of the Y bifurcation as well. The small incision at the entrance to the subclavian was closed with 4-0 Vicryl suture and Steri-Strips. After the catheter was well secured and access points were covered with 2x2s and Tegaderm, we then proceeded to go down to the groin area. Because the patient had no IV access that could be found preoperatively, the right femoral catheter was used during the procedure; however, to have access during recovery room, the right femoral catheter was exchanged over the wire for a single-lumen CVP line, which would be removed later before discharge. Pressure was applied at the entrance point after the CVP line was changed and secured in place to the skin with 4-0 Prolene suture. After this was completed, the patient was taken in good condition to the recovery room. It is important to note that an attempt was made to have the patient admitted to the hospitalist service for in hospital dialysis; however, the hospitalist stated that no longer hemodialysis is done on the floor during weekends; therefore, the plan is to then remove the CVP line at the femoral level and discharge the patient home. I did speak directly to the hemodialysis unit and the patient has a good chance to having hemodialysis on Sunday via the new catheter. [id number]/[facility] #: [id number] CHICA
== END 2019-01-11 16:39 | disposition home or self-care (01) ==
LOC: OR 08:18
PROVIDERS: ATTEND Surgery
DX: T82.41XA Breakdown (mechanical) of vascular dialysis catheter, initial encounter (principal); N18.6 End stage renal disease; I12.9 Hypertensive chronic kidney disease with stage 1 through stage 4 chronic kidney disease, or unspecified chronic kidney disease; I77.6 Arteritis, unspecified; K21.9 Gastro-esophageal reflux disease without esophagitis; K51.90 Ulcerative colitis, unspecified, without complications; Z99.2 Dependence on renal dialysis
CPT/HCPCS: 76000; A9270-GY; C1750; J0690; J1644; J2250; J3010

== ENCOUNTER 2019-02-05 09:38 | Emergency (ER) | payer MEDICARE, MEDICAID ==
--- OUTSIDE RECORDS SUMMARY | 2019-02-05 10:14 | XMS REPORT | Continuity of Care Document ---
:1965 External Reference #:[id number] Author Name Sara Lyn Care Team Providers Name Role Phone Radha Lockhart M.D. Primary Care Physician Unavailable Payers Date Identification Numbers Payment Provider Subscriber Policy Number: [id number] Medicare Jairon Jimenes PayID: [id number] [address] [place] [address] Policy Number: [id number] Medicaid Jairon Jimenes Group Name: 1 1 [address] PayID: [id number] [place] [address] Policy Number: [id number] [facility] Jairon Jimenes PayID: [id number] [address] Problems Active Problems Provider Date Hemoptysis Honorio [...] son, who is a PhD candidate at [employer] Occupation Disabled ETOH Use Denies alcohol use Tobacco Use Start: Unknown Patient has never smoked Recreational Drug Use Never Used Drugs Smoking Status Reviewed: 01/27/19 Patient has never smoked Exercise Type/Frequency Exercises regularly housework and walk 2 days per week Allergies, Adverse Reactions, Alerts Active Allergies Reaction Severity Comments Date Aspirin Moderate bleeding 10/29/2017 Hydralazine vomiting blood 04/03/2018 Medications Active Medications SIG Qnty Indications Ordering Provider Date Zofran 1 by mouth q6 hrs 10tabs Johan Menchaca, 12/11/2018 4mg Tablets before meals as M.D. needed Ranitidine HCL 1 by mouth twice 60tabs R14.0 Radha Lockhart MD 11/22/2018 150mg a day Tablets Metoprolol Succinate 1 by mouth every Other Ordering 08/09/2018 ER day Provider 25mg Tablets ER 24HR Sensipar one tablet daily Unknown 90mg Tablets Renvela 3 tabs three Unknown 800mg Tablets times a day Nifedipine ER 1 by mouth every Unknown 60mg day Tablets ER 24HR Lisinopril 1 by mouth every Unknown 40mg Tablets evening Alphagan P instill 1 drop Johan Menchaca, 0.1% into Right eye Solution three times daily Tylenol 8 Hour take one tab by Unknown 650mg mouth every 4 Tablets ER hours Oxycodone-Acetaminoph 1 tabs by mouth Unknown en every 4-6 hours 5-325mg Tablets as needed for pain History Medications Metoprolol Succinate 1 by mouth every 30tabs I12.0 Other Ordering 2018 - ER day Provider 08/09/2018 100mg Tablets ER 24HR Sumatriptan one by mouth as 9tabs G43.009 Radha Lockhart MD 08/09/2018 - Succinate needed for 11/22/2018 50mg headache. may Tablets repeat after 2 hrs. max 4 [...] every Unknown - day 08/09/2018 10mg Tablets Omeprazole 1 by mouth Unknown - 20mg 2x/day 01/27/2019 Capsules Cinacalcchristy take one daily Unknown - 90mg 01/18/2018 Brimonidine Tartrate instill 1 drop Unknown - into right eye 11/22/2018 0.15% Solution three times a day Lisinopril 1 by mouth every Unknown - 40mg day at bedtime 12/11/2018 Tablets Metoprolol Tartrate 1 by mouth once Unknown - a day 08/09/2018 25mg Tablets Losartan Potassium 2 by mouth every Unknown - day 08/09/2018 50mg Tablets Hydralazine HCL 1 by mouth two Unknown - 25mg times/day 08/09/2018 Tablets Protonix 1 by mouth daily Unknown - 40mg Tablets for 14 days 01/27/2019 Immunizations CPT Code Status Date Vaccine Lot # [id number] Given 01/18/2018 Pneumococcal Conjugate Vaccine 13 Valent For [id number] Intramuscular Use Vital Signs Date Vital Result Comment 01/27/2019 10:07am Height 62 inches 5'2" Weight 128.38 lb Heart Rate 80 /min Body Temperature 98.5 F O2 % BldC Oximetry 97 % BMI (Body Mass Index) 23.5 kg/m2 11/22/2018 10:39am Height 62 inches 5'2" Weight [...] Test Result H/L Range Note Laboratory test 12/30/2018 [facility] C Reactive 17.38 mg/L High <8.[address] [place] [address] [phone] Blood Culture SEE RESULT BELOW 1 Comp Metabolic Panel 12/30/2018 [facility] Sodium 138 mmol/L N 135-[address] [place] [address] [phone] Chloride 97 mmol/L Low 101-111 Co2 Carbon Dioxide 21 mmol/L Low 22-32 Glucose 86 mg/dL N 70-100 Blood Urea Nitrogen 71 mg/dL High 6-24 Creatinine 9.87 mg/dL High 0.51-0.95 BUN/Creatinine Ratio 7.2 Low 8-20 Calcium 9.2 mg/dL N 8.6-10.3 Total Protein 7.3 g/dL N 6.4-8.9 Albumin 3.8 g/dL N 3.2-5.2 Globulin 3.5 g/dL N 2-4 Albumin/Globulin Ratio 1.1 N 1-3 Total Bilirubin 0.50 mg/dL N 0.2-1.0 Alkaline Phosphatase 104 U/L N 34-104 Alt 6 U/L Low 7-52 Ast 15 U/L N 13-39 Egfr Non- 4.1 >60 Egfr 5.0 >60 2 Potassium 5.5 mmol/L High 3.5-5.0 Anion Gap 20 mmol/L High 2-11 Laboratory test 12/30/2018 [facility] Lactic Acid 0.5 mmol/L N 0.5-2.[address] [place] [address] [phone] CBC Auto Diff 12/30/2018 [facility] White Blood 8.2 10^3/uL N 3.5-10.8 [address] [place] [address] [phone] Red Blood Count 3.50 10^6/uL Low 3.70-4.87 Hemoglobin 11.0 g/dL Low 12.0-16.0 Hematocrit 33 % Low 35-47 Mean Corpuscular Volume 95 fL N 80-97 Mean Corpuscular Hemoglobin 32 pg High 27-31 Mean Corpuscular HGB Conc 33 g/dL N 31-36 Red Cell Distribution Width 17 % High 10.5-15 Platelet Count 208 10^3/uL N 150-450 Mean Platelet Volume 9.3 fL N 7.4-10.4 Abs Neutrophils 5.2 10^3/uL N 1.5-7.7 Abs Lymphocytes 1.7 10^3/uL N 1.0-4.8 Abs Monocytes 0.9 10^3/uL High 0-0.8 Abs Eosinophils 0.3 10^3/uL N 0-0.6 Abs Basophils 0.1 10^3/uL N 0-0.2 Abs Nucleated RBC 0.0 10^3/uL Granulocyte % 63.7 % Lymphocyte % 21.2 % Monocyte % 10.8 % Eosinophil % 3.5 % Basophil % 0.8 % Nucleated Red Blood Cells % 0.0 Laboratory test 12/30/2018 [facility] Partial 28.5 seconds N 26.0-36.[address] [place] [address] PTT [phone] Inr/Protime 12/30/2018 [facility] Inr 1.03 N 0.82-1.[address] [place] [address] [phone] Platelet Count 12/11/2018 [facility] Platelet 274 10^3/uL N 150-[address] [place] [address] [phone] Mean Platelet Volume 9.7 fL N 7.4-10.4 Laboratory test 12/11/2018 [facility] Partial 31.4 N 26.0- 36.[address] [address] PTT [phone] CBC Auto Diff 12/11/2018 [facility] White Blood 13.9 High 3.5- 10.[address] Count 10^3/[place] [address] [phone] Red Blood Count 3.67 10^6/uL Low 3.70-4.87 Hemoglobin 11.1 g/dL Low 12.0-16.0 Hematocrit 35 % N 35-47 Mean Corpuscular Volume 96 fL N 80-97 Mean Corpuscular Hemoglobin 30 pg N 27-31 Mean Corpuscular HGB Conc 31 g/dL N 31-36 Red Cell Distribution Width 16 % High 10.5-15 Platelet Count 376 10^3/uL N 150-450 Mean Platelet Volume 9.8 fL N 7.4-10.4 Abs Neutrophils 8.4 10^3/uL High 1.5-7.7 Abs Lymphocytes 3.8 10^3/uL N 1.0-4.8 Abs Monocytes 1.1 10^3/uL High 0-0.8 Abs Eosinophils 0.4 10^3/uL N 0-0.6 Abs Basophils 0.2 10^3/uL N 0-0.2 Abs Nucleated RBC 0.0 10^3/uL Granulocyte % 60.5 % Lymphocyte % 27.5 % Monocyte % 7.8 % Eosinophil % 3.0 % Basophil % 1.2 % Nucleated Red Blood Cells % 0.1 Laboratory test 12/11/2018 [facility] Lactic Acid 1.1 mmol/L N 0.5-2.0 [address] [place] [address] [phone] B-Type Natriuretic Peptide BNP > 1300 pg/mL High <=100 Inr/Protime 12/11/2018 [facility] Inr 0.95 N 0.82-1.[address] [place] [address] [phone] Laboratory test 12/11/2018 [facility] Troponin-I 0.04 High < 0.04 [address] (TnI) ng/[place] [address] [phone] Comp Metabolic 12/11/2018 [facility] Sodium 138 N 135-[address] mmol/[place] [address] [phone] Chloride 100 mmol/L Low 101-111 Co2 Carbon Dioxide 20 mmol/L Low 22-32 Glucose 175 mg/dL High 70-100 Blood Urea Nitrogen 83 mg/dL High 6-24 Creatinine 11.91 mg/dL High 0.51-0.95 BUN/Creatinine Ratio 7.0 Low 8-20 Calcium 8.8 mg/dL N 8.6-10.3 Total Protein 8.8 g/dL N 6.4-8.9 Albumin 4.5 g/dL N 3.2-5.2 Globulin 4.3 g/dL High 2-4 Albumin/Globulin Ratio 1.0 N 1-3 Total Bilirubin 0.70 mg/dL N 0.2-1.0 Alkaline Phosphatase 124 U/L High 34-104 Alt 17 U/L N 7-52 Ast 19 U/L N 13-39 Egfr Non- 3.3 >60 Egfr 4.0 >60 8 Potassium 5.6 mmol/L High 3.5-5.0 Anion Gap 18 mmol/L High 2-11 CBC Auto 12/01/2018 [facility] White Blood 11.0 10^3/uL High 3.5-10.[address] [place] [address] [phone] Red Blood Count 3.84 10^6/uL N 3.70-4.87 [...] % Nucleated Red Blood Cells % 0.1 Hepatitis C Antibody 12/01/2018 [facility] HCV Index 0.[address] [place] [address] [phone] Hepatitis C Antibody Nonreactive Nonreactive Comp Metabolic Panel 12/01/2018 [facility] Sodium 139 mmol/L N 135-[address] [place] [address] [phone] Potassium 4.1 mmol/L N 3.5-5.0 Chloride 99 [...] Egfr Non- 4.8 >60 Egfr 5.9 >60 9 Laboratory test 12/01/2018 [facility] Troponin-I 0.12 ng/mL High <0.[address] (TnI) [place] [address] [phone] Lactic Acid 2.5 mmol/L High 0.5-2.0 11 Rapid HIV Nonreactive Nonreactive Hepatitis B Surface Ag Nonreactive Nonreactive Hepatitis B Jose 12/01/2018 [facility] Hepatitis B Immune Immune AB Titer [address] [place] [address] [phone] Hep B Surf AB Level > 1000.00 mIU/mL >12 Laboratory 11/10/2018 [facility] B-Type > 1300 High <=[address] Natriuretic pg/[place] [address] Peptide BNP [phone] Laboratory 11/10/2018 [facility] Blood Culture SEE RESULT 12 test finding [address] [place] [address] [phone] Inr/Protime 11/10/2018 [facility] Inr 0.94 N 0.77-1.[address] [place] [address] [phone] Laboratory 11/10/2018 [facility] Lactic Acid 0.4 mmol/L Low 0.5-2.0 13 test finding [address] [place] [address] [phone] Comp Metabolic 11/10/2018 [facility] Sodium 139 mmol/L N 135- [address] [place] [address] [phone] Potassium 4.7 mmol/L N 3.5-5.0 Chloride 99 [...] Egfr Non- 3.4 >60 Egfr 4.1 >60 14 CBC Auto 11/10/2018 [facility] White Blood 12.8 10^3/uL High 3.5-10.[address] [place] [address] [phone] Red Blood Count 3.05 10^6/uL Low 3.70-4.87 [...] Blood Cells % 0.1 Laboratory test 11/10/2018 [facility] C Reactive 14.73 mg/L High <8.[address] [place] [address] [phone] Troponin-I (TnI) 0.05 ng/mL High <0.04 15 Inr/Protime 10/08/2018 [facility] Inr 0.93 N 0.77-1.[address] [place] [address] [phone] CBC Auto Diff 10/08/2018 [facility] White Blood 6.4 10^3/uL N 3.5-10.[address] [place] [address] [phone] Red Blood Count 4.53 10^6/uL N 4.00-5.40 [...] % Nucleated Red Blood Cells % 0 Laboratory test 10/08/2018 [facility] Partial 28.8 N 26.0- 36.[address] [place] [address] Time PTT [phone] Laboratory test 10/08/2018 [facility] Troponin-I 0.05 ng/mL High <0.[address] (TnI) [place] [address] [phone] Comp Metabolic 10/08/2018 [facility] Sodium 139 mmol/L N 135- [address] [place] [address] [phone] Chloride 98 mmol/L Low 101-111 Co2 Carbon [...] Egfr Non- 4.0 >60 Egfr 4.8 >60 17 Potassium 5.5 mmol/L High 3.5-5.0 Anion Gap 16 mmol/L High 2-11 Basic Metabolic Panel 09/23/2018 [facility] Sodium 138 mmol/L N 135-[address] [place] [address] [phone] Chloride 102 mmol/L N 101-111 Co2 Carbon Dioxide 18 mmol/L Low 22-32 Glucose 82 mg/dL N 70-100 Blood Urea Nitrogen 95 mg/dL High 6-24 Creatinine 13.70 mg/dL High 0.51-0.95 BUN/Creatinine Ratio 6.9 Low 8-20 Calcium 10.5 mg/dL High 8.6-10.3 Egfr Non- 2.8 >60 Egfr 3.4 >60 18 Potassium 5.6 mmol/L High 3.5-5.0 Anion Gap 18 mmol/L High 2-11 CBC Auto Diff 09/23/2018 [facility] White Blood 7.6 10^3/uL N 3.5-10.[address] [place] [address] [phone] Red Blood Count 3.62 10^6/uL Low 4.00-5.40 [...] % Nucleated Red Blood Cells % 0 Laboratory test 05/15/2018 [facility] Clotest SEE RESULT [address] [place] [address] [phone] Laboratory test 05/15/2018 [facility] Surgical SEE RESULT [address] [place] [address] [phone] Laboratory test 04/04/2018 [facility] TSH (Thyroid 3.46 mcIU/mL N 0.34-[address] Stim Horm) .60 [place] [address] [phone] Hemoglobin A1c (Glyco HGB) 5.7 % High 4.0-5.6 21 Fructosamine 331 mcmol/L Abnormal 200 - 285 22 Phosphorus 7.5 mg/dL High 2.5-5.0 Magnesium 2.3 mg/dL N 1.9-2.7 Basic Metabolic Panel 04/04/2018 [facility] Sodium 138 mmol/L N 135-[address] [place] [address] [phone] Chloride 95 mmol/L Low 101-111 Co2 Carbon Dioxide 29 mmol/L N 22-32 Glucose 78 mg/dL N 70-100 Blood Urea Nitrogen 50 mg/dL High 6-24 Creatinine 10.14 mg/dL High 0.51-0.95 BUN/Creatinine Ratio 4.9 Low 8-20 Calcium 10.5 mg/dL High 8.6-10.3 Egfr Non- 4.0 >60 Egfr 4.8 >60 23 Potassium 5.3 mmol/L High 3.5-5.0 Anion Gap 14 mmol/L High 2-11 Pthi 04/04/2018 [facility] Calcium (PTH Intact) 10.3 mg/dL N 8.6-10.3 [address] [place] [address] [phone] PTH Intact 16.3 pmol/L High 1.3-9.3 Basic Metabolic Panel 03/15/2018 [facility] Sodium 137 mmol/L N 135-[address] [place] [address] [phone] Potassium 5.1 mmol/L High 3.5-5.0 Chloride 98 mmol/L Low 101-111 Co2 Carbon Dioxide 26 mmol/L N 22-32 Anion Gap 13 mmol/L High 2-11 Glucose 76 mg/dL N 70-100 Blood Urea Nitrogen 41 mg/dL High 6-24 Creatinine 7.83 mg/dL High 0.51-0.95 BUN/Creatinine Ratio 5.2 Low 8-20 Calcium 9.9 mg/dL N 8.6-10.3 Egfr Non- 5.4 >60 Egfr 6.5 >60 24 CBC Auto Diff 03/15/2018 [facility] White Blood 6.1 10^3/uL N 3.5-10.[address] [place] [address] [phone] Red Blood Count 4.12 10^6/uL N 4.00-5.40 [...] Red Blood Cells % 0.1 Inr/Protime 03/15/2018 [facility] Inr 0.90 N 0.77-1.[address] [place] [address] [phone] Laboratory test 03/15/2018 [facility] Partial 30.1 seconds N 26.0-36.[address] [place] [address] PTT [phone] Comp Metabolic 01/28/2018 [facility] Sodium 139 mmol/L N 135- [address] [place] [address] [phone] Potassium 4.7 mmol/L N 3.5-5.0 Chloride 94 [...] Egfr Non- 4.8 >60 Egfr 5.9 >60 25 Lipid Profile 01/28/2018 [facility] Triglycerides 86 mg/dL 26 (Trig/Chol/HDL) [address] [place] [address] [phone] Cholesterol 185 mg/dL 27 HDL Cholesterol 67.5 mg/dL 28 LDL Cholesterol 100 mg/dL 29 CBC Auto Diff 01/28/2018 [facility] White Blood 7.3 10^3/uL N 3.5-10.[address] [place] [address] [phone] Red Blood Count 3.65 10^6/uL Low 4.00-5.40 [...] 0-2 Nucleated Red Blood Cells % 0.1 Laboratory test 01/25/2018 [facility] Cytology SEE RESULT 30, [address] [place] [address] [phone] 1 SEE RESULT BELOW Name: JAIRON DONOVAN : [address]: Omaira Navarrete MD Acct: [id number] Unit: [id number] AGE: 53 Location: [place] [address]-02 Re12/31/18 Dis: 01/03/19 SEX: F Status: DIS IN SPEC: [id number] GIGI: 12/30/18 [facility] DR: Madan Sorensen MD REQ: [id number] RECD: 12/30/18 STATUS: COMP OTHR DR: Radha Lockhart MD _ SOURCE: BLOOD,VENO SPDESC: ORDERED: Blood Cult Procedure Result Reported Site Aerobic Culture Bottle Final 01/04/191627 ML No Growth Day 5 Anaerobic Culture Bottle Final 06/01/19- 1628 ML No Growth Day 5 * ML - Main Lab . END OF REPORT DEPARTMENT OF PATHOLOGY, [address] [place] [address] Lv Chua M.D. Director [facility] # [id number] 2 Because ethnic data is not always readily [...] 15-29 5 Kidney failure <15 (or dialysis) 3 [facility] Severe Sepsis and Septic Shock Management Bundle Measure requires all lactic acids initially measuring >2.0 mmol/L be repeated. 4 Standard intensity warfarin therapeutic range: 2.0-3.0 High intensity warfarin therapeutic range: 2.5-3.5 5 [facility] Severe Sepsis and Septic Shock Management Bundle Measure requires all lactic acids initially measuring >2.0 mmol/L be repeated. 6 Standard intensity warfarin therapeutic range: 2.0-3.0 High intensity warfarin therapeutic range: 2.5-3.5 7 Result TnIDx:0.04 Called to ABY Morrow RN at: 09:54:22 by:[id number] Read back by:ABY Morrow RN Troponin-I testing on Plasma Separator Tubes (PST) has a known false positive rate of 0.20-0.40%. All positive troponins reflex immediately to secondary confirmatory testing. Using the [employer] 800 Access Immunoassay systems, the 99th percentile upper reference limit was demonstrated to be < 0.03 ng/mL. 8 Because ethnic data is not always [...] 5 Kidney failure <15 (or dialysis) 9 Because ethnic data is not always readily [...] 15-29 5 Kidney failure <15 (or dialysis) 10 Result TnIDx:0.12 Called to [id number] at: 00:25:46 by:[id number] Read back by: [id number] Troponin-I testing on Plasma Separator Tubes (PST) has a known false positive rate of 0.20-0.40%. All positive troponins reflex immediately to secondary confirmatory testing. Using the [employer] DxI 800 Access Immunoassay systems, the 99th percentile upper reference limit was demonstrated to be < 0.03 ng/mL. 11 Critical Result LACT:2.5 Called to [id number] at: 00:22:31 by:[id number] Read back by:[id number] [facility] Severe Sepsis and Septic Shock Management Bundle Measure requires all lactic acids initially measuring >2.0 mmol/L be repeated. 12 SEE RESULT BELOW Name: STEPHAN JIMENESJAIRON DICKERSON : [address]: Froilan Alcantar MD Acct: [id number] Unit: [id number] AGE: 53 Location: [place] [address]- Re11/10/18 Dis: 11/11/18 SEX: F Status: DIS Angela SPEC: [id number] GIGI: 11/10/18 [facility] DR: Venkatesh Francisco MD REQ: [id number] RECD: 11/10/18 STATUS: LEE BRAVO DR: Radha Lockhart MD _ SOURCE: BLOOD,VENO SPDESC: ORDERED: Blood Cult COMMENTS: [place] FA Procedure Result Reported Site Aerobic Culture Bottle Final 11/15/18- 1944 ML No Growth Day 5 Anaerobic Culture Bottle Final 11/15/18- 1944 ML No Growth Day 5 * ML - Main Lab . END OF REPORT DEPARTMENT OF PATHOLOGY, [address] [place] [address] Lv Chua M.D. Director [facility] # [id number] 13 [facility] Severe Sepsis and Septic Shock Management Bundle Measure requires all lactic acids initially measuring >2.0 mmol/L be repeated. 14 Because ethnic data is not always readily [...] 15-29 5 Kidney failure <15 (or dialysis) 15 Result TnIDx:0.05 Called to [id number] at: 20:13:35 by:[id number] Read back by: [id number] Troponin-I testing on Plasma Separator Tubes (PST) has a known false positive rate of 0.20-0.40%. All positive troponins reflex immediate secondary confirmatory testing. 16 Result TnIDx:0.05 Called to [id number] at: 02:08:15 by:[id number] Read back by: [id number] Troponin-I testing on Plasma Separator Tubes (PST) has a known false positive rate of 0.20-0.40%. All positive troponins reflex immediate secondary confirmatory testing. 17 Because ethnic data is not always readily [...] 15-29 5 Kidney failure <15 (or dialysis) 18 Because ethnic data is not always [...] 5 Kidney failure <15 (or dialysis) 19 SEE RESULT BELOW Name: STEPHAN JAIRON JIMENES : [address]: Hayde Trevino MD Acct: [id number] Unit: [id number] AGE: 52 Location: ENDO Re05/15/18 SEX: F Status: REG REF SPEC: [id number] GIGI: 05/15/184 [facility] DR: Hayde Ureña MD REQ: [id number] RECD: 05/15/18 STATUS: LEE BRAVO DR: Hnoorio Luo MD _ SOURCE: GAS ANTRUM SPDESC: ORDERED: Clotest Procedure Result Reported Site Clotest Final 05/16/18- 0715 ML Clotest Negative * ML - Main Lab . END OF REPORT DEPARTMENT OF PATHOLOGY, [address] [place] [address] Lv Chua M.D. Director [facility] # [id number] 20 SEE RESULT BELOW Name: JAIRON DONOVAN : [address]: Hayde Trevino MD Acct: [id number] Unit: [id number] AGE: 52 Location: ENDO Re05/15/18 SEX: F Status: DEP REF SPEC: [id number] GIGI: 05/15/18- SUBM DR: Hayde Ureña MD REQ: [id number] RECD: 05/16/18 STATUS: ELYSE BRAVO DR: Ra [...] ON NEXT PAGE DEPARTMENT OF PATHOLOGY, [address] [place] [address] Lv Chua M.D. Director [facility] # [id number] RUN DATE: 05/17/18 [facility] LAB LIVE PAGE 2 Patient: JIARON DONOVAN [id number] (Continued) SHALA SERRA (Continued) Signed by and Reported on: Danyell Cevallos MD 05/17/18 1313 END OF REPORT DEPARTMENT OF PATHOLOGY, [address] [place] [address] Lv Chua M.D. Director [facility] # [id number] 21 Therapeutic target for the treatment of diabetes mellitus patients is <7% HBA1C, and in selective patients <6.0%. Please refer to [employer] diabetic care guidelines for further information. 22 Test Performed by: [address] [address] 23 Because ethnic data is not always readily [...] 15-29 5 Kidney failure <15 (or dialysis) 24 Because ethnic data is not always readily [...] 15-29 5 Kidney failure <15 (or dialysis) 25 Because ethnic data is not always readily [...] 15-29 5 Kidney failure <15 (or dialysis) 26 Desirable: <150 Borderline High: 150-199 High: 200-499 Very High: >500 27 Desirable: <200 Borderline High: 200-239 High: >239 28 Low: <40 Desirable: 40-60 High: >60 29 Desirable: <100 Near Optimal: 100-129 Borderline High: 130-159 High: 160-189 Very High: >189 30 [id number] 31 SEE RESULT BELOW Name: STEPHAN JIMENESJAIRON DICKERSON : [address]: Alexis Mckee MD Acct: [id number] Unit: [id number] AGE: 52 Location: [facility] Re01/25/18 SEX: F Status: REG REF SPEC: [id number] GIGI: 01/25/18-1026 [facility] DR: Alexis Mckee MD REQ: [id number] RECD: 01/25/18896 STATUS: SOUT _ ORDERED: TP IMAGE ANALYS, HPV/Thin Prep COMMENTS: [id number] Negative for Intraepithelial lesion or Malignancy A. [...] Signed by and Reported on: CHRIS Varela (ASC) 1428 This Pap test was evaluated with the assistance of the Mind The PlacePrep Test Imaging System. Due to cytologic findings at the motion graphics artist microscope, comprehensive manual rescreening by a Silviculturist may be required. The Pap Smear is [...] END OF REPORT DEPARTMENT OF PATHOLOGY, [address] [place] [address] Lv Chua M.D. Director [facility] # [id number] Procedures Date Code Description Status 01/17/2019 64593 EKG Tracing & Interpretation Completed 01/03/2019 11693 Hemodialysis, One Evaluation Completed 01/02/2019 82028 Hemodialysis, One Evaluation Completed 12/31/2018 60793 Hemodialysis, One Evaluation Completed 12/13/2018 59290 Hemodialysis, One Evaluation Completed 12/12/2018 38950 Insertion Tunneled Cent Venous Cathr W/O Subcut Completed Port/Pump 5Yrs> 12/12/2018 56131 Ultrasound Guidance For Vascular Access Completed 12/12/2018 33153 Fluoroscopic Guidance For Cent Completed 12/12/2018 42921 Hemodialysis, One Evaluation Completed 12/11/2018 11200 EKG, Interpretation Only Completed 12/02/2018 75026 EKG, Interpretation Only Completed 12/02/2018 90227 ECHO Transthorasic Realtime 2D W Doppler & Color Flow Completed Hosp 12/02/2018 97241 Insert Non-Tunneled Venous Catether Completed 12/02/2018 92968 Insert Non-Tunneled Venous Catether Completed 12/02/2018 98387 Endo-Trachial Tube Completed 09/24/2018 40185 Dialysis Circuit W/ Transluminal Balloon Angioplasty, Completed Peripheral 09/24/2018 31423 Translum Balloon Angio Central Dial Segment Through Completed Dialys Circui 09/24/2018 31037 Ultrasound Guidance For Vascular Access Completed 09/24/2018 45252 Moderate Sedation Services; Same Phys Intl 15 Mins; PT Completed >=5 Years 07/19/2018 [id number] Colonoscopy Completed 05/27/2018 91254 EKG Tracing & Interpretation Completed 05/21/2018 [id number] Colonoscopy Completed 03/29/2018 32075 Moderate Sedation Services; Same Phys Intl 15 Mins; PT Completed >=5 Years 03/29/2018 94141 Ultrasound Guidance For Vascular Access Completed 03/29/2018 10239 Dialysis Circuit W/ Transluminal Balloon Angioplasty, Completed Peripheral 03/04/2018 40523 EKG Tracing & Interpretation Completed 02/18/2018 24774 Treadmill Interp/Report Only Completed 02/18/2018 44316 Stress Test Supervsn W/Out I/R Completed 02/04/2018 [id number] Mammogram Completed 12/06/2017 35967 ECHO Transthorasic Realtime 2D W Doppler & Color Flow Completed Hosp 12/05/2017 21126 EKG, Interpretation Only Completed 10/29/2017 [address] [place] Phalanx finger/thumb shaft w/o manipulation Completed Encounters Type Date Location Provider Dx Diagnosis Office Visit 01/17/2019 [facility] Denys Fountain, I50.22 Chronic systolic 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 (congestive) heart failure N18.6 End stage renal disease I11.0 Hypertensive heart disease with heart failure I15.9 Secondary hypertension, unspecified Office Visit 01/03/2019 [facility] Inés I82.B12 Acute embolism 8:27a Assoc,pc VIANEY Jimenez-C and thrombosis Hospitalists of left subclavian vein I10 Essential (primary) hypertension Z99.2 Dependence on renal dialysis Office Visit 01/02/2019 [facility] Lauren L03.114 Cellulitis of 8:27a Assoc,rani Todd, left upper limb Hospitalists TRAY SETTER I82.B12 Acute embolism and thrombosis of left subclavian vein Office Visit 01/01/2019 [facility] L03.114 Cellulitis of 8:26a Assoc,pc Rito Todd, left upper limb Hospitalists TRAY SETTER I82.B12 Acute embolism and thrombosis of left subclavian vein I10 Essential (primary) hypertension Office Visit 12/31/2018 8:26a [facility] Mitesh L03.114 Cellulitis of Assoc,VIANEY Cochran left upper limb Hospitalists Z99.2 Dependence on renal dialysis Office Visit 12/30/2018 8:25a [facility] Mitesh L03.114 Cellulitis of Assoc,pc VIANEY Padilla left upper limb Hospitalists Z99.2 Dependence on renal dialysis Office Visit 12/14/2018 [facility] Neno J96.01 Acute 8:27a Assrani weiner M.D. respiratory Hospitalists failure with hypoxia J81.0 Acute pulmonary edema N18.6 End stage renal disease Office Visit 12/13/2018 8:26a [facility] Christian Donald96.01 Acute respiratory M.D. failure with hypoxia J81.0 Acute pulmonary edema Office Visit 12/13/2018 12:06p [facility] Meng Griffiths J81.0 Acute pulmonary Maghaydah, M.D. 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 N18.6 End stage renal disease I34.0 Nonrheumatic mitral (valve) insufficiency Office Visit 12/12/2018 8:25a [facility] Christian Mclean96.01 Acute respiratory MD failure with hypoxia J81.0 Acute pulmonary edema Z99.11 Dependence on respirator [ventilator] status Office Visit 12/11/2018 8:24a [facility] Nephrology Karen E87.70 Fluid overload, MD Yakelin unspecified N18.6 End stage renal disease J96.01 Acute respiratory failure with hypoxia Office Visit 12/11/2018 8:24a [facility] Christian Mclean96.01 Acute respiratory MD failure with hypoxia J81.0 Acute pulmonary edema Office Visit 12/06/2018 [facility] J96.01 Acute respiratory 9:03a Assoc,pc Rito Doto, failure with Hospitalists TRAY SETTER hypoxia R10.84 Generalized abdominal pain N18.6 End stage renal disease Office Visit 12/05/2018 [facility] J96.01 Acute respiratory 9:02a Assoc,pc [facility] Doto, failure with Hospitalists TRAY SETTER hypoxia R10.84 Generalized abdominal pain N18.6 End stage renal disease Office Visit 12/04/2018 [facility] J96.01 Acute respiratory 9:01a Assoc,pc Rito Doto, failure with Hospitalists TRAY SETTER hypoxia R10.84 Generalized abdominal pain N18.6 End stage renal disease Office Visit 12/03/2018 8:59a [facility] Miranda Gonzales96.01 Acute respiratory MD Rufino failure with hypoxia J81.0 Acute pulmonary edema Office Visit 12/02/2018 2:08p [facility] Emmanuelle Da Silva J96.01 Acute respiratory MD failure with hypoxia E87.70 Fluid overload, unspecified Office Visit 12/02/2018 8:57a [facility] Omaira Navarrete J96.01 Acute respiratory Assocrani MD failure with Hospitalists hypoxia E87.70 Fluid overload, unspecified N18.6 End stage renal disease Office Visit 11/22/2018 10:40a [facility] Internal Radha Lockhart MD R06.02 Shortness of Medicine - Ccmob breath R14.0 Abdominal distension (gaseous) E87.79 Other fluid overload 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 M25.441 Effusion, right hand Office Visit 11/11/2018 8:28a [facility] Mitesh R06.02 Shortness of Assoc,pc VIANEY Padilla breath Hospitalists E87.79 Other fluid overload 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 N18.6 End stage renal disease Office Visit 11/10/2018 8:28a [facility] Lauryn Hohn, R06.02 Shortness of Assoc,rani Llanos 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 N18.6 End stage renal disease E87.79 Other fluid overload Office Visit 08/09/2018 [facility] Internal Radha Lockhart, J06.9 Acute upper 11:20a Buddy JOHNSON respiratory infection, unspecified 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 G43.009 Migraine w/o aura, not intractable, w/o status migrainosus K63.5 Polyp of colon Office Visit 05/27/2018 10:00a [facility] Internal Radha Lockhart, Z01.818 Encounter for other Medicine - MD preprocedural Suite R examination 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 reflux disease without Suite R esophagitis I10 Essential (primary) hypertension N18.6 End stage renal disease Office Visit 03/04/2018 1:00p [facility] Denys Griffiths I11.9 Hypertensive heart [facility] Fountain, DO disease without FACC heart failure N18.6 End stage renal disease Z01.810 Encounter for preprocedural cardiovascular examination I48.0 Paroxysmal atrial fibrillation Office Visit 01/18/2018 9:00a [facility] Internal [place] Pachikara, I12.0 Hyp [facility] kidney Medicine - Suite M.D. disease w R stage 5 chr kidney disease or Esrd [...] Rheumatology Services Honorio Browne, R04.2 Hemoptysis Of [facility] Cristhian.Corine R76.0 Raised antibody titer Office Visit 12/07/2017 8:53a [facility] Lauryn Vanessa, R04.2 Hemoptysis Assoc,rani Llanos Hospitalists N18.6 End stage renal disease I10 Essential (primary) hypertension R74.8 Abnormal levels of other serum enzymes Office Visit 12/06/2017 7:00a Rheumatology Honorio Browne, R76.0 Raised antibody Services [facility] Romi titer R04.2 Hemoptysis N18.6 End stage renal disease Z99.2 Dependence on renal dialysis Office Visit [facility]2017 [facility] Gonzaelz [facility] R04.2 Hemoptysis Hospitalists N18.6 End stage renal disease I10 Essential (primary) hypertension R74.8 Abnormal levels of other serum enzymes Office Visit 12/05/2017 8[facility] R04.2 Hemoptysis Hospitalists N18.6 End stage renal disease I10 Essential (primary) hypertension R74.8 Abnormal levels of other serum enzymes Office Visit 12/04/2017 8:[facility] R04.2 Hemoptysis Hospitalists N18.6 End stage renal disease I10 Essential (primary) hypertension R74.8 Abnormal levels of other serum enzymes Plan of Treatment Future Appointment(s):05/26/2019 11:20 am - [facility] Lock[facility] 10:00 am - Katina Reynolds M.D. at [facility].01/27/2019 - Radha Lockhart MDI12.0 Hypertensive chronic kidney disease with stage 5 chronic kidFollow up:4 mo AWVK21.9 Gastro-esophageal reflux disease without esophagitisComments:termine de mayra la protonix, y despues solo continue la tdtpwksyllK37.22 Chronic systolic (congestive) heart failure
--- OUTSIDE RECORDS SUMMARY | 2019-02-05 10:14 | XMS REPORT | Continuity of Care Document ---
:1965 External Reference #:[id number] Author Name MarioArchana butler Care Team Providers Name Role Phone Radha Lockhart M.D. Primary Care Physician Unavailable Payers Date Identification Numbers Payment Provider Subscriber Policy Number: [id number] Medicare Jairon العلي PayID: [id number] [address] [place] [address] Policy Number: [id number] Medicaid Jairon العلي Group Name: 1 1 [address] PayID: [id number] [place] [address] Policy Number: [id number] [facility] Jairon العلي PayID: [id number] [address] Problems Active Problems Provider Date Hemoptysis Honorio [...] son, who is a PhD candidate at [employer] Disabled ETOH Use Denies alcohol use Tobacco Use Start: Unknown Patient has never smoked Recreational Drug Use Never Used Drugs Smoking Status Reviewed: 01/29/19 Patient has never smoked Exercise Type/Frequency Exercises regularly housework and walk 2 days per week Allergies, Adverse Reactions, Alerts Active Allergies Reaction Severity Comments Date Aspirin Moderate bleeding 10/29/2017 Hydralazine vomiting blood 04/03/2018 Medications Active Medications SIG Qnty Indications Ordering Provider Date Zofran 1 by mouth q6 10tabs Johan Menchaca, 12/11/2018 4mg Tablets hrs before meals M.D. as needed Ranitidine HCL 1 by mouth twice [...] P instill 1 drop Johan Menchaca, 0.1% Solution into Right eye three times daily Tylenol 8 Hour take one tab by Unknown 650mg mouth every 4 Tablets ER hours Oxycodone-Acetaminophe 1 tabs by mouth Unknown n every 4-6 hours 5-325mg Tablets as needed for pain Pantoprazole Sodium 1 by mouth every Unknown 40mg day Tablets DR History Medications Sumatriptan one by mouth as 9tabs G43.009 Radha Lockhart MD 08/09/2018 - Succinate needed for 11/22/2018 50mg headache. december Tablets repeat after 2 hrs. max 4 tablets in 24 hours Metoprolol 1 by mouth every 30tabs I12.0 Other Ordering 08/09/2018 - Succinate ER day Provider 08/09/2018 100mg Tablets ER 24HR Metoprolol 1 by mouth every 30tabs I11.9 Denys Fountain, 03/04/2018 - Succinate ER day DO FACC 04/01/2018 25mg Tablets ER 24HR No Active Unknown 10/29/2017 - Medications 12/11/2017 Sevelamer Carbonate 1 packet three Unknown - times a day 01/18/2018 2.4gm Packet Amlodipine Besylate 1 by mouth every Unknown - day 08/09/2018 10mg Tablets Omeprazole 1 by mouth 2x/day Unknown - 20mg 01/27/2019 Capsules Cinacalcchristy take one daily Unknown - 90mg 01/18/2018 Brimonidine instill 1 drop Unknown - Tartrate into right eye 11/22/2018 0.15% three times a day Solution Lisinopril 1 by mouth every Unknown - 40mg day at bedtime 12/11/2018 Tablets Metoprolol Tartrate 1 by mouth once a Unknown - day 08/09/2018 25mg Tablets Losartan Potassium 2 by mouth every Unknown - day 08/09/2018 50mg Tablets Hydralazine HCL 1 by mouth two Unknown - times/day 08/09/2018 25mg Tablets Protonix 1 by mouth daily Unknown - 40mg for 14 days 01/27/2019 Tablets Immunizations CPT Code Status Date Vaccine Lot # [id number] Given 01/18/2018 Pneumococcal Conjugate Vaccine 13 Valent For [id number] Intramuscular Use Vital Signs Date Vital Result Comment 01/29/2019 9:48am Height 62 inches 5'2" Weight 128.00 lb Heart Rate 72 /min Respiratory Rate 14 /min Body Temperature 99.0 F Pain Level 7 BMI (Body Mass Index) 23.4 kg/m2 01/27/2019 10:07am Height 62 inches 5'2" Weight [...] Result H/L Range Note Laboratory test 12/30/2018 [facility] C Reactive 17.38 mg/L High <8.[address] [place] [address] [phone] Blood Culture SEE RESULT BELOW 1 Laboratory test 12/30/2018 [facility] Lactic Acid 0.5 mmol/L N 0.5-2.[address] [place] [address] [phone] CBC Auto Diff 12/30/2018 [facility] White Blood 8.2 10^3/uL N 3.5-10.[address] [place] [address] [phone] Red Blood Count 3.50 10^6/uL Low 3.70-4.87 [...] % Nucleated Red Blood Cells % 0.0 Inr/Protime 12/30/2018 [facility] Inr 1.03 N 0.82-1.[address] [place] [address] [phone] Comp Metabolic Panel 12/30/2018 [facility] Sodium 138 mmol/L N 135-[address] [place] [address] [phone] Chloride 97 mmol/L Low 101-111 Co2 Carbon [...] Egfr Non- 4.1 >60 Egfr 5.0 >60 4 Potassium 5.5 mmol/L High 3.5-5.0 Anion Gap 20 mmol/L High 2-11 Laboratory test 12/30/2018 [facility] Partial 28.5 N 26.0- 36.[address] [place] [address] PTT [phone] CBC Auto Diff 12/11/2018 [facility] White Blood 13.9 High 3.5- 10.[address] Count 10^3/[place] [address] [phone] Red Blood Count 3.67 10^6/uL Low 3.70-4.87 [...] % Nucleated Red Blood Cells % 0.1 Platelet Count 12/11/2018 [facility] Platelet Count 274 10^3/uL N 150-450 [address] [place] [address] [phone] Mean Platelet Volume 9.7 fL N 7.4-10.4 Laboratory test 12/11/2018 [facility] Lactic Acid 1.1 mmol/L N 0.5-2.0 5 finding [address] [place] [address] [phone] B-Type Natriuretic Peptide BNP > 1300 pg/mL High <=100 Comp Metabolic Panel 12/11/2018 [facility] Sodium 138 mmol/L N 135-145 [address] [place] [address] [phone] Chloride 100 mmol/L Low 101-111 Co2 Carbon [...] Egfr Non- 3.3 >60 Egfr 4.0 >60 6 Potassium 5.6 mmol/L High 3.5-5.0 Anion Gap 18 mmol/L High 2-11 Laboratory test 12/11/2018 [facility] Troponin-I 0.04 ng/mL High <0.04 [address] (TnI) [place] [address] [phone] Laboratory test 12/11/2018 [facility] Partial 31.4 N 26.0- 36.[address] [address] PTT [phone] Inr/Protime 12/11/2018 [facility] Inr 0.95 N 0.82-1.[address] [place] [address] [phone] CBC Auto Diff 12/01/2018 [facility] White Blood 11.0 High 3.5- 10.[address] Count 10^3/[place] [address] [phone] Red Blood Count 3.84 10^6/uL N 3.70-4.87 [...] Cells % 0.1 Comp Metabolic Panel 12/01/2018 [facility] Sodium 139 mmol/L N 135-[address] [place] [address] [phone] Potassium 4.1 mmol/L N 3.5-5.0 Chloride 99 [...] Egfr 5.9 >60 9 Laboratory test 12/01/2018 [facility] Troponin-I 0.12 ng/mL High <0.04 [address] (TnI) [place] [address] [phone] Lactic Acid 2.5 mmol/L High 0.5-2.0 11 Rapid HIV Nonreactive Nonreactive Hepatitis B Surface Ag Nonreactive Nonreactive Hepatitis B Jose 12/01/2018 [facility] Hepatitis B Immune Immune AB Titer [address] [place] [address] [phone] Hep B Surf AB Level > 1000.00 mIU/mL >12 Hepatitis C Antibody 12/01/2018 [facility] HCV Index 0.[address] [place] [address] [phone] Hepatitis C Antibody Nonreactive Nonreactive Laboratory test 11/10/2018 [facility] B-Type > 1300 High <= [address] Natriuretic pg/[place] [address] Peptide BNP [phone] Inr/Protime 11/10/2018 [facility] Inr 0.94 N 0.77-1.[address] [place] [address] [phone] Laboratory test 11/10/2018 [facility] Lactic Acid 0.4 Low 0.5- 2.0 [address] mmol/[place] [address] [phone] Comp Metabolic 11/10/2018 [facility] Sodium 139 N 135-[address] mmol/[place] [address] [phone] Potassium 4.7 mmol/L N 3.5-5.0 Chloride 99 [...] Egfr Non- 3.4 >60 Egfr 4.1 >60 13 Laboratory test 11/10/2018 [facility] C Reactive 14.73 mg/L High <8.[address] [place] [address] [phone] Troponin-I (TnI) 0.05 ng/mL High <0.04 14 CBC Auto 11/10/2018 [facility] White Blood 12.8 10^3/uL High 3.5-10.[address] [place] [address] [phone] Red Blood Count 3.05 10^6/uL Low 3.70-4.87 [...] Blood Cells % 0.1 Laboratory test 11/10/2018 [facility] Blood Culture SEE RESULT [address] [place] [address] [phone] Inr/Protime 10/08/2018 [facility] Inr 0.93 N 0.77-[address] .02 [place] [address] [phone] Laboratory test 10/08/2018 [facility] Partial 28.8 seconds N 26.0-[address] Thrombo Time 6.3 [place] [address] PTT [phone] CBC Auto Diff 10/08/2018 [facility] White Blood 6.4 10^3/uL N 3.5-[address] Count .8 [place], [place] [address] [phone] Red Blood Count 4.53 10^6/uL N 4.00-5.40 [...] Cells % 0 Comp Metabolic Panel 10/08/2018 [facility] Sodium 139 mmol/L N 135-[address] [place] [address] [phone] Chloride 98 mmol/L Low 101-111 Co2 Carbon [...] Egfr Non- 4.0 >60 Egfr 4.8 >60 16 Potassium 5.5 mmol/L High 3.5-5.0 Anion Gap 16 mmol/L High 2-11 Laboratory test 10/08/2018 [facility] Troponin-I 0.05 High < 0.04 [address] (TnI) ng/[place] [address] [phone] CBC Auto Diff 09/23/2018 [facility] White Blood 7.6 N 3.5- 10.[address] Count 10^3/[place] [address] [phone] Red Blood Count 3.62 10^6/uL Low 4.00-5.40 [...] Cells % 0 Basic Metabolic Panel 09/23/2018 [facility] Sodium 138 mmol/L N 135-[address] [place] [address] [phone] Chloride 102 mmol/L N 101-111 Co2 Carbon Dioxide 18 mmol/L Low 22-32 Glucose 82 mg/dL N 70-100 Blood Urea Nitrogen 95 mg/dL High 6-24 Creatinine 13.70 mg/dL High 0.51-0.95 BUN/Creatinine Ratio 6.9 Low 8-20 Calcium 10.5 mg/dL High 8.6-10.3 Egfr Non- 2.8 >60 Egfr 3.4 >60 18 Potassium 5.6 mmol/L High 3.5-5.0 Anion Gap 18 mmol/L High 2-11 Laboratory test 05/15/2018 [facility] Clotest SEE RESULT [address] [place] [address] [phone] Laboratory test 05/15/2018 [facility] Surgical SEE RESULT [address] [place] [address] [phone] Basic Metabolic 04/04/2018 [facility] Sodium 138 mmol/L N 135- [address] 5 [place] [address] [phone] Chloride 95 mmol/L Low 101-111 Co2 Carbon Dioxide 29 mmol/L N 22-32 Glucose 78 mg/dL N 70-100 Blood Urea Nitrogen 50 mg/dL High 6-24 Creatinine 10.14 mg/dL High 0.51-0.95 BUN/Creatinine Ratio 4.9 Low 8-20 Calcium 10.5 mg/dL High 8.6-10.3 Egfr Non- 4.0 >60 Egfr 4.8 >60 21 Potassium 5.3 mmol/L High 3.5-5.0 Anion Gap 14 mmol/L High 2-11 Laboratory test 04/04/2018 [facility] TSH (Thyroid 3.46 mcIU/mL N 0.34-5.[address] Stim Horm) [place] [address] [phone] Hemoglobin A1c (Glyco HGB) 5.7 % High 4.0-5.6 22 Fructosamine 331 mcmol/L Abnormal 200 - 285 23 Phosphorus 7.5 mg/dL High 2.5-5.0 Magnesium 2.3 mg/dL N 1.9-2.7 Pthi 04/04/2018 [facility] Calcium (PTH Intact) 10.3 mg/dL N 8.6-10.3 [address] [place] [address] [phone] PTH Intact 16.3 pmol/L High 1.3-9.3 Basic Metabolic Panel 03/15/2018 [facility] Sodium 137 mmol/L N 135-145 [address] [place] [address] [phone] Potassium 5.1 mmol/L High 3.5-5.0 Chloride 98 mmol/L Low 101-111 Co2 Carbon Dioxide 26 mmol/L N 22-32 Anion Gap 13 mmol/L High 2-11 Glucose 76 mg/dL N 70-100 Blood Urea Nitrogen 41 mg/dL High 6-24 Creatinine 7.83 mg/dL High 0.51-0.95 BUN/Creatinine Ratio 5.2 Low 8-20 Calcium 9.9 mg/dL N 8.6-10.3 Egfr Non- 5.4 >60 Egfr 6.5 >60 24 Inr/Protime 03/15/2018 [facility] Inr 0.90 N 0.77-1.02 [address] [place] [address] [phone] CBC Auto Diff 03/15/2018 [facility] White Blood 6.1 10^3/uL N 3.5-10.[address] [place] [address] [phone] Red Blood Count 4.12 10^6/uL N 4.00-5.40 [...] Red Blood Cells % 0.1 Laboratory test 03/15/2018 [facility] Partial 30.1 seconds N 26.0-36.[address] [place] [address] PTT [phone] Comp Metabolic 01/28/2018 [facility] Sodium 139 mmol/L N 135- [address] [place] [address] [phone] Potassium 4.7 mmol/L N 3.5-5.0 Chloride 94 [...] Egfr 5.9 >60 25 Lipid Profile 01/28/2018 [facility] Triglycerides 86 mg/dL 26 (Trig/Chol/HDL) [address] [place] [address] [phone] Cholesterol 185 mg/dL 27 HDL Cholesterol 67.5 mg/dL 28 LDL Cholesterol 100 mg/dL 29 CBC Auto Diff 01/28/2018 [facility] White Blood 7.3 10^3/uL N 3.5-10.[address] [place] [address] [phone] Red Blood Count 3.65 10^6/uL Low 4.00-5.40 [...] Blood Cells % 0.1 Laboratory test 01/25/2018 [facility] Cytology SEE RESULT finding [address] [place] [address] [phone] 1 SEE RESULT BELOW Name: JAIRON DONOVAN : [address]: Omaira Navarrete MD Acct: [id number] Unit: [id number] AGE: 53 Location: [place] [id number] Re12/31/18 Dis: 01/03/19 SEX: F Status: DIS IN SPEC: [id number] GIGI: 12/30/[address] [facility] [address]: Madan Sorensen MD REQ: [id number] RECD: 12/30/18 STATUS: COMP LAWRENCE DR: Radha Lockhart MD _ SOURCE: BLOOD,VENO SPDESC: ORDERED: Blood Cult Procedure Result Reported Site Aerobic Culture Bottle Final 01/04/19- 1628 ML No Growth Day 5 Anaerobic Culture Bottle Final 01/04/19- 1628 ML No Growth Day 5 * ML - Main Lab . END OF REPORT DEPARTMENT OF PATHOLOGY, [address] [place] [address] Lv Chua M.D. Director [facility] # [id number] [facility] Severe Sepsis and Septic Shock Management Bundle Measure requires all lactic acids initially measuring >2.0 mmol/L be repeated. 3 Standard intensity warfarin therapeutic range: 2.0-3.0 High intensity warfarin therapeutic range: 2.5-3.5 4 Because ethnic data is not always readily [...] 15-29 5 Kidney failure <15 (or dialysis) 5 [facility] Severe Sepsis and Septic Shock Management Bundle Measure requires all lactic acids initially measuring >2.0 mmol/L be repeated. 6 Because ethnic data is not always readily [...] 15-29 5 Kidney failure <15 (or dialysis) 7 Result TnIDx:0.04 Called to ABY Morrow RN at: 09:54:22 by:[id number] Read back by:ABY Morrow RN Troponin-I testing on Plasma Separator Tubes (PST) has a known false positive rate of 0.20-0.40%. All positive troponins reflex immediately to secondary confirmatory testing. Using the TuTanda DxI 800 Access Immunoassay systems, the 99th percentile upper reference limit was demonstrated to be < 0.03 ng/mL. 8 Standard intensity warfarin therapeutic range: 2.0-3.0 High intensity warfarin therapeutic range: 2.5-3.5 9 Because ethnic data is not always [...] (or dialysis) 10 Result TnIDx:0.12 Called to [id number] at: 00:25:46 by:[id number] Read back by: [id number] Troponin-I testing on Plasma Separator Tubes (PST) has a known false positive rate of 0.20-0.40%. All positive troponins reflex immediately to secondary confirmatory testing. Using the Tu[employer] DxI 800 Access Immunoassay systems, the 99th percentile upper reference limit was demonstrated to be < 0.03 ng/mL. 11 Critical Result LACT:2.5 Called to [id number] at: 00:22:31 by:[id number] Read back by:[id number] [facility] Severe Sepsis and Septic Shock Management Bundle Measure requires all lactic acids initially measuring >2.0 mmol/L be repeated. 12 [facility] Severe Sepsis and Septic Shock Management Bundle Measure requires all lactic acids initially measuring >2.0 mmol/L be repeated. 13 Because ethnic data is not always [...] 5 Kidney failure <15 (or dialysis) 14 Result TnIDx:0.05 Called to [id number] at: 20:13:35 by:[id number] Read back by: [id number] Troponin-I testing on Plasma Separator Tubes (PST) has a known false positive rate of 0.20-0.40%. All positive troponins reflex immediate secondary confirmatory testing. 15 SEE RESULT BELOW Name: JAIRON DONOVAN : [address]: Froilan Alcantar MD Acct: [id number] Unit: [id number] AGE: 53 Location: [place] [id number] Re11/10/18 Dis: 11/11/18 SEX: F Status: DIS Angela SPEC: [id number] GIGI: 11/10/[address]: Venkatesh Francisco MD REQ: [id number] RECD: 11/10/18 STATUS: COMP OTHR DR: Radha Lockhart MD _ SOURCE: BLOOD,VENO SPDES: ORDERED: Blood Cult COMMENTS: Saranya FA Procedure Result Reported Site Aerobic Culture Bottle Final 041944 ML No Growth Day 5 Anaerobic Culture Bottle Final 11/15/181944 ML No Growth Day 5 * ML - Main Lab . END OF REPORT DEPARTMENT OF PATHOLOGY, [address] [place] [address] vL Chua M.D. Director [facility] # [id number] 16 Because ethnic data is not always [...] 5 Kidney failure <15 (or dialysis) 17 Result TnIDx:0.05 Called to [id number] at: 02:08:15 by:[id number] Read back by: [id number] Troponin-I testing on Plasma Separator Tubes (PST) has a known false positive rate of 0.20-0.40%. All positive troponins reflex immediate secondary confirmatory testing. 18 Because ethnic data is not always [...] (or dialysis) 19 SEE RESULT BELOW Name: JAIRON DONOVAN : [address]: Hayde Trevino MD Acct: [id number] Unit: [id number] AGE: 52 Location: ENDO Re05/15/18 SEX: F Status: REG REF SPEC: [id number] GIGI: 05/15/[address] [facility] [address]: Hayde Ureña MD REQ: [id number] RECD: 05/15/18 STATUS: LEE BRAVO DR: Honorio Luo MD _ SOURCE: GAS ANTRUM SPDESC: ORDERED: Clotest Procedure Result Reported Site Clotest Final 05/16/18- 0715 ML Clotest Negative * ML - Main Lab . END OF REPORT DEPARTMENT OF PATHOLOGY, [address] [place] [address] Lv Chua M.D. Director [facility] # [id number] 20 SEE RESULT BELOW Name: JAIRON DONOVAN : [address]: Hayde Trevino MD Acct: [id number] Unit: [id number] AGE: 52 Location: ENDO Re05/15/18 SEX: F Status: DEP REF SPEC: [id number] GIGI: 05/15/18- SUBM DR: Hayde Ureña MD REQ: [id number] RECD: 05/16/18-1639 STATUS: ELYSE BRAVO DR: Ra Luo MD [...] CONTINUED ON NEXT PAGE DEPARTMENT OF PATHOLOGY, [address] [place] [address] Lv Chua M.D. Director [facility] # [id number] RUN DATE: 05/17/18 [facility] LAB LIVE PAGE 2 Patient: JAIRON DONOVAN [id number] (Continued) GROSS DESCRIPTION (Continued) Signed by and Reported on: Danyell Cevallos MD 05/17/18 1313 END OF REPORT DEPARTMENT OF PATHOLOGY, [address] [place], [place] [id number] Lv Chua M.D. Director [facility] # [id number] 21 Because ethnic data is not always [...] 5 Kidney failure <15 (or dialysis) 22 Therapeutic target for the treatment of diabetes mellitus patients is <7% HBA1C, and in selective patients <6.0%. Please refer to [place] [employer] diabetic care guidelines for further information. 23 Test Performed by: [address] [address] 24 Because ethnic data is not always [...] 130-159 High: 160-189 Very High: >189 30 [id number] 31 SEE RESULT BELOW Name: JAIRON DONOVAN : [address]: Alexis Mckee MD Acct: [id number] Unit: [id number] AGE: 52 Location: [facility] Re01/25/18 SEX: F Status: REG REF SPEC: [id number] GIGI: 01/25/18-[address] [facility] [address]: Alexis Mckee MD REQ: [id number] RECD: 01/25/18 STATUS: SOUT _ ORDERED: TP IMAGE ANALYS, HPV/Thin Prep COMMENTS: [id number] Negative for Intraepithelial lesion or Malignancy A. [...] by and Reported on: CHRIS Varela (ASC) 1427 This Pap test was evaluated with the assistance of the Runnerp Test Imaging System. Due to cytologic findings at the audio engineer microscope, comprehensive manual rescreening by a Equipment Driver may be required. The Pap Smear is [...] years. END OF REPORT DEPARTMENT OF PATHOLOGY, [address] [place] [address] Lv Chua M.D. Director [facility] # [id number] Procedures Date Code Description Status 01/29/2019 16908 Inject Tendon Sheath Or Ligament Aponeurosis Eg Plantar Completed Fascia 01/17/2019 31170 EKG Tracing & Interpretation Completed 01/03/2019 56264 Hemodialysis, One Evaluation Completed 01/02/2019 15541 Hemodialysis, One Evaluation Completed 12/31/2018 28429 Hemodialysis, One Evaluation Completed 12/13/2018 61602 Hemodialysis, One Evaluation Completed 12/12/2018 39528 Insertion Tunneled Cent Venous Cathr W/O Subcut Completed Port/Pump 5Yrs> 12/12/2018 10441 Ultrasound Guidance For Vascular Access Completed 12/12/2018 27302 Fluoroscopic Guidance For Cent Completed 12/12/2018 83619 Hemodialysis, One Evaluation Completed 12/11/2018 22792 EKG, Interpretation Only Completed 12/02/2018 64167 EKG, Interpretation Only Completed 12/02/2018 57677 ECHO Transthorasic Realtime 2D W Doppler & Color Flow Completed Hosp 12/02/2018 60485 Insert Non-Tunneled Venous Catether Completed 12/02/2018 20633 Insert Non-Tunneled Venous Catether Completed 12/02/2018 73528 Endo-Trachial Tube Completed 09/24/2018 92860 Dialysis Circuit W/ Transluminal Balloon Angioplasty, Completed Peripheral 09/24/2018 00949 Translum Balloon Angio Central Dial Segment Through Completed Dialys Circui 09/24/2018 83237 Ultrasound Guidance For Vascular Access Completed 09/24/2018 64169 Moderate Sedation Services; Same Phys Intl 15 Mins; PT Completed >=5 Years 07/19/2018 [id number] Colonoscopy Completed 05/27/2018 40863 EKG Tracing & Interpretation Completed 05/21/2018 [id number] Colonoscopy Completed 03/29/2018 27990 Moderate Sedation Services; Same Phys Intl 15 Mins; PT Completed >=5 Years 03/29/2018 64764 Ultrasound Guidance For Vascular Access Completed 03/29/2018 04301 Dialysis Circuit W/ Transluminal Balloon Angioplasty, Completed Peripheral 03/04/2018 04171 EKG Tracing & Interpretation Completed 02/18/2018 14553 Treadmill Interp/Report Only Completed 02/18/2018 19066 Stress Test Supervsn W/Out I/R Completed 02/04/2018 [id number] Mammogram Completed 12/06/2017 35905 ECHO Transthorasic Realtime 2D W Doppler & Color Flow Completed Hosp 12/05/2017 47914 EKG, Interpretation Only Completed 10/29/2017 78591 Closed [place] Phalanx finger/thumb shaft w/o manipulation Completed Encounters Type Date Location Provider Dx Diagnosis Office Visit 01/17/2019 [facility] Denys Fountain, I50.22 Chronic systolic 4:00p Of [facility] DO FACC (congestive) heart failure N18.6 End stage renal disease I11.0 Hypertensive heart disease with heart failure I15.9 Secondary hypertension, unspecified Office Visit 01/03/2019 [facility] Inés I82.B12 Acute embolism 8:27a rani Revaes PA-C and thrombosis Hospitalists of left subclavian vein I10 Essential (primary) hypertension Z99.2 Dependence on renal dialysis Office Visit 01/02/2019 [facility] Lauren L03.114 Cellulitis of 8:27a rani Reaves, left upper limb 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 N18.6 End stage renal disease I34.0 Nonrheumatic mitral (valve) insufficiency Office Visit 12/12/2018 8:25a [facility] Christian Mclean96.01 Acute respiratory MD failure with hypoxia J81.0 Acute pulmonary edema Z99.11 Dependence on respirator [ventilator] status Office Visit 12/11/2018 8:24a [facility] Nephrology Karen E87.70 Fluid overload, MD Yakelin unspecified N18.6 End stage renal disease J96.01 Acute respiratory failure with hypoxia Office Visit 12/11/2018 8:24a [facility] Christian Mclean96.Adrianna Acute respiratory MD failure with hypoxia J81.0 Acute pulmonary edema Office Visit 12/06/2018 [facility] J96.01 Acute respiratory 9:03a Assoc,[facility] [place], failure with Hospitalists MEDICAL UNDERWRITER hypoxia R10.84 Generalized abdominal pain N18.6 End stage renal disease Office Visit 12/05/2018 [facility] J96.01 Acute respiratory 9:02a Assoc, Rito [place], failure with Hospitalists MEDICAL UNDERWRITER hypoxia R10.84 Generalized abdominal pain N18.6 End stage renal disease Office Visit 12/04/2018 [facility] J96.01 Acute respiratory 9:01a Assoc, Rito [place], failure with Hospitalists MEDICAL UNDERWRITER hypoxia R10.84 Generalized abdominal pain N18.6 End stage renal disease Office Visit 12/03/2018 8:59a [facility] Miranda Gonzales96.01 Acute respiratory MD Rufino failure with hypoxia J81.0 Acute pulmonary edema Office Visit 12/02/2018 2:08p [facility] Christian Mccormack96.01 Acute respiratory MD failure with hypoxia E87.70 Fluid overload, unspecified Office Visit 12/02/2018 8:57a [facility] Omaira Dilsaranya, J96.01 Acute respiratory Assoc,rani JOHNSON failure with Hospitalists hypoxia E87.70 Fluid overload, unspecified N18.6 End stage renal disease Office Visit 11/22/2018 10:40a [facility] Internal Radha Lockhart MD R06.02 Shortness of Medicine - Ccmob breath R14.0 Abdominal distension (gaseous) E87.79 Other fluid overload 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 M25.441 Effusion, right hand Office Visit 11/11/2018 8:28a [facility] Mitesh R06.02 Shortness of Assoc,pc VIANEY Padilla breath Hospitalists E87.79 Other fluid overload 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 N18.6 End stage renal disease Office Visit 11/10/2018 8:28a [facility] Lauryn Vanessa R06.02 Shortness of Assoc,rani Llanos 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 N18.6 End stage renal disease E87.79 Other fluid overload Office Visit 08/09/2018 [facility] Internal Radha Lockhart, J06.9 Acute upper 11:20a Buddy JOHNSON respiratory infection, unspecified 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 G43.009 Migraine w/o aura, not intractable, w/o status migrainosus K63.5 Polyp of colon Office Visit 05/27/2018 10:00a [facility] Internal Radha Lockhart, Z01.818 Encounter for other Medicine - MD preprocedural Suite R examination 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 reflux disease without Suite R esophagitis I10 Essential (primary) hypertension N18.6 End stage renal disease Office Visit 03/04/2018 1:00p [facility] Denys Griffiths I11.9 Hypertensive heart [facility] [place], DO disease without FACC heart failure N18.6 End stage renal disease Z01.810 Encounter for preprocedural cardiovascular examination I48.0 Paroxysmal atrial fibrillation Office Visit 01/18/2018 9:00a [facility] Internal [place] Puja, I12.0 Hyp chr kidney Medicine - Suite M.D. disease w [...] Raised antibody titer Office Visit 12/07/2017 8:53a [facility] Lauryn Vanessa, R04.2 Hemoptysis Assoc,rani Llanos Hospitalists N18.6 End stage renal disease I10 Essential (primary) hypertension R74.8 Abnormal levels of other serum enzymes Office Visit 12/06/2017 7:00a [facility] Honorio Browne, R76.0 Raised antibody Services Of Singh Llanos titer R04.2 Hemoptysis N18.6 End stage renal disease Z99.2 Dependence on renal dialysis Office Visit 12/06/2017 8:52a [facility],rani Gonzalez MD R04.2 Hemoptysis Hospitalists N18.6 End stage renal disease I10 Essential (primary) hypertension R74.8 Abnormal levels of other serum enzymes Office Visit 12/05/2017 8:51a [facility],rani Gonzalez MD R04.2 Hemoptysis Hospitalists N18.6 End stage renal disease I10 Essential (primary) hypertension R74.8 Abnormal levels of other serum enzymes Office Visit 12/04/2017 8:49a [facility], Colten Gonzalez MD R04.2 Hemoptysis Hospitalists N18.6 End stage renal disease I10 Essential (primary) hypertension R74.8 Abnormal levels of other serum enzymes Plan of Treatment Future Appointment(s):05/26/2019 11:20 am - [facility] Katina Reynolds M.D.M65.4 Radial styloid tenosynovitis [de Quervain]Follow up:Follow up: As jwdspcJ45.11 Unilateral primary osteoarthritis of first carpometacarpal j
--- OUTSIDE RECORDS SUMMARY | 2019-02-05 10:15 | XMS REPORT | Continuity of Care Document ---
:1965 External Reference #:[id number] Author Name Sara Russell Care Team Providers Name Role Phone Radha Lockhart M.D. Primary Care Physician Unavailable Payers Date Identification Numbers Payment Provider Subscriber Policy Number: [id number] Medicare Jairon العلي PayID: [id number] [address] [place] [address] Policy Number: [id number] Medicaid Jairon العلي Group Name: 1 1 [address] PayID: [id number] [place] [address] Policy Number: [id number] [facility] Jairon العلي PayID: [id number] [address] Problems Active Problems Provider Date Hemoptysis Honorio [...] son, who is a PhD candidate at [employer] Occupation Disabled ETOH Use Denies alcohol use Tobacco Use Start: Unknown Patient has never smoked Recreational Drug Use Never Used Drugs Smoking Status Reviewed: 01/17/19 Patient has never smoked Exercise Type/Frequency Exercises [...] 1 by mouth 2x/day Unknown 20mg Capsules Sensipahollis one tablet daily Unknown 90mg Tablets Renvela 3 tabs three Unknown 800mg Tablets times a day Nifedipine ER 1 by mouth every Unknown 60mg day Tablets ER 24HR Lisinopril 1 by mouth every Unknown 40mg Tablets evening Alphagan P instill 1 drop Brand, Johan, 0.1% into Right eye Solution three times daily Protonix 1 by mouth daily Unknown 40mg Tablets for [address] Mina 8 Hour take one tab by Unknown 650mg mouth every 4 Tablets ER hours Oxycodone-Acetaminoph 1 tabs by mouth Unknown en every 4-6 hours 5-325mg Tablets as needed for pain History Medications Sumatriptan one by mouth as [...] two Unknown - times/day 08/09/2018 25mg Tablets Immunizations CPT Code Status Date Vaccine Lot # [id number] Given 01/18/2018 Pneumococcal Conjugate Vaccine 13 Valent For [id number] Intramuscular Use Vital Signs Date Vital Result [...] Result H/L Range Note Laboratory test 12/30/2018 [facility] C Reactive 17.38 mg/L High <8.[address] [place] [address] [phone] Blood Culture SEE RESULT BELOW 1 Comp Metabolic Panel 12/30/2018 [facility] Sodium 138 mmol/L N 135-[address] [place] [address] [phone] Chloride 97 mmol/L Low 101-111 Co2 Carbon [...] 20 mmol/L High 2-11 Laboratory test 12/30/2018 [facility] Lactic Acid 0.5 mmol/L N 0.5-2.0 [address] [place] [address] [phone] CBC Auto Diff 12/30/2018 [facility] White Blood 8.2 10^3/uL N 3.5-10.[address] [place] [address] [phone] Red Blood Count 3.50 10^6/uL Low 3.70-4.87 [...] Blood Cells % 0.0 Laboratory test 12/30/2018 [facility] Partial 28.5 seconds N 26.0-36.[address] [place] [address] PTT [phone] Inr/Protime 12/30/2018 [facility] Inr 1.03 N 0.82-1.[address] [place] [address] [phone] Platelet Count 12/11/2018 [facility] Platelet 274 10^3/uL N 150-[address] [place] [address] [phone] Mean Platelet Volume 9.7 fL N 7.4-10.4 Laboratory test 12/11/2018 [facility] Partial 31.4 N 26.0- 36.[address] [address] PTT [phone] CBC Auto Diff 12/11/2018 [facility] White Blood 13.9 High 3.5- 10.[address] Count 10^3/[place] [address] [phone] Red Blood Count 3.67 10^6/uL Low 3.70-4.87 [...] Blood Cells % 0.1 Laboratory test 12/11/2018 [facility] Lactic Acid 1.1 mmol/L N 0.5-2.0 [address] [place] [address] [phone] B-Type Natriuretic Peptide BNP > 1300 pg/mL High <=100 Inr/Protime 12/11/2018 [facility] Inr 0.95 N 0.82-1.[address] [place] [address] [phone] Laboratory test 12/11/2018 [facility] Troponin-I 0.04 High < 0.04 [address] (TnI) ng/[place] [address] [phone] Comp Metabolic 12/11/2018 [facility] Sodium 138 N 135-[address] mmol/[place] [address] [phone] Chloride 100 mmol/L Low 101-111 Co2 Carbon [...] 18 mmol/L High 2-11 CBC Auto 12/01/2018 [facility] White Blood 11.0 10^3/uL High 3.5-10.[address] [place] [address] [phone] Red Blood Count 3.84 10^6/uL N 3.70-4.87 [...] Cells % 0.1 Hepatitis C Antibody 12/01/2018 [facility] HCV Index 0.[address] [place] [address] [phone] Hepatitis C Antibody Nonreactive Nonreactive Comp Metabolic Panel 12/01/2018 [facility] Sodium 139 mmol/L N 135-[address] [place] [address] [phone] Potassium 4.1 mmol/L N 3.5-5.0 Chloride 99 [...] Egfr 5.9 >60 9 Laboratory test 12/01/2018 [facility] Troponin-I 0.12 ng/mL High <0.[address] (TnI) [place] [address] [phone] Lactic Acid 2.5 mmol/L High 0.5-2.0 11 Rapid HIV Nonreactive Nonreactive Hepatitis B Surface Ag Nonreactive Nonreactive Hepatitis B Jose 12/01/2018 [facility] Hepatitis B Immune Immune AB Titer [address] [place] [address] [phone] Hep B Surf AB Level > 1000.00 mIU/mL >12 Laboratory 11/10/2018 [facility] B-Type > 1300 High <=100 test finding [address] Natriuretic pg/[place] [address] Peptide BNP [phone] Laboratory 11/10/2018 [facility] Blood Culture SEE RESULT 12 test finding [address] [place] [address] [phone] Inr/Protime 11/10/2018 [facility] Inr 0.94 N 0.77-1.[address] [place] [address] [phone] Laboratory 11/10/2018 [facility] Lactic Acid 0.4 mmol/L Low 0.5-2.0 13 test finding [address] [place] [address] [phone] Comp Metabolic 11/10/2018 [facility] Sodium 139 mmol/L N 135- [address] [place] [address] [phone] Potassium 4.7 mmol/L N 3.5-5.0 Chloride 99 [...] Egfr 4.1 >60 14 CBC Auto 11/10/2018 [facility] White Blood 12.8 10^3/uL High 3.5-10.[address] [place] [address] [phone] Red Blood Count 3.05 10^6/uL Low 3.70-4.87 [...] Blood Cells % 0.1 Laboratory test 11/10/2018 [facility] C Reactive 14.73 mg/L High <8.[address] [place] [address] [phone] Troponin-I (TnI) 0.05 ng/mL High <0.04 15 Inr/Protime 10/08/2018 [facility] Inr 0.93 N 0.77-1.[address] [place] [address] [phone] CBC Auto Diff 10/08/2018 [facility] White Blood 6.4 10^3/uL N 3.5-10.[address] [place] [address] [phone] Red Blood Count 4.53 10^6/uL N 4.00-5.40 [...] Blood Cells % 0 Laboratory test 10/08/2018 [facility] Partial 28.8 N 26.0- 36.[address] [place] [address] Time PTT [phone] Laboratory test 10/08/2018 [facility] Troponin-I 0.05 ng/mL High <0.[address] (TnI) [place], [place] [phone] Comp Metabolic 10/08/2018 [facility] Sodium 139 mmol/L N 135- [address] [place] [address] [phone] Chloride 98 mmol/L Low 101-111 Co2 Carbon [...] mmol/L High 2-11 Basic Metabolic Panel 09/23/2018 [facility] Sodium 138 mmol/L N 135-[address] [place] [address] [phone] Chloride 102 mmol/L N 101-111 Co2 Carbon Dioxide 18 mmol/L Low 22-32 Glucose 82 mg/dL N 70-100 Blood Urea Nitrogen 95 mg/dL High 6-24 Creatinine 13.70 mg/dL High 0.51-0.95 BUN/Creatinine Ratio 6.9 Low 8-20 Calcium 10.5 mg/dL High 8.6-10.3 Egfr Non- 2.8 >60 Egfr 3.4 >60 18 Potassium 5.6 mmol/L High 3.5-5.0 Anion Gap 18 mmol/L High 2-11 CBC Auto Diff 09/23/2018 [facility] White Blood 7.6 10^3/uL N 3.5-10.[address] [place] [address] [phone] Red Blood Count 3.62 10^6/uL Low 4.00-5.40 [...] Blood Cells % 0 Laboratory test 05/15/2018 [facility] Clotest SEE RESULT [address] [place] [address] [phone] Laboratory test 05/15/2018 [facility] Surgical SEE RESULT [address] [place] [address] [phone] Laboratory test 04/04/2018 [facility] TSH (Thyroid 3.46 mcIU/mL N 0.34-[address] Stim Horm) .60 [place] [address] [phone] Hemoglobin A1c (Glyco HGB) 5.7 % High 4.0-5.6 21 Fructosamine 331 mcmol/L Abnormal 200 - 285 22 Phosphorus 7.5 mg/dL High 2.5-5.0 Magnesium 2.3 mg/dL N 1.9-2.7 Basic Metabolic Panel 04/04/2018 [facility] Sodium 138 mmol/L N 135-[address] [place] [address] [phone] Chloride 95 mmol/L Low 101-111 Co2 Carbon Dioxide 29 mmol/L N 22-32 Glucose 78 mg/dL N 70-100 Blood Urea Nitrogen 50 mg/dL High 6-24 Creatinine 10.14 mg/dL High 0.51-0.95 BUN/Creatinine Ratio 4.9 Low 8-20 Calcium 10.5 mg/dL High 8.6-10.3 Egfr Non- 4.0 >60 Egfr 4.8 >60 23 Potassium 5.3 mmol/L High 3.5-5.0 Anion Gap 14 mmol/L High 2-11 Pthi 04/04/2018 [facility] Calcium (PTH Intact) 10.3 mg/dL N 8.6-10.[address] [place] [address] [phone] PTH Intact 16.3 pmol/L High 1.3-9.3 Basic Metabolic Panel 03/15/2018 [facility] Sodium 137 mmol/L N 135-145 [address] [place] [address] [phone] Potassium 5.1 mmol/L High 3.5-5.0 Chloride 98 mmol/L Low 101-111 Co2 Carbon Dioxide 26 mmol/L N 22-32 Anion Gap 13 mmol/L High 2-11 Glucose 76 mg/dL N 70-100 Blood Urea Nitrogen 41 mg/dL High 6-24 Creatinine 7.83 mg/dL High 0.51-0.95 BUN/Creatinine Ratio 5.2 Low 8-20 Calcium 9.9 mg/dL N 8.6-10.3 Egfr Non- 5.4 >60 Egfr 6.5 >60 24 CBC Auto Diff 03/15/2018 [facility] White Blood 6.1 10^3/uL N 3.5-10.[address] [place] [address] [phone] Red Blood Count 4.12 10^6/uL N 4.00-5.40 [...] Red Blood Cells % 0.1 Inr/Protime 03/15/2018 [facility] Inr 0.90 N 0.77-1.[address] [place] [address] [phone] Laboratory test 03/15/2018 [facility] Partial 30.1 seconds N 26.0-36.[address] [place] [address] PTT [phone] Comp Metabolic 01/28/2018 [facility] Sodium 139 mmol/L N 135- [address] [place] [address] [phone] Potassium 4.7 mmol/L N 3.5-5.0 Chloride 94 [...] Egfr 5.9 >60 25 Lipid Profile 01/28/2018 [facility] Triglycerides 86 mg/dL 26 (Trig/Chol/HDL) [address] [place] [address] [phone] Cholesterol 185 mg/dL 27 HDL Cholesterol 67.5 mg/dL 28 LDL Cholesterol 100 mg/dL 29 CBC Auto Diff 01/28/2018 [facility] White Blood 7.3 10^3/uL N 3.5-10.[address] [place] [address] [phone] Red Blood Count 3.65 10^6/uL Low 4.00-5.40 [...] Blood Cells % 0.1 Laboratory test 01/25/2018 [facility] Cytology SEE RESULT 30, [address] [place] [address] [phone] 1 SEE RESULT BELOW Name: JAIRON DONOVAN : [address]: Omaira Navarrete MD Acct: [id number] Unit: [id number] AGE: 53 Location: [facility] 410-02 Re12/31/18 Dis: 01/03/19 SEX: F Status: DIS IN SPEC: [id number] GIGI: 12/30/[address]: Madan Sorensen MD REQ: [id number] RECD: 12/30/18 STATUS: COMP OTHR DR: Radha Lockhart MD _ SOURCE: BLOOD,VENO SPDESC: ORDERED: Blood Cult Procedure Result Reported Site Aerobic Culture Bottle Final 01/04/19- 8 ML No Growth Day 5 Anaerobic Culture Bottle Final 01/04/19- 1628 ML No Growth Day 5 * ML - Main Lab . END OF REPORT DEPARTMENT OF PATHOLOGY, [address] [place] [address] Lv Chua M.D. Director [facility] # [id number] 2 Because ethnic data is not always [...] 5 Kidney failure <15 (or dialysis) 3 [facility] Severe Sepsis and Septic Shock Management Bundle Measure requires all lactic acids initially measuring >2.0 mmol/L be repeated. 4 Standard intensity warfarin therapeutic range: 2.0-3.0 High intensity warfarin therapeutic range: 2.5-3.5 5 [facility] Severe Sepsis and Septic Shock Management Bundle Measure requires all lactic acids initially measuring >2.0 mmol/L be repeated. 6 Standard intensity warfarin therapeutic range: 2.0-3.0 High intensity warfarin therapeutic range: 2.5-3.5 7 Result TnIDx:0.04 Called to ABY Morrow RN at: 09:54:22 by:[id number] Read back by:ABY Morrow RN Troponin-I testing on Plasma Separator Tubes (PST) has a known false positive rate of 0.20-0.40%. All positive troponins reflex immediately to secondary confirmatory testing. Using the [employer] 800 Access Immunoassay systems, the 99th percentile [...] (or dialysis) 10 Result TnIDx:0.12 Called to [id number] at: 00:25:46 by:[id number] Read back by: [id number] Troponin-I testing on Plasma Separator Tubes (PST) has a known false positive rate of 0.20-0.40%. All positive troponins reflex immediately to secondary confirmatory testing. Using the [employer] 800 Access Immunoassay systems, the 99th percentile upper reference limit was demonstrated to be < 0.03 ng/mL. 11 Critical Result LACT:2.5 Called to [id number] at: 00:22:31 by:[id number] Read back by:[id number] [facility] Severe Sepsis and Septic Shock Management Bundle Measure requires all lactic acids initially measuring >2.0 mmol/L be repeated. 12 SEE RESULT BELOW Name: JAIRON DONOVAN JAYLA : [address]: Froilan Alcantar MD Acct: [id number] Unit: [id number] AGE: 53 Location: [place] [address] Re11/10/18 Dis: 11/11/18 SEX: F Status: DIS Angela SPEC: [id number] GIGI: 11/10/[address] [facility] [address]: Venkatesh Francisco MD REQ: [id number] RECD: 11/10/18 STATUS: LEE BRAVO DR: Radha Lockhart MD _ SOURCE: BLOOD,VENO SPDESC: ORDERED: Blood Cult COMMENTS: L FA Procedure Result Reported Site Aerobic Culture Bottle Final 11/15/18- 1944 ML No Growth Day 5 Anaerobic Culture Bottle Final 11/15/18- 1944 ML No Growth Day 5 * ML - Main Lab . END OF REPORT DEPARTMENT OF PATHOLOGY, [address] [place] [address] Lv Chua M.D. Director [facility] # [id number] 13 [facility] Severe Sepsis and Septic Shock Management Bundle [...] (or dialysis) 15 Result TnIDx:0.05 Called to [id number] at: 20:13:35 by:[id number] Read back by: ODELL Troponin-I testing on Plasma Separator Tubes (PST) has a known false positive rate of 0.20-0.40%. All positive troponins reflex immediate secondary confirmatory testing. 16 Result TnIDx:0.05 Called to [id number] at: 02:08:15 by:[id number] Read back by: [id number] Troponin-I testing on Plasma Separator Tubes (PST) [...] [address]: Hayde Trevino MD Acct: [id number] Unit: [id number] AGE: 52 Location: ENDO Re05/15/18 SEX: F Status: REG REF SPEC: [id number] GIGI: 05/15/[address]: Hayde Ureña MD REQ: [id number] RECD: 05/15/18 STATUS: LEE BRAVO DR: Honorio Luo MD _ SOURCE: GAS ANTRUM SPDESC: ORDERED: Clotest Procedure Result Reported Site Clotest Final 05/16/18- 714 ML Clotest Negative * ML - Main Lab . END OF REPORT DEPARTMENT OF PATHOLOGY, [address] [place] [address] Lv Chua M.D. Director [facility] # [id number] 20 SEE RESULT BELOW Name: JAIRON DONOVAN : [address]: Hayde Trevino MD Acct: [id number] Unit: [id number] AGE: 52 Location: ENDO Re05/15/18 SEX: F Status: DEP REF SPEC: [id number] GIGI: 05/15/18- SUBM DR: Hayde Ureña MD REQ: [id number] RECD: 05/16/18 STATUS: ELYSE BRAVO DR: Ra [...] CONTINUED ON NEXT PAGE DEPARTMENT OF PATHOLOGY, [address] [place] [address] Lv Chua M.D. Director [facility] # [id number] RUN DATE: 05/17/18 [facility] LAB LIVE PAGE 2 Patient: JAIRON DONOVAN [id number] (Continued) SHALA DESCRIPTION (Continued) Signed by and Reported on: Danyell Cevallos MD 05/17/18 1313 END OF REPORT DEPARTMENT OF PATHOLOGY, [address] [place] [address] Lv Chua M.D. Director [facility] # [id number] 21 Therapeutic target for the treatment of diabetes mellitus patients is <7% HBA1C, and in selective patients <6.0%. Please refer to [place] [employer] diabetic care guidelines for further information. 22 Test Performed by: [address] [address] 23 Because ethnic data is not always [...] 130-159 High: 160-189 Very High: >189 30 [id number] 31 SEE RESULT BELOW Name: STEPHAN JALILJAIRON JAYLA : [address]: Alexis Mckee MD Acct: [id number] Unit: [id number] AGE: 52 Location: [facility] Re01/25/18 SEX: F Status: REG REF SPEC: [id number] GIGI: 01/25/18-[address]: Alexis Mckee MD REQ: [id number] RECD: 01/25/18 STATUS: SOUT _ ORDERED: TP IMAGE ANALYS, HPV/Thin Prep COMMENTS: [id number] Negative for Intraepithelial lesion or Malignancy A. [...] by and Reported on: CHRIS Varela (ASCP) 1424 This Pap test was evaluated with the assistance of the [employer] Test Imaging System. Due to cytologic findings at the glass bulb silverer microscope, comprehensive manual rescreening by a Front Desk Agent may be required. The Pap Smear is [...] years. END OF REPORT DEPARTMENT OF PATHOLOGY, [address] [place] [address] Lv Chua M.D. Director [facility] # [id number] Procedures Date Code Description Status 01/17/2019 12224 EKG Tracing & Interpretation Completed 01/03/2019 97332 Hemodialysis, One Evaluation Completed 01/02/2019 82507 Hemodialysis, One Evaluation Completed 12/31/2018 97790 Hemodialysis, One Evaluation Completed 12/13/2018 86131 Hemodialysis, One Evaluation Completed 12/12/2018 03082 Hemodialysis, One Evaluation Completed 12/12/2018 34452 Fluoroscopic Guidance For Cent Completed 12/12/2018 70634 Ultrasound Guidance For Vascular Access Completed 12/12/2018 32852 Insertion Tunneled Cent Venous Cathr W/O Subcut Completed Port/Pump 5Yrs> 12/02/2018 53324 ECHO Transthorasic Realtime 2D W Doppler & Color Flow Completed Hosp 12/02/2018 27486 Insert Non-Tunneled Venous Catether Completed 12/02/2018 11735 Insert Non-Tunneled Venous Catether Completed 12/02/2018 43444 Endo-Trachial Tube Completed 09/24/2018 07274 Dialysis Circuit W/ Transluminal Balloon Angioplasty, Completed Peripheral 09/24/2018 92739 Translum Balloon Angio Central Dial Segment Through Completed Dialys Circui 09/24/2018 77373 Ultrasound Guidance For Vascular Access Completed 09/24/2018 30687 Moderate Sedation Services; Same Phys Intl 15 Mins; PT Completed >=5 Years 07/19/2018 [id number] Colonoscopy Completed 05/27/2018 79620 EKG Tracing & Interpretation Completed 05/21/2018 39010300 Colonoscopy Completed 03/29/2018 04356 Moderate Sedation Services; Same Phys Intl 15 Mins; PT Completed >=5 Years 03/29/2018 73069 Ultrasound Guidance For Vascular Access Completed 03/29/2018 83203 Dialysis Circuit W/ Transluminal Balloon Angioplasty, Completed Peripheral 03/04/2018 26631 EKG Tracing & Interpretation Completed 02/18/2018 51787 Treadmill Interp/Report Only Completed 02/18/2018 69822 Stress Test Supervsn W/Out I/R Completed 02/04/2018 41577602 Mammogram Completed 12/06/2017 65399 ECHO Transthorasic Realtime 2D W Doppler & Color Flow Completed Hosp 12/05/2017 91628 EKG, Interpretation Only Completed 10/29/2017 25240 Closed [place] Phalanx finger/thumb shaft w/o manipulation Completed Encounters Type Date Location Provider Dx Diagnosis Office Visit 01/02/2019 [facility] L03.114 Cellulitis of 8:27a Assoc,pc Rito Todd, left upper limb Hospitalists [employer]ODUCT [employer] I82.B12 Acute embolism and thrombosis of left subclavian vein Office Visit 01/01/2019 [facility] L03.114 Cellulitis of 8:26a ,rani Todd, left upper limb Hospitalists [employer]ODUCT [employer] I82.B12 Acute embolism and thrombosis of left subclavian vein I10 Essential (primary) hypertension Office Visit 12/31/2018 8:26a [facility] Mitesh L03.114 Cellulitis of Assoc,rani Padilla, PA left upper limb Hospitalists Z99.2 Dependence on renal dialysis Office Visit 12/30/2018 8:25a [facility] Mitesh L03.114 Cellulitis of Assoc,pc Valerie, PA left upper limb Hospitalists Z99.2 Dependence on renal dialysis Office Visit 12/14/2018 [facility] Neno J96.01 Acute 8:27a rani Reaves M.D. respiratory Hospitalists failure with hypoxia J81.0 Acute pulmonary edema N18.6 End stage renal disease Office Visit 12/13/2018 12:06p [facility] Qutasharon S. J81.0 Acute pulmonary Romi Soto 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 N18.6 End stage renal disease I34.0 Nonrheumatic mitral (valve) insufficiency Office Visit 12/13/2018 8:26a [facility] Christian Donald96.01 Acute respiratory M.D. failure with hypoxia J81.0 Acute pulmonary edema Office Visit 12/12/2018 8:25a [facility] Christian Mclean96.01 Acute respiratory MD failure with hypoxia J81.0 Acute pulmonary edema Z99.11 Dependence on respirator [ventilator] status Office Visit 12/11/2018 8:24a [facility] Nephrology Karen E87.70 Fluid overload, MD Yakelin unspecified N18.6 End stage renal disease J96.01 Acute respiratory failure with hypoxia Office Visit 12/11/2018 8:24a [facility] Christian Mclean96.01 Acute respiratory MD failure with hypoxia J81.0 Acute pulmonary edema Office Visit 12/06/2018 [facility] J96.01 Acute respiratory 9:03a rani Reaves, failure with Hospitalists [employer] hypoxia R10.84 Generalized abdominal pain N18.6 End stage renal disease Office Visit 12/05/2018 [facility] J96.01 Acute respiratory 9:02a Assoc,rani Todd, failure with Hospitalists [employer] hypoxia R10.84 Generalized abdominal pain N18.6 End stage renal disease Office Visit 12/04/2018 [facility] J96.01 Acute respiratory 9:01a Assoc,rani Todd, failure with Hospitalists [employer] hypoxia R10.84 Generalized abdominal pain N18.6 End stage renal disease Office Visit 12/03/2018 8:59a [facility] Miranda J96.01 Acute respiratory MD Rufino failure with hypoxia J81.0 Acute pulmonary edema Office Visit 12/02/2018 2:08p [facility] Emmanuelle Da Silva J96.01 Acute respiratory failure with hypoxia E87.70 Fluid overload, unspecified Office Visit 12/02/2018 8:57a [facility] Omaira Navarrete J96.01 Acute respiratory Assrani weiner MD failure with Hospitalists hypoxia E87.70 Fluid overload, unspecified N18.6 End stage renal disease Office Visit 11/22/2018 10:40a [facility] Internal Radha Lockhart MD R06.02 Shortness of Medicine - Ccmob breath R14.0 Abdominal distension (gaseous) E87.79 Other fluid overload 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 M25.441 Effusion, right hand Office Visit 11/11/2018 8:28a [facility] Mitesh R06.02 Shortness of Assoc,VIANEY Cochran breath Hospitalists E87.79 Other fluid overload 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 N18.6 End stage renal disease Office Visit 11/10/2018 8:28a [facility] Lauryn Vanessa R06.02 Shortness of Assoc,rani Llanos 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 N18.6 End stage renal disease E87.79 Other fluid overload Office Visit 08/09/2018 DoNotUse [facility] Internal Radha Lockhart, J06.9 Acute upper 11:20a Buddy JOHNSON respiratory infection, unspecified 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 G43.009 Migraine w/o aura, not intractable, w/o status migrainosus K63.5 Polyp of colon Office Visit 05/27/2018 10:00a [facility] Internal Radha Lockhart, Z01.818 Encounter for other Medicine - MD preprocedural Suite R examination 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 reflux disease without Suite R esophagitis I10 Essential (primary) hypertension N18.6 End stage renal disease Office Visit 03/04/2018 1:00p [place] [facility] Denys Griffiths I11.9 Hypertensive heart Of [facility] Fountain, DO disease without FACC heart failure N18.6 End stage renal disease Z01.810 Encounter for preprocedural cardiovascular examination I48.0 Paroxysmal atrial fibrillation Office Visit 01/18/2018 9:00a [facility] Internal Ra Luo, I12.0 Hyp chr kidney Medicine - Suite M.DSruthi disease w R stage 5 chr kidney [...] Raised antibody titer Office Visit 12/07/2017 8:53a [facility] Lauryn Vanessa, R04.2 Hemoptysis Assoc,rani Llanos Hospitalists N18.6 End stage renal disease I10 Essential (primary) hypertension R74.8 Abnormal levels of other serum enzymes Office Visit 12/06/2017 7:00a Rheumatology Honorio Browne, R76.0 Raised antibody Services Of [facility] Leah. titer R04.2 Hemoptysis N18.6 End stage renal disease Z99.2 Dependence on renal dialysis Office Visit 12/06/2017 8:52a [facility], Colten Gonzalez MD R04.2 Hemoptysis Hospitalists N18.6 End stage renal disease I10 Essential (primary) hypertension R74.8 Abnormal levels of other serum enzymes Office Visit 12/05/2017 8:51a [facility], Colten Gonzalez MD R04.2 Hemoptysis Hospitalists N18.6 End stage renal disease I10 Essential (primary) hypertension R74.8 Abnormal levels of other serum enzymes Office Visit 12/04/2017 8:49a [facility], Colten Gonzalez MD R04.2 Hemoptysis Hospitalists N18.6 End stage renal disease I10 Essential (primary) hypertension R74.8 Abnormal levels of other serum enzymes Plan of Treatment Future Appointment(s):01/29/2019 10:00 am - Katina Reynolds M.D. at [facility]01/27/2019 10:00 am - Radha Lockhart MD at [facility]:00 am - Radha Lockhart MD at [facility] - Denys Fountain DO FACCI50.22 Chronic systolic (congestive ) heart failureNew Orders:Echocardiogram, Ordered: 01/17/19Follow up:6 months
--- NOTE | 2019-02-05 10:49 | ED ---
Hypertension - HPI Summary HPI Summary: This patient is a 53 year old F presenting to [facility] accompanied by with a chief complaint of hypertension for approximately one month. Pt was supposed to have surgery to dilate the AV fistulas; however she could not be taken to surgery because the anesthesiologist noticed HTN, when measuring blood pressure from legs. She reports that in dialysis, blood pressure is always high, but has not been treated as it is asymptomatic. Pt denies BEDOLLA, CP, SOB or changes in vision. - History of Current Complaint Chief Complaint: EDHypertension Stated Complaint: ELEVATED BP PER NURSE Time Seen by Provider: 02/05/19 09:52 Hx Obtained From: Patient Onset/Duration: Started Weeks Ago - approx 1 month, Still Present Timing: Constant Aggravating Factor(s): Nothing Alleviating Factor(s): Nothing Associated Signs & Symptoms: Negative - Chest Pain, BEDOLLA, SOB, changes in vision - Allergies/Home Medications Allergies/Adverse Reactions: Allergies Allergy/AdvReac Type Severity Reaction Status Date / Time aspirin Allergy Severe Bleeding Verified 02/05/19 07:20 hydralazine Allergy Severe Bleeding Verified 02/05/19 07:20 PMH/Surg Hx/FS Hx/Imm Hx Endocrine/Hematology History: Denies: Hx Diabetes Cardiovascular History: Reports: Hx Hypertension - ON MEDICATION FOR, Hx Peripheral Vascular Disease Denies: Hx Angina, Hx Coronary Artery Disease, Hx Hypercholesterolemia, Hx Myocardial Infarction, Hx Pacemaker/ICD, Hx Valvular Heart Disease, Other Cardiovascular Problems/Disorders Respiratory History: Reports: Hx Asthma, Hx Pulmonary Edema - hx of Denies: Hx Chronic Obstructive Pulmonary Disease (COPD), Other Respiratory Problems/Disorders GI History: Reports: Hx Gastroesophageal Reflux Disease - ON MEDICATION FOR, Hx Ulcer - with aspirin in small intestine Denies: Other GI Disorders History: Reports: Hx Chronic Renal Failure, Hx Dialysis, Hx Kidney Stones - hx of Denies: Hx Kidney Infection, Other Problems/Disorders Musculoskeletal History: Denies: Hx Arthritis, Other Musculoskeletal History Sensory History: Reports: Hx Cataracts - RIGHT EYE, Hx Glaucoma - RIGHT EYE Denies: Hx Contacts or Glasses, Hx Eye Injury, Hx Eye Prosthesis, Hx Legally Blind, Hx Macular Degeneration, Hx Vision Problem, Hx Deafness, Hx Hearing Aid, Hx Hearing Problem, Other Sensory Impairments Opthamlomology History: Reports: Hx Cataracts - RIGHT EYE, Hx Glaucoma - RIGHT EYE Denies: Hx Contacts or Glasses, Hx Eye Injury, Hx Eye Prosthesis, Hx Legally Blind, Hx Macular Degeneration, Hx Vision Problem, Other Sensory Impairments Neurological History: Reports: Hx Headaches Denies: Other Neuro Impairments/Disorders - Cancer History Hx Chemotherapy: No - Surgical History Surgery Procedure, Year, and Place: AV Fistula in 2016. CATARACT RIGHT EYE. CLOSED FISTULA RIGHT ARM 2019. fistula left arm. RIGHT THIGH FISTULA. Insertion of right subclavian hemodialysis catheter 01/11/19 Hx Anesthesia Reactions: No - Immunization History Date of Tetanus Vaccine: unk Date of Influenza Vaccine: unk Infectious Disease History: No Infectious Disease History: Denies: Traveled Outside the [place] in Last 30 Days - Family History Known Family History: Positive: Hypertension, Diabetes - Social History Alcohol Use: None Hx Substance Use: No Substance Use Type: Reports: None Hx Tobacco Use: Yes Smoking Status (MU): Never Smoked Tobacco Have You Smoked in the Last Year: No Review of Systems Negative: Blurred Vision Positive: Other - pos -HTN. Negative: Chest Pain Negative: Shortness Of Breath Negative: Headache All Other Systems Reviewed And Are Negative: Yes Physical Exam - Summary Physical Exam Summary: VITAL SIGNS: Reviewed. GENERAL: Patient is a well-developed and nourished female who is lying comfortable in the stretcher. Patient is not in any acute respiratory distress. HEAD AND FACE: No signs of trauma. No ecchymosis, hematomas or skull depressions. No sinus tenderness. EYES: PERRLA, EOMI x 2, No injected conjunctiva, no nystagmus. EARS: Hearing grossly intact. Ear canals and tympanic membranes are within normal limits. MOUTH: Oropharynx within normal limits. NECK: Supple, trachea is midline, no adenopathy, no JVD, no carotid bruit, no c- spine tenderness, neck with full ROM. CHEST: Symmetric, no tenderness at palpation. Bilateral AV Fistula LUNGS: Clear to auscultation bilaterally. No wheezing or crackles. CVS: Regular rate and rhythm, S1 and S2 present, no murmurs or gallops appreciated. ABDOMEN: Soft, non-tender. No signs of distention. No rebound no guarding, and no masses palpated. Bowel sounds are normal. EXTREMITIES: FROM in all major joints, no edema, no cyanosis or clubbing. NEURO: Alert and oriented x 3. No acute neurological deficits. Speech is normal and follows commands. SKIN: Dry and warm. Triage Information Reviewed: Yes Vital Signs On Initial Exam: Initial Vitals Temp Pulse Resp BP Pulse Ox 98.1 F 90 16 253/138 97 02/05/19 09:55 02/05/19 09:55 02/05/19 09:55 02/05/19 09:55 02/05/19 09:55 Vital Signs Reviewed: Yes Diagnostics - Vital Signs Vital Signs Temp Pulse Resp BP Pulse Ox 02/05/19 09:55 98.1 F 90 16 253/138 97 - Laboratory Lab Statement: Any lab studies that have been ordered have been reviewed, and results considered in the medical decision making process. Hypertension Course/Dx - Course Course Of Treatment: This patient is a 53 year old F presenting to [facility] accompanied by with a chief complaint of hypertension for approximately one month. Pt was supposed to have surgery to dilate the AV fistulas; however she could not be taken to surgery because the anesthesiologist noticed HTN, when measuring blood pressure from legs. She reports that in dialysis, blood pressure is always high, but has not been treated as it is asymptomatic. Pt denies BEDOLLA, CP, SOB or changes in vision. Past medical history significant for end-stage renal disease, she is on hemodialysis, Sunday, and Sunday. Pulmonary edema, hypertension, subclavian occlusion, cellulitis, hypertension, hemoptysis. The patient is asymptomatic. She does not report any complaints. I discussed my physical exam findings and the blood pressure with Dr. Hamlin, the patients spud driller and she recommends just to keep the lisinopril and the Procardia during the day and she can take the metoprolol at nighttime. She will have dialysis tomorrow so therefore she will see the patient tomorrow and adjust the medications if needed. At this time she doesn t recommend any workup and the interim blood work or any IV medications for this patient. Therefore the patient will be discharged home with follow-up with PCP. I discussed and the plan with the patient and the patients and they agree. - Diagnoses Provider Diagnoses: Uncontrolled hypertension - Physician Notifications Discussed Care Of Patient With: Karen Hamlin Time Discussed With Above Provider: 11:04 Instructed by Provider To: Other - Discussed case pt case with Dr Hamlin, who also reported high HTN when measured from legs, reccomended giving her lisinopril and procardia, and to discharge her home. Dr. Hamlin will see her tomorrow in dialysis. Discharge - Sign-Out/Discharge Documenting (check all that apply): Patient Departure - Discharge Patient Received Moderate/Deep Sedation with Procedure: No - Discharge Plan Condition: Stable Disposition: HOME Patient Education Materials: Hypertension (ED) Referrals: Radha Lockhart MD [Primary Care Provider] - 3 Days Karen Hamlin MD [Medical Doctor] - 1 Day Additional Instructions: Follow up with Dr. Hamlin tomorrow, 02/06/19, in dialysis. FOLLOW UP WITH YOUR PRIMARY CARE PROVIDER WITHIN THREE DAYS. RETURN TO THE ED FOR ANY WORSENING OR NEW SYMPTOMS. - Billing Disposition and Condition Condition: STABLE Disposition: Home - Attestation Statements Document Initiated by Venita: Yes Documenting Scribe: Karen Abdi Provider For Whom Venita is Documenting (Include Credential): Dr. Alfonzo Valencia MD Scribe Attestation: Karen Spear scribed for Dr. Alfonzo Valencia MD on 02/05/19 at 2130. Scribe Documentation Reviewed: Yes Provider Attestation: The documentation as recorded by the Karen guerrero accurately reflects the service I personally performed and the decisions made by me, Dr. Alfonzo Valencia MD Status of Scribe Document: Viewed
[2019-02-05] MEDS ORDERED: Lisinopril TAB* 10 MG PO ONE (11:08)
[2019-02-05] MEDS ORDERED: NIFEdipine CAP* 10 MG PO ONE (11:09)
[2019-02-05] MEDS ORDERED: NIFEdipine ER TAB* 60 MG PO ONE (11:30)
[2019-02-05 11:34] VITALS: BP 228/109
== END 2019-02-05 11:33 | disposition home or self-care (01) ==
LOC: ED 09:38
DX: I12.0 Hypertensive chronic kidney disease with stage 5 chronic kidney disease or end stage renal disease (principal); N18.6 End stage renal disease; K21.9 Gastro-esophageal reflux disease without esophagitis; I73.9 Peripheral vascular disease, unspecified; Z99.2 Dependence on renal dialysis; Z88.8 Allergy status to other drugs, medicaments and biological substances
CPT/HCPCS: 99282; A9270-GY

== ENCOUNTER 2019-02-09 20:50 | Emergency (ER) | payer MEDICARE, MEDICAID ==
[2019-02-09] MEDS ORDERED: Nitro 2% OINT* (Nitroglycerin) 1 INCH/PAK PAK ONE (21:09)
--- NOTE | 2019-02-09 21:34 | ED ---
Shortness of Breath - HPI Summary HPI Summary: Pt is a 53 y/o F brought in by EMS to [facility] for SOB and increased vomiting. Her son states that she was suffering from heat flashes and SOB since last night which got worse throughout today. She began vomiting prior to calling EMS. She states that she had dialysis yesterday. She reports being diaphoretic and nauseas. She has swelling to her L arm. She denies any abdominal pain, headaches , diarrhea, sore throat, and new rashes. She has a previous Hx of pulmonary edema. She has no aggravating or alleviating factors. Her last dialysis treatment was yesterday. - History of Current Complaint Chief Complaint: EDShortnessOfBreath Time Seen by Provider: 02/09/19 20:54 Hx Obtained From: Patient, Family/Corrections Counselor - son Onset/Duration: Gradual Onset, Lasting Days - 1, Still Present, Worse Since Timing: Constant Current Severity: Moderate Dyspnea At: Rest Aggravating Factors: Nothing Alleviating Factors: Nothing Associated Signs & Symptoms: Negative - abdominal pain, headaches, diarrhea, sore throat, and new rashes., Cough (Nonproductive), Diaphoresis Related History: Similar Episode - Pt's son stated that she had pulmonary edema before - Allergy/Home Medications Allergies/Adverse Reactions: Allergies Allergy/AdvReac Type Severity Reaction Status Date / Time aspirin Allergy Severe Bleeding Verified 02/05/19 07:20 hydralazine Allergy Severe Bleeding Verified 02/05/19 07:20 PMH/Surg Hx/FS Hx/Imm Hx Previously Healthy: No Endocrine/Hematology History: Denies: Hx Diabetes Cardiovascular History: Reports: Hx Hypertension - ON MEDICATION FOR, Hx Peripheral Vascular Disease Denies: Hx Angina, Hx Coronary Artery Disease, Hx Hypercholesterolemia, Hx Myocardial Infarction, Hx Pacemaker/ICD, Hx Valvular Heart Disease, Other Cardiovascular Problems/Disorders Respiratory History: Reports: Hx Asthma, Hx Pulmonary Edema - hx of Denies: Hx Chronic Obstructive Pulmonary Disease (COPD), Other Respiratory Problems/Disorders GI History: Reports: Hx Gastroesophageal Reflux Disease - ON MEDICATION FOR, Hx Ulcer - with aspirin in small intestine Denies: Other GI Disorders History: Reports: Hx Chronic Renal Failure, Hx Dialysis, Hx Kidney Stones - hx of Denies: Hx Kidney Infection, Other Problems/Disorders Musculoskeletal History: Denies: Hx Arthritis, Other Musculoskeletal History Sensory History: Reports: Hx Cataracts - RIGHT EYE, Hx Glaucoma - RIGHT EYE Denies: Hx Contacts or Glasses, Hx Eye Injury, Hx Eye Prosthesis, Hx Legally Blind, Hx Macular Degeneration, Hx Vision Problem, Hx Deafness, Hx Hearing Aid, Hx Hearing Problem, Other Sensory Impairments Opthamlomology History: Reports: Hx Cataracts - RIGHT EYE, Hx Glaucoma - RIGHT EYE Denies: Hx Contacts or Glasses, Hx Eye Injury, Hx Eye Prosthesis, Hx Legally Blind, Hx Macular Degeneration, Hx Vision Problem, Other Sensory Impairments Neurological History: Reports: Hx Headaches Denies: Other Neuro Impairments/Disorders - Cancer History Hx Chemotherapy: No - Surgical History Surgery Procedure, Year, and Place: AV Fistula in 2016. CATARACT RIGHT EYE. CLOSED FISTULA RIGHT ARM 2019. fistula left arm. RIGHT THIGH FISTULA. Insertion of right subclavian hemodialysis catheter 01/11/19 Hx Anesthesia Reactions: No - Immunization History Date of Tetanus Vaccine: unk Date of Influenza Vaccine: unk Infectious Disease History: Denies: Traveled Outside the US in Last 30 Days - Family History Known Family History: Positive: Hypertension, Diabetes - Social History Alcohol Use: None Hx Substance Use: No Substance Use Type: Reports: None Hx Tobacco Use: Yes Smoking Status (MU): Never Smoked Tobacco Have You Smoked in the Last Year: No Review of Systems Positive: Chills, Skin Diaphoresis. Negative: Fever Negative: Sore Throat Negative: Chest Pain Positive: Shortness Of Breath, Cough Positive: Vomiting, Nausea. Negative: Abdominal Pain, Diarrhea Negative: Rash Negative: Headache All Other Systems Reviewed And Are Negative: Yes Physical Exam - Summary Physical Exam Summary: Appearance: Burmese woman in moderate distress. Skin: Warm, dry, no obvious rash Eyes: sclera anicteric, no conjunctival pallor ENT: mucous membranes moist, pharynx appears normal Neck: Supple, nontender Respiratory: Lungs on the R has crackles to the apex, L is normal breath sounds. Labored breathing Cardiovascular: Normal S1, S2. No murmurs. Normal distal pulses in tibial and radial bilaterally. Abdomen: Soft, nontender, normal active bowel sounds present Musculoskeletal: Normal, Strength/ROM Intact, no significant edema in her legs Neurological: A&Ox3, awake and alert, mentation is normal, speech is fluent and appropriate Psychiatric: affect is normal, does not appear anxious or depressed Triage Information Reviewed: Yes Vital Signs On Initial Exam: Initial Vitals Pulse Resp Pulse Ox 131 44 93 07/07/19 21:22 02/09/19 21:22 02/09/19 21:22 Vital Signs Reviewed: Yes Procedures - Central Line Right Femoral Central Line Lumen: triple Central Line Procedure: betadine prep Central Line Position: femoral (R) Anesthesia: Lidocaine Complications: catheter was not placed Diagnostics - Vital Signs Vital Signs Pulse Resp Pulse Ox 02/09/19 21:22 131 44 93 - Laboratory Lab Statement: Any lab studies that have been ordered have been reviewed, and results considered in the medical decision making process. - Radiology CXR Radiology Interpretation Completed By: ED Physician Summary of Radiographic Findings: Her CXR shows pulmonary edema. Pending offical review. 2nd CXR Radiology Interpretation Completed By: ED Physician Summary of Radiographic Findings: CXR at 5 is unchanged from her previous CXR. Pending offical review. - EKG 2106 Cardiac Rate: Tachycardia - 136 EKG Rhythm: Sinus Tachycardia ST Segment: Normal Ectopy: None Summary of EKG Findings: ST at 136 BPM, P waves, QRS complex, and T waves are within normal limits, T waves and intervals are normal, no ischemic changes. Interpreted by Dr. Romo at 222602/09/19. Re-Evaluation - Re-Evaluation First Eval Re-Evaluation Time: 21:47 Change: Unchanged Comment: Pt was informed of the CXR and the current plan of care and is agreeable. Course/Dx - Course Course Of Treatment: Pt is a 53 y/o F brought in by EMS to [facility] for SOB and increased vomiting. Her son states that she was suffering from heat flashes and SOB since last night which got worse throughout today. She began vomiting prior to calling EMS. Her PE found that she was in moderate distress and had crackles in her R lung to the apex while her L lungs were clear to ausciltation without significant edema in her lower extremities. Her EKG showed ST at 136 BPM, P waves, QRS complex, and T waves are within normal limits, T waves and intervals are normal, no ischemic changes. There are no changes to suggest hyperkalemia. Her CXR shows that she has pulmonary edema. She had a 2nd CXR taken at 2354 which was unchanged from her previous CXR. She had a complete respitory work- up conducted and also received a central line at 2153 which was not completed due to inability to pass the catheter over the wire. This was in the right temporal vein. I asked the surgeon on-call to try the left femoral and he was unable to gain access as well. Subsequently I ended up having to put in an intraosseous line in the left leg. Needless to say, this traumatic complicated her care. Nonetheless, she improved with respect to her breathing on BiPAP and with some topical nitrates. I have also given her some oral lisinopril to try to gently bring down her blood pressure. I do not have dialysis available here until 7 AM given the seriousness of her situation and limited access after discussion with the hospitalist was felt that the safest course of action was to transfer her to a tertiary care center for further care. At the present time , she is somewhat tachypnea, but does not have significant increased work of breathing. Her oxygen saturations are holding well. Consideration was made to draw blood from her femoral vein, but she still has quite a bit of pain related to the prior attempts at access and blood work was felt to be of limited utility with respect to her now that she is to be transferred. Transfer Center was called at 2356 to find a suitable hospital for the pt. Transfer Center was called at 2356 to find a suitable hospital for the pt. Dr. Pink, glue size machine operator, was contacted at [facility] and agreed to admit the pt to the ICU at [facility] at 0022 02/10/19. She was given the following medications during her ED course: Nitro 1 inch topically at 2109 and 2245, Lisinopril at 2247. - Diagnoses Provider Diagnoses: Pulmonary edema - Physician Notifications Instructed by Provider To: Other - Critical Care Time Critical Care Time: 30-74 min Discharge - Sign-Out/Discharge Documenting (check all that apply): Patient Departure - transfer to [facility], Dr. Pink, glue size machine operator. Patient Received Moderate/Deep Sedation with Procedure: No - Discharge Plan Condition: Stable Disposition: TRANS HIGHER LVL OF CARE FAC Referrals: Radha Lockhart MD [Primary Care Provider] - - Billing Disposition and Condition Condition: STABLE Disposition: Trans Higher Lvl of Care Fac - Attestation Statements Document Initiated by Scribe: Yes Documenting Scribe: Mauricio Walden Provider For Whom Scribe is Documenting (Include Credential): Isak Romo MD Scribe Attestation: Mauricio Spear scribed for Isak Romo MD on 02/10/19 at 0115. Scribe Documentation Reviewed: Yes Provider Attestation: The documentation as recorded by the scribe, Mauricio Walden accurately reflects the service I personally performed and the decisions made by me, Isak Romo MD Status of Scribe Document: Viewed Consult Consult: Dr. Sales was informed of the central line attempt at 2220 and will administer the central line himself. He was unable to plant the central line as well after multiple tries due to poor blood flow in her veins. Dr. Hamlin, nephrology, recommended admitting the pt to the ICU for further evaluation and observation to monitor the progress of her condition. Dr. Arroyo, Hospitalist, recommended transferring the pt to a different facility. Transfer Center was called at 1519 to find a suitable hospital for the pt. Dr. Pink, glue size machine operator, was contacted at [facility] and agreed to admit the pt to the ICU at [facility] at 0022 02/10/19.
[2019-02-09] MEDS ORDERED: Lidocaine 1% INJ* 10 MG/ML 30 ML SDV ONE (22:04)
[2019-02-09] MEDS ORDERED: Nitro 2% OINT* (Nitroglycerin) 1 INCH/PAK PAK TOPICAL ONE (22:45)
[2019-02-09] MEDS ORDERED: Lisinopril TAB* 10 MG PO ONE (22:47)
[2019-02-09] MEDS ORDERED: niCARdipine IV* 25 MG in NS 0.9% 250 ML* 240 ML IVPB SCH (23:00)
[2019-02-10 02:22] VITALS: BP 161/103
== END 2019-02-10 02:22 | disposition short-term general hospital (02) ==
LOC: ED 20:50
DX: J81.1 Chronic pulmonary edema (principal); R06.02 Shortness of breath; R11.10 Vomiting, unspecified; I10 Essential (primary) hypertension; I73.9 Peripheral vascular disease, unspecified; K21.9 Gastro-esophageal reflux disease without esophagitis; Z87.442 Personal history of urinary calculi; Z99.2 Dependence on renal dialysis; N18.6 End stage renal disease; I25.2 Old myocardial infarction
CPT/HCPCS: 71045; 93005; 99285; A9270-GY

== ENCOUNTER 2019-12-16 02:31 | Inpatient (IN) ==
[2019-12-16 03:13] LABS: ABS Basophils 0.1 10^3/ul (0-0.2); ABS Eosinophils 0.3 10^3/ul (0-0.6); ABS Lymphocytes 1.8 10^3/ul (1.0-4.8); ABS Monocytes 0.7 10^3/ul (0-0.8); Eosinophil % 3.8 %; Hematocrit 37 % (35-47); Lymphocyte % 24.5 %; Mean Corpuscular HGB Conc 32 g/dL (31-36); Mean Corpuscular Hemoglobin 30 pg (27-31); Mean Corpuscular Volume 94 fL (80-97); Mean Platelet Volume 10.2 fL (7.4-10.4); Platelet Count 201 10^3/uL (150-450); Red Blood Count 3.99 10^6 /uL (3.70-4.87); Red Cell Distribution Width 18 % (10-15); White Blood Count 7.4 10^3/uL (3.5-10.8)
[2019-12-16 03:28] LABS: Albumin 4.4 g/dL (3.2-5.2); BUN/Creatinine Ratio 6.7 (8-20); Calcium 10.1 mg/dL (8.6-10.3); EGFR Non-African American 4.1 (>60); Globulin 4.3 g/dL (2-4); Magnesium 2.7 mg/dL (1.9-2.7); Total Bilirubin 0.8 mg/dL (0.2-1.0); Total Protein 8.7 g/dL (6.4-8.9)
[2019-12-16 03:30] LABS: Troponin I 0.02 ng/mL (<0.03)
[2019-12-16] MEDS ORDERED: Labetalol IV 5 MG/ML 20 ml VIAL IV PUSH ONE ×2 (03:31→04:01)
[2019-12-16 04:04] LABS: Potassium 6.5 mmol/L (3.5-5.0)
[2019-12-16] MEDS ORDERED: CALCIUM GLUCONATE 1GM/50ML NS 1 GM/50 ML BAG IV ONE (04:06)
[2019-12-16] MEDS ORDERED: Sodium Polystyrene ORAL.SUSP 15 GM/60 ML BTL PO ONE (04:07)
[2019-12-16] MEDS ORDERED: Dextrose 50% Syringe 50 ml 25 GM/50 ML SYRINGE IV PUSH ONE (04:20)
[2019-12-16] MEDS ORDERED: Furosemide 40 mg/4 ml IV VIAL IV SLOW PU ONE ×2 (04:24→08:54)
[2019-12-16] MEDS ORDERED: Buffered Lidocaine 1% SYRIN 1 ml INTRADERM ONE (09:13)
[2019-12-16] MEDS: Heparin 5000 UNITS/ML 1 mL VIAL SUBCUT SCH ×2 (10:22→22:22)
[2019-12-16 12:41] LABS: Phosphorus 9.8 mg/dL (2.5-5.0)
[2019-12-16] MEDS: Heparin *DIALYSIS* ONLY 1,000 UNITS/ML VIAL DIALYSIS ONE ×4 (13:15→15:51)
[2019-12-17 06:16] LABS: BUN/Creatinine Ratio 6.7 (8-20); Calcium 9.8 mg/dL (8.6-10.3); EGFR African American 6.7 (>60); EGFR Non-African American 5.5 (>60)
[2019-12-17 06:19] LABS: Potassium 5.7 mmol/L (3.5-5.0)
[2019-12-17] MEDS: Heparin 5000 UNITS/ML 1 mL VIAL SUBCUT SCH ×2 (08:13→20:24)
[2019-12-18] MEDS: Heparin 5000 UNITS/ML 1 mL VIAL SUBCUT SCH (08:15)
[2019-12-18] MEDS ORDERED: Heparin *DIALYSIS* ONLY 1,000 UNITS/ML VIAL DIALYSIS ONE (11:00)
[2019-12-18 12:34] VITALS: BP 203/109
[2019-12-18] MEDS: Heparin *DIALYSIS* ONLY 1,000 UNITS/ML VIAL DIALYSIS ONE ×2 (13:52→14:56)
== END 2019-12-18 18:25 | disposition home or self-care (01) | DRG 291 ==
LOC: ED 02:31 → ICU 06:35 → MEDTELE 12-17 08:50
PROVIDERS: ADMIT Hospitalist; ATTEND Internal Medicine

== ENCOUNTER 2023-05-07 17:21 | Inpatient (IN) ==
[2023-05-07] MEDS ORDERED: Albuterol/Ipratropium NEB.SOL (2.5/0.5 MG) 3 ML NEB.SOLN INH ONE (17:35)
[2023-05-07] MEDS ORDERED: Nitro 2% OINT (Nitroglycerin) 1 INCH/PAK TOPICAL ONE (17:36)
[2023-05-07 17:58] LABS: ABS Basophils 0.1 10^3/uL (0.0-0.1); ABS Eosinophils 0.2 10^3/uL (0.0-0.5); ABS Lymphocytes 1.6 10^3/uL (1.0-4.8); ABS Monocytes 0.4 10^3/uL (0.0-0.9); ABS Neutrophils 4.2 10^3/uL (1.5-7.6); ABS Nucleated RBC 0.01 10^3/ul; Eosinophil % 3.8 %; Hematocrit 31.3 % (35-45); Hemoglobin 10.4 g/dL (11.5-14.3); Mean Corpuscular Hgb Conc 33.2 g/dL (31-36); Mean Corpuscular Volume 90.2 fL (80-97); Mean Platelet Volume 10.7 fL (7.5-11.2); Nucleated Red Blood Cells % 0.1 /100 WBC (0.0-0.4); Platelet Count 146 10^3/uL (150-450); Red Blood Count 3.47 10^6/uL (3.63-4.92); Red Cell Distribution Width 18.2 % (12-17); White Blood Count 6.5 10^3/uL (3.8-11.8)
[2023-05-07 18:18] LABS: Albumin 4.2 g/dL (3.2-5.2); Magnesium 2.3 mg/dL (1.9-2.7); Potassium 4.4 mmol/L (3.5-5.0); Total Bilirubin 1.2 mg/dL (0.2-1.0)
[2023-05-07 18:24] LABS: Creatinine, Serum 8.27 mg/dL (0.51-0.95); Globulin 4.2 g/dL (2-4); Phosphorus 7.7 mg/dL (2.5-5.0); Total Protein 8.4 g/dL (6.4-8.9); eGFR CKD-EPI 5.2 (>60)
[2023-05-07 19:29] LABS: High Sensitivity Troponin 1 Hr 22 pg/mL (<15)
[2023-05-07] MEDS ORDERED: Albumin Human 25% 25 GM/100 ML BTL IV PRN (19:45)
[2023-05-07] MEDS ORDERED: NS 0.9% 1000 ml BAG 100 ML IV PRN (19:45)
[2023-05-07] MEDS ORDERED: NS 0.9% 1000 ml BAG 200 ML IV PRN (19:45)
[2023-05-07] MEDS ORDERED: Labetalol IV 5 MG/ML 20 ml VIAL IV PUSH ONE (22:52)
[2023-05-08] MEDS ORDERED: Labetalol IV 5 MG/ML 20 ml VIAL IV PUSH ONE ×3 (00:16→04:49)
[2023-05-08] MEDS ORDERED: Enalaprilat IV 1.25 mg/ml 1 ml VIAL (1.25 MG) IV ONE ×2 (01:58→03:00)
[2023-05-08 04:13] LABS: ABS Eosinophils 0.1 10^3/uL (0.0-0.5); ABS Lymphocytes 1.1 10^3/uL (1.0-4.8); ABS Monocytes 0.4 10^3/uL (0.0-0.9); ABS Neutrophils 3.3 10^3/uL (1.5-7.6); Eosinophil % 1.3 %; Hematocrit 27.8 % (35-45); Hemoglobin 9.1 g/dL (11.5-14.3); Lymphocyte % 22.4 %; Mean Corpuscular Hemoglobin 29.7 pg (27-33); Mean Corpuscular Hgb Conc 32.5 g/dL (31-36); Mean Corpuscular Volume 91.4 fL (80-97); Mean Platelet Volume 10.6 fL (7.5-11.2); Nucleated Red Blood Cells % 0.1 /100 WBC (0.0-0.4); Platelet Count 114 10^3/uL (150-450); Red Blood Count 3.05 10^6/uL (3.63-4.92); Red Cell Distribution Width 18.4 % (12-17); White Blood Count 4.9 10^3/uL (3.8-11.8)
[2023-05-08 04:23] LABS: Albumin 3.8 g/dL (3.2-5.2); Calcium 7.4 mg/dL (8.6-10.3); Creatinine, Serum 9.18 mg/dL (0.51-0.95); Direct Bilirubin 0.2 mg/dL (0.03-0.18); Globulin 3.8 g/dL (2-4); Indirect Bilirubin 0.9 mg/dL (0.3-1.0); Magnesium 2.2 mg/dL (1.9-2.7); Potassium 4.7 mmol/L (3.5-5.0); Total Bilirubin 1.1 mg/dL (0.2-1.0); Total Protein 7.6 g/dL (6.4-8.9); eGFR CKD-EPI 4.6 (>60)
[2023-05-08 05:02] LABS: Hepatitis B Surface Antigen Nonreactive (Nonreactive)
[2023-05-08 05:19] LABS: Hepatitis B Surface Ab Immune (Immune)
[2023-05-08] MEDS: Heparin 5000 UNITS/ML 1 mL VIAL SUBCUT SCH ×2 (08:34→21:18)
[2023-05-08] MEDS: Heparin 1,000 UNIT/ML 10 ml (10,000 UNITS) CATHLAB/DIALYSIS DIALYSIS PRN ×4 (10:39→13:39)
[2023-05-09] MEDS: Heparin 5000 UNITS/ML 1 mL VIAL SUBCUT SCH ×2 (09:09→20:18)
[2023-05-09 09:58] LABS: ABS Basophils 0.1 10^3/uL (0.0-0.1); ABS Eosinophils 0.1 10^3/uL (0.0-0.5); ABS Lymphocytes 1.1 10^3/uL (1.0-4.8); ABS Monocytes 0.6 10^3/uL (0.0-0.9); ABS Neutrophils 3.9 10^3/uL (1.5-7.6); Eosinophil % 2.5 %; Hematocrit 29.6 % (35-45); Hemoglobin 9.9 g/dL (11.5-14.3); Lymphocyte % 18.4 %; Mean Corpuscular Hemoglobin 29.6 pg (27-33); Mean Corpuscular Hgb Conc 33.6 g/dL (31-36); Mean Corpuscular Volume 88.1 fL (80-97); Mean Platelet Volume 10.4 fL (7.5-11.2); Nucleated Red Blood Cells % 0.1 /100 WBC (0.0-0.4); Platelet Count 125 10^3/uL (150-450); Red Blood Count 3.35 10^6/uL (3.63-4.92); Red Cell Distribution Width 17.8 % (12-17); White Blood Count 5.7 10^3/uL (3.8-11.8)
[2023-05-09 10:14] LABS: Albumin 3.8 g/dL (3.2-5.2); Albumin/Globulin Ratio 0.9 (1-3); Calcium 7.8 mg/dL (8.6-10.3); Creatinine, Serum 6.53 mg/dL (0.51-0.95); Globulin 4.1 g/dL (2-4); Potassium 4.2 mmol/L (3.5-5.0); Total Bilirubin 1.3 mg/dL (0.2-1.0); Total Protein 7.9 g/dL (6.4-8.9); eGFR CKD-EPI 6.9 (>60)
[2023-05-09] MEDS ORDERED: Pneumococcal Vac 23-Polyvalent IM ONE (11:00)
[2023-05-09] MEDS: Heparin 1,000 UNIT/ML 10 ml (10,000 UNITS) CATHLAB/DIALYSIS DIALYSIS PRN ×3 (14:00→16:04)
[2023-05-09 18:21] LABS: Calcium 8.7 mg/dL (8.6-10.3); Magnesium 1.7 mg/dL (1.9-2.7); Potassium 3.1 mmol/L (3.5-5.0)
[2023-05-09 18:26] LABS: Creatinine, Serum 2.66 mg/dL (0.51-0.95); eGFR CKD-EPI 20.2 (>60)
[2023-05-09] MEDS ORDERED: Magnesium Sulfate IV 3 GM in NS 0.9% 100 ml BAG 100 ML IVPB ONE ×2 (18:34→18:45)
[2023-05-09] MEDS ORDERED: Potassium Chlor 20 meq TAB.ER PO ONE (18:46)
[2023-05-10 06:51] LABS: ABS Eosinophils 0.1 10^3/uL (0.0-0.5); ABS Monocytes 0.8 10^3/uL (0.0-0.9); ABS Neutrophils 5.8 10^3/uL (1.5-7.6); Hematocrit 33.6 % (35-45); Hemoglobin 11.3 g/dL (11.5-14.3); Lymphocyte % 13.3 %; Mean Corpuscular Hemoglobin 29.6 pg (27-33); Mean Corpuscular Hgb Conc 33.5 g/dL (31-36); Mean Corpuscular Volume 88.5 fL (80-97); Mean Platelet Volume 10.4 fL (7.5-11.2); Platelet Count 133 10^3/uL (150-450); Red Cell Distribution Width 17.6 % (12-17); White Blood Count 7.8 10^3/uL (3.8-11.8)
[2023-05-10 08:04] LABS: Calcium 8.9 mg/dL (8.6-10.3); Potassium 4.8 mmol/L (3.5-5.0); eGFR CKD-EPI 9.5 (>60)
[2023-05-10 09:03] LABS: Magnesium 1.9 mg/dL (1.9-2.7)
[2023-05-10] MEDS: Heparin 5000 UNITS/ML 1 mL VIAL SUBCUT SCH (09:03)
[2023-05-10 13:01] VITALS: BP 122/74
== END 2023-05-10 13:00 | disposition home or self-care (01) | DRG 291 ==
LOC: ED 17:21 → SUATTDRO 20:49 → EDHOLD 20:49 → MEDTELE 05-08 09:54
PROVIDERS: ADMIT Hospitalist; ATTEND Internal Medicine